=== PATIENT | female | born 1955 | race Caucasian/White ===

== ENCOUNTER → 2017-03-24 | Outpatient (CLI) | payer BC, OTHER ==
[~2017-03-24] MED LIST: ALL180 PO; ALLDSR/24; CALCTAB5 PO; CHOLTAB3 PO; LSX20 PO; tribenzor
--- NOTE | 2017-03-25 05:55 | PAP/PSG TECHNICIAN REPORT ---
[facility] Cartridge Maker Polysomnogram Report Study name: None Report date: 03/25/2017 Study date: 03/24/2017 Referring Physician: Name: ISABEL PAUL Interpreting Physician: Admin Date of : 1955 Cartridge Maker: Marisel Alexander, PSGT. Sex: Female Age: 61 StudyType: PSG Weight: 208 lbs Height: 61 years, Height 5' 6.5" Neck Circum:16 inches BMI: 33.07 Medications: Astovastatin 20 mg, Amlodipine 5 mg, Gabapentin 300 mg, Losartan 25 mg, Furosemide 20 mg, Aspirin 81 mg. Patient History 61 yr. old female in room 5, presents [facility] for split night sleep study. states that she snores and feels like she sleeps alot.Does not always feel refreshed when she wakes for the day.Ess= 8, Neck = 16 inches. Parameters Monitored NPSG: E1-M2, E2-M1, Fp1-M2, Fp2-M1, F3-M2, F4-M2, F4-M1, C3-M2, C4-M2, C4-M1, O1-M2, O2-M2, O2-M1, T3-M2, T4-M1, P3-M2, P4-M1, CHIN1, CHIN2, HR, EKG, Legs, PFLOW, SNOR, FLOW, CFLOW, Tidal Volume, THOR, ABDO, SpO2, PLTH, CPRESS, ETCO2 Wave, ETCO2, pH Sleep Architecture Sleep Stages Time at Lights Off 9:38:53 PM STAGES Time (min.) TST (%) Time at Lights On 5:28:53 AM Wake 82.0 -- Total Recording Time (TRT) 470.50 min. N1 8.5 2 Total Sleep Period (TSP) 404.5 min. N2 304.5 78 Total Sleep Time (TST) 388.0min. N3 13.5 3 Awake Time 82.0 min. REM 61.5 16 Wake after Sleep Onset 16.5 min. Sleep Efficiency (SE) 83 % Sleep Onset Latency (JOSH) 65.5 min. Number of Stage 1 Shifts None Awakenings 4 Stage Changes 27 Number of REM periods 4 REM 61.5 16 REM Latency 76.0 min. NREM 326.5 84 Body Position Analysis Supine Right Left Side Prone Vertical Total Sleep Time (min.) 331.4 32.5 90.0 122.50 0.0 0.2 Total Sleep Time (%) 68% 8% 23% 32 0% N/A% Total Sleep Time REM (min.) 38.5 8.0 15.0 None 0.0 0.0 Total Sleep Time NREM (min.) 227.0 24.5 75.0 None 0.0 0.0 Intermittent Wake (min.) 65.9 7.7 8.2 None 0.0 0.2 Total Sleep Period (%) 69% None None None None None Arousals Myoclonus (PLM) * Events Count Index Events Count Index Spontaneous 17 3 Events Awake (PLMW) 1 0.7 Respiratory 14 2.2 Events Asleep w/ Arousal (PLMA) 2 0.3 PLM 2 0 Events Asleep w/o Arousal (PLMS) 58 9.0 Snoring 19 3 Total Asleep 60 9.3 Total 52 8 Total 61 8 Respiratory Analysis * CA OA MA CH H RERA Total Count 0 12 2 0 108 0 122 Index 0.0 1.9 0.3 0 16.7 0 18.9 Mean Duration 0.0 32.3 34.9 0.00 27.3 0.0 27.9 Longest Duration 0.0 52.7 46.2 0.00 46.2 0.0 53.6 Respiratory Event Summary Total Supine ~Supine Right Left Prone REM NREM Apneas Count 14 14 0 0 0 N/A 0 14 Index 2.2 3 0 0.0 0.0 N/A 0 3 Hypopneas (4% Desat) Count 108 89 19 0 19 N/A 13 95 Index 16.7 20.1 9 0.0 12.7 N/A 12.7 17.5 Apneas & All Hypopneas Count 122 103 19 0 19 N/A 13 109 Index 18.9 23 9 0 13 N/A 12.7 20.0 Respiratory Events (Horseradish Grinder+All Hyp+RERA) Count 122 103 19 0 19 N/A 13 109 Index 18.9 23 9 0.0 12.7 N/A 12.7 20.0 Respiratory Related Arousal Count 14 103 0 0 0 N/A 0 14 Index 2.2 3 0 0 0 N/A 0 3 Snoring Analysis Supine Right Left Prone REM NREM Total Snore duration 51.1 min Snores count 1,453 61 506 N/A 258 1,762 2,020 Snore mean duration 1.5 Sec Snores index 328 113 337 N/A 251.7 323.8 312.4 TST with snoring (%) 13.2% SpO2 Analysis Total REM NREM Awake <50% 0.0 min. 0.0 min. 0.0 min. 0.0 min. 51 - 60% 0.0 min. 0.0 min. 0.0 min. 0.0 min. 61 - 70% 0.0 min. 0.0 min. 0.0 min. 0.0 min. 71 - 80% 0.2 min. 0.0 min. 0.2 min. 0.0 min. 81 - 90% 237.3 min. 14.9 min. 194.3 min. 28.1 min. 91 - 100% 230.8 min. 46.6 min. 130.7 min. 53.4 min. Average 90 91 90 91 Minimum SpO2 79 86 79 85 Desaturation Event Index 17.1 11.7 22.4 0.0 # Desat. Events below 89% 98 8 90 N/A Time(%) with Saturation below 89% 24.0 1.2 19.6 3.3 Time(min.) with Saturation below 89% 112.6 5.4 91.6 15.6 Heart Rate Analysis End Tidal CO2 Analysis Min (bpm) Max (bpm) Average (bpm) TSP (mins) % of TSP Awake 54 91 67 Above 55 mmHg 0.0 0.0 NREM 48 127 60 50-55 mmHg 0.0 0.0 REM 55 79 61 45-50 mmHg 15.3 3.9 Overall 48 127 60 40-45 mmHg 157.5 40.6 35-40 mmHg 108.5 28.0 30-35 mmHg 45.9 11.8 Average ETCO2 0.4 Supplemental O2 Values Minimum O2 level: None Value Start Time End Time Cartridge Maker Comments PSG Study MS. Paul slept in the right, left, supine positions. No cardiac arrhythmia or PLM's noted. No bruxism noted. Snoring was noted and scored as a 3 on a scale of 1 through 5. (0=no snoring, 5=snoring loud enough to be heard through a closed door or down the [address] way) Ms. Paul awoke to use the restroom zero times during the night. stated, I did not sleep as well as I do when I am in my own bed. The final report will be interpreted and signed by a sleep physician. The completed physician report will then be placed in the patient medical record. Therapy (cm H2O) 0 TIB (min.) 470.0 TST (min.) 388.0 Sleep Onset (min.) 65.5 REM Onset From Sleep (min.) 76.0 Sleep Efficiency % 83 Wakefulness (%) 17 Wakefulness (min.) 82.0 NREM 1 (%) 2 NREM 1 (min.) 8.5 NREM 2 (%) 78 NREM 2 (min.) 304.5 NREM 3 (%) 3 NREM 3 (min.) 13.5 REM (%) 16 REM (min.) 61.5 # Arousals 52 Arousal Index 8 # Snore 2,020 Snore Index 312.4 AHI 18.9 AHI Supine 23 AHI Non-Supine 9 NREM AHI 20.0 REM AHI 12.7 RDI 18.9 # Obstructive Apnea 12 # Central Apnea 0 # Mixed Apnea 2 # Hypopneas 108 RERAs 0 Total Respiratory Events 122 Time Below SpO2 89% (min.) 97.0 Mean NREM SpO2 (%) 90 Mean REM SpO2 (%) 91 Mean Sleep SpO2 (%) 90 Min NREM SpO2 (%) 79 Min REM SpO2 (%) 86 Position Supine (min.) 331.4 Position Non-supine (min.) 122.5 LM Index Sleep 9.3 LM Index NREM 9.2 LM Index REM 9.8 Mean Heart Rate (bpm) 60 Min Heart Rate (bpm) 48
== END | disposition home or self-care (01) ==
LOC: C.NEUR 21:00
PROVIDERS: ATTEND Family Medicine
DX: G47.10 Hypersomnia, unspecified (principal); R06.83 Snoring; E66.9 Obesity, unspecified; G47.33 Obstructive sleep apnea (adult) (pediatric)

== ENCOUNTER 2024-03-26 17:31 | Inpatient (IN) ==
--- OUTSIDE RECORDS SUMMARY | 2024-03-26 17:37 | External Medical Summary | Summary of Care ---
Author Name Unknown Organization [facility] Address [address] [address] Phone [phone] Care Team Providers Care Hris Developer Name Role Phone Chi Silvestre DO Primary Care Provider [phone] Reason for Visit * Reason Onset Date Comments Follow Up 03/02/202403/02 Encounter Details Date Type Department Care Team (Late st Contact Info) Description 03/02/2024 Telephone Family Practice [address] [facility] [address] [place] [id number] Chi Silvestre DO [address] [place] [address] Follow Up (03/02) Allergies Active Allergy Reactions Criticality Noted Date Comments Bacitracin 01/09/2020 Diphenhydramine Hcl Rash 12/02/2007 Neomycin-Bacitracin Zn-Polymyx 08/02 Other - Drugs Itching,Rash 01/30/2010 Dermabond Penicillins Edema Other 10/15/2006 Polymyxin B 01/09/2020 documented as of this encounter (statuses as of 03/02/2024) Medications Medication Sig Dispensed Refills Start Date End Date Status aspirin 81 MG chewable tabletIndications:Ch ronic sinusitis, unspecified location Take 1 Tablet by mouth in the morning. with food.. 100 Tab 5 06/20/2015 Active Cholecalciferol (VITAMIN D-3) 5000 units Tablet Take 1 Tablet by mouth in the morning. Active CPAP every night at bedtime. Active OneTouch Delica Lancets 33G Use to test sugars daily - E11.9 100 Each 3 10/14/2022 Active Fluticasone Propionate 50 MCG/ACT Nasal Suspension (Flonase)Indications :Seasonal allergic rhinitis due to pollen Administer 2 Sprays into each nostril in the morning. 48 g 3 06/10/2023 Active amLODIPine Besylate 2.5 MG Oral Tablet (Norvasc)Indications :HTN, goal below 140/90 TAKE 1 TABLET BY MOUTH IN THE MORNING. 100 Tablet 3 06/16/2023 06/15/2024 Active Albuterol Sulfate HFA 108 (90 Base) MCG/ACT Inhalation Aerosol SolutionIndications: Intermittent asthma with reliever use up to twice per week, uncomplicated INHALE TWO PUFFS BY MOUTH EVERY 4 HOURS NEEDED FOR WHEEZING 54 g 3 08/14/2023 Active metFORMIN HCl ER 500 MG Oral Tablet Extended Release 24 Hour (Glucophage XR) TAKE ONE TABLET BY MOUTH EVERY DAY 100 Tablet 3 09/09/2023 09/08/2024 Active OneTouch Verio In Vitro Strip (Glucose Blood) USE TO TEST SUGARS DAILY 100 Strip 3 10/24/2023 10/23/2024 Active OneTouch Delica Plus [id number] USE TO TEST SUGARS DAILY 100 Each 3 10/24/2023 10/23/2024 Active Atorvastatin Calcium 40 MG Oral Tablet (Lipitor)Indications :Dyslipidemia, goal LDL below 100 TAKE ONE TABLET BY MOUTH EVERY MORNING 100 Tablet 3 10/28/2023 10/27/2024 Active Furosemide 20 MG Oral Tablet (Lasix)Indications:V enous insufficiency TAKE ONE TABLET BY MOUTH EVERY DAY IN THE MORNING 100 Tablet 3 11/07/2023 11/06/2024 Active Losartan Potassium 100 MG Oral Tablet (Cozaar)Indications: HTN, goal below 140/90 Take 1 Tablet by mouth in the morning. 30 Tablet 5 11/24/2023 Active Montelukast Sodium 10 MG Oral Tablet (Singulair)Indicatio ns:Asthma in adult, mild intermittent, uncomplicated Take 1 Tablet by mouth at bedtime. 30 Tablet 2 12/15/2023 03/15/2024 Active documented as of this encounter (statuses as of 03/02/2024) Active Problems Problem Noted Date Diagnosed Date COLT (obstructive sleep apnea) 04/09/2022 Obesity, Class I, BMI 30.0-34.9 (see actual BMI) 04/09/2022 Pulmonary nodules 04/09/2022 Sensitivity to medication 12/26/2020 Osteoporosis 10/31/2019 Prediabetes 11/10/2017 Overview: Per Prediabetes protocol #1 Dyslipidemia, goal LDL below 100 12/24/2015 Vitamin D deficiency 07/08/2011 INTERMITTENT ASTHMA WITH RELIEVER USE UP TO TWIC E PER WEEK 03/21/2010 Overview: PER PROVIDER PROTOCOL. HTN, goal below 140/90 10/15/2007 documented as of this encounter (statuses as of 03/02/2024) Resolved Problems Problem Noted Date Diagnosed Date Resolved Date Sacroiliitis, not elsewhere classified 12/23/2018 10/09/2021 Overweight (BMI 25.0-29.9) 03/18/2012 0 04/09/2022 Migraine without aura 07/08/20112017 Asthma with severity to be determined 03/21/2010 08/10/2012 Overview: Per Asthma Taxonomy ICD-10 update of inactive term Family history of malignant neoplasm of ovary 03/28/20 08 06/10/2018 Family hx-breast malignancy 03/28/2008 06/10/2018 Asthma, allergic 10/13/2007 03/21/2010 ADVANCE DIRECTIVE INFORMATION 12/22/2006 06/04/2017 Overview: No, Advance Directive brochure offered , patient declined. MALIGN NEOPL BREAST NEC 10/15/200603/2017 documented as of this encounter (statuses as of 03/02/2024) Immunizations Name Administration Dates Next Due COVID-19 mRNA, LNP-s, No Pre serve, 2-Dose Series (Moderna) 11/18/2020,10/20/2020 COVID-19, MRNA-LNP, 23-24, P F, 30 MCG/0.3 mL, 12 YRS AND ABOVE, IM (PFIZER-Comirnat) 11/10/2023 COVID-19, mRNA, LNP-s, PF, B ooster, 100mcg/0.5mg (Moderna) 08/28/2021 Covid-19, Mrna, Lnp-s, Pf, B ivalent, 30 Mcg, IM, 12 yrs and above (Pfizer) 08/12/2022 Pneumococcal Conjugate Vacc, 13 Valent (Prevnar) 06/10/2018 Pneumococcal Polysaccharide PPV23 (Pneumovax) 10/09/2022,12/04/2016 RSV Vac., Bivalent, Perfusio n F, Pf,0.5 Ml (Abrysvo) 11/10/2023 Seasonal Influenza, PF, 6 M & above, IM , (FluLaval or Fluzone) 06/21/2020,06/23/2019,06/10/2018 Seasonal Influenza, Quadriva lent Hd (Fluzone Hd) 08/28/2023 Seasonal Influenza, Quadriva lent Hd, 65+ Yrs 08/01/2022,08/04/2021 Seasonal Influenza, Quadriva lent, No Preserve, IM 07/23/2016,07/20/2015 Seasonal Influenza, Split, I IV3, With Preserve, Inj 07/20/2017,08/28/2014,07/19/2012,07/08 TDAP (age 10 and older)(Boostrix) 02/29/2024,07/2014 TDAP, Age 7 and older, IM (Adacel) 07/08/2011 Zoster Vaccine Recombinant (Shingrix) 04/08/2022 ,10/09/2021 documented as of this encounter Social History Tobacco Use Types Packs/Day Years Used Date Smoking Tobacco: Never Passive Smoke Exposure: Never Smokeless Tobacco: Never Alcohol Use Standard Drinks/Week Comments Yes 0 (1 standard drink = 0.6 oz pur e alcohol) very rarely PHQ-2 Answer Date Recorded PHQ Adult Total Score 0 06/23/2023 Hunger Vital Sign Answer Date Recorded Within the past 12 months, y ou worried that your food would run out before you got the money to buy more. Never true 06/23/20 23 Within the past 12 months, t he food you bought just didn't last and you didn't have money to get more. Never true 06/23/2023 Sex and Gender Information Value Date Recorded Sex Assigned at Female 10/09/2021 10:59 AM EST Gender Identity Female 10/09/2021 10:59 AM EST Sexual Orientation Straight 10/09/2021 10 :59 AM EST Job Start Date Occupation Industry Not on file Not on file Not on file documented as of this encounter Miscellaneous Notes * Telephone Encounter - Liz Camargo RN - 03/02/2024 3:58 PM EDT Call to pt-states the cyst in her groin in getting smaller-is using the warm compresses and black salve-much smaller than it was-not as tender. States the tightness in her abdomen is getting better also. Told to continue to monitor and if any further problems to call and will schedule an appt-pt agreeable. * Telephone Encounter - Aida Kim OSA - 03/02/2024 3:20 PM EDT Pt returned call-nurse not available. * Telephone Encounter - Liz Camargo RN - 03/02/2024 1:57 PM EDT Follow up call-pt in for AWV 2 days ago. Had cyst in right groin. Was having tightness in abdomen. Was told to use warm compresses and see if improves. Call to pt-not available-left message to have her call back at [phone] documented in this encounter Plan of Treatment Upcoming Encounters Date Type Department Care Team (Late st Contact Info) Description 05/06/2024 10:40 AM EDT Office Visit Family Practice [address] [facility] [place] [address] [place] [phone] Chi Silvestre DO [address] [place] [address] 10/17/2024 1:00 PM EST Imaging Radiology, [facility] [address] [facility] [address] [place] [address] 01/19/2025 10:30 AM EDT Office Visit Rheumatology Kirt Faustin [address] [place] [address] Jewel Irizarry PA-C [facility] [place] [address] Scheduled Procedures Name Priority Associated Diagnoses Date/Ti me COLONOSCOPY FLEXIBLE PROXIMAL DIAGNOSTIC Recall History of colon polyps Health Maintenance Due Date Last Done Comments Cologuard 1998 Sigmoidoscopy 1998 Fecal Occult Blood Test 01/05/2009 01/06/2008 *NEPHROLOGY REFERRAL DUE TO RESISTANT HTN 01/07/2024 COVID-19 Vaccine ( season) 2024 11/10/2023, 08/12/2022, 08/28/2021, Additional history exists DXA Scan 10/06/2024 10/06/2022, 05/2023, 07/02/2020, Additional history exists GFR 01/04/2025 01/05/2024, 07/30, 08/14/2023, Additional history exists HbA1c 01/04/2025 01/05/2024, 09/2022, 04/08/2023, Additional history exists Mammogram 02/14/2025 02/15/2024, 01/26, 02/11/2023, Additional history exists Depression Screening 02/28/2025 02/29/2024 Albumin/Creatinine Ratio 10/09/2025 10/09/2022 Colonoscopy 08/29/2027 08/29/2022, 10/2021, 06/19/2017, Additional history exists Colorectal Cancer Screening 08/29/2027 Lipid Panel 04/08/2028 04/08/2023, 09/28, 10/09/2021, Additional history exists DTaP,Tdap,and Td Vaccines (4 - Td or Tdap) 02/28/2034 02/29/2024, 01/06/2014, 07/08/2011 Zoster Vaccines Completed 04/08/2022, 10/09/2021 RETIRED - COLONOSCOPY-EVERY 5 YRS AGES 18-100 Discontinued 08/29/2022, 08/29/2022, 06/19/2017, Additional history exists Pneumococcal Vaccine: 65+ Years Completed 10/09/2022, 06/10/2018, 12/04/2016 VITAMIN D LEVEL ONCE IN A LIFETIME-USE SMARTSET# [id number] Completed 10/09/2022, 12/03/2020, 09/11/2018, Additional history exists Influenza Vaccine (FLU shot) Completed 08/28/2023, 08/01/2022, 08/04/2021, Additional history exists GARDASIL-HPV IMMUNIZATION SERIES Aged Out No longer eligible based on patient's age to complete this topic Hepatitis B Aged Out No longer eligi ble based on patient's age to complete this topic MENINGOCOCCAL (MENACTRA/MENVEO) Aged Out No longer eligible based on patient's age to complete this topic documented as of this encounter Medical Devices Implanted Type Area Asset Accountant Device Identifier Shelf Expiration Date Model / Serial / Lot Implant On The Fly - [id number] Implanted:Qty: 1 on 10/13/2007 at [place] [facility] [place] N/A: Abdomen LIFE CELL DONN 05/13/2009 [id number] / / [id number] Description:Alloderm 16x20 . 79-2.03 Implant Breast Haven+ [id number] - [id number] Implanted:Qty: 1 on 07/13/2009 at [facility] [place] [facility] Right: Breast MENTOR DONN 10/29/2011 [id number] / [id number] / documented as of this encounter Advance Directives * Full Code (Latest Code Status on File) Date Activated Date Inactivated Comments 07/13/2009 3:24 PM 07/14/2009 4:16 PM This order reflects the patients wishes and were consensually agreed upon. * Full Code Date Activated Date Inactivated Comments 10/13/2007 7:50 PM 10/16/2007 3:07 PM Care Teams Hris Developer Relationship Specialty Start Date End Date Chi Silvestre DO [address] [facility] [place] [address] PCP - General Internal Medicine 10/09/21 documented as of this encounter
--- OUTSIDE RECORDS SUMMARY | 2024-03-26 17:37 | External Medical Summary | Summary of Care ---
Author Name Unknown Organization [facility] Address [address] [facility] [address] Phone [phone] Care Team Providers Care Head Of Global Strategic Partnerships Name Role Phone Chi Silvestre DO Primary Care Provider [phone] Reason for Visit * Reason Onset Date Comments Adult Annual Wellness Visit, Subsequent Visit Immunizations 02/29/2024 Adult Annual Wellness Visit, Subsequent Visit Encounter Details Date Type Department Care Team (Late st Contact Info) Description 02/29/2024 10:00 AM EDT Nurse Only Ancillary [address] [address] College, Nurse Annual Wellness Visit [address] [address] Adult Annual Wellness Visit, Subsequent Vi... Allergies Active Allergy Reactions Criticality Noted Date Comments Bacitracin 01/09/2020 Diphenhydramine Hcl Rash 12/02/2007 Neomycin-Bacitracin Zn-Polymyx 08/02 Other - Drugs Itching,Rash 01/30/2010 Dermabond Penicillins Edema Other 10/15/2006 Polymyxin B 01/09/2020 documented as of this encounter (statuses as of 02/29/2024) Medications Medication Sig Dispensed Refills Start Date [...] 3 10/24/2023 10/23/2024 Active OneTouch Delica Plus [id number] USE TO TEST SUGARS DAILY 100 Each [...] bedtime. 30 Tablet 2 12/15/2023 03/15/2024 Active Zdxmrpd-Hrklmf-Biozt Pertussis 5-2.5-18.5 LF-MCG/0.5 Suspension Prefilled Syringe (Boostrix)Indication s:Need for amxrvqludz-fjiecyo-o ertussis (Tdap) vaccine Inject 0.5 mL into a large muscle once for 1 dose. 0.5 mL 02/29/2024 03/01/2024 Active documented as of this encounter (statuses as of 02/29/2024) Active Problems Problem Noted Date Diagnosed Date [...] as of this encounter (statuses as of 02/29/2024) Resolved Problems Problem Noted Date Diagnosed Date [...] , patient declined. MALIGN NEOPL BREAST NEC 10/15/2006 09/0 03/2017 documented as of this encounter (statuses as of 02/29/2024) Immunizations Name Administration Dates Next Due COVID-19 mRNA, LNP-s, No Pre serve, 2-Dose Series (Moderna) 11/18/2020,10/20/2020 COVID-19, MRNA-LNP, 23-24, P F, 30 MCG/0.3 mL, 12 YRS AND ABOVE, IM (PFIZER-Comirnaty) 11/10/2023 COVID-19, mRNA, LNP-s, PF, B ooster, [...] on file documented as of this encounter Last Filed Vital Signs Vital Sign Reading Time Taken Comments Blood Pressure 132/82 02/29/2024 10:21 AM EDT Pulse 70 02/29/2024 10:21 AM EDT Temperature 36.8 C (98.3 F) 02/29/2024 10:21 AM E DT Respiratory Rate - - Oxygen Saturation 96% 02/29/2024 10:21 AM EDT Inhaled Oxygen Concentration - - Weight 90.5 kg (199 lb 8 oz) 02/29/2024 10:21 AM EDT Height 167.6 cm (5' 6") 02/29/2024 10:21 AM EDT Body Mass Index 32.2 02/29/2024 10:21 AM EDT documented in this encounter Patient Instructions * Patient Instructions* Liz Camrago RN - 02/29/2024 10:18 AM EDT ~~PATIENT INSTRUCTIONS FOR TDAP VACCINE~~ Possible side effects of TDAP vaccine, (tetanus shot), are usually mild and can include: 1. Soreness or redness at injection site 2. Low grade fever 3. Body aches You may use a fever / pain reducing medication as needed for these symptoms. LET YOUR DOCTOR KNOW IMMEDIATELY IF YOU HAVE DIFFICULTY BREATHING OR SWALLOWING, EXPERIENCE ITCHINGOF FEET OR HANDS, HAVE SWELLING OF EYES, FACE OR INSIDE OF NOSE. Hi Ms. Barajas, As your primary care physician, I know that regular visits with my patients who have several chronic conditions can go a long way in helping you stay healthy. Many times, the clinic team and I are in touch with you and/or other care team members between office visits to adjust medications, discuss any changes in your health, and review our care plan to make sure it is still meeting your needs. I am dedicated to helping you take a more active role in your overall care. It is important that there are resources available to you, so I created a personalized plan of care with a Health Calendar for you, which is included on the next page of this letter. Below is a list that summarizes your electronic health record: Health Maintenance Due: Health Maintenance Due Topic Date Due DTaP,Tdap,and Td Vaccines (3 - Td or Tdap) 01/07/2024 *NEPHROLOGY REFERRAL DUE TO RESISTANT HTN Never done Current Medication List: (as of Visit date not found (in office), Visit date not found (telemedicine) ) Current Outpatient Medications Medication Sig Dispense Refill aspirin 81 MG chewable tablet Take 1 Tablet by mouth in the morning. with food.. 100 Tab 5 Cholecalciferol (VITAMIN D-3) 5000 units Tablet Take 1 Tablet by mouth in the morning. CPAP every night at bedtime. Fluticasone Propionate 50 MCG/ACT Nasal Suspension (Flonase) Administer 2 Sprays into each nostril in the morning. 48 g 3 amLODIPine Besylate 2.5 MG Oral Tablet (Norvasc) TAKE 1 TABLET BY MOUTH IN THE MORNING. 100 Tablet 3 metFORMIN HCl ER 500 MG Oral Tablet Extended Release 24 Hour (Glucophage XR) TAKE ONE TABLET BYMOUTH EVERY DAY 100 Tablet 3 Atorvastatin Calcium 40 MG Oral Tablet (Lipitor) TAKE ONE TABLET BY MOUTH EVERY MORNING 100 Tablet 3 Furosemide 20 MG Oral Tablet (Lasix) TAKE ONE TABLET BY MOUTH EVERY DAY IN THE MORNING 100 Tablet 3 Losartan Potassium 100 MG Oral Tablet (Cozaar) Take 1 Tablet by mouth in the morning. 30 Tablet5 Montelukast Sodium 10 MG Oral Tablet (Singulair) Take 1 Tablet by mouth at bedtime. 30 Tablet 2 OneTouch Delica Lancets 33G Use to test sugars daily - E11.9 100 Each 3 Albuterol Sulfate HFA 108 (90 Base) MCG/ACT Inhalation Aerosol Solution INHALE TWO PUFFS BY MOUTH EVERY 4 HOURS NEEDED FOR WHEEZING 54 g 3 OneTouch Verio In Vitro Strip (Glucose Blood) USE TO TEST SUGARS DAILY 100 Strip 3 OneTouch Delica Plus [id number] USE TO TEST SUGARS DAILY 100 Each 3 No current facility-administered medications for this visit. Current List of Allergies: (as of Visit date not found (in office), Visit date not found (telemedicine) ) Review of patient's allergies indicates: Allergen Reactions Bacitracin Diphenhydramine Hcl Rash Neosporin [Neomycin-Bacitracin Zn-Polymyx] Other - Drugs Itching and Rash Dermabond Pcn [Penicillins] Edema Other Polymyxin B Most Recent Lab Results: Results for orders placed or performed in visit on 01/05/24 VITAMIN B12 Result Value Ref Range Vitamin B12 1,302 (H) 232 - 1,245 pg/mL COMPREHENSIVE METABOLIC PANEL Result Value Ref Range BUN 17 6 - 20 mg/dL Creatinine 0.7 0.5 - 1.0 mg/dL Estimated Glomerular Filtration Rate 87 >=60 mL/min Sodium 141 135 - 146 mmol/L Potassium 4.2 3.5 - 5.1 mmol/L Chloride 102 98 - 107 mmol/L CO2 25 22 - 32 mmol/L Anion Gap 14 7 - 15 mmol/L Glucose 104 70 - 120 mg/dL Albumin 5.0 3.8 - 5.0 g/dL AST 25 10 - 35 U/L Alkaline Phosphatase 122 35 - 130 U/L Bilirubin, Total 0.6 <=1.2 mg/dL Calcium 10.0 8.4 - 10.2 mg/dL Protein 7.3 6.0 - 8.3 g/dL ALT 24 10 - 35 U/L HEMOGLOBIN A1C Result Value Ref Range Hemoglobin A1C 6.0 (H) 4.0 - 5.6 % Estimated Average Glucose 126 (H) <126 mg/dL *Note: Due to a large number of results and/or encounters for the requested time period, some results have not been displayed. A complete set of results can be found in Results Review. Sincerely, Chi Silvestre, DO 02/29/2024 [employer] Calendar (as of Visit date not found (in office), Visit date not found (telemedicine) ) Care needs Care needs Last completed Due next Diphtheria, tetanus & pertussis vaccines (3 - Td or Tdap) 01/06/2014 01/07/2024 Discussion about referral to a hypertension specialist --- Never done COVID-19 Vaccine ( season) 2023 03/10/2024 Bone Density 10/06/2022 10/06/2024 A1C blood sugar test 01/05/2024 01/04/2025 Kidney Function Test 01/05/2024 01/04/2025 Mammogram 02/15/2024 02/14/2025 Urine albumin/creatinine test 10/09/2022 10/09/2025 Colorectal cancer screening (colonoscopy 10 years, sigmoidoscopy 5 years, Cologuard 3 years, stool sample 1 year) 08/29/2022 08/29/2027 Lipid (cholesterol) disorder screening 04/08/2023 04/08/2028 As you look over the recommended services, be sure to check with your insurance company to determine what's covered. [employer] is a great tool that helps you review your medical record online, including test results, doctor notes and your health summary. You can also schedule appointments with me and other members of your care team, request prescription refills and ask for advice related to your medical conditions at [email or web address]. documented in this encounter Progress Notes * Liz Camargo RN - 02/29/2024 10:18 AM EDT Immunization Administration Documentation Time Out Procedure Performed: Yes Patient Identified (Ask Name/Date of ): Yes Does the patient have a fever greater than 101 degrees today? No Patient allergic to latex? No VFC Stock: No Immunization(s) verified: Yes, Immunization Name: Tdap (Boostrix), VIS Sheet(s) given: Yes Verified Side and Site: Yes Verified Shot(s) with Parent(s)/Patient: Yes Tdap covered under Medicare Part D, prescription order pended for physician to sign. Liz Camargo RN AD8 Dementia Screening Interview Person answering questions: patient Remember, "Yes, a change" indicates that there has been a change in the last several years caused by cognitive (thinking and memory) problems 1. Problems with judgement (eg: problems making decisions, bad financial decisions, problems with thinking). No (0) 2. Less interest in hobbies/activities. No (0) 3. Repeats the same things over and over (questions, stories, or statements). No (0) 4. Trouble learning how to use a tool, appliance, or gadget (eg: VCR, computer, microwave, remote control). No (0) 5. Forgets correct month or year. No (0) 6. Trouble handling complicated financial affairs (eg: balancing checkbook, income taxes, paying bills). No (0) 7. Trouble remembering appointments. No (0) 8. Daily problems with thinking and/or memory. No (0) TOTAL AD8: 0 - AD8 Dementia Screening Score The final score is a sum of the number items marked "Yes, A Change". 0 - 1: Normal cognition; 2 or greater: Cognitive impairments is likely to be present - further testing required Adult Annual Wellness Visit: Adam Barajas is a 68 year old female who presents for an Adult Annual Wellness Visit. Depression Screening: Did the patient complete the screening questionnaire for Depression? Yes Is the patient's total score for Depression 15 or greater? No, no further intervention needed, unless requested by patient. Did the patient answer positively to the suicide question? No, no further intervention needed, unless requested by patient. In general, compared to other people your age, what would you say that your health is? Very Good Ht Readings from Last 1 Encounters: 02/29/24 1.676 m (5' 6") Wt Readings from Last 1 Encounters: 02/29/24 90.5 kg (199 lb 8 oz) Body Mass Index: BMI Greater than 30 Body mass index is 32.2 kg/m. BP Readings from Last 1 Encounters: 02/29/24 132/82 Medical/Surgical/Family History Reviewed: Yes Past Medical History: Diagnosis Date Asthma Breast cancer (HCC) 2005 RT BREAST CA DM2 (diabetes mellitus, type 2) ([facility]) Encounter for breast reconstruction following mastectomy 2009 at [facility] - Dr Moreno Hypertensive heart disease Lung nodule Malignant neoplasm of female breast (HCC) 06/2006 right Breast Malignant neoplasm of other specified sites of female breast 10/15/2006 Overweight (BMI 25.0-29.9) 03/18/2012 Pulsatile tinnitus 04/23/2001 Dr. Teague Sensorineural hearing loss, bilateral 04/23/2001 Dr. Teague Sleep apnea, obstructive Undiagnosed cardiac murmurs Past Surgical History: Procedure Laterality Date ACELL DERM REPL,TRUNK/ARM/LEG,EA ADD 100 CM 10/13/2007 DERMAL REPLACEMENT ACELLULAR TRUNK ARMS LEGS ADDITIONAL 100SQ CM performed by DARCIE SINGH [place] [facility] ACELLULAR DERM REPL,TRUNK/ARM/LEG,100 SQ CM 10/13/2007 DERMAL REPLACEMENT ACELLULAR TRUNK ARMS LEGS 100SQ CM performed by DARCIE SINGH [place] [facility] [place] BREAST RECONSTRUCTION W/TRAM 10/13/2007 BREAST RECONSTRUCTION WITH TRAM FLAP performed by DARCIE SINGH at [place] [facility] COLONOSCOPY, DIAGNOSTIC (RECTUM) 04/16/2007 repeat in 10 years COLONOSCOPY, DIAGNOSTIC (RECTUM) 06/19/2017 adenomatous polyp, diverticulosis, repeat 5 yrs/COLONOSCOPY FLEXIBLE PROXIMAL DIAGNOSTIC performed by Jesse Reid MD at [facility] COLONOSCOPY, DIAGNOSTIC (RECTUM) 08/29/2022 diverticulosis sigmoid colon/recall 5 years/COLONOSCOPY FLEXIBLE PROXIMAL DIAGNOSTIC performed by Jesse Reid MD at [facility] DELAYED BREAST PROSTHESIS 07/13/2009 DELAYED INSERTION BREAST PROSTHESIS performed by DARCIE SINGH at [place] [facility] [place] EGD, FLEXIBLE, DIAGNOSTIC 04/16/2007 normal ENDOMETRIAL THERMAL ABLATE 2006 HYSTEROSCOPY,DIAGNOSTIC LIGATE/CUT OVIDUCT(S) 1975 MASTECTOMY,RADICAL Right 09/16/2006 MISCELLANEOUS ORDER ([facility] ONLY) 2008 Sinus polypectomy and uvula was tacked up for snoring. Dr. Sahu REDUCTION OF BREAST 01/09/2010 REDUCTION MAMMOPLASTY performed by DARCIE SINGH at [place] [facility] [place] REMOVE EXCESSIVE SKIN, OTHER AREA 10/18/2008 EXCISION EXCESSIVE SKIN AND SUBCUTANEOUS TISSUE OTHER performed by DARCIE SINGH at [place] [facility] REVISION OF BREAST RECONSTRUCTION 10/18/2008 REVISION OF BREAST RECONSTRUCTION performed by DARCIE SINGH at [place] [facility] REVISION OF BREAST RECONSTRUCTION 07/13/2009 REVISION OF BREAST RECONSTRUCTION performed by DARCIE SINGH [place] [facility] [place] RPR COMPX WND TRUNK 2.6-7.5CM 10/18/2008 REPAIR COMPLEX TRUNK 2.6 TO 7.5CM performed by DARCIE SINGH at [place] [facility] RPR,COMPLEX,TRUNK,EACH 5CM 10/18/2008 REPAIR COMPLEX TRUNK 5CM OR LESS performed by DARCIE SINGH at [place] [facility] SACROILIAC JOINT INJECT W/GUIDANCE 01/06/2019 INJECTION SACROILIAC JOINT performed by Acosta Glaser DO at OR [facility] SACROILIAC JOINT INJECT W/GUIDANCE 11/05/2020 INJECTION SACROILIAC JOINT performed by Acosta Glaser DO at OR [facility] SACROILIAC JOINT INJECT W/GUIDANCE 02/04/2021 INJECTION SACROILIAC JOINT performed by Acosta Glaser DO at OR [facility] SUCTION REMOVE FAT TISSUE, TRUNK 10/18/2008 SUCTION ASSISTED LIPECTOMY TRUNK performed by DARCIE SINGH at [place] [facility] SUCTION REMOVE FAT TISSUE, TRUNK 07/13/2009 SUCTION ASSISTED LIPECTOMY TRUNK performed by DARCIE SINGH at [place] [facility] TISSUE TRANSFER, LARGE/COMPLICATED 10/18/2008 ADJACENT TISSUE TRANSFER 30 PLUS SQ CM UNUSUAL performed by DARCIE SINGH at [place] [facility] [place] Family History Problem Relation Name Age of Onset Ovarian cancer Mother 43 at 43 Diabetes Mother Hypertension Mother Heart Disorder Father age 69 Diabetes Father Hypertension Father Leukemia Father Diabetes Sister Heart failure Sister Hypertension Sister Diabetes Sister Hyperlipidemia Sister Arthritis Daughter Diabetes Brother Lung cancer Brother Diabetes Brother Seizures Brother Hyperlipidemia Brother Diabetes Brother Hypertension Brother Diabetes Brother Other (thoracic aortic aneursym) Son Cancer Nephew 36 Has patient ever had cancer? History of cancer, type: breast cance and location: right breast Social History Tobacco Use Smoking status: Never Passive exposure: Never Smokeless tobacco: Never Substance Use Topics Alcohol use: Yes Comment: very rarely Vaping/E-Cigarette Use Vaping/E-Cigarette Use Never User Vaping/E-Cigarette Substances Nicotine No Other No Flavoring No THC No Cannabidiol (CBD) No Vaping/E-Cigarette Devices Disposable No Pre-filled or Refillable Cartridge No Refillable Tank No Pre-filled Pod No Tobacco/Alcohol screening completed today? Yes Hospital Care: Admissions (within the last year): Not Applicable ER within 30 days: No Does the patient have an Advance Directives/Living Will? No. Does the patient want information? No.Patient declined information-pt in process of doing at home Last Physical Exam: Last physical exam: 01/05/2024 Does patient see primary provider regularly? Yes Does patient see other providers? Yes, Specialist Patient Care Team updated? Yes Review of patient's allergies indicates: Allergen Reactions Bacitracin Diphenhydramine Hcl Rash Neosporin [Neomycin-Bacitracin Zn-Polymyx] Other - Drugs Itching and Rash Dermabond Pcn [Penicillins] Edema Other Polymyxin B Immunization History Administered Date(s) Administered COVID-19 mRNA, LNP-s, No Preserve, 2-Dose Series (Moderna) 10/20/2020, 11/18/2020 COVID-19, MRNA-LNP, 23-24, PF, 30 MCG/0.3 mL, 12 YRS AND ABOVE, IM ([facility]ZER- [facility]) 11/10/2023 COVID-19, mRNA, LNP-s, PF, Booster, 100mcg/0.5mg (Moderna) 08/28/2021 Covid-19, Mrna, Lnp-s, Pf, Bivalent, 30 Mcg, IM, 12 yrs and above (Pfizer) 08/12/2022 Pneumococcal Conjugate Vacc, 13 Valent (Prevnar) 06/10/2018 Pneumococcal Polysaccharide PPV23 (Pneumovax) 12/04/2016, 10/09/2022 RSV Vac., Bivalent, Perfusion F, Pf,0.5 Ml (Abrysvo) 11/10/2023 Seasonal Influenza, PF, 6 M & above, IM , (FluLaval or Fluzone) 06/10/2018, 06/23/2019, 06/21/2020 Seasonal Influenza, Quadrivalent Hd (Fluzone Hd) 08/28/2023 Seasonal Influenza, Quadrivalent Hd, 65+ Yrs 08/04/2021, 08/01/2022 Seasonal Influenza, Quadrivalent, No Preserve, IM 07/20/2015, 07/23/2016 Seasonal Influenza, Split, IIV3, With Preserve, Inj 07/08/2011, 07/19/2012, 08/28/2014, 07/20/2017 TDAP (age 10 and older)(Boostrix) 01/06/2014, 02/29/2024 TDAP, Age 7 and older, IM (Adacel) 07/08/2011 Zoster Vaccine Recombinant (Shingrix) 10/09/2021, 04/08/2022 Current Outpatient Medications Medication Sig Dispense Refill aspirin 81 MG chewable tablet Take 1 Tablet by mouth in the morning. with food.. 100 Tab 5 Cholecalciferol (VITAMIN D-3) 5000 units Tablet Take 1 Tablet by mouth in the morning. CPAP every night at bedtime. Fluticasone Propionate 50 MCG/ACT Nasal Suspension (Flonase) Administer 2 Sprays into each nostril in the morning. 48 g 3 amLODIPine Besylate 2.5 MG Oral Tablet (Norvasc) TAKE 1 TABLET BY MOUTH IN THE MORNING. 100 Tablet 3 metFORMIN HCl ER 500 MG Oral Tablet Extended Release 24 Hour (Glucophage XR) TAKE ONE TABLET BY MOUTH EVERY DAY 100 Tablet 3 Atorvastatin Calcium 40 MG Oral Tablet (Lipitor) TAKE ONE TABLET BY MOUTH EVERY MORNING 100 Tablet 3 Furosemide 20 MG Oral Tablet (Lasix) TAKE ONE TABLET BY MOUTH EVERY DAY IN THE MORNING 100 Tablet 3 Losartan Potassium 100 MG Oral Tablet (Cozaar) Take 1 Tablet by mouth in the morning. 30 Tablet 5 Montelukast Sodium 10 MG Oral Tablet (Singulair) Take 1 Tablet by mouth at bedtime. 30 Tablet 2 Hnxhbjv-Tuwmbt-Xwnlf Pertussis 5-2.5-18.5 LF-MCG/0.5 Suspension Prefilled Syringe (Boostrix) Inject0.5 mL into a large muscle once for 1 dose. 0.5 mL 0 OneTouch Delica Lancets 33G Use to test sugars daily - E11.9 100 Each 3 Albuterol Sulfate HFA 108 (90 Base) MCG/ACT Inhalation Aerosol Solution INHALE TWO PUFFS BY MOUTH EVERY 4 HOURS NEEDED FOR WHEEZING 54 g 3 LoopPayTouch Verio In Vitro Strip (Glucose Blood) USE TO TEST SUGARS DAILY 100 Strip 3 OneTouch Delica Plus Yfqdxf26G USE TO TEST SUGARS DAILY 100 Each 3 No current facility-administered medications for this visit. Patient Active Problem List Diagnosis HTN, goal below 140/90 Vitamin D deficiency INTERMITTENT ASTHMA WITH RELIEVER USE UP TO TWICE PER WEEK Dyslipidemia, goal LDL below 100 Prediabetes Osteoporosis Sensitivity to medication COLT (obstructive sleep apnea) Obesity, Class I, BMI 30.0-34.9 (see actual BMI) Pulmonary nodules Medication Compliance: Patient is able to obtain all of her medications? Yes Patient takes medications as prescribed? Yes Patient manages own medications: Yes Patient uses a pill box? Yes, refill(s) completed by self Dental Exam: Yes: Every 6 Months Eye Screening: Yes: Every year Are you having trouble with hearing? Yes Do you use an assistive device to help your hearing? Yes Exercise Screening: daily exercise-walks twice a day Nutrition Assessment: Eats a balanced diet and Eats three meals a day Pain Screening: Are you having any pain? No Sleep Screening Tool 'STOP': Do you snore? No Do you feel fatigued during the day? No Do you wake up feeling like you haven't slept? No Have you been told you stop breathing at night? Yes Do you gasp for air or choke while sleeping? No Have you been told you have Sleep Apnea? Yes Do you have high blood pressure or are on medication(s) to control high blood pressure? Yes SCORE: If you check YES to two or more questions, make a referral for Obstructive Sleep Apnea Pt diagnosed with sleep apnea and uses c-pap nightly-follows with sleep medicine Patient and Caregiver Support System: Patient lives with a spouse Means of Transportation: Drives. Not a concern. Patient lives in [place] Resources: Not Applicable Functional Status and ADL Skills: Has patient ever had an amputation? No Functional Assessment: 100- Normal, no complaints, no evidence of disease Ambulation: Patient ambulates without assistive device. Independent Dressing: Gets clothes and dresses without any assistance: Independent Able to move freely in chair or bed including turning over: Independent Repositioning (bed or chair): Not applicable Transfers: Independent Toileting: Goes to bathroom, uses toilet, arranges clothes and returns without any assistance: Independent Toileting: continent of bladder and continent of bowel Feeding: Self Bathing: Self; walk in shower,seat in shower, textured floor in shower, steps out onto a mat/rug Requires none assistance with ADLs. Instrumental ADL's: Shopping: Independent Housekeeping: Independent Handling Finances: Independent DME Vendor Name: [employer] for cpap supplies Fall Risk Assessment: Can the patient demonstrate that she can stand from a sitting position? Yes Has the patient had a fall within the last 6 months? No Does the patient have a problem with her gait or balance? No Does the patient take 4 or more prescription medicines? Yes Does the patient use sedatives or narcotics? No Fall Risk Factors Present: Uses more than 4 medications Older than age 70 Jgu-Xi-aga-Go Test: Time began at 10:00. Patient stood from sitting position and walked approximately 10 feet, returnedand sat down. Total time for atv-ib-uco-go test was 8.58 seconds. Skp-Mb-vfn-Go Test completed? Yes Gender Specific Preventative Plan: Health Maintenance Topic Date Due *NEPHROLOGY REFERRAL DUE TO RESISTANT HTN Never done COVID-19 Vaccine ( season) 2024 DXA Scan 10/06/2024 HbA1c 01/04/2025 GFR 01/04/2025 Mammogram 02/14/2025 Depression Screening 02/28/2025 Albumin/Creatinine Ratio 10/09/2025 Colorectal Cancer Screening 08/29/2027 Lipid Panel 04/08/2028 DTaP,Tdap,and Td Vaccines (4 - Td or Tdap) 02/28/2034 VITAMIN D LEVEL ONCE IN A LIFETIME-USE SMARTSET# [id number] Completed Influenza Vaccine (FLU shot) Completed Zoster Vaccines Completed Pneumococcal Vaccine: 65+ Years Completed Hepatitis B Aged Out MENINGOCOCCAL (MENACTRA/MENVEO) Aged Out GARDASIL-HPV IMMUNIZATION SERIES Aged Out RETIRED - COLONOSCOPY-EVERY 5 YRS AGES 18-100 Discontinued Follow Up/ Referrals/Handouts: No further action needed Routine general medical examination at a health care facility (Primary) Need for buhczqvmjc-bigftlf-kezpetcvh (Tdap) vaccine - TDAP (AGE 10 AND OLDER)(BOOSTRIX) - Ieriugu-Tenzgc-Hkrjc Pertussis 5-2.5-18.5 LF-MCG/0.5 Suspension Prefilled Syringe (Boostrix); Inject 0.5 mL into a large muscle once for 1 dose. Given today Pt has lump in her right groin-looks like a sebaceous cyst. No redness swelling noted around lump. Has been using black salve and seems to be helping. States feels like her abd is tight/swollen. No swelling noted abdomen soft to palpation. No swelling in feet. Denies SOB/chest discomfort. Had Dr Steiner take a look and she felt the same-told to use warm compresses. To monitor and call back if not improving or symptoms are worsening. Pt agreeable. Discussed doing a living will (pt has the paperwork)-to bring in a copy once completed to have scanned into her chart. Follow Up: Return in 1 year (on 02/28/2025) for 12 month Subsequent Adult Wellness Visit. | For: 12 month Subsequent Adult Wellness Visit | Check-out note: 12 month Subsequent Adult Wellness Visit Would patient like to schedule next AWV visit? Liz Camargo RN documented in this encounter Miscellaneous Notes * Pt Handout (on AVS) - Liz Camargo RN - 02/29/2024 10:38 AM EDT Images from the original note were not included. [id number] Preventing Falls: Making Changes in Your Living Space Is your living space filled with hazards that could cause you to fall? Changes can make you safer. They could even save your life. Take a careful look around your home. Change what you can on your own. Hire someone or ask friends or family to help with harder tasks. Be sure to add a nonslip mat to the inside of your shower or bathtub. Always keep a nightlight on. Keep a clear path from your bed to the bathroom. Move items from higher shelves to lower ones. Remove hazards Remove things that can trip you, like throw rugs, boxes, piles of paper, or cords. Nail down rugs or carpeting if you don't want to remove them. Use slip- resistant backing. Don't store items on stairs. Keep walkways clear. Clean up spills right away. Replace glass tables with wooden ones. They're safer if you fall. Add safety devices Add handrails to both sides of stairs. Buy a raised toilet seat. Add grab bars near the toilet and in the shower. Get grabbers to help you reach things and avoid climbing. Improve lighting Add nightlights to halls, bedrooms, and bathrooms. Put light switches at the top and bottom of stairs. Be sure each room and flight of stairs has proper lighting. Use shades or curtains to cut glare from windows. Put flashlights in each room. Replace burned-out bulbs. Get glowing light switches for room entrances. Take other precautions Use nonskid floor wax. Buy a nonslip mat and a liquid soap dispenser for the shower. Put most-used items within easy reach. Add bright paint or tape on the top front edge of steps. Save big jobs, such as moving furniture or other heavy objects, for family or friends. Get professional help installing grab bars. They can be unsafe if not installed the right way. Fix riskier rooms first Don't tackle everything at once. Focus on one room at a time. The bathroom is a common spot for falls, so you may want to start there. Or start with a room you spend lots of time in, such as your bedroom. Make only a few changes at once. This will give you time to adjust to them. Outside safety You might arrange for these changes yourself, or you might need to talk to your green building architect orhomeowners' association about them. Have loose boards on porches or damaged stairs repaired. Have rough edges, holes, or large cracks in sidewalks or driveways repaired. Remove hazards that could trip you, such as hoses or sunil. Use high-wattage light bulbs (100 gallo or greater) near outside doors and stairs. Add handrails to outside stairs. Have them extend beyond the bottom step. Get help in winter weather with ice or snow removal. Last Reviewed Date: 08/28/202219996261-7753 [employer]. All rights reserved. This information is not intended as a substitute for professional medical care. Always follow your healthcare professional's instructions. * Pt Handout (on AVS) - Liz Camargo RN - 02/29/2024 10:38 AM EDT 418112of Fall Prevention Falls often take place due to slipping, tripping, or losing your balance. Millions of people fall every year and injure themselves. Among older adults in the [place] falls are the most common cause of traumatic brain injuries. Every 20 minutes, an older adult dies from a fall. Here are ways to reduceyour risk of falling again: Think about your fall. Was there anything that caused your fall that can be fixed, removed, or replaced? Make your home safe by keeping walkways clear of objects you may trip over, such as electrical cords. Use nonslip pads under rugs. Don't use area rugs or small throw rugs. Use nonslip mats in bathtubs and showers. Hang grab rails by the toilet and inside and outside the shower. Install handrails and lights on staircases. The handrails should be on both sides of the stairs. Use night lights. Don't walk in poorly lit areas. Don't stand on chairs or wobbly ladders. Use care when reaching overhead or looking up. This position can cause a loss of balance. Be sure your shoes fit well, are in good condition, and have nonslip bottoms. Wear shoes both inside and outside of your home. Don't go barefoot or wear slippers. Be cautious when going up and down stairs, curbs, and when walking on uneven sidewalks. If your balance is poor, consider using a cane or walker. Talk with your healthcare provider about having a balance assessment. If your fall was related to alcohol use, stop or limit alcohol intake. Ask your provider for help if you think you may overuse alcohol and can't stop. If your fall was related to use of sleeping medicines, talk with your provider about this. You may need to reduce your dosage at bedtime if you wake up during the night to go to the bathroom. To reduce the need for nighttime bathroom trips: o Don't drink fluids for several hours before going to bed o Empty your bladder before going to bed o Men can keep a urinal at the bedside Stay as active as you can. Balance, flexibility, strength, and endurance all come from exercise.They all play a role in preventing falls. Ask your provider which types of activity are right for you. Try to do some type of exercise every day. Get your eyes checked once a year or more often if your vision changes If you have pets, know where they are before you stand up or walk so you don't trip over them. Go over all your medicines with a pharmacist or other provider. This is to see if any of them could make you more likely to fall. Have this type of medicine review at least once every year. If your provider advises a new medicine, ask if the side effects will affect your balance. Don't move quickly from one position to another. For instance, don't stand up fast from sitting.This can cause dizziness and may lead to a fall. Sit down when putting on pants, socks, and shoes. This will make you less likely to lose your balance and fall. Always let your provider know if you have fallen since your last visit. Contact your provider right away if you're having balance problems or falling more often. Last Reviewed Date: 09/28/202119993053-3489 [employer]. All rights reserved. This information is not intended as a substitute for professional medical care. Always follow your healthcare professional's instructions. documented in this encounter Plan of Treatment Upcoming Encounters Date Type Department Care Team (Late st Contact Info) Description 05/06/2024 10:40 AM EDT Office Visit Family Practice [address], [place] [address] [place] [address] Chi Silvestre, [address] [place] [address] 10/17/2024 1:00 PM EST Imaging Radiology, [address] [address] [place] [address] 01/19/2025 10:30 AM EDT Office Visit Rheumatology [id number] [place] [address] Jewel Irizarry PA-C [facility] [address] [employer] [place] [address] Scheduled Procedures Name Priority Associated Diagnoses Date/Ti [...] D LEVEL ONCE IN A LIFETIME-USE SMARTSET# 97134 Completed 10/09/2022, 12/03/2020, 09/11/2018, Additional history exists [...] this encounter Medical Devices Implanted Type Area Sap Bpc Architect Device Identifier Shelf Expiration Date Model / Serial / Lot Implant On The Fly - [id number] Implanted:Qty: 1 on 10[place]13[place] [facility] [place] Abdomen LIFE CELL DONN 05/13/2009 [id number] / / [id number] Description:Alloderm 16x20 . 79-2.03 Implant Breast Haven+ [id number] - [id number] Implanted:Qty: 1 on 07/13/2009 [place] [facility] [place] Right: Breast MENTOR DONN 10/29/2011 [id number] / [id number] / documented as of this encounter Visit Diagnoses Diagnosis Routine general medical examination at a health care facility- Primary Need for wnploaswjh-ikwrrii-bmxxmhoiq (Tdap) vaccine Need for prophylactic vaccination with combined ypftqckpfa-ycmkkgn-fgqyafazb (DTP) vaccine documented in this encounter Advance Directives * Full Code (Latest Code Status on File) Date Activated Date Inactivated Comments 07/13/2009 3:24 PM 07/14/2009 4:16 PM This order reflects the patients wishes and were consensually agreed upon. * Full Code Date Activated Date Inactivated Comments 10/13/2007 7:50 PM 10/16/2007 3:07 PM Care Teams Head Of Global Strategic Partnerships Relationship Specialty Start Date End Date Chi Silvestre DO [address] [place] [address] PCP - General Internal Medicine 10/09/21 documented as of this encounter
--- OUTSIDE RECORDS SUMMARY | 2024-03-26 17:37 | External Medical Summary | Summary of Care ---
Author Name Unknown Organization [facility] Address [address] [facility] [place] [address] Phone [phone] Care Team Providers Care Emulsification Operator Name Role Phone Chi Silvestre DO Primary Care Provider [phone] Reason for Visit * Reason Comments Medication Refill Encounter Details Date Type Department Care Team (Late st Contact Info) Description 03/22/2024 Refill Pulmonary Medicine, [facility] [address] [facility] [place] [address] John Padilla MD [address] [facility] [place] [address] Asthma in adult, mild intermittent, uncomplicated Allergies Active Allergy Reactions Criticality Noted Date Comments Bacitracin 01/09/2020 Diphenhydramine Hcl Rash 12/02/2007 Neomycin-Bacitracin Zn-Polymyx 08/02 Other - Drugs Itching,Rash 01/30/2010 Dermabond Penicillins Edema Other 10/15/2006 Polymyxin B 01/09/2020 documented as of this encounter (statuses as of 03/22/2024) Medications Medication Sig Dispensed Refills Start Date End Date Status aspirin 81 MG chewable tabletIndications:C hronic sinusitis, unspecified location Take 1 Tablet by mouth in the morning. with food.. 100 Tab 5 06/20/2015 Active Cholecalciferol (VITAMIN D-3) 5000 units Tablet Take 1 Tablet by mouth in the morning. Active CPAP every night at bedtime. Active OneTouch Delica Lancets 33G Use to test sugars daily - E11.9 100 Each 3 10/14/2022 Active Fluticasone Propionate 50 MCG/ACT Nasal Suspension (Flonase)Indication s:Seasonal allergic rhinitis due to pollen Administer 2 Sprays into each nostril in the morning. 48 g 3 06/10/2023 Active amLODIPine Besylate 2.5 MG Oral Tablet (Norvasc)Indication s:HTN, goal below 140/90 TAKE 1 TABLET BY MOUTH IN THE MORNING. 100 Tablet 3 06/16/2023 4 Active Albuterol Sulfate HFA 108 (90 Base) MCG/ACT Inhalation Aerosol SolutionIndications :Intermittent asthma with reliever use up to twice per week, uncomplicated INHALE TWO PUFFS BY MOUTH EVERY 4 HOURS NEEDED FOR WHEEZING 54 g 3 08/14/2023 Active metFORMIN HCl ER 500 MG Oral Tablet Extended Release 24 Hour (Glucophage XR) TAKE ONE TABLET BY MOUTH EVERY DAY 100 Tablet 3 09/09/2023 4 Active OneTouch Verio In Vitro Strip (Glucose Blood) USE TO TEST SUGARS DAILY 100 Strip 3 10/24/2023 5 Active OneTouch Delica Plus Qnmurt22O USE TO TEST SUGARS DAILY 100 Each 3 10/24/2023 5 Active Atorvastatin Calcium 40 MG Oral Tablet (Lipitor)Indication s:Dyslipidemia, goal LDL below 100 TAKE ONE TABLET BY MOUTH EVERY MORNING 100 Tablet 3 10/28/2023 5 Active Furosemide 20 MG Oral Tablet (Lasix)Indications: Venous insufficiency TAKE ONE TABLET BY MOUTH EVERY DAY IN THE MORNING 100 Tablet 3 11/07/2023 5 Active Losartan Potassium 100 MG Oral Tablet (Cozaar)Indications :HTN, goal below 140/90 Take 1 Tablet by mouth in the morning. 30 Tablet 5 11/24/2023 Active Montelukast Sodium 10 MG Oral Tablet (Singulair)Indicati ons:Asthma in adult, mild intermittent, uncomplicated Take 1 Tablet by mouth at bedtime. 30 Tablet 2 03/22/2024 4 Active Montelukast Sodium 10 MG Oral Tablet (Singulair)Indicati ons:Asthma in adult, mild intermittent, uncomplicated Take 1 Tablet by mouth at bedtime. 30 Tablet 2 12/15/2023 4 Discontinue d(Refill) documented as of this encounter (statuses as of 03/22/2024) Active Problems Problem Noted Date Diagnosed Date [...] as of this encounter (statuses as of 03/22/2024) Resolved Problems Problem Noted Date Diagnosed Date [...] as of this encounter (statuses as of 03/22/2024) Immunizations Name Administration Dates Next Due COVID-19 [...] the money to buy more. Never true 09/26/20 23 Within the past 12 months, t [...] encounter Miscellaneous Notes * Telephone Encounter - John Padilla MD - 03/22/2024 5:01 PM EDT Signed Prescriptions: Disp Refills Montelukast Sodium 10 MG Oral Tablet (Sing*30 Tab*2 Sig: Take 1 Tablet by mouth at bedtime. Authorizing Provider: OJHN PADILLA * Telephone Encounter - Tammy Veloz LPN - 03/22/2024 10:19 AM EDTPending Prescriptions: Disp Refills Montelukast Sodium 10 MG Oral Tablet (Sing*30 Tab*2 Sig: Take 1 Tablet by mouth at bedtime. documented in this encounter Plan of Treatment Upcoming Encounters Date Type Department Care Team (Late st Contact Info) Description 05/06/2024 10:40 AM EDT Office Visit Family Practice [address], [place] [address] [place] [address] Chi Silvestre, [address] [facility] [place] [address] 10/17/2024 1:00 PM EST Imaging Radiology, [address] [place] [address] 01/19/2025 10:30 AM EDT Office Visit Rheumatology [address] [place] [address] Jewel Irizarry PA-C [address] [place] [address] [place] [address] Scheduled Procedures Name Priority Associated Diagnoses Date/Ti me COLONOSCOPY FLEXIBLE PROXIMAL DIAGNOSTIC Recall History of colon polyps Health Maintenance Due Date Last Done Comments Cologuard 1998 Sigmoidoscopy 1998 Fecal Occult Blood Test 01/05/2009 01/06/2008 COVID-19 Vaccine ( season) 2024 11/10/2023, 08/12/2022, [...] D LEVEL ONCE IN A LIFETIME-USE SMARTSET# 43058 Completed 10/09/2022, 12/03/2020, 09/11/2018, Additional history exists [...] this encounter Medical Devices Implanted Type Area Heavy Duty Custodian Device Identifier Shelf Expiration Date Model / Serial / Lot Implant On The Fly - [id number] [place] [facility] [place] Abdomen LIFE CELL DONN 05/13/2009 [id number] / / [id number] Description:Alloderm 16x20 . 79-2.03 Implant Breast Haven+ [id number] - [id number] Implanted:Qty: 1 on 07/13/2009 [place] [facility] [place]: Breast MENTOR DONN 10/29/2011 [id number] / [id number] / documented as of this encounter Visit Diagnoses Diagnosis Asthma in adult, mild intermittent, uncomplicated documented in this encounter Advance Directives * Full Code (Latest Code Status on File) Date Activated Date Inactivated Comments 07/13/2009 3:24 PM 07/14/2009 4:16 PM This order reflects the patients wishes and were consensually agreed upon. * Full Code Date Activated Date Inactivated Comments 10/13/2007 7:50 PM 10/16/2007 3:07 PM Care Teams Emulsification Operator Relationship Specialty Start Date End Date Chi Silvestre DO PCP - General Internal Medicine 10/09/21 documented as of this encounter
--- OUTSIDE RECORDS SUMMARY | 2024-03-26 17:38 | External Medical Summary ---
Author Name Unknown Address Unknown Organization K01:[facility] [place] [address] [facility] [address] Laboratory Report Ordering Provider Test Date Status ALVARADO DOBSON 01/05/2024 10:19:09 Final Observation Date Value Abnormality Reference (Units ) Status HbA1C 01/05/2024 10:19:09 6.0 Above high normal 4. 0-5.6 (%) Final The use of HbA1c to monitor glycemic status is based on normal hemoglobin and HbA composition. This test should not be used in patients with abnormal hemoglobin that affects the half life of the red blood cell or the in vivo glycation rates. Glucose, estimated average 01/05/2024 10:19:09 126 Above high normal <126 (mg/dL) Kirby hammond Performing Location [facility] [place] [address] [facility] [address]
--- OUTSIDE RECORDS SUMMARY | 2024-03-26 17:38 | External Medical Summary | Summary of Care ---
Author Name Unknown Organization [facility] Address [address] [facility] [address] Phone [phone] Care Team Providers Care Civil Engineering Specialist Name Role Phone Chi Silvestre DO Primary Care Provider [phone] Reason for Visit * Reason Comments Medical Nutrition Therapy Encounter Details Date Type Department Care Team (Latest Contact Info) Description 12/09/2023 1:30 PM EDT Nutrition Services Nutrition Services [address] [address] Mariana Sutherland, EDWIN [address] [place] [address] Prediabetes*; Dyslipidemia, goal LDL below 100; HTN, goal below 140/90 Allergies Active Allergy Reactions Criticality Noted Date Comments Bacitracin 01/09/2020 Diphenhydramine Hcl Rash 12/02/2007 Neomycin-Bacitracin Zn-Polymyx 08/02 Other - Drugs Itching,Rash 01/30/2010 Dermabond Penicillins Edema Other 10/15/2006 Polymyxin B 01/09/2020 documented as of this encounter (statuses as of 12/09/2023) Medications Medication Sig Dispensed Refills Start Date End Date Status aspirin 81 MG chewable tabletIndications:Ch ronic sinusitis, unspecified location Take 1 Tablet by mouth in the morning. with food.. 100 Tab 5 06/20/2015 Active Cholecalciferol (VITAMIN D-3) 5000 units Tablet Take 1 Tablet by mouth in the morning. 0 Active CPAP every night at bedtime. 0 Active OneTouch Delica Lancets 33G Use to [...] DAY 100 Tablet 3 09/09/2023 09/08/2024 Active Montelukast Sodium 10 MG Oral Tablet (Singulair)Indicatio ns:Asthma in adult, mild intermittent, uncomplicated Take 1 Tablet by mouth at bedtime. 90 Tablet 0 09/24/2023 12/24/2023 Active OneTouch Verio In Vitro Strip (Glucose Blood) USE TO TEST SUGARS DAILY 100 Strip 3 10/24/2023 10/23/2024 Active OneTouch Delica Plus [id number] USE TO TEST SUGARS DAILY 100 Each [...] the morning. 30 Tablet 5 11/24/2023 Active documented as of this encounter (statuses as of 12/09/2023) Active Problems Problem Noted Date Diagnosed Date [...] as of this encounter (statuses as of 12/09/2023) Resolved Problems Problem Noted Date Diagnosed Date [...] , patient declined. MALIGN NEOPL BREAST NEC 10/15/20060 03/2017 documented as of this encounter (statuses as of 12/09/2023) Immunizations Name Administration Dates Next Due COVID-19 mRNA, LNP-s, No Pre serve, 2-Dose Series (Moderna) 11/18/2020,10/20/2020 COVID-19, MRNA-LNP, 23-24, P F, 30 MCG/0.3 mL, 12 YRS AND ABOVE, [facility] 11/10/2023 COVID-19, mRNA, LNP-s, PF, B ooster, [...] Inj 07/20/2017,08/28/2014,07/19/2012,07/08 TDAP (age 10 and older)(Boostrix) 01/06/2014 TDAP (age 11 and older)(Adacel) 07/08/2011 Zoster Vaccine Recombinant (Shingrix) 04/08/2022 ,10/09/2021 [...] Sign Reading Time Taken Comments Blood Pressure - - Pulse - - Temperature - - Respiratory Rate - - Oxygen Saturation - - Inhaled Oxygen Concentration - - Weight 93 kg (205 lb) 12/09/2023 1:32 PM EDT Height - - Body Mass Index 32.84 11/10/2023 1:28 PM EST documented in this encounter Patient Instructions * Patient Instructions* Mariana Sutherland RDN - 12/09/2023 1:55 PM EDT Current Goals: Discussed the following goals with patient who agrees to the following: Choose to add a lean protein to lunch and breakfast documented in this encounter Progress Notes * Mariana Sutherland RDN - 12/09/2023 1:29 PM EDT NUTRITION FOLLOW-UP NOTE - [address] [place] [address] Name: Adam Barajas Location: NUTRITION SERVICES [address] [place] [address] Date: 12/09/2023 Time: 1:30 PM Patient location: [address] [place] [address]. Patient was seen [id number] in the clinic. Patient was verified with two unique identifiers. Reason for Nutrition Follow-up: Dyslipidemia, Overweight/Obesity, Prediabetes NUTRITION ASSESSMENT: Client History Patient reports to no longer eating after 7PM. Patient states spouse does the cooking. Patient states she would like to get her weight below 200 lbs--as this would help to maintain her motivation/continue to support her weight loss. Patient has made good progress towards the following goals: Choose to follow the plate method for meals Support System: Spouse Barriers to Learning: None Special Education Needs: None Food/Nutrition-Related History Describes typical diet history/24 hr recall Breakfast: oatmeal 3 slices of banana, 1/4 cup whole milk and 1/4 cup of blueberries (warm smoothie); coffee Snacks: none Lunch: salad (tomatoes, lettuce, shredded cheese with Ranch dressing); water Snacks: once in a while popcorn (about 2 cups of Skinny Pop) Dinner: goulash (smaller serving)---macaroni, hamburg, spaghetti sauce; water Snacks: celery stick +/- peanut butter Drinks: water, coffee, diet Pepsi (recently cut back) Restaurant meals: twice a week (pizza) Diet Recall/Food Logs Indicate: AREAS FOR IMPROVEMENT: Inadequate protein intake Imbalanced meals POSITIVE: Portion control Food and Nutrient Intake and other pertinent information: N/a Physical Activity: walking in the warmer weather; has increased steps/day as per [employer] Medications Changes/Updates: Current Outpatient Medications Medication Sig Dispense Refill aspirin 81 MG chewable tablet Take 1 Tablet by mouth in the morning. with food.. 100 Tab 5 Cholecalciferol (VITAMIN D-3) 5000 units Tablet Take 1 Tablet by mouth in the morning. CPAP every night at bedtime. OneTouch Delica Lancets 33G Use to test sugars daily - E11.9 100 Each 3 Fluticasone Propionate 50 MCG/ACT Nasal Suspension (Flonase) Administer 2 Sprays into each nostril in the morning. 48 g 3 amLODIPine Besylate 2.5 MG Oral Tablet (Norvasc) TAKE 1 TABLET BY MOUTH IN THE MORNING. 100 Tablet 3 Albuterol Sulfate HFA 108 (90 Base) MCG/ACT Inhalation Aerosol Solution INHALE TWO PUFFS BY MOUTH EVERY 4 HOURS NEEDED FOR WHEEZING 54 g 3 metFORMIN HCl ER 500 MG Oral Tablet Extended Release 24 Hour (Glucophage XR) TAKE ONE TABLET BY MOUTH EVERY DAY 100 Tablet 3 Montelukast Sodium 10 MG Oral Tablet (Singulair) Take 1 Tablet by mouth at bedtime. 90 Tablet 0 OneTouch Verio In Vitro Strip (Glucose Blood) USE TO TEST SUGARS DAILY 100 Strip 3 OneTouch Delica Plus [id number] USE TO TEST SUGARS DAILY 100 Each 3 Atorvastatin Calcium 40 MG Oral Tablet (Lipitor) TAKE ONE TABLET BY MOUTH EVERY MORNING 100 Tablet 3 Furosemide 20 MG Oral Tablet (Lasix) TAKE ONE TABLET BY MOUTH EVERY DAY IN THE MORNING 100 Tablet 3 Losartan Potassium 100 MG Oral Tablet (Cozaar) Take 1 Tablet by mouth in the morning. 30 Tablet 5 No current facility-administered medications for this visit. Nutrition-Focused Physical Findings Overall appearance: overweight/obese Digestive system: No issues, Appetite: fair to good (unchanged) Nerves and cognition: Awake, alert and Oriented Anthropometric Measurements Current Weight: Wt Readings from Last 1 Encounters: 12/09/23 93 kg (205 lb) Wt Readings from Last 4 Encounters: 12/09/23 93 kg (205 lb) 11/10/23 94.7 kg (208 lb 11.2 oz) 10/27/23 93.9 kg (207 lb) 08/28/23 92.7 kg (204 lb 4.8 oz) Weight Change: decreased by 3 pounds in the past month BMI Readings from Last 1 Encounters: 12/09/23 32.84 kg/m Biochemical Data, Medical Tests, and Procedures No current pertinent labs since last visit. Hemoglobin AIC Results: Lab Results Component Value Date/Time HEMOGLOBIN A1C - [facility] 6.4 (H) 08/28/2023 08:30 AM HEMOGLOBIN A1C - [facility] 6.0 (H) 04/08/2023 09:04 AM HEMOGLOBIN A1C - [facility] 6.5 (H) 10/09/2022 09:49 AM HEMOGLOBIN A1C - [facility] 6.1 (H) 10/08/2019 09:18 AM HEMOGLOBIN A1C - [facility] 6.0 (H) 12/31/2018 11:08 AM HEMOGLOBIN A1C - [facility] 5.7 12/05/2017 08:27 AM Previous Nutrition Diagnosis: Food and nutrition-related knowledge deficit related to Poor meal distribution, Inconsistent carbohydrate intake, Inadequate fiber intake, Inadequate fruit and vegetable intake, Significant sodium intake as evidenced by Reported diet and/or activity recall CURRENT NUTRITION DIAGNOSIS Food and nutrition-related knowledge deficit related to Inadequate protein intake and imbalanced meals as evidenced by Reported diet and/or activity recall NUTRITION INTERVENTION: NUTRITION EDUCATION Comprehensive nutrition education NUTRITION COUNSELING Strategies Motivational Interviewing Nutrition Prescription: Diet: 2000 mg Sodium Consistent Carbohydrate Heart Healthy Low Fat/Low Cholesterol Daily Calorie Needs: 1300 Kcals Daily Protein Needs: 57-76 Grams protein Current Goals: Discussed the following goals with patient who agrees to the following: Choose to add a lean protein to lunch and breakfast Dietitian Action: Reviewed importance of having a lean protein at meals. Offered praise for diet and lifestyle changes. Reviewed importance of label reading for sodium content of foods Recommendations to Ordering Provider: Continue current plan of nutrition care. NUTRITION MONITORING AND EVALUATION: The following will be monitored and evaluated at the next visit: Monitor weight. Monitor labs. Monitor goals and progress. Plan: Patient scheduled to return in about 1 month; dietitian phone # given for future reference. 30 minutes Medical Nutrition Therapy Time In: 1330 (12/09/23 1457) Time Out: 1356 (12/09/23 1457) 15 min (8-22 min) 30 min (23-37 min) 45 min (38-52 min) 60 min (53-67 min) 75 min (68-82 min) 90 min (83-97 min) 105 min (98-113 min) Mariana Sutherland RDN 12/09/2023 1:30 PM NUTRITION SERVICES [address] [place] [address] documented in this encounter Plan of Treatment Upcoming Encounters Date Type Department Care Team (Late st Contact Info) Description 01/05/2024 9:20 AM EDT Office Visit Family Practice [address] [place] [address], [place] [address] Chi Silvestre, 293 [place] [address] 01/13/2024 8:30 AM EDT Nutrition Services Nutrition Services [address] [place] [address] Mariana Sutherland RDN 106 [facility] [place] [address] 02/29/2024 10:00 AM EDT Nurse Only Ancillary [address] [place] [address] [place], Nurse Annual Wellness Visit [address] [facility], [place] [address] Scheduled Procedures Name Priority Associated Diagnoses Date/Ti me COLONOSCOPY FLEXIBLE PROXIMAL DIAGNOSTIC Recall History of colon polyps Health Maintenance Due Date Last Done Comments DTaP,Tdap,and Td Vaccines (3 - Td or Tdap) 01/07/2024 01/06/2014, 07/08/2011 Mammogram 02/12/2024 02/11/2023, 01/26, 02/03/2023, Additional history exists GFR 08/24/2024 08/24/2023, 07/29, 07/01/2023, Additional history exists Depression Screening 08/26/2024 08/26/2023 HbA1c 08/28/2024 08/28/2023, 03/28, 10/09/2022, Additional history exists DXA Scan 10/06/2024 10/06/2022, 05/2023, 07/02/2020, Additional history exists Albumin/Creatinine Ratio 10/09/2025 10/09/2022 COLONOSCOPY-EVERY 5 YRS AGES 18-100 08/29/2027 08/29/2022, 08/29/2022, 06/19/2017, Additional history exists Lipid Panel 04/08/2028 04/08/2023, 09/28, 10/09/2021, Additional history exists Zoster Vaccines Completed 04/08/2022, 10/09/2021 Pneumococcal Vaccine: 65+ Years Completed 10/09/2022, 06/10/2018, 12/04/2016 VITAMIN D LEVEL ONCE IN A LIFETIME-USE SMARTSET# [id number] Completed 10/09/2022, 12/03/2020, 09/11/2018, Additional history exists Influenza Vaccine (FLU shot) Completed 09/2022, 08/01/2022, 08/04/2021, Additional history exists COVID-19 Vaccine Completed 11/10/2023, , 08/28/2021, Additional history exists GARDASIL-HPV IMMUNIZATION SERIES Aged Out No longer eligible based on patient's age to complete this topic Hepatitis B Aged Out No longer eligi ble based on patient's age to complete this topic MENINGOCOCCAL (MENACTRA/MENVEO) Aged Out No longer eligible based on patient's age to complete this topic documented as of this encounter Medical Devices Implanted Type Area Internal Audit Consultant Device Identifier Shelf Expiration Date Model / Serial / Lot Implant On The Fly - [id number] Implanted:Qty: 1 on 10/13/2007 at OR [facility] N/A: Abdomen LIFE CELL DONN 05/13/2009 [id number] / / [id number] Description:Alloderm 16x20 . 79-2.03 Implant Breast Haven+ [id number] - [id number] Implanted:Qty: 1 on 07/13/2009 at OR [facility] Right: Breast MENTOR DONN 10/29/2011 [id number] / [id number] / documented as of this encounter Visit Diagnoses Diagnosis Prediabetes- Primary Other abnormal glucose Dyslipidemia, goal LDL below 100 Other and unspecified hyperlipidemia HTN, goal below 140/90 Unspecified essential hypertension documented in this encounter Advance Directives Latest Code Status on File Code Status Date Activated Date Inactivated Comments Full Code 07/13/2009 3:24 PM 07/14/2009 4:16 PM Thi s order reflects the patients wishes and were consensually agreed upon. Code Status History Code Status Date Activated Date Inactivated Comments Full Code 10/13/2007 7:50 PM 10/16/2007 3:07 PM Care Teams Civil Engineering Specialist Relationship Specialty Start Date End Date Chi Silvestre DO [address] [facility] [place] [address] PCP - General Internal Medicine 10/09/21 documented as of this encounter
--- OUTSIDE RECORDS SUMMARY | 2024-03-26 17:38 | External Medical Summary | Summary of Care ---
Author Name Unknown Organization [facility] Address [address] [facility] [place] [address] Phone [phone] Care Team Providers Care Orthotic/Prosthetic Practitioner Name Role Phone Chi Silvestre DO Primary Care Provider [phone] Reason for Visit * Reason Comments Rheum Follow Up Follow up - [facility] * Evaluate & Treat - Unlimited Visits (Within 10 days (routine)) - Authorized Specialty Diagnoses / Procedures Referred By Contac t Referred To Contact Rheumatology Diagnoses Age-related osteoporosis without current pathological fracture Chi Silvestre DO [address] [place] [address] Referral ID Status Reason Start Date Expiration Date Visits Requested Visits Authorized [id number] Authorized Specialty Services Required 01/05/[phone] Encounter Details Date Type Department Care Team (Late st Contact Info) Description 01/11/2024 2:30 PM EDT Office Visit Rheumatology [place] [id number] [place] [address] Jewel Irizarry PA-C [address] [place] [address] Age-related osteoporosis without current pathological fracture* Allergies Active Allergy Reactions Criticality Noted Date Comments Bacitracin 01/09/2020 Diphenhydramine Hcl Rash 12/02/2007 Neomycin-Bacitracin Zn-Polymyx 08/02 Other - Drugs Itching,Rash 01/30/2010 Dermabond Penicillins Edema Other 10/15/2006 Polymyxin B 01/09/2020 documented as of this encounter (statuses as of 01/11/2024) Medications Medication Sig Dispensed Refills Start Date [...] 3 10/24/2023 10/23/2024 Active OneTouch Delica Plus [id number] USE TO TEST SUGARS DAILY 100 Each [...] as of this encounter (statuses as of 01/11/2024) Active Problems Problem Noted Date Diagnosed Date [...] as of this encounter (statuses as of 01/11/2024) Resolved Problems Problem Noted Date Diagnosed Date [...] , patient declined. MALIGN NEOPL BREAST NEC 10/15/2006/0 03/2017 documented as of this encounter (statuses as of 01/11/2024) Immunizations Name Administration Dates Next Due COVID-19 [...] Passive Smoke Exposure: Never Smokeless Tobacco: Never Tobacco Cessation:Counseling Given: Not Answered Alcohol Use Standard Drinks/Week Comments Yes 0 [...] Pressure - - Pulse - - Temperature 36.7 C (98 F) 01/11/2024 2:35 PM EDT Respiratory Rate - - Oxygen Saturation - - Inhaled Oxygen Concentration - - Weight 92.5 kg (204 lb) 01/11/2024 2:35 PM EDT Height - - Body Mass Index 32.68 01/05/2024 9:31 AM EDT documented in this encounter Nursing Notes * Adelita Levine LPN - 01/11/2024 2:34 PM EDT Chief Complaint Patient presents with Rheum Follow Up Follow up - [facility] documented in this encounter Plan of Treatment Upcoming Encounters Date Type Department Care Team (Late st Contact Info) Description 01/13/2024 8:30 AM EDT Nutrition Services Nutrition Services 65 [facility] 293 [place] [address] Mariana Sutherland RDN 106 [facility] [place] [address] 02/15/2024 2:45 PM EDT Imaging Radiology [address], [place] 132 [facility] [place] [address] 02/29/2024 10:00 AM EDT Nurse Only Ancillary [address] [place], [place] [address] College, Nurse Annual Wellness Visit [address], [place] [address] 05/06/2024 10:40 AM EDT Office Visit Family Practice 65 [facility] 293 [facility], [place] [address] Chi Silvestre, 293 [facility], [place] [address] 10/17/2024 1:00 PM EST Imaging Radiology, [place] [address] [employer] [place] [address] 01/19/2025 10:30 AM EDT Office Visit Rheumatology [place] [address] [employer] [place] [address] Jewel Irizarry PA-C [address] [place] [address] Scheduled Orders Name Type Priority Associated Diagnoses Orde r Schedule DEXA SCAN/BONE MINERAL AXIAL Medical Imaging Routine Age-related osteoporosis without current pathological fracture Expected: 10/07/2024 (Approximate), Expires: 02/09/2025 Scheduled Procedures Name Priority Associated Diagnoses Date/Ti me COLONOSCOPY FLEXIBLE PROXIMAL DIAGNOSTIC Recall History of colon polyps Health Maintenance Due Date Last Done Comments *NEPHROLOGY REFERRAL DUE TO RESISTANT HTN 01/07/2024 DTaP,Tdap,and Td Vaccines (3 - Td or Tdap) 01/07/2024 01/06/2014, 07/08/2011 Mammogram 02/12/2024 02/11/2023, 01/26, 02/03/2023, Additional history exists Depression Screening 08/26/2024 08/26/2023 DXA Scan 10/06/2024 10/06/2022, 05/2023, 07/02/2020, Additional history exists GFR 01/04/2025 01/05/2024, 07/30, 08/14/2023, Additional history exists HbA1c 01/04/2025 01/05/2024, 1209/2022, 04/08/2023, Additional history exists Albumin/Creatinine Ratio 10/09/2025 10/09/2022 COLONOSCOPY-EVERY 5 YRS AGES 18-100 08/29/2027 08/29/2022, 08/29/2022, 06/19/2017, Additional history exists Lipid Panel 04/08/2028 04/08/2023, 09/28, 10/09/2021, Additional history exists Zoster Vaccines Completed 04/08/2022, 10/09/2021 Pneumococcal Vaccine: 65+ Years Completed 10/09/2022, 06/10/2018, 12/04/2016 VITAMIN D LEVEL ONCE IN A LIFETIME-USE SMARTSET# [id number] Completed 10/09/2022, 12/03/2020, 09/11/2018, Additional history exists [...] this encounter Medical Devices Implanted Type Area Furnace Worker Device Identifier Shelf Expiration Date Model / Serial / Lot Implant On The Fly - [id number] Implanted:Qty: 1 on 10/13/2007 at OR [facility] [facility] N/A: Abdomen LIFE CELL DONN 05/13/2009 [id number] / / [id number] Description:Alloderm 16x20 . 79-2.03 Implant Breast Haven+ [id number] - [id number] Implanted:Qty: 1 on 07/13/2009 at OR [facility] Right: Breast MENTOR DONN 10/29/2011 [id number] / [id number] / documented as of this encounter Visit Diagnoses Diagnosis Age-related osteoporosis without current pathological fracture- Primary Senile osteoporosis documented in this encounter Advance Directives Latest Code Status on File Code Status Date Activated Date Inactivated Comments Full Code 07/13/2009 3:24 PM 07/14/2009 4:16 PM Thi s order reflects the patients wishes and were consensually agreed upon. Code Status History Code Status Date Activated Date Inactivated Comments Full Code 10/13/2007 7:50 PM 10/16/2007 3:07 PM Care Teams Orthotic/Prosthetic Practitioner Relationship Specialty Start Date End Date Chi Silvestre DO [address] [place] [address] PCP - General Internal Medicine 10/09/21 documented as of this encounter
--- OUTSIDE RECORDS SUMMARY | 2024-03-26 17:38 | External Medical Summary | Summary of Care ---
Author Name Unknown Organization [facility] Address [address] [facility] [address] Phone [phone] Care Team Providers Care Psychological Anthropologist Name Role Phone Chi Silvestre DO Primary Care Provider [phone] Reason for Visit * Reason Comments Medical Nutrition Therapy Encounter Details Date Type Department Care Team (Latest Contact Info) Description 12/09/2023 1:30 PM EDT Nutrition Services Nutrition Services [address] [address] Mariana Sutherland, EDWIN [address] [place] [address] Prediabetes*; Dyslipidemia, goal LDL below 100; [...] 3 10/24/2023 10/23/2024 Active OneTouch Delica Plus [id number] USE TO TEST SUGARS DAILY 100 Each [...] MCG/0.3 mL, 12 YRS AND ABOVE, [facility] 11/10/2023 COVID-19, mRNA, LNP-s, PF, B ooster, [...] 1:29 PM EDT NUTRITION FOLLOW-UP NOTE - [address] [place] [address] Name: Adam Barajas Location: NUTRITION SERVICES [address] [place] [address] Date: 12/09/2023 Time: 1:30 PM Patient location: [address] [place] [address]. Patient was seen [id number] in the clinic. Patient was verified with [...] warmer weather; has increased steps/day as per [employer] Medications Changes/Updates: Current Outpatient Medications Medication Sig [...] DAILY 100 Strip 3 OneTouch Delica Plus Tkfoaq00M USE TO TEST SUGARS DAILY 100 Each [...] Sutherland RDN 12/09/2023 1:30 PM NUTRITION SERVICES [address] [place] [address] documented in this encounter Plan of Treatment Upcoming Encounters Date Type Department Care Team (Late st Contact Info) Description 01/05/2024 9:20 AM EDT Office Visit Family Practice [address] [place] [address], [place] [address] Chi Silvestre, 293 [facility] [place] [address] 01/13/2024 8:30 AM EDT Nutrition Services Nutrition Services [address] [place] [address] Mariana Sutherland RDN 106 [facility] [place] [address] 02/29/2024 10:00 AM EDT Nurse Only Ancillary [address] [place] [address] [place], Nurse Annual Wellness Visit [address] 293 [facility], [place] [address] Scheduled Procedures Name Priority Associated Diagnoses Date/Ti [...] D LEVEL ONCE IN A LIFETIME-USE SMARTSET# [id number] Completed 10/09/2022, 12/03/2020, 09/11/2018, Additional history exists [...] this encounter Medical Devices Implanted Type Area Blast Furnace Auxiliaries Supervisor Device Identifier Shelf Expiration Date Model / Serial / Lot Implant On The Fly - [id number] Implanted:Qty: 1 on 10/13/2007 at OR [facility] N/A: Abdomen LIFE CELL DONN 05/13/2009 [id number] / / [id number] Description:Alloderm 16x20 . 79-2.03 Implant Breast Haven+ [id number] - [id number] Implanted:Qty: 1 on 07/13/2009 at OR [facility] Right: Breast MENTOR DONN 10/29/2011 [id number] / [id number] / documented as of this encounter [...] 7:50 PM 10/16/2007 3:07 PM Care Teams Psychological Anthropologist Relationship Specialty Start Date End Date Chi Silvestre DO 293 [facility] [address] PCP - General Internal Medicine 10/09/21 documented as of this encounter
--- OUTSIDE RECORDS SUMMARY | 2024-03-26 17:38 | External Medical Summary | Summary of Care ---
Author Name Unknown Organization [facility] Address [address] [facility] [address] Phone [phone] Care Team Providers Care Foreign Student Adviser Name Role Phone Chi Silvestre DO Primary Care Provider [phone] Reason for Visit * Reason Onset Date Comments Nutritional Services Documentation 02/16/2024 Encounter Details Date Type Department Care Team (Late st Contact Info) Description 02/16/2024 9:30 AM EDT Scheduled Telephone Nutrition Services 65 [facility], [place] 293 [place] [address] Mariana Sutherland RDN [address] [place], [place] [id number] Arrived Allergies Active Allergy Reactions Criticality Noted Date Comments Bacitracin 01/09/2020 Diphenhydramine Hcl Rash 12/02/2007 Neomycin-Bacitracin Zn-Polymyx 08/02 Other - Drugs Itching,Rash 01/30/2010 Dermabond Penicillins Edema Other 10/15/2006 Polymyxin B 01/09/2020 documented as of this encounter (statuses as of 02/16/2024) Medications Medication Sig Dispensed Refills Start Date [...] 3 10/24/2023 10/23/2024 Active OneTouch Delica Plus [id number] USE TO TEST SUGARS DAILY 100 Each [...] as of this encounter (statuses as of 02/16/2024) Active Problems Problem Noted Date Diagnosed Date [...] as of this encounter (statuses as of 02/16/2024) Resolved Problems Problem Noted Date Diagnosed Date [...] as of this encounter (statuses as of 02/16/2024) Immunizations Name Administration Dates Next Due COVID-19 [...] encounter Miscellaneous Notes * Telephone Encounter - Mariana Sutherland RDN - 02/16/2024 10:18 AM EDT [address] [place] [address] Dietitian Phone Outreach Called to inquire about cancelled education appointment today and to answer any urgent questions orconcerns. Result of call: Patient did not answer--left a message requesting a call to the [address] [place] [address] Dietitian at [phone] if there are specific questions and to reschedule a follow up nutrition appointment. Electronically signed by: Mariana Sutherland RDN, NUTRITION SERVICES [address] [place] [address] documented in this encounter Plan of Treatment Upcoming Encounters Date Type Department Care Team (Late st Contact Info) Description 02/29/2024 10:00 AM EDT Nurse Only Ancillary [address] [place] [address] [place] [address] College, Nurse Annual Wellness Visit [address] [place] [address] [place] [address] 05/06/2024 10:40 AM EDT Office Visit Family Practice [address] [place] [address] [place] [address] Chi Silvestre, [address] [place] [address] 10/17/2024 1:00 PM EST Imaging Radiology, [place] [address] [address] [place] [address] 01/19/2025 10:30 AM EDT Office Visit Rheumatology [place] [id number] [address] [place] [address] Jewel Irizarry [facility] [place] [address] Scheduled Procedures Name Priority Associated Diagnoses Date/Ti me COLONOSCOPY FLEXIBLE PROXIMAL DIAGNOSTIC Recall History of colon polyps Health Maintenance Due Date Last Done Comments Cologuard 1998 Sigmoidoscopy 1998 Fecal Occult Blood Test 01/05/2009 01/06/2008 *NEPHROLOGY REFERRAL DUE TO RESISTANT HTN 01/07/2024 DTaP,Tdap,and Td Vaccines (3 - Td or Tdap) 01/07/2024 01/06/2014, 07/08/2011 COVID-19 Vaccine (2022- season) 2024 11/10/2023, 08/12/2022, 08/28/2021, Additional history exists Depression Screening 08/26/2024 08/26/2023 DXA Scan 10/06/2024 10/06/2022, 05/2023, 07/02/2020, Additional history exists GFR 01/04/2025 01/05/2024, 07/30, 08/14/2023, Additional history exists HbA1c 01/04/2025 01/05/2024, 09/2022, 04/08/2023, Additional history exists Mammogram 02/14/2025 02/15/2024, 01/26, 02/11/2023, Additional history exists Albumin/Creatinine Ratio 10/09/2025 10/09/2022 Colonoscopy 08/29/2027 08/29/2022, 10/2021, 06/19/2017, Additional history exists Colorectal Cancer Screening 08/29/2027 Lipid Panel 04/08/2028 04/08/2023, 09/28, 10/09/2021, Additional history exists Zoster Vaccines Completed 04/08/2022, 10/09/2021 RETIRED - COLONOSCOPY-EVERY 5 YRS AGES 18-100 Discontinued 08/29/2022, 08/29/2022, 06/19/2017, Additional history exists Pneumococcal Vaccine: 65+ Years Completed 10/09/2022, 06/10/2018, 12/04/2016 VITAMIN D LEVEL ONCE IN A LIFETIME-USE SMARTSET# [id number] Completed 10/09/2022, 12/03/2020, 09/11/2018, Additional history exists [...] this encounter Medical Devices Implanted Type Area Expanded Function Dental Assistant Device Identifier Shelf Expiration Date Model / Serial / Lot Implant On The Fly - [id number] Implanted:Qty: 1 on 10/13/2007 [place] [facility] [place]A: Abdomen LIFE CELL DONN 05/13/2009 [id number] / / [id number] Description:Alloderm 16x20 . 79-2.03 Implant Breast Haven+ [id number] - [id number] Implanted:Qty: 1 on 07/13/2009 at [place] [facility] [place] Right: Breast MENTOR DONN 10/29/2011 [id number] / [id number] / documented as of this encounter Advance Directives * Full Code (Latest Code Status on File) Date Activated Date Inactivated Comments 07/13/2009 3:24 PM 07/14/2009 4:16 PM This order reflects the patients wishes and were consensually agreed upon. * Full Code Date Activated Date Inactivated Comments 10/13/2007 7:50 PM 10/16/2007 3:07 PM Care Teams Foreign Student Adviser Relationship Specialty Start Date End Date Chi Silvestre DO [address] [place] [address] PCP - General Internal Medicine 10/09/21 documented as of this encounter
--- OUTSIDE RECORDS SUMMARY | 2024-03-26 17:38 | External Medical Summary | Summary of Care ---
Author Name Unknown Organization [facility] Address [address] [facility] [address] Phone [phone] Care Team Providers Care Marketing Effectiveness Manager Name Role Phone Chi Silvestre DO Primary Care Provider Reason for Referral * Evaluate & Treat - Unlimited Visits (Within 10 days (routine)) - Authorized Specialty Diagnoses / Procedures Referred By Adair olvera Referred To Contact Rheumatology Diagnoses Age-related osteoporosis without current pathological fracture Chi Silvestre DO [address] [place] [address] Referral ID Status Reason Start Date Expiration Date Visits Requested Visits Authorized [id number] Authorized Specialty Services Required 01/05/[phone] Question Answer Referral Priority Within 10 days (routine) Where should this appointment be scheduled? [facility] Reason for referral: Osteoporosis Reason for Visit * Reason Comments Follow Up Encounter Details Date Type Department Care Team (Late st Contact Info) Description 01/05/2024 9:20 AM EDT Office Visit Family Practice 65 [facility] [place] [address] [place] [address] Chi Silvestre DO [address] [place] [address] Prediabetes*; HTN, goal below 140/90; Age-related osteoporosis without current pathological fracture; Dyslipidemia, goal LDL below 100; Intermittent asthma with reliever use up to twice per week without complication; COLT (obstructive sleep apnea); Vitamin D deficiency; Encounter for screening mammogram for breast cancer; Encounter for long-term (current) use of medications Allergies Active Allergy Reactions Criticality Noted Date Comments Bacitracin 01/09/2020 Diphenhydramine Hcl Rash 12/02/2007 Neomycin-Bacitracin Zn-Polymyx 08/02 Other - Drugs Itching,Rash 01/30/2010 Dermabond Penicillins Edema Other 10/15/2006 Polymyxin B 01/09/2020 documented as of this encounter (statuses as of 01/05/2024) Medications Medication Sig Dispensed Refills Start Date [...] 3 10/24/2023 10/23/2024 Active OneTouch Delica Plus [id number] USE TO TEST SUGARS DAILY 100 Each [...] as of this encounter (statuses as of 01/05/2024) Active Problems Problem Noted Date Diagnosed Date [...] as of this encounter (statuses as of 01/05/2024) Resolved Problems Problem Noted Date Diagnosed Date [...] as of this encounter (statuses as of 01/05/2024) Immunizations Name Administration Dates Next Due COVID-19 [...] Never Smokeless Tobacco: Never Tobacco Cessation:Counseling Given: Yes Alcohol Use Standard Drinks/Week Comments Yes 0 [...] Sign Reading Time Taken Comments Blood Pressure 146/90 01/05/2024 10:06 AM EDT Pulse 66 01/05/2024 9:31 AM EDT Temperature 36.6 C (97.8 F) 01/05/2024 9:31 AM ED T Respiratory Rate 12 01/05/2024 9:31 AM EDT Oxygen Saturation 96% 01/05/2024 9:31 AM EDT Inhaled Oxygen Concentration - - Weight 92.2 kg (203 lb 3.2 oz) 01/05/2024 9:31 A M EDT Height 168.3 cm (5' 6.25") 01/05/2024 9:31 AM ED T Body Mass Index 32.55 01/05/2024 9:31 AM EDT documented in this encounter Progress Notes * Chi Silvestre DO - 01/05/2024 10:18 AM EDT SUBJECTIVE: Adam Barajas is a 68 year old female. Chief Complaint Patient presents with Follow Up HPI: Patient is a 68 year old female with a history of HTN, Hyperlipidemia, Osteoporosis, Asthma, Prediabetes, and left Breast Cancer that is seen for follow up. No chest pain or shortness of breath are present. Weight is stable and appetite is good. Patient Active Problem List Diagnosis Code HTN, goal below 140/90 I10 Vitamin D deficiency E55.9 INTERMITTENT ASTHMA WITH RELIEVER USE UP TO TWICE PER WEEK J45.20 Dyslipidemia, goal LDL below 100 E78.5 Prediabetes R73.03 Osteoporosis M81.0 Sensitivity to medication T78.40XA COLT (obstructive sleep apnea) G47.33 Obesity, Class I, BMI 30.0-34.9 (see actual BMI) E66.9 Pulmonary nodules R91.8 Current Outpatient Medications Medication Sig Dispense Refill [...] sugars daily - E11.9 100 Each 3 OneTouch Verio In Vitro Strip (Glucose Blood) USE TO TEST SUGARS DAILY 100 Strip 3 OneTouch Delica Plus [id number] USE TO TEST SUGARS DAILY 100 Each 3 No current facility-administered medications for this visit. The patient's medication list was reviewed and updated as needed. Past Medical History: Diagnosis Date Asthma Breast cancer (HCC) 2005 RT BREAST CA DM2 (diabetes mellitus, type 2) (HCC) Encounter for breast reconstruction following mastectomy 2009 at [facility] - Dr Moreno Hypertensive heart [...] CM performed [place] DARCIE SINGH [place] [facility] ACELLULAR DERM REPL,TRUNK/ARM/LEG,100 SQ CM 10/13/2007 DERMAL REPLACEMENT ACELLULAR TRUNK ARMS LEGS 100SQ CM performed by DARCIE SINGH at [facility] BREAST RECONSTRUCTION W/TRAM 10/13/2007 BREAST RECONSTRUCTION WITH TRAM FLAP performed by DARCIE SINGH [place] [facility] COLONOSCOPY, DIAGNOSTIC (RECTUM) 04/16/2007 repeat in 10 years COLONOSCOPY, DIAGNOSTIC (RECTUM) 06/19/2017 adenomatous polyp, diverticulosis, repeat 5 yrs/COLONOSCOPY FLEXIBLE PROXIMAL DIAGNOSTIC performed by Jesse Reid MD at ENDOSCOPY [facility] COLONOSCOPY, DIAGNOSTIC (RECTUM) 08/29/2022 diverticulosis sigmoid colon/recall 5 years/COLONOSCOPY FLEXIBLE PROXIMAL DIAGNOSTIC performed by Jesse Reid MD at ENDOSCOPY [facility] DELAYED BREAST PROSTHESIS 07/13/2009 DELAYED INSERTION BREAST PROSTHESIS performed by DARCIE SINGH at [facility] EGD, FLEXIBLE, DIAGNOSTIC 04/16/2007 normal ENDOMETRIAL THERMAL ABLATE 2007 HYSTEROSCOPY,DIAGNOSTIC LIGATE/CUT OVIDUCT(S) 1975 MASTECTOMY,RADICAL Right 09/16/2006 MISCELLANEOUS ORDER ([facility] ONLY) 2008 Sinus polypectomy and uvula was tacked up for snoring. Dr. Sahu REDUCTION OF BREAST 01/09/2010 REDUCTION MAMMOPLASTY performed [place] DARCIE SINGH [place] [facility] REMOVE EXCESSIVE SKIN, OTHER AREA 10/18/2008 EXCISION EXCESSIVE SKIN AND SUBCUTANEOUS TISSUE OTHER performed by DARCIE SINGH [place] [facility] REVISION OF BREAST RECONSTRUCTION 10/18/2008 REVISION OF BREAST RECONSTRUCTION performed by DARCIE SINGH at [facility] REVISION OF BREAST RECONSTRUCTION 07/13/2009 REVISION OF BREAST RECONSTRUCTION performed by DARCIE SINGH [place] [facility] RPR COMPX WND TRUNK 2.6-7.5CM 10/18/2008 REPAIR COMPLEX TRUNK 2.6 TO 7.5CM performed by DARCIE SINGH [place] [facility] RPR,COMPLEX,TRUNK,EACH 5CM 10/18/2008 REPAIR COMPLEX TRUNK 5CM OR LESS performed by DARCIE SINGH at [place] [facility] SACROILIAC JOINT INJECT W/GUIDANCE 01/06/2019 INJECTION SACROILIAC JOINT performed by Acosta Glaser, DO at OR [facility] SACROILIAC JOINT INJECT W/GUIDANCE 11/05/2020 INJECTION SACROILIAC JOINT performed by Acosta Glaser, DO at OR [facility] SACROILIAC JOINT INJECT W/GUIDANCE 02/04/2021 INJECTION SACROILIAC JOINT performed by Acosta Glaser, DO at OR [facility] SUCTION REMOVE FAT TISSUE, TRUNK 10/18/2008 SUCTION ASSISTED LIPECTOMY TRUNK performed by DARCIE SINGH [place] [facility] SUCTION REMOVE FAT TISSUE, TRUNK 07/13/2009 SUCTION ASSISTED LIPECTOMY TRUNK performed by DARCIE SINGH at [place] [facility] TISSUE TRANSFER, LARGE/COMPLICATED 10/18/2008 ADJACENT TISSUE TRANSFER 30 PLUS SQ CM UNUSUAL performed by DARCIE SINGH at [facility] Review of patient's allergies indicates: Allergen Reactions Bacitracin Diphenhydramine Hcl Rash Neosporin [Neomycin-Bacitracin Zn-Polymyx] Other - Drugs Itching and Rash Dermabond Pcn [Penicillins] Edema Other Polymyxin B Review of Systems Constitutional: Negative for appetite change, fatigue and unexpected weight change. Respiratory: Negative for cough, shortness of breath and wheezing. Cardiovascular: Negative for chest pain, palpitations and leg swelling. Gastrointestinal: Negative for abdominal pain, blood in stool, constipation, diarrhea, nausea and vomiting. Genitourinary: Negative for dysuria and hematuria. Musculoskeletal: Negative for back pain and gait problem. Neurological: Negative for dizziness, syncope and headaches. Psychiatric/Behavioral: Negative for confusion, decreased concentration and sleep disturbance. OBJECTIVE: BP 146/90 | Pulse 66 | Temp 36.6 C (97.8 F) (Tympanic) | Resp 12 | Ht 1.683 m (5' 6.25") | Wt 92.2 kg (203 lb 3.2 oz) | SpO2 96% | BMI 32.55 kg/m | BSA 2.08 m Physical Exam Vitals and nursing note reviewed. Constitutional: General: She is not in acute distress. Appearance: Normal appearance. She is not toxic-appearing. HENT: Head: Normocephalic and atraumatic. Cardiovascular: Rate and Rhythm: Normal rate and regular rhythm. Heart sounds: Normal heart sounds. No murmur heard. No gallop. Pulmonary: Effort: Pulmonary effort is normal. Breath sounds: Normal breath sounds. No wheezing, rhonchi or rales. Abdominal: General: Bowel sounds are normal. There is no distension. Palpations: Abdomen is soft. Tenderness: There is no abdominal tenderness. Musculoskeletal: Right lower leg: No edema. Left lower leg: No edema. Neurological: Mental Status: She is alert and oriented to person, place, and time. Mental status is at baseline. Motor: No weakness. Gait: Gait normal. Psychiatric: Mood and Affect: Mood normal. Behavior: Behavior normal. Thought Content: Thought content normal. PLAN AND ASSESSMENT: Prediabetes (Primary) - HEMOGLOBIN A1C; Future; Expected date: 01/05/2024 Continue Metformin ER HTN, goal below 140/90 - COMPREHENSIVE METABOLIC PANEL; Future; Expected date: 01/05/2024 Continue Losartan, and Amlodipine Age-related osteoporosis without current pathological fracture - RHEUMATOLOGY REFERRAL OP Patient currently on Reclast drug Holiday Dyslipidemia, goal LDL below 100 Continue Atorvastatin Intermittent asthma with reliever use up to twice per week without complication Continue Montelukast and Albuterol COLT (obstructive sleep apnea) Continue CPAP Vitamin D deficiency Continue Vitamin D Encounter for screening mammogram for breast cancer - MAMMOGRAM SCREENING ANIA LEFT; Future; Expected date: 02/04/2024 Follow Up: Return in about 4 months (around 05/06/2024), or if symptoms worsen or fail to improve. Chi Silvestre DO 10:18 AM 01/05/2024 documented in this encounter Nursing Notes * Liz Ott LPN - 01/05/2024 9:31 AM EDT Patient presents for follow up, voices no complaints. documented in this encounter Plan of Treatment Upcoming Encounters Date Type Department Care Team (Late st Contact Info) Description 01/11/2024 2:30 PM EDT Office Visit Rheumatology [facility] [address] [facility] [place] [address] Jewel Irizarry PA-C [address] [facility] [place], [place] [address] 01/13/2024 8:30 AM EDT Nutrition Services Nutrition Services 65 [facility] [address] [place] [address] Mariana Sutherland RDN [address] [facility] [address] 02/15/2024 2:45 PM EDT Imaging Radiology [address] [facility] [place] [address] 02/29/2024 10:00 AM EDT Nurse Only Ancillary 65 [facility] [address] [place] [address] College, Nurse Annual Wellness Visit [address] [address] 05/06/2024 10:40 AM EDT Office Visit Family Practice 65 [facility] [address] [place] [address] Chi Silvestre, DO [address] [place] [address] Pending Results Name Type Priority Associated Diagnoses Date /Time COMPREHENSIVE METABOLIC PANEL Lab Routine HTN, goal below 140/90 01/05/2024 10:19 AM EDT HEMOGLOBIN A1C Lab Routine Prediabetes 01/05/2024 10:19 AM EDT VITAMIN B12 Lab Routine Encounter for long-term (current) use of medications 01/05/2024 10:19 AM EDT Scheduled Orders Name Type Priority Associated Diagnoses Orde r Schedule COMPREHENSIVE METABOLIC PANEL Lab Routine HTN, goal below 140/90 Expected: 01/05/2024 (Approximate), Expires: 01/04/2025 HEMOGLOBIN A1C Lab Routine Prediabetes Expected: 01/05/2024 (Approximate), Expires: 01/04/2025 MAMMOGRAM SCREENING ANIA LEFT Medical Imaging Routine Encounter for screening mammogram for breast cancer Expected: 02/04/2024, Expires: 02/03/2025 Scheduled Procedures Name Priority Associated Diagnoses Date/Ti me COLONOSCOPY FLEXIBLE PROXIMAL DIAGNOSTIC Recall History of colon polyps Scheduled Referrals Name Type Priority Associated Diagnoses Orde r Schedule RHEUMATOLOGY REFERRAL OP Referral Within 10 days (routine) Age-related osteoporosis without current pathological fracture Ordered: 01/05/2024 Health Maintenance Due Date Last Done Comments [...] D LEVEL ONCE IN A LIFETIME-USE SMARTSET# [id number] Completed 10/09/2022, 12/03/2020, 09/11/2018, Additional history exists [...] this encounter Medical Devices Implanted Type Area Candle Molder Device Identifier Shelf Expiration Date Model / Serial / Lot Implant On The Fly - [id number] Implanted:Qty: 1 on 10/13/[place] [facility]: Abdomen LIFE CELL DONN 05/13/2009 [id number] / / [id number] Description:Alloderm 16x20 . 79-2.03 Implant Breast Haven+ [id number] - [id number] Implanted:Qty: 1 on 07/13/2009 [place] [facility] Right: Breast MENTOR DONN 10/29/2011 [id number] / [id number] / documented as of this encounter Visit Diagnoses Diagnosis Prediabetes- Primary Other abnormal glucose HTN, goal below 140/90 Unspecified essential hypertension Age-related osteoporosis without current pathological fracture Senile osteoporosis Dyslipidemia, goal LDL below 100 Other and unspecified hyperlipidemia Intermittent asthma with reliever use up to twice per week without complication COLT (obstructive sleep apnea) Obstructive sleep apnea (adult) (pediatric) Vitamin D deficiency Unspecified vitamin D deficiency Encounter for screening mammogram for breast cancer Encounter for long-term (current) use of medications Encounter for long-term (current) use of other medications documented in this encounter Advance Directives Latest Code Status on File Code Status Date Activated Date Inactivated Comments Full Code 07/13/2009 3:24 PM 07/14/2009 4:16 PM Thi s order reflects the patients wishes and were consensually agreed upon. Code Status History Code Status Date Activated Date Inactivated Comments Full Code 10/13/2007 7:50 PM 10/16/2007 3:07 PM Care Teams Marketing Effectiveness Manager Relationship Specialty Start Date End Date Chi Silvestre DO 293 [facility] [place] [address] PCP - General Internal Medicine 10/09/21 documented as of this encounter
--- OUTSIDE RECORDS SUMMARY | 2024-03-26 17:38 | External Medical Summary ---
Author Name Unknown Address Unknown Organization K01:LABORATORY [facility] - [address] [facility] [place] [address] Laboratory Report Ordering Provider Test Date Status ALVARADO DOBSON 01/05/2024 10:19:09 Final Observation Date Value Abnormality Reference (Units ) Status BUN 01/05/2024 10:19: 17 6-20 (mg/dL) Final Creatinine 01/05/2024 10:19: 0.7 0.5-1.0 (mg/dL) Final Glomerular filtration rate/1.73 sq M.predicted [Volume Rate/Area] in Serum, Plasma or Blood by Creatinine-based formula (CKD-EPI) 01/05/2024 10:19:09 87 >=60 (mL/min) Final eGFR is calculated based on the CKD-EPI 2020 equation Sodium 01/05/2024 10:19:09 141 135-146 (m mol/L) Final Potassium 01/05/2024 10:19:09 4.2 3.5-5.1 (m mol/L) Final Cl 01/05/2024 10:19:09 102 98-107 (mm ol/L) Final CO2 01/05/2024 10:19:09 25 22-32 (mmo l/L) Final Anion gap 01/05/2024 10:19:09 14 7-15 (mmol /L) Final Glucose 01/05/2024 10:19:09 104 70-120 (mg /dL) Final Albumin 01/05/2024 10:19:09 5.0 3.8-5.0 (g /dL) Final AST (Aspartate aminotransferase) 01/05/2024 10:19:09 25 10-35 (U/L) Final Alk Phos 01/05/2024 10:19:09 122 35-130 (U/ L) Final Bilirubin, Total 01/05/2024 10:19:09 0.6 <=1 .2 (mg/dL) Final Calcium 01/05/2024 10:19: 10.0 8.4-10.2 ( mg/dL) Final Protein 01/05/2024 10:19: 7.3 6.0-8.3 (g /dL) Final ALT (Alanine aminotransferase) 01/05/2024 10:19: 24 10-35 (U/L) Final Performing Location LABORATORY [facility] - [facility] [address] [facility] [address]
--- OUTSIDE RECORDS SUMMARY | 2024-03-26 17:38 | External Medical Summary | Summary of Care ---
Author Name Unknown Organization [facility] Address [address] [facility] [place] [address] Phone [phone] Care Team Providers Care Operations Advisor Name Role Phone Chi Silvestre DO Primary Care Provider [phone] Reason for Visit * Reason Onset Date Comments Appointment 09/16/2023 Encounter Details Date Type Department Care Team (Late st Contact Info) Description 09/16/2023 Telephone Sleep Disorders Ctr [facility] [address] [place] [address] Kristel Garcia CRNP [address] [place] [address] Appointment Allergies Active Allergy Reactions Criticality Noted Date Comments Bacitracin 01/09/2020 Diphenhydramine Hcl Rash 12/02/2007 Neomycin-Bacitracin Zn-Polymyx 08/02 Other - Drugs Itching,Rash 01/30/2010 Dermabond Penicillins Edema Other 10/15/2006 Polymyxin B 01/09/2020 documented as of this encounter (statuses as of 12/16/2023) Medications Medication Sig Dispensed Refills Start Date End Date Status aspirin 81 MG chewable tabletIndications :Chronic sinusitis, unspecified location Take 1 Tablet by mouth in the morning. with food.. 100 Tab 5 5 Active Cholecalciferol (VITAMIN D-3) 5000 units Tablet Take 1 Tablet by mouth in the morning. 0 Active CPAP every night at bedtime. 0 Active OneTouch Delica Lancets 33G Use to test sugars daily - E11.9 100 Each 3 3 Active Fluticasone Propionate 50 MCG/ACT Nasal Suspension (Flonase)Indicati ons:Seasonal allergic rhinitis due to pollen Administer 2 Sprays into each nostril in the morning. 48 g 3 3 Active amLODIPine Besylate 2.5 MG Oral Tablet (Norvasc)Indicati ons:HTN, goal below 140/90 TAKE 1 TABLET BY MOUTH IN THE MORNING. 100 Tablet 3 3 06/15/20 24 Active Albuterol Sulfate HFA 108 (90 Base) MCG/ACT Inhalation Aerosol SolutionIndicatio ns:Intermittent asthma with reliever use up to twice per week, uncomplicated INHALE TWO PUFFS BY MOUTH EVERY 4 HOURS NEEDED FOR WHEEZING 54 g 3 3 Active metFORMIN HCl ER 500 MG Oral Tablet Extended Release 24 Hour (Glucophage XR) TAKE ONE TABLET BY MOUTH EVERY DAY 100 Tablet 3 3 09/08/20 24 Active Glucose Blood In Vitro Strip USE TO TEST SUGARS DAILY 100 Strip 3 3 10/24/19 24 Discontinued(Ref ill) OneTouch Delica Plus [id number] USE TO TEST SUGARS DAILY 100 Each 3 3 10/24/19 24 Discontinued(Ref ill) Atorvastatin Calcium 40 MG Oral Tablet (Lipitor)Indicati ons:Dyslipidemia, goal LDL below 100 TAKE ONE TABLET BY MOUTH EVERY MORNING 100 Tablet 3 3 10/24/19 24 Discontinued(Ref ill) Furosemide 20 MG Oral Tablet (Lasix)Indication s:Venous insufficiency TAKE ONE TABLET BY MOUTH EVERY DAY IN THE MORNING 100 Tablet 3 3 11/07/19 24 Discontinued(Ref ill) Ibuprofen 600 MG Oral Tablet (Motrin)Indicatio ns:Muscle spasm Take 1 Tablet by mouth in the morning and 1 Tablet at noon and 1 Tablet before bedtime. with food for pain. 30 Tablet 1 3 10/27/19 24 Discontinued(Pat ient preference/disco ntinuation) Losartan Potassium 100 MG Oral Tablet (Cozaar)Indicatio ns:HTN, goal below 140/90 Take 1 Tablet by mouth in the morning. 30 Tablet 5 3 11/23/19 24 Discontinued(Ref ill) Omeprazole 20 MG Oral Capsule Delayed Release (PriLOSEC)Indicat ions:RUQ abdominal pain Take 1 Capsule by mouth in the morning. 1 hour before the first meal of the day. 30 Capsule 5 3 10/27/19 24 Discontinued documented as of this encounter (statuses as of 12/16/2023) Active Problems Problem Noted Date Diagnosed Date [...] as of this encounter (statuses as of 12/16/2023) Resolved Problems Problem Noted Date Diagnosed Date [...] as of this encounter (statuses as of 12/16/2023) Immunizations Name Administration Dates Next Due COVID-19 mRNA, LNP-s, No Pre serve, 2-Dose Series (Moderna) 11/18/2020,10/20/2020 COVID-19, mRNA, LNP-s, PF, B ooster, 100mcg/0.5mg (Moderna) 08/28/2021 Covid-19, Mrna, Lnp-s, Pf, B ivalent, 30 Mcg, IM, 12 yrs and above (Pfizer) 08/12/2022 Pneumococcal Conjugate Vacc, 13 Valent (Prevnar) 06/10/2018 Pneumococcal Polysaccharide PPV23 (Pneumovax) 10/09/2022,12/04/2016 Seasonal Influenza, PF, 6 M & above, [...] encounter Miscellaneous Notes * Telephone Encounter - Anny Cm OSA - 09/16/2023 11:50 AM EST Received a message from Charlotte from [employer]. They need updated prescription and office notes signed by Kristel. On the prescription it must say that [employer] as the DME. Can be fax to [phone] documented in this encounter Plan of Treatment Upcoming Encounters Date Type Department Care Team (Late st Contact Info) Description 01/05/2024 9:20 AM EDT Office Visit Family Practice [address] [phone] Chi Silvestre DO [address] [place] [address] 01/13/2024 8:30 AM EDT Nutrition Services Nutrition Services [address] [address] Mariana Sutherland RDN [address] [place] [address] 02/29/2024 10:00 AM EDT Nurse Only Ancillary [address] [address] College, Nurse Annual Wellness Visit [address] [address] Scheduled Procedures Name Priority Associated Diagnoses Date/Ti [...] D LEVEL ONCE IN A LIFETIME-USE SMARTSET# 67536 Completed 10/09/2022, 12/03/2020, 09/11/2018, Additional history exists [...] this encounter Medical Devices Implanted Type Area Heel Lining Paster Device Identifier Shelf Expiration Date Model / Serial / Lot Implant On The Fly - [id number] Implanted:Qty: 1 on 10/13/2007 at OR [facility] N/A: Abdomen [employer] DONN 05/13/2009 [id number] / / [id number] Description:Alloderm 16x20 . 79-2.03 Implant Breast Haven+ [id number] - [id number] Implanted:Qty: 1 on 07/13/2009 at OR [facility] Right: Breast MENT[employer] DONN 10/29/2011 [id number] / [id number] / documented as of this encounter Visit Diagnoses Diagnosis COLT (obstructive sleep apnea)- Primary Obstructive sleep apnea (adult) (pediatric) HTN, goal below 140/90 Unspecified essential hypertension [...] 7:50 PM 10/16/2007 3:07 PM Care Teams Operations Advisor Relationship Specialty Start Date End Date Chi Silvestre DO [address] [place] [address] PCP - General Internal Medicine 10/09/21 documented as of this encounter
--- OUTSIDE RECORDS SUMMARY | 2024-03-26 17:38 | External Medical Summary | Summary of Care ---
Author Name Unknown Organization [facility] Address [address] [facility] [place] [address] Phone [phone] Care Team Providers Care Network Desktop Support Specialist Name Role Phone Chi Silvestre DO Primary Care Provider [phone] Reason for Visit * Reason Comments Rheum Follow Up Follow up - [facility] * Evaluate & Treat - Unlimited Visits (Within 10 days (routine)) - Authorized Specialty Diagnoses / Procedures Referred By Contac t Referred To Contact Rheumatology Diagnoses Age-related osteoporosis without current pathological fracture Chi Silvestre DO [address] [place] [address] Referral ID Status Reason Start Date Expiration Date Visits Requested Visits Authorized [id number] Authorized Specialty Services Required 01/05/[phone] Encounter Details Date Type Department Care Team (Late st Contact Info) Description 01/11/2024 2:30 PM EDT Office Visit Rheumatology [place] [id number] [email or web address] [address] Jewel Irizarry PA-C [email or web address] [place] [address] Age-related osteoporosis without current pathological fracture* Allergies [...] 3 10/24/2023 10/23/2024 Active OneTouch Delica Plus [id number] USE TO TEST SUGARS DAILY 100 Each [...] documented in this encounter Progress Notes * Jewel Irizarry PA-C - 01/11/2024 2:35 PM EDT /[facility] ([facility]): follow up Supervised by: Dr. Oscar Avalos Previous Visit Plan from 11/06/2021 reviewed. Reason for visit: Patient seen today for further follow-up/evaluation of osteoporosis. Bone Health Summary: No fracture hx. Had IV reclast x4. Last infusion 11/2021 No other treatment. Risks: Falls since last [facility] visit: no Personal History of Fx since last [facility] Visit: no Prevention: Exercise : 3 or more times weekly: Yes. Walks routinely. Nutrition: eats calcium rich foods, Yes Gait: unsteady with walking, No, use of cane/walker, No, Calcium and Vitamin D supplements in adequate doses: Yes Current Smoker: No Chronic Glucocorticoid use: No Rheumatoid Arthritis: No Alcohol 3 or more per day: Yes ROS: All other review of systems reviewed and negative other than mentioned in HPI. Medications: Current Outpatient Medications Medication Sig Dispense Refill [...] BY MOUTH EVERY DAY 100 Tablet 3 OneTouch Verio In Vitro Strip (Glucose Blood) USE TO TEST SUGARS DAILY 100 Strip 3 OneTouch Delica Plus [id number] USE TO TEST SUGARS DAILY 100 Each [...] by mouth at bedtime. 30 Tablet 2 No current facility-administered medications for this visit. Social History: Social History Tobacco Use Smoking status: Never Passive exposure: Never Smokeless tobacco: Never Vaping Use Vaping Use: Never used Substance Use Topics Alcohol use: Yes Comment: very rarely Drug use: No PHYSICAL EXAM: General appearance: NAD Eyes: Normal Heme/Lymph: goiter: No Musculoskeletal: Kyphosis No Heart: normal Lungs: normal Diagnostic Testing: Results of labs and DXA were reviewed and discussed with the patient. Labs: Satisfactory: 25-OH Vitamin D calcium creatinine DXA - Vertebral Fracture Assessment: Date: 10/06/2022 DXA Result: Lumbar spine: 0.751 gms/cm2 T-score: -2.7 Left femoral neck: 0.705 gms/cm2 T-score: -1.3 Assessment: 68 year old female with osteoporosis who has no signs or symptoms.. She needs assessment for ongoing treatment and has stable bone mineral density on recent DXA. Plan: The following items are ordered or are in progress: 1. Education: Osteoporosis education was provided by the [facility] team (topics included disease process, DXA, calcium/vitamin D, osteoporosis medications - including administration instructions and risks/benefits, weight bearing exercise, fall prevention/safety). . 2. Prevention: . Eye Examination recommended annually, as good vision may help to prevent falls . Exercise recommended: standing, walking, light lifting . Fall Prevention/Safety Education recommended and discussed . Continue calcium rich foods (goal of 3 servings daily) 3. Osteoporosis Medications : Continue Drug Holiday 4. Bone Density Testing: due 2 year(s) from previous. 09/2024. Will follow up after Dexa complete to decide on further therapy. 5. Laboratory: None needed 6. Followup: As noted above Jewel Irizarry PA-C [facility] Team The patient was discussed with me. I agree with the findings and plan as documented by Jewel CALLEJAS in this note. Oscar Avalos MD Rheumatology Department documented in this encounter Nursing Notes * Adelita Levine LPN - 01/11/2024 2:34 PM EDT Chief Complaint Patient presents with Rheum Follow Up Follow up - [facility] documented in this encounter Plan of Treatment Upcoming Encounters Date Type Department Care Team (Late st Contact Info) Description 01/13/2024 8:30 AM EDT Nutrition Services Nutrition Services 65 [facility] [address] [place] [address] Mariana Sutherland RDN [address] [place] [address] [place] [address] 02/15/2024 2:45 PM EDT Imaging Radiology [facility] [facility] [address] [facility] [place] [address] 02/29/2024 10:00 AM EDT Nurse Only Ancillary 65 [facility] [address] [place] [address] College, Nurse Annual Wellness Visit [address] [address] 05/06/2024 10:40 AM EDT Office Visit Family Practice 65 [facility] [address] [place] [address] Chi Silvestre, DO [address] [facility], [place] [address] 10/17/2024 1:00 PM EST Imaging Radiology, [place] [address] [address] [place] [address] 01/19/2025 10:30 AM EDT Office Visit Rheumatology [place] [address] [place] [address] [facility] [email or web address] [place] [address] Scheduled Orders Name Type Priority Associated Diagnoses [...] D LEVEL ONCE IN A LIFETIME-USE SMARTSET# [id number] Completed 10/09/2022, 12/03/2020, 09/11/2018, Additional history exists [...] this encounter Medical Devices Implanted Type Area Ethylbenzene Cracking Supervisor Device Identifier Shelf Expiration Date Model / Serial / Lot Implant On The Fly - [id number] Implanted:Qty: 1 on 10/13/2007 at OR [facility] [place] N/A: Abdomen [employer] DONN 05/13/2009 [id number] / / [id number] Description:Alloderm 16x20 . 79-2.03 Implant Breast Haven+ [id number] - [id number] Implanted:Qty: 1 on 07/13/2009 at OR [facility] [place] Right: Breast [employer] DONN 10/29/2011 [id number] / [id number] / documented as of this encounter Visit Diagnoses Diagnosis Age-related osteoporosis without current pathological fracture- Primary Senile osteoporosis documented in this encounter Advance Directives Latest Code Status on File Code Status Date Activated Date Inactivated Comments Full Code 07/13/2009 3:24 PM 07/14/2009 4:16 PM Th is order reflects the patients wishes and were consensually agreed upon. Code Status History Code Status Date Activated Date Inactivated Comments Full Code 10/13/2007 7:50 PM 10/16/2007 3:07 PM Care Teams Network Desktop Support Specialist Relationship Specialty Start Date End Date Chi Silvestre DO [address] [place] [address] PCP - General Internal Medicine 10/09/21 documented as of this encounter
--- OUTSIDE RECORDS SUMMARY | 2024-03-26 17:38 | External Medical Summary | Summary of Care ---
Author Name Unknown Organization [facility] Address [address] [facility] [address] Phone [phone] Care Team Providers Care Configuration Technician Name Role Phone Chi Silvestre DO Primary Care Provider [phone] Reason for Visit * Reason Comments Acute Encounter Details Date Type Department Care Team (Latest Contact Info) Description 02/12/2024 10:20 AM EDT Office Visit Family Practice [address] [place] [address] [address] [place] [address] Chi Silvestre DO [address] [place] [address] Subconjunctival bleed, left*; HTN, goal below 140/90; Dyslipidemia, goal LDL below 100; Prediabetes; Age-related osteoporosis without current pathological fracture; Intermittent asthma with reliever use up to twice per week without complication Allergies Active Allergy Reactions Criticality Noted Date Comments Bacitracin 01/09/2020 Diphenhydramine Hcl Rash 12/02/2007 Neomycin-Bacitracin Zn-Polymyx 08/02 Other - Drugs Itching,Rash 01/30/2010 Dermabond Penicillins Edema Other 10/15/2006 Polymyxin B 01/09/2020 documented as of this encounter (statuses as of 02/12/2024) Medications Medication Sig Dispensed Refills Start Date [...] 3 10/24/2023 10/23/2024 Active OneTouch Delica Plus [id number] USE TO TEST SUGARS DAILY 100 Each [...] as of this encounter (statuses as of 02/12/2024) Active Problems Problem Noted Date Diagnosed Date [...] as of this encounter (statuses as of 02/12/2024) Resolved Problems Problem Noted Date Diagnosed Date [...] as of this encounter (statuses as of 02/12/2024) Immunizations Name Administration Dates Next Due COVID-19 [...] Sign Reading Time Taken Comments Blood Pressure 144/90 02/12/2024 10:33 AM EDT Pulse 71 02/12/2024 10:33 AM EDT Temperature 36.4 C (97.5 F) 02/12/2024 1 0:33 AM EDT Respiratory Rate 12 02/12/2024 10:3 3 AM EDT Oxygen Saturation 95% 02/12/2024 10: 33 AM EDT Inhaled Oxygen Concentration - - Weight 91.5 kg (201 lb 12.8 oz) 024 10:33 AM EDT Height 168.3 cm (5' 6.25") 02/12/2024 1 0:33 AM EDT Body Mass Index 32.33 02/12/2024 10:33 AM EDT documented in this encounter Progress Notes * Chi Silvestre, - 02/12/2024 11:02 AM EDT SUBJECTIVE: Adam Barajas is a 68 year old female. Chief Complaint Patient presents with Acute HPI: Patient is a 68 year old female with a history of HTN, Hyperlipidemia, Osteoporosis, Asthma, prediabetes, and left Breast Cancer that is seen for left eye redness that has been present for 3 days. Noeve drainage or vision loss. No chest pain or shortness of breath are present. Patient Active Problem List Diagnosis Code HTN, [...] DAILY 100 Strip 3 OneTouch Delica Plus [id number] USE TO TEST SUGARS DAILY 100 Each 3 No current facility-administered medications for this visit. The patient's medication list was reviewed and updated as needed. Past Medical History: Diagnosis Date Asthma Breast cancer (HCC) 2005 RT BREAST CA DM2 (diabetes mellitus, type 2) ([facility]) Encounter for breast reconstruction following mastectomy 2009 at [facility] - Dr Moreno Hypertensive heart disease [...] CM performed by DARCIE SINGH at OR [facility] ACELLULAR DERM REPL,TRUNK/ARM/LEG,100 SQ CM 10/13/2007 DERMAL REPLACEMENT ACELLULAR TRUNK ARMS LEGS 100SQ CM performed by DARCIE SINGH at OR [facility] BREAST RECONSTRUCTION W/TRAM 10/13/2007 BREAST RECONSTRUCTION WITH TRAM FLAP performed by DARCIE SINGH at OR [facility] COLONOSCOPY, DIAGNOSTIC (RECTUM) 04/16/2007 repeat in 10 years COLONOSCOPY, DIAGNOSTIC (RECTUM) 06/19/2017 adenomatous polyp, diverticulosis, repeat 5 yrs/COLONOSCOPY FLEXIBLE PROXIMAL DIAGNOSTIC performed by Jesse Reid MD at ENDOSCOPY [facility] COLONOSCOPY, DIAGNOSTIC (RECTUM) 08/29/2022 diverticulosis sigmoid colon/recall 5 years/COLONOSCOPY FLEXIBLE PROXIMAL DIAGNOSTIC performed by Jesse Reid MD at ENDOSCOPY [facility] DELAYED BREAST PROSTHESIS 07/13/2009 DELAYED INSERTION BREAST PROSTHESIS performed by DARCIE SINGH at OR [facility] EGD, FLEXIBLE, DIAGNOSTIC 04/16/2007 normal ENDOMETRIAL THERMAL ABLATE 2006 HYSTEROSCOPY,DIAGNOSTIC LIGATE/CUT OVIDUCT(S) 1975 MASTECTOMY,RADICAL Right 09/16/2006 MISCELLANEOUS ORDER ([facility] ONLY) 2008 Sinus polypectomy and uvula was tacked up for snoring. Dr. Sahu REDUCTION OF BREAST 01/09/2010 REDUCTION MAMMOPLASTY performed by DARCIE SINGH at OR [facility] REMOVE EXCESSIVE SKIN, OTHER AREA 10/18/2008 EXCISION EXCESSIVE SKIN AND SUBCUTANEOUS TISSUE OTHER performed by DARCIE SINGH at OR [facility] REVISION OF BREAST RECONSTRUCTION 10/18/2008 REVISION OF BREAST RECONSTRUCTION performed by DARCIE SINGH at OR [facility] REVISION OF BREAST RECONSTRUCTION 07/13/2009 REVISION OF BREAST RECONSTRUCTION performed by DARCIE SINGH at OR [facility] RPR COMPX WND TRUNK 2.6-7.5CM 10/18/2008 REPAIR COMPLEX TRUNK 2.6 TO 7.5CM performed by DARCIE SINGH at OR [facility] RPR,COMPLEX,TRUNK,EACH 5CM 10/18/2008 REPAIR COMPLEX TRUNK 5CM OR LESS performed by DARCIE SINGH at OR [facility] SACROILIAC JOINT INJECT W/GUIDANCE 01/06/2019 INJECTION SACROILIAC JOINT performed by Acosta Glaser DO at OR [facility] SACROILIAC JOINT INJECT W/GUIDANCE 11/05/2020 INJECTION SACROILIAC JOINT performed by Acosta Glaser DO at OR [facility] SACROILIAC JOINT INJECT W/GUIDANCE 02/04/2021 INJECTION SACROILIAC JOINT performed by Acosta Glaser DO at OR [facility] SUCTION REMOVE FAT TISSUE, TRUNK 10/18/2008 SUCTION ASSISTED LIPECTOMY TRUNK performed by DARCIE SINGH at OR [facility] SUCTION REMOVE FAT TISSUE, TRUNK 07/13/2009 SUCTION ASSISTED LIPECTOMY TRUNK performed by DARCIE SINGH at OR [facility] TISSUE TRANSFER, LARGE/COMPLICATED 10/18/2008 ADJACENT TISSUE TRANSFER 30 PLUS SQ CM UNUSUAL performed by DARCIE SINGH at OR [facility] Review of patient's allergies indicates: Allergen Reactions Bacitracin Diphenhydramine Hcl Rash Neosporin [Neomycin-Bacitracin Zn-Polymyx] Other - Drugs Itching and Rash Dermabond Pcn [Penicillins] Edema Other Polymyxin B Review of Systems Constitutional: Negative for chills and fever. Eyes: Positive for redness. Negative for discharge, itching and visual disturbance. Respiratory: Negative for cough, shortness of breath and wheezing. Cardiovascular: Negative for chest pain, palpitations and leg swelling. OBJECTIVE: BP 144/90 (BP Site: Left Arm, BP Position: Sitting, BP Cuff Size: Regular) | Pulse 71 | Temp 36.4 C (97.5 F) (Tympanic) | Resp 12 | Ht 1.683 m (5' 6.25") | Wt 91.5 kg (201 lb 12.8 oz) | SpO2 95% | BMI 32.33 kg/m | BSA 2.07 m Physical Exam Vitals and nursing note reviewed. Constitutional: General: She is not in acute distress. Appearance: Normal appearance. She is not toxic-appearing. HENT: Head: Normocephalic and atraumatic. Eyes: Extraocular Movements: Extraocular movements intact. Conjunctiva/sclera: Right eye: No exudate or hemorrhage. Left eye: Hemorrhage present. No exudate. Pupils: Pupils are equal, round, and reactive to light. Neurological: Mental Status: She is alert. Results for orders placed or performed in [...] results can be found in Results Review. PLAN AND ASSESSMENT: Subconjunctival bleed, left (Primary) No intervention necessary. Patient reassured HTN, goal below 140/90 Continue Losartan, Amlodipine, and Furosemide Dyslipidemia, goal LDL below 100 Continue Atorvastatin Prediabetes Continue Metformin Age-related osteoporosis without current pathological fracture Continue to follow with Rheumatology [facility] currently Intermittent asthma with reliever use up to twice per week without complication Continue Montelukast and Albuterol Follow Up: Return in about 12 weeks (around 05/06/2024). Chi Silvestre DO 11:02 AM 02/12/2024 documented in this encounter Nursing Notes * Cassandra Cooper LPN - 02/12/2024 10:32 AM EDT Patient here for acute visit. Left eye red/bloodshot. No known injury. States she has had headachesfor the last couple of days - no headache today. Pt would prefer to defer Tdap until she is feelingbetter. documented in this encounter Plan of Treatment Upcoming Encounters Date Type Department Care Team (Late st Contact Info) Description 02/15/2024 2:45 PM EDT Imaging Radiology [facility]st [facility] [address] [facility] [place] [address] 02/16/2024 9:30 AM EDT Nutrition Services Nutrition Services [address] [facility] [address] [place] [address] Mariana Sutherland RDN [address] [facility] [place] [address] 02/29/2024 10:00 AM EDT Nurse Only Ancillary [address] [facility] [address] [place] [address] College, Nurse Annual Wellness Visit [address] [address] 05/06/2024 10:40 AM EDT Office Visit Family Practice [address] [facility] [address] [place] [address] Chi Silvestre, DO 293 [facility] [place] [address] 10/17/2024 1:00 PM EST [address]iology, [address] [address] 01/19/2025 10:30 AM EDT Office Visit Rheumatology [address] [place], [place] [address] Jewel Irizarry PA-C [address] [place] [address] [place] [address] Scheduled Procedures Name Priority Associated Diagnoses Date/Ti [...] 01/04/2025 01/05/2024, 09/2022, 04/08/2023, Additional history exists Albumin/Creatinine Ratio 10/09/2025 [...] D LEVEL ONCE IN A LIFETIME-USE SMARTSET# [id number] Completed 10/09/2022, 12/03/2020, 09/11/2018, Additional history exists Influenza Vaccine (FLU shot) Completed 08/28/2023, 08/01/2022, 08/04/2021, Additional history exists COVID-19 Vaccine [...] this encounter Medical Devices Implanted Type Area Regional Engagement Consultant Device Identifier Shelf Expiration Date Model / Serial / Lot Implant On The Fly - [id number] Implanted:Qty: 1 on 10/13/2007 at OR [facility] N/A: Abdomen LIFE CELL DONN 05/13/2009 [id number] / / [id number] Description:Alloderm 16x20 . 79-2.03 Implant Breast Haven+ [id number] - [id number] Implanted:Qty: 1 on 07/13/2009 at OR [facility] Right: Breast MENTOR DONN 10/29/2011 [id number] / [id number] / documented as of this encounter Visit Diagnoses Diagnosis Subconjunctival bleed, left- Primary HTN, goal below 140/90 Unspecified essential hypertension Dyslipidemia, goal LDL below 100 Other and unspecified hyperlipidemia Prediabetes Other abnormal glucose Age-related osteoporosis without current pathological fracture Senile osteoporosis Intermittent asthma with reliever use up to twice per week without complication documented in this encounter Advance Directives Latest Code Status on File Code Status Date Activated Date Inactivated Comments Full Code 07/13/2009 3:24 PM 07/14/2009 4:16 PM Thi s order reflects the patients wishes and were consensually agreed upon. Code Status History Code Status Date Activated Date Inactivated Comments Full Code 10/13/2007 7:50 PM 10/16/2007 3:07 PM Care Teams Configuration Technician Relationship Specialty Start Date End Date Chi Silvestre DO [address] [facility] [place] [address] PCP - General Internal Medicine 10/09/21 documented as of this encounter
--- OUTSIDE RECORDS SUMMARY | 2024-03-26 17:38 | External Medical Summary ---
Author Name Unknown Address Unknown Organization K01:[facility] [place] [address] [place] [address] Laboratory Report Ordering Provider Test Date Status GURPREET DUNAWAY 01/05/2024 10:19:09 Final Observation Date Value Abnormality Reference (Units ) Status Vitamin B12 01/05/2024 10:19:09 1302 Above high normal 232-1245 (pg/mL) Final Performing Location LAB[facility] - [address] [place] [address]
--- OUTSIDE RECORDS SUMMARY | 2024-03-26 17:38 | External Medical Summary | Summary of Care ---
Author Name Unknown Organization [facility] Address [address] [facility] [place] [address] Phone [phone] Care Team Providers Care Missile Mechanic Name Role Phone Chi Silvestre DO Primary Care Provider [phone] Reason for Visit * Reason Comments Medication Refill Encounter Details Date Type Department Care Team (Late st Contact Info) Description 12/14/2023 Refill Pulmonary Medicine, [facility] [address] [facility] [place] [id number] John Padilla MD [address] [facility] [place] [address] Asthma in adult, mild intermittent, uncomplicated Allergies Active Allergy Reactions Criticality Noted Date Comments Bacitracin 01/09/2020 Diphenhydramine Hcl Rash 12/02/2007 Neomycin-Bacitracin Zn-Polymyx 08/02 Other - Drugs Itching,Rash 01/30/2010 Dermabond Penicillins Edema Other 10/15/2006 Polymyxin B 01/09/2020 documented as of this encounter (statuses as of 12/15/2023) Medications Medication Sig Dispensed Refills Start Date [...] 3 10/24/2023 5 Active OneTouch Delica Plus [id number] USE TO TEST SUGARS DAILY 100 Each [...] at bedtime. 30 Tablet 2 12/15/2023 4 Active Montelukast Sodium 10 MG Oral Tablet (Singulair)Indicati ons:Asthma in adult, mild intermittent, uncomplicated Take 1 Tablet by mouth at bedtime. 90 Tablet 0 09/24/2023 4 Discontinue d(Refill) documented as of this encounter (statuses as of 12/15/2023) Active Problems Problem Noted Date Diagnosed Date [...] as of this encounter (statuses as of 12/15/2023) Resolved Problems Problem Noted Date Diagnosed Date [...] as of this encounter (statuses as of 12/15/2023) Immunizations Name Administration Dates Next Due COVID-19 [...] Telephone Encounter - John Padilla MD - 12/15/2023 5:42 PM EDT Signed Prescriptions: Disp Refills Montelukast Sodium 10 MG Oral Tablet (Sing*30 Tab*2 Sig: Take 1 Tablet by mouth at bedtime. Authorizing Provider: JOHN PADILLA * Telephone Encounter - Darcie Mata LPN - 12/15/2023 9:37 AM EDTPending Prescriptions: Disp Refills Montelukast Sodium 10 MG Oral Tablet (Sing*90 Tab*3 Sig: Take 1 Tablet by mouth at bedtime. * Telephone Encounter - Darcie Mata LPN - 12/15/2023 9:36 AM EDT Did you pend patient's preferred pharmacy and medication before forwarding?yes Pharmacy: [facility] Pending Prescriptions: Disp Refills Montelukast Sodium 10 MG Oral Tablet (Sin*90 Tab*3 Sig: Take 1 Tablet by mouth at bedtime. Last Visit: 04/16/2023 (in office), Visit date not found (telemedicine) Next Visit: Visit date not found If no future appointments scheduled, and last appointment is greater than a year ago, please schedule patient for a follow-up appointment Last date the medication was ordered: 09/24/23 Is this request for a controlled substance?No Urine Drug Screen:No results found. However, due to the size of the patient record, not all encounters were searched. Please check Results Review for a complete set of results. Patient Phone Numbers Labs: Lab Results Component Value Date/Time CREAT 0.8 08/24/2023 09:15 AM CREAT 0.93 12/06/2020 12:00 AM CREAT 0.9 10/08/2019 09:18 AM POTASSIUM 4.3 08/24/2023 09:15 AM POTASSIUM 3.7 12/06/2020 12:00 AM POTASSIUM 4.6 10/08/2019 09:18 AM TSH 3.08 10/09/2021 11:31 AM TSH 3.00 07/15/2013 08:35 AM LDLCALC 69 04/08/2023 09:04 AM LDLCALC 91 10/08/2019 09:18 AM LDLDIRECT NOT APPLICABLE 07/15/2013 08:35 AM ALT 32 08/14/2023 03:18 PM ALT 17 10/08/2019 09:18 AM HGBA1C 6.4 (H) 08/28/2023 08:30 AM HGBA1C 6.1 (H) 10/08/2019 09:18 AM documented in this encounter Plan of Treatment Upcoming Encounters Date Type Department Care Team (Late st Contact Info) Description 01/05/2024 9:20 AM EDT Office Visit Family Practice [address] [place] [address] [place] [id number] Chi Silvestre, 293 [place] [address] 01/13/2024 8:30 AM EDT Nutrition Services Nutrition Services 65 [facility] 293 [place] [address] Mariana Sutherland RDN 106 [facility] [place] [address] 02/29/2024 10:00 AM EDT Nurse Only Ancillary 65 [facility] 293 [place] [address] College, Nurse Annual Wellness Visit [address] [place] [address] Scheduled Procedures Name Priority Associated Diagnoses Date/Ti [...] D LEVEL ONCE IN A LIFETIME-USE SMARTSET# [id number] Completed 10/09/2022, 12/03/2020, 09/11/2018, Additional history exists [...] this encounter Medical Devices Implanted Type Area Car Painter Device Identifier Shelf Expiration Date Model / Serial / Lot Implant On The Fly - [id number] Implanted:Qty: 1 on 10/13/2007 at OR [facility] N/A: Abdomen LIFE CELL DONN 05/13/2009 [id number] / / [id number] Description:Alloderm 16x20 . 79-2.03 Implant Breast Haven+ [id number] - [id number] Implanted:Qty: 1 on 07/13/2009 at OR [facility] Right: Breast MENTOR DONN 10/29/2011 [id number] / [id number] / documented as of this encounter Visit Diagnoses Diagnosis Asthma in adult, mild intermittent, uncomplicated documented in this encounter Advance Directives Latest Code Status on File Code Status Date Activated Date Inactivated Comments Full Code 07/13/2009 3:24 PM 07/14/2009 4:16 PM Thi s order reflects the patients wishes and were consensually agreed upon. Code Status History Code Status Date Activated Date Inactivated Comments Full Code 10/13/2007 7:50 PM 10/16/2007 3:07 PM Care Teams Missile Mechanic Relationship Specialty Start Date End Date Chi Silvestre DO [address] [place] [address] PCP - General Internal Medicine 10/09/21 documented as of this encounter
--- OUTSIDE RECORDS SUMMARY | 2024-03-26 17:38 | External Medical Summary | Summary of Care ---
Author Name Unknown Organization [facility] Address [address] [facility] [address] Phone [phone] Care Team Providers Care Surgical Attendant Name Role Phone Chi Silvestre DO Primary Care Provider [phone] Reason for Visit * Reason Onset Date Comments Adult Annual Wellness Visit, Subsequent Visit Immunizations 02/29/2024 Adult Annual Wellness Visit, Subsequent Visit Encounter Details Date Type Department Care Team (Late st Contact Info) Description 02/29/2024 10:00 AM EDT Nurse Only Ancillary [address] [address] College, Nurse Annual Wellness Visit [address] [address] Adult Annual Wellness Visit, Subsequent Vi... Allergies [...] 3 10/24/2023 10/23/2024 Active OneTouch Delica Plus Hvlode15C USE TO TEST SUGARS DAILY 100 Each [...] bedtime. 30 Tablet 2 12/15/2023 03/15/2024 Active Qxywlpw-Bbozpr-Bmelp Pertussis 5-2.5-18.5 LF-MCG/0.5 Suspension Prefilled Syringe (Boostrix)Indication s:Need for lbibgbrdqt-rocjxit-v ertussis (Tdap) vaccine Inject 0.5 mL into [...] encounter Patient Instructions * Patient Instructions* Liz Camargo RN - 02/29/2024 10:18 AM EDT ~~PATIENT [...] DAILY 100 Strip 3 OneTouch Delica Plus Jzqwoz00X USE TO TEST SUGARS DAILY 100 Each [...] Results Review. Sincerely, Chi Silvestre, DO 02/29/2024 [employer] Calendar (as of Visit date not found [...] your insurance company to determine what's covered. [employer] is a great tool that helps you review your medical record online, including test results, doctor notes and your health summary. You can also schedule appointments with me and other members of your care team, request prescription refills and ask for advice related to your medical conditions at [email or web address]. documented in this encounter Progress Notes * [...] BREAST CA DM2 (diabetes mellitus, type 2) ([facility]) Encounter for breast reconstruction following mastectomy 2009 at [facility] - Dr Moreno Hypertensive heart disease Lung [...] CM performed by DARCIE SINGH at OR [facility] ACELLULAR DERM REPL,TRUNK/ARM/LEG,100 SQ CM 10/13/2007 DERMAL REPLACEMENT ACELLULAR TRUNK ARMS LEGS 100SQ CM performed by DARCIE SINGH at OR [facility] BREAST RECONSTRUCTION W/TRAM 10/13/2007 BREAST RECONSTRUCTION WITH TRAM FLAP performed by DARCIE SINGH at OR [facility] COLONOSCOPY, DIAGNOSTIC (RECTUM) 04/16/2007 repeat in 10 years COLONOSCOPY, DIAGNOSTIC (RECTUM) 06/19/2017 adenomatous polyp, diverticulosis, repeat 5 yrs/COLONOSCOPY FLEXIBLE PROXIMAL DIAGNOSTIC performed by Jesse Reid MD at ENDOSCOPY [facility] COLONOSCOPY, DIAGNOSTIC (RECTUM) 08/29/2022 diverticulosis sigmoid colon/recall 5 years/COLONOSCOPY FLEXIBLE PROXIMAL DIAGNOSTIC performed by Jesse Reid MD at ENDOSCOPY [facility] DELAYED BREAST PROSTHESIS 07/13/2009 DELAYED INSERTION BREAST PROSTHESIS performed by DARCIE SINGH at OR [facility] EGD, FLEXIBLE, DIAGNOSTIC 04/16/2007 normal ENDOMETRIAL THERMAL ABLATE 2006 HYSTEROSCOPY,DIAGNOSTIC LIGATE/CUT OVIDUCT(S) 1975 MASTECTOMY,RADICAL Right 09/16/2006 MISCELLANEOUS ORDER ([facility] ONLY) 2008 Sinus polypectomy and uvula was tacked up for snoring. Dr. Sahu REDUCTION OF BREAST 01/09/2010 REDUCTION MAMMOPLASTY performed by DARCIE SINGH at OR [facility] REMOVE EXCESSIVE SKIN, OTHER AREA 10/18/2008 EXCISION EXCESSIVE SKIN AND SUBCUTANEOUS TISSUE OTHER performed by DARCIE SINGH at OR [facility] REVISION OF BREAST RECONSTRUCTION 10/18/2008 REVISION OF BREAST RECONSTRUCTION performed by DARCIE SINGH at OR [facility] REVISION OF BREAST RECONSTRUCTION 07/13/2009 REVISION OF BREAST RECONSTRUCTION performed by DARCIE SINGH OR [facility] RPR COMPX WND TRUNK 2.6-7.5CM 10/18/2008 REPAIR COMPLEX TRUNK 2.6 TO 7.5CM performed by DARCIE SINGH at OR [facility] RPR,COMPLEX,TRUNK,EACH 5CM 10/18/2008 REPAIR COMPLEX TRUNK 5CM OR LESS performed by DARCIE SINGH at OR [facility] SACROILIAC JOINT INJECT W/GUIDANCE 01/06/2019 INJECTION SACROILIAC JOINT performed by Acosta Glaser DO at OR [facility] SACROILIAC JOINT INJECT W/GUIDANCE 11/05/2020 INJECTION SACROILIAC JOINT performed by Acosta Glaser DO at OR [facility] SACROILIAC JOINT INJECT W/GUIDANCE 02/04/2021 INJECTION SACROILIAC JOINT performed by Acosta Glaser DO at OR [facility] SUCTION REMOVE FAT TISSUE, TRUNK 10/18/2008 SUCTION ASSISTED LIPECTOMY TRUNK performed by DARCIE SINGH at OR [facility] SUCTION REMOVE FAT TISSUE, TRUNK 07/13/2009 SUCTION ASSISTED LIPECTOMY TRUNK performed by DARCIE SINGH at OR [facility] TISSUE TRANSFER, LARGE/COMPLICATED 10/18/2008 ADJACENT TISSUE TRANSFER 30 PLUS SQ CM UNUSUAL performed by DARCIE SINGH at OR [facility] Family History Problem Relation Name Age of [...] mL, 12 YRS AND ABOVE, IM ([facility]) 11/10/2023 COVID-19, mRNA, LNP-s, PF, Booster, [...] by mouth at bedtime. 30 Tablet 2 Gicmqxj-Jxbluq-Jzvhr Pertussis 5-2.5-18.5 LF-MCG/0.5 Suspension Prefilled Syringe (Boostrix) Inject0.5 mL into a large muscle once for 1 dose. 0.5 mL 0 OneTouch Delica Lancets 33G Use to test sugars daily - E11.9 100 Each 3 Albuterol Sulfate HFA 108 (90 Base) MCG/ACT Inhalation Aerosol Solution INHALE TWO PUFFS BY MOUTH EVERY 4 HOURS NEEDED FOR WHEEZING 54 g 3 NonobaTouch Verio In Vitro Strip (Glucose Blood) USE TO TEST SUGARS DAILY 100 Strip 3 OneTouch Delica Plus Gjalhc19W USE TO TEST SUGARS DAILY 100 Each [...] than 4 medications Older than age 70 Mnb-Ds-rhq-Go Test: Time began at 10:00. Patient stood from sitting position and walked approximately 10 feet, returnedand sat down. Total time for igy-ts-ffd-go test was 8.58 seconds. Bjv-Yd-ewf-Go Test completed? Yes Gender Specific Preventative Plan: [...] D LEVEL ONCE IN A LIFETIME-USE SMARTSET# 50947 Completed Influenza Vaccine (FLU shot) Completed Zoster Vaccines Completed Pneumococcal Vaccine: 65+ Years Completed Hepatitis B Aged Out MENINGOCOCCAL (MENACTRA/MENVEO) Aged Out GARDASIL-HPV IMMUNIZATION SERIES Aged Out RETIRED - COLONOSCOPY-EVERY 5 YRS AGES 18-100 Discontinued Follow Up/ Referrals/Handouts: No further action needed Routine general medical examination at a health care facility (Primary) Need for oecyvyatjh-xmstyrl-zioceopuq (Tdap) vaccine - TDAP (AGE 10 AND OLDER)(BOOSTRIX) - Dreaclg-Qmxzny-Evgvv Pertussis 5-2.5-18.5 LF-MCG/0.5 Suspension Prefilled Syringe (Boostrix); [...] from the original note were not included. [address]120 Preventing Falls: Making Changes in Your Living [...] you might need to talk to your building estimator orhomeowners' association about them. Have loose boards [...] ice or snow removal. Last Reviewed Date: 08/28/202219994579-5315 [employer]. All rights reserved. This information is not intended as a substitute for professional medical care. Always follow your healthcare professional's instructions. * Pt Handout (on AVS) - Liz Camargo RN - 02/29/2024 10:38 AM EDT [id number] Fall Prevention Falls often take place due [...] or falling more often. Last Reviewed Date: 09/28/202119991728-2542 [employer]. All rights reserved. This information is not intended as a substitute for professional medical care. Always follow your healthcare professional's instructions. documented in this encounter Plan of Treatment Upcoming Encounters Date Type Department Care Team (Late st Contact Info) Description 05/06/2024 10:40 AM EDT Office Visit Family Practice [address] [place] [address] [place] [address] Chi Silvestre, [address] [facility] [place] [address] 10/17/2024 1:00 PM EST Imaging Radiology, [place] [address] [place] [address] 01/19/2025 10:30 AM EDT Office Visit Rheumatology [place] [address] [place] [address] Jewel Irizarry PA-C [facility] [employer] [place] [address] Scheduled Procedures Name Priority Associated Diagnoses Date/Ti [...] D LEVEL ONCE IN A LIFETIME-USE SMARTSET# 12188 Completed 10/09/2022, 12/03/2020, 09/11/2018, Additional history exists [...] this encounter Medical Devices Implanted Type Area Railroad Brake Operator Device Identifier Shelf Expiration Date Model / Serial / Lot Implant On The Fly - [id number] Implanted:Qty: 1 on 10/13/2007 at OR [facility] N/A: Abdomen LIFE CELL DONN 05/13/2009 [id number] / / [id number] Description:Alloderm 16x20 . 79-2.03 Implant Breast Haven+ [id number] - [id number] Implanted:Qty: 1 on 07/13/2009 at OR [facility] Right: Breast MENTOR DONN 10/29/2011 [id number] / [id number] / documented as of this encounter Visit Diagnoses Diagnosis Routine general medical examination at a health care facility- Primary Need for gekttkqnpc-iklxyva-gncwfruti (Tdap) vaccine Need for prophylactic vaccination with combined hacawceany-vmozuoh-flnsyqzok (DTP) vaccine documented in this encounter Advance Directives * Full Code (Latest Code Status on File) Date Activated Date Inactivated Comments 07/13/2009 3:24 PM 07/14/2009 4:16 PM This order reflects the patients wishes and were consensually agreed upon. * Full Code Date Activated Date Inactivated Comments 10/13/2007 7:50 PM 10/16/2007 3:07 PM Care Teams Surgical Attendant Relationship Specialty Start Date End Date Chi Silvestre DO [address] [facility] [place] [address] PCP - General Internal Medicine 10/09/21 documented as of this encounter
--- OUTSIDE RECORDS SUMMARY | 2024-03-26 17:38 | External Medical Summary | Summary of Care ---
Author Name Unknown Organization [facility] Address [address] [facility] [address] Phone [phone] Care Team Providers Care Medical Education Specialist Name Role Phone Chi Silvestre DO Primary Care Provider [phone] Reason for Visit * Reason Comments Medical Nutrition Therapy Encounter Details Date Type Department Care Team (Latest Contact Info) Description 01/13/2024 8:30 AM EDT Nutrition Services Nutrition Services [address] [address] Mariana Sutherland RDN [address] [place] [address] Prediabetes*; Dyslipidemia, goal LDL below 100; HTN, goal below 140/90 Allergies Active Allergy Reactions Criticality Noted Date Comments Bacitracin 01/09/2020 Diphenhydramine Hcl Rash 12/02/2007 Neomycin-Bacitracin Zn-Polymyx 08/02 Other - Drugs Itching,Rash 01/30/2010 Dermabond Penicillins Edema Other 10/15/2006 Polymyxin B 01/09/2020 documented as of this encounter (statuses as of 01/13/2024) Medications Medication Sig Dispensed Refills Start Date [...] 3 10/24/2023 10/23/2024 Active OneTouch Delica Plus Igogxb47P USE TO TEST SUGARS DAILY 100 Each [...] as of this encounter (statuses as of 01/13/2024) Active Problems Problem Noted Date Diagnosed Date [...] as of this encounter (statuses as of 01/13/2024) Resolved Problems Problem Noted Date Diagnosed Date [...] as of this encounter (statuses as of 01/13/2024) Immunizations Name Administration Dates Next Due COVID-19 mRNA, LNP-s, No Pre serve, 2-Dose Series (Moderna) 11/18/2020,10/20/2020 COVID-19, MRNA-LNP, 23-24, P F, 30 MCG/0.3 mL, 12 YRS AND ABOVE, IM ([facility]) 11/10/2023 COVID-19, mRNA, LNP-s, PF, B [...] - Inhaled Oxygen Concentration - - Weight 92 kg (202 lb 14.4 oz) 01/13/2024 8:29 AM EDT Height - - Body Mass Index 32.5 01/05/2024 9:31 AM EDT documented in this encounter Patient Instructions * Patient Instructions* Mariana Sutherland RDN - 01/13/2024 8:51 AM EDT Current Goals: Discussed the following goals with patient who agrees to the following: Choose to walk twice daily at least 4 days/week (weather permitting) Choose to read food labels for sodium content (entrees <20% sodium and snacks/side <5% sodium) documented in this encounter Progress Notes * Mariana Sutherland RDN - 01/13/2024 8:25 AM EDT NUTRITION FOLLOW-UP NOTE - [address] [place] [address] Brianna Name: Adam Barajas Location: NUTRITION SERVICES [address] [place] [address] Date: 01/13/2024 Time: 8:25 AM Patient location: [address] [place] [address] Clinic. Patient was seen [id number] in the clinic. Patient was verified with two unique identifiers. Reason for Nutrition Follow-up: Dyslipidemia, Hypertension, Overweight/Obesity, Prediabetes NUTRITION ASSESSMENT: Client History Patient reports she has been walking more because of the nicer weather. Patient shared she has beendrinking less diet soda. Patient has made good progress towards the following goals: Choose to add a lean protein to lunch and breakfast Support System: Spouse Barriers to Learning: None Special Education Needs: None Food/Nutrition-Related History Describes typical diet history/24 hr recall Breakfast: oatmeal 3 slices of banana, 1/4 cup whole milk and 1/4 cup of blueberries (warm smoothie); coffee Snacks: none Lunch: salad (deli sliced turkey, tomatoes, lettuce, shredded cheese, +/- eggs with Ranch dressing); water Snacks: once in a while popcorn (about 2 cups of Skinny Pop) Dinner: boneless chicken breast, sweet potato, broccoli; water Snacks: none last night Drinks: water, coffee, diet Pepsi---about 2 times/week Restaurant meals: twice a week (pizza or subs)---not every week Diet Recall/Food Logs Indicate: AREAS FOR IMPROVEMENT: Intermittently significant sodium intake POSITIVE: Adequate calorie intake Food and Nutrient Intake and other pertinent information: N/a Physical Activity: Light---walking 3-4 days/week (depends upon weather) at least 6000 steps/day Medications Changes/Updates: Current Outpatient Medications Medication Sig [...] DAILY 100 Strip 3 OneTouch Delica Plus Rizdoj85J USE TO TEST SUGARS DAILY 100 Each [...] visit. Nutrition-Focused Physical Findings Overall appearance: overweight/obese Fluid accumulation: Fluid Assessment: Normal Fluid Location: N/A Fluid Description: N/A Digestive system: No issues, Appetite: fair to good Nerves and cognition: Awake, alert and Oriented Anthropometric Measurements Current Weight: Wt Readings from Last 1 Encounters: 01/13/24 92 kg (202 lb 14.4 oz) Wt Readings from Last 4 Encounters: 01/13/24 92 kg (202 lb 14.4 oz) 01/11/24 92.5 kg (204 lb) 01/05/24 92.2 kg (203 lb 3.2 oz) 12/09/23 93 kg (205 lb) Weight Change: stable, decreased by 3 pounds in the past 1 month BMI Readings from Last 1 Encounters: 01/13/24 32.50 kg/m Biochemical Data, Medical Tests, and Procedures As below Self-Monitoring Blood Glucose Source of Information: Participant verbally reviewed from memory Frequency of tests: daily Summary: 129, 112, 117 Hypoglycemia?: No Hemoglobin AIC Results: Lab Results Component Value Date/Time HEMOGLOBIN A1C - [facility] 6.0 (H) 01/05/2024 10:19 AM HEMOGLOBIN A1C - [facility] 6.4 (H) 08/28/2023 08:30 AM HEMOGLOBIN A1C - [facility] 6.0 (H) 04/08/2023 09:04 AM HEMOGLOBIN A1C - [facility] 6.1 (H) 10/08/2019 09:18 AM HEMOGLOBIN A1C - [facility] 6.0 (H) 12/31/2018 11:08 AM HEMOGLOBIN A1C - [facility] 5.7 12/05/2017 08:27 AM Reviewed improved A1C with patient Previous Nutrition Diagnosis: Food and nutrition-related knowledge deficit related to Inadequate protein intake and imbalanced meals as evidenced by Reported diet and/or activity recall CURRENT NUTRITION DIAGNOSIS Food and nutrition-related knowledge deficit related to Significant sodium intake as evidenced by Reported diet and/or activity recall NUTRITION INTERVENTION: NUTRITION EDUCATION Comprehensive nutrition education NUTRITION COUNSELING Strategies Motivational Interviewing Diabetes Standards of Care: Care Gaps have been addressed with other members of [address] [place] [address] Care Team Nutrition Prescription: Diet: 2000 mg Sodium Consistent Carbohydrate Heart Healthy Low Fat/Low Cholesterol Daily Calorie Needs: 1300 Kcals Daily Protein Needs: 57-76 Grams protein Current Goals: Discussed the following goals with patient who agrees to the following: Choose to walk twice daily at least 4 days/week (weather permitting) Choose to read food labels for sodium content (entrees <20% sodium and snacks/side <5% sodium) Dietitian Action: Reviewed label reading for sodium content of foods Discussed lower sodium options when ordering takeout meals Offered praise of decreased in A1C Recommendations to Ordering Provider: Continue current plan of nutrition care. NUTRITION MONITORING AND EVALUATION: The following will be monitored and evaluated at the next visit: Monitor weight. Monitor labs. Monitor goals and progress. Plan: Patient scheduled to return in 1 month; dietitian phone # given for future reference. 30 minutes Medical Nutrition Therapy Time In: 826 (01/13/24922) Time Out: 08 (01/13/24922) 15 min (8-22 min) 30 min (23-37 min) 45 min (38-52 min) 60 min (53-67 min) 75 min (68-82 min) 90 min (83-97 min) 105 min (98-113 min) Mariana Sutherland RDN 01/13/2024 8:25 AM NUTRITION SERVICES [address] [place] [address] documented in this encounter Plan of Treatment Upcoming Encounters Date Type Department Care Team (Late st Contact Info) Description 02/15/2024 2:45 PM EDT Imaging Radiology [facility] [place] [address] [facility] [place] [address] 02/16/2024 9:30 AM EDT Nutrition Services Nutrition Services [address] [place] [address] [address] [facility] [address] Mariana Sutherland RDN [address] [facility] [place] [address] 02/29/2024 10:00 AM EDT Nurse Only Ancillary 65 [facility] 293 [facility], [place] [address] College, Nurse Annual Wellness Visit [address], [place] [address] 05/06/2024 10:40 AM EDT Office Visit Family Practice 65 [facility] 293 [facility], [place] [address] Chi Silvestre, DO [address] [facility], [place] [address] 10/17/2024 1:00 PM EST Imaging Radiology, [address] [place] [address] 01/19/2025 10:30 AM EDT Office Visit Rheumatology [place] [address] [employer] [place] [address] Jewel Irizarry PA-C [facility] [employer] [place] [address] Scheduled Procedures Name Priority Associated Diagnoses Date/Ti [...] D LEVEL ONCE IN A LIFETIME-USE SMARTSET# 93306 Completed 10/09/2022, 12/03/2020, 09/11/2018, Additional history exists [...] this encounter Medical Devices Implanted Type Area Chess Instructor Device Identifier Shelf Expiration Date Model / Serial / Lot Implant On The Fly - [id number] Implanted:Qty: 1 on 10/13/2007 at OR [facility] N/A: Abdomen LIFE CELL DONN 05/13/2009 [id number] / / [id number] Description:Alloderm 16x20 . 79-2.03 Implant Breast Haven+ [id number] - [id number] Implanted:Qty: 1 on 07/13/2009 at OR [facility] Right: Breast MENTOR DONN 10/29/2011 [id number] / [id number] / documented as of this encounter [...] 7:50 PM 10/16/2007 3:07 PM Care Teams Medical Education Specialist Relationship Specialty Start Date End Date Chi Silvestre DO [address] [facility] [place] [address] PCP - General Internal Medicine 10/09/21 documented as of this encounter
--- OUTSIDE RECORDS SUMMARY | 2024-03-26 17:38 | External Medical Summary | Summary of Care ---
Author Name Unknown Organization [facility] Address [address] [facility] [address] Phone [phone] Care Team Providers Care It Security Consulting Director Name Role Phone Chi Silvestre DO Primary Care Provider [phone] Reason for Visit * Reason Comments Medication Management Encounter Details Date Type Department Care Team (Late st Contact Info) Description 02/12/2024 9:40 AM EDT Telemedicine Family Practice [address] [address] College, Pharmacist [address] [address] Medication management* Allergies Active Allergy Reactions Criticality Noted Date [...] 3 10/24/2023 10/23/2024 Active OneTouch Delica Plus [id number] USE TO TEST SUGARS DAILY 100 Each [...] MCG/0.3 mL, 12 YRS AND ABOVE, IM [facility] 11/10/2023 COVID-19, mRNA, LNP-s, PF, B ooster, [...] on file documented as of this encounter Progress Notes * Kay Sherly, [facility] - 02/12/2024 9:43 AM EDT Medication Therapy [facility] - Medication Reconciliation Adam Barajas is an 68 year old being seen for medication reconciliation. Prescription insurance information: [employer] Laws Do you have any other prescription coverage: No Preferred pharmacy: [facility] ([facility]) [x] Problem list reviewed [x] Allergies reviewed and updated if needed [x] Drug interaction check completed [x] HEDIS list addressed Immunizations: eligible for Tdap booster Labs/Vitals/Risk Scores: The 10-year ASCVD risk score (Rosaline HAYES, et al., 2019) is: 25.9% Values used to calculate the score: Age: 68 years Sex: Female Is Non- : No Diabetic: Yes Tobacco smoker: No Systolic Blood Pressure: 146 mmHg Is BP treated: Yes HDL Cholesterol: 62 mg/dL Total Cholesterol: 144 mg/dL BP Readings from Last 3 Encounters: 01/05/24 146/90 10/27/23 126/90 08/28/23 138/84 Recent Labs Units 01/05/24 1019 08/28/23 0830 04/08/23 0904 HEMOGLOBIN A1C - JANETTE % 6.0* 6.4* 6.0* Recent Labs Units 01/05/24 1019 08/24/23 0915 08/14/23 1518 ESTIMATED GLOMERULAR FILTRATION RATE - JANETTE mL/min 87 78 57* Serum creatinine: 0.7 mg/dL 01/05/24 1019 Estimated creatinine clearance: 75.1 mL/min Assessment & Plan: Medication discrepancies identified: none Dose/frequency of medications appropriate for current renal function? yes Other medication problems identified: none Patient education provided: none Referral pended for follow up management of: N/A DLD: controlled on high intensity statin HTN: was elevated last office visit on 01/04 but prior to that controlled; taking max losartan, lasix40 mg daily, and low dose amlodipine Osteoporosis: last evaluated by Rheum on 01/10; repeat DEXA already ordered by Rhuem; on drug holiday; Vit D WNL Asthma: Albuterol PRN and montelukast daily T2DM: controlled on metformin Summary- Changes & Recommendations: Medication reconciliation completed. No concerns identified. Consider Tdap booster and screening for PACE at future PCP visit. Repeat med rec visit scheduled in 1 year Sherly Villanueva RPh Clinical Pharmacist - Cushion Installer Medication Therapy Management [facility] 02/12/2024, 9:43 AM documented in this encounter Plan of Treatment Upcoming Encounters Date Type Department Care Team (Late st Contact Info) Description 02/15/2024 2:45 PM EDT Imaging Radiology [facility] [address] [facility] [place] [address] 02/16/2024 9:30 AM EDT Nutrition Services Nutrition Services [address] [place] [address] Mariana Sutherland RDN [address] [facility] [place] [address] 02/29/2024 10:00 AM EDT Nurse Only Ancillary 65 [facility] [address] [facility] [address] College, Nurse Annual Wellness Visit [address] [address] 05/06/2024 10:40 AM EDT Office Visit Family Practice 65 [facility] [address] [facility] [address] Chi Silvestre, DO [address] [place] [address] 10/17/2024 1:00 PM EST Imaging Radiology, [address] [place] [address] 01/19/2025 10:30 AM EDT Office Visit Rheumatology [address] [place] [address] Jewel Irizarry PA-C [address] [place] [address] [place] [address] Scheduled Procedures Name Priority Associated Diagnoses Date/Ti [...] D LEVEL ONCE IN A LIFETIME-USE SMARTSET# 51889 Completed 10/09/2022, 12/03/2020, 09/11/2018, Additional history exists [...] this encounter Medical Devices Implanted Type Area Director Of Coding Device Identifier Shelf Expiration Date Model / Serial / Lot Implant On The Fly - [id number] Implanted:Qty: 1 on 10/13/2007 [place] [facility] [place]/A: Abdomen LIFE CELL DONN 05/13/2009 [id number] / / [id number] Description:Alloderm 16x20 . 79-2.03 Implant Breast Haven+ [id number] - [id number] Implanted:Qty: 1 on 07/13/2009 at [place] [facility] [place] Right: Breast MENTOR DONN 10/29/2011 [id number] / [id number] / documented as of this encounter Visit Diagnoses Diagnosis Medication management- Primary Encounter for long-term (current) use of other [...] 7:50 PM 10/16/2007 3:07 PM Care Teams It Security Consulting Director Relationship Specialty Start Date End Date Chi Silvestre DO [address] [facility] [place] [address] PCP - General Internal Medicine 10/09/21 documented as of this encounter
--- NOTE | 2024-03-26 17:39 | Emergency Department Note ---
Impression & Plan Fever, Acute UTI, Elevated procalcitonin ED Provider Note CHIEF COMPLAINT: Fever, body aches, chills HISTORY OF PRESENTING ILLNESS: This 68-year-old female patient presents to the emergency department with her sister for evaluation of fever, chills, body aches, and shortness of breath. Symptoms started yesterday morning abruptly. She is not coughing. Denies chest pain. Denies headache. She denies abdominal pain, nausea, or vomiting. Denies urinary symptoms or problems with her BMs. Denies URI symptoms. Denies any other symptoms. Fevers are up to 102 F max and does improve with Tylenol, but then returns. Last dose of Tylenol was at 1430. She took a home COVID test that was negative. No known ill contacts. She has a blister to the back of the left heel from her shoes, but does not look infected. She also had what looked like a bug bite to the right groin, but this appears to have resolved. No known tick bites. She has a history of asthma and she is a diabetic. REVIEW OF SYSTEMS: See HPI for pertinent positives and pertinent negatives. ALLERGIES: PCN, Benadryl, bacitracin, neomycin, polymyxin B MEDICATIONS: See below PAST MEDICAL HISTORY: See below PHYSICAL EXAM: Vital Signs: Vitals are noted on the nurse's note and reviewed by myself. GENERAL: Non toxic in appearance and in no acute distress. SKIN: The patient has a scab to the posterior aspect of the left heel, but no obvious evidence for cellulitis or abscess. The patient has an area of discolored skin to the right groin about the size of a pea that appears to be secondary to an almost fully resolved possible bug bite lesion. No other concerning rashes or skin lesions on exam. Capillary reflex less than 2 seconds. HEAD: Normocephalic, atraumatic. EARS: Bilateral external auditory canals clear without tragus tenderness. Bilateral tympanic membranes pearly chacon without erythema or effusion. No mastoid tenderness bilaterally. EYES: Pupils equal round and reactive to light and accommodation. Conjunctivae without injection, sclerae without icterus. Extraocular movements intact. NOSE: Patent, turbinates inflamed with no discharge. No sinus tenderness. MOUTH: Mucous membranes moist. Airway patent, uvula midline. Pharynx is not erythematous and not edematous without exudate. Pharynx without postnasal drip. No evidence for peritonsillar abscess. NECK: Supple without nuchal rigidity. No lymphadenopathy. Negative Kernig and Brudzinski. HEART: Regular rate and rhythm without murmurs gallops or rubs. LUNGS: Clear to auscultation bilaterally without wheezes, rales or rhonchi. No accessory muscle use or retractions. ABDOMEN: Positive bowel sounds x 4. Normal tympanic percussion. Soft, nontender, without masses or organomegaly. No guarding, rigidity, or rebound tenderness. NEURO: Patient was alert and oriented. Normal sensation to light and sharp touch of all extremities. No focal neurological deficits. DIFFERENTIAL DIAGNOSIS: Differential diagnosis includes Influenza, RSV, COVID, viral syndrome, otitis media, otitis externa, pharyngitis, strep throat, pneumonia, meningitis, urinary tract infection, cellulitis, abscess, sepsis, bacteremia, as well as other pathologies. ED COURSE AND MEDICAL DECISION MAKING: HISTORY FROM INDEPENDENT HISTORIAN: Additional history was obtained from the patient's sister. MONITOR: Continuous cardiac cath technologist: Order was placed for continuous cardiac cath technologist. Patient was placed on the cardiac cath technologist and continuous pulse ox. Patient was noted to be in normal sinus tachycardia at an initial rate of 110 bpm per my interpretation. MEDICATIONS GIVEN: 2 L of normal saline solution bolus. Tylenol 1000 mg IV. Rocephin 2 g IV. Doxycycline 100 mg IV. INTERPRETATION OF LABS: I interpreted the labs with full lab results as below in the lab section of this note. Chest x-ray negative for pneumonia or other acute cardiopulmonary etiology. INTERPRETATION OF IMAGING: Imaging studies were interpreted by myself and read by radiology as per the imaging section of this note. White blood cell count normal 8.29. Hemoglobin normal at 12.5. Platelet count normal at 149. Glucose 122, but CMP otherwise normal. Lactate is normal at 0.8, but procalcitonin is elevated at 3.64. Lyme disease screen was negative. Anaplasma and Babesia smears were negative with DNA PCR still pending. Respiratory bio fire negative. Urinalysis with 1+ protein, 2+ ketones, positive nitrites, 1+ leukocyte Estrace, 6-10 white blood cells, and 4+ bacteria. Urine culture is pending. Blood cultures pending. CONSULTATIONS: On-call hospitalist MDM SUMMARY: I examined the patient. The patient presented to the ER for fever and bodyaches. She denies any other significant symptoms. An IV lock was placed and labs were drawn. The patient was given 1 L normal saline solution bolus and Tylenol 1000 mg IV. The patient's tachycardia and fever improved after this treatment. The patient's white blood cell count was normal and her lactate was normal, but her procalcitonin was elevated at 3.64. Tickborne testing negative so far, but Anaplasma and Babesia DNA PCR still pending. Respiratory bio fire negative. Blood cultures are pending. Remainder of the labs without significant abnormality. The patient was given Rocephin 2 g IV as well as doxycycline 100 mg IV to cover for possible tickborne etiology. The patient was having difficulty producing a urine sample, but once she was able to give a urine sample it was consistent with a UTI. She still had 2+ ketones even after the 1 L of normal saline solution bolus. Therefore, she was given a second liter of normal saline solution bolus. I had a meaningful discussion about this patient with Dr. Fritz who agrees with my assessment and the treatment plan. The patient is febrile up to 39 C in the ER with an elevated procalcitonin and urinalysis consistent with UTI. We feel the patient requires admission for further management. I spoke with the on-call hospitalist who agreed to admit the patient for further evaluation and treatment. Please refer to their dictation for further details. The patient's care was transferred in stable condition. DIAGNOSIS: Fever UTI Elevated procalcitonin Attending Attestation: Joan MCLEAN have reviewed the advanced practitioner's documentation and agree with the plan of care. I accept the responsibility for the associated risk of managing the patient. We discussed occasion patient currently covered with ceftriaxone as well as doxycycline. Possible tickborne but urinalysis does return and likely this is source of her infection as an acute UTI. Patient is admitted for further care given the elevated procalcitonin and her significant symptoms. Hospitalist was contacted. Past Med/Surg History Problem List (Updated 03/26/24 @ 23:33 by Rhona Cyr PA-C) Elevated procalcitonin (Acute) Fever (Acute) Acute UTI (Acute) Social History Smoking Status: Never smoker Preferred Language: Estonian Feels Safe at Home: Yes Allergies Allergies Allergy/AdvReac Type Severity Reaction Status Date / Time Penicillins Allergy Unknown NANI FERRARI Verified 03/26/24 18:45 diphenhydramine AdvReac Intermediate BENADRYL Verified 03/26/24 18:45 CREAM bacitracin AdvReac Unknown ? Verified 03/26/24 18:45 neomycin AdvReac Unknown ? Verified 03/26/24 18:45 polymyxin B AdvReac Unknown ? Verified 03/26/24 18:45 Home Meds Home Medications Medication Instructions Recorded Confirmed aspirin 81 mg tablet,delayed 81 mg PO HS 01/09/20 03/26/24 release cholecalciferol (vitamin D3) 125 125 mcg PO Q OTHER DAY 01/09/20 03/26/24 mcg (5,000 unit) tablet (Vitamin D3) furosemide 20 mg tablet 20 mg PO DAILY 01/09/20 03/26/24 amlodipine 2.5 mg tablet 2.5 mg PO QA 03/26/24 03/26/24 atorvastatin 40 mg tablet 40 mg PO QA 03/26/24 03/26/24 fluticasone propionate 50 1 spray intranasal DAILY 03/26/24 03/26/24 mcg/actuation nasal spray,suspension losartan 100 mg tablet 100 mg PO QA 03/26/24 03/26/24 metformin 500 mg tablet,extended 500 mg PO HS 03/26/24 03/26/24 release 24 hr montelukast 10 mg tablet 10 mg PO HS 03/26/24 03/26/24 Results & Data (ED) Vital Signs Vital Signs - 24 hr 03/26/24 17:34 03/26/24 18:12 03/26/24 18:19 Temperature 39 C H Temperature Source Temporal Artery Scan Pulse Rate 110 H 94 H 95 H Pulse Rate from SpO2 Sensor 94 H Respiratory Rate 20 22 Respiratory Effort / Characteristics Non-Labored Respiratory Depth Normal Blood Pressure 159/93 H Blood Pressure Mean 115 Pulse Oximetry 93 92 Oxygen Delivery Method Room Air Sepsis Recent Fever Within 48 Hours Yes Sepsis New/Unexplained Change in Mental Status No Sepsis Action Taken by Nursing No Action Required 03/26/24 18:36 03/26/24 18:42 03/26/24 18:51 Temperature Temperature Source Pulse Rate 91 H 89 91 H Pulse Rate from SpO2 Sensor 90 88 91 H Respiratory Rate 21 21 25 H Respiratory Effort / Characteristics Respiratory Depth Blood Pressure Blood Pressure Mean Pulse Oximetry 92 93 93 Oxygen Delivery Method Sepsis Recent Fever Within 48 Hours Sepsis New/Unexplained Change in Mental Status Sepsis Action Taken by Nursing 03/26/24 19:06 03/26/24 19:30 03/26/24 19:42 Temperature 37.6 C H Temperature Source Oral Pulse Rate 84 83 Pulse Rate from SpO2 Sensor 85 82 Respiratory Rate 26 H 19 Respiratory Effort / Characteristics Respiratory Depth Blood Pressure 133/86 Blood Pressure Mean 101 Pulse Oximetry 93 93 Oxygen Delivery Method Room Air Sepsis Recent Fever Within 48 Hours Sepsis New/Unexplained Change in Mental Status Sepsis Action Taken by Nursing 03/26/24 21:39 Temperature Temperature Source Pulse Rate 74 Pulse Rate from SpO2 Sensor 74 Respiratory Rate 18 Respiratory Effort / Characteristics Respiratory Depth Blood Pressure Blood Pressure Mean Pulse Oximetry 94 Oxygen Delivery Method Room Air Sepsis Recent Fever Within 48 Hours Sepsis New/Unexplained Change in Mental Status Sepsis Action Taken by Nursing Laboratory Data 03/26/24 18:14 03/26/24 18:05 Lab Results 03/26/24 03/26/24 03/26/24 Range/Units 17:51 18:02 18:05 WBC (4.8-10.8) K/ul RBC (4.20-5.40) M/uL Hgb (12.0-16.0) g/dl Hct (37.0-47.0) % MCV (80.0-100.0) fL MCH (25.0-34.0) pg MCHC (32.0-36.0) g/dL RDW Std Deviation (36.4-46.3) fL RDW Coeff of Jose Luis (11.5-14.5) % Plt Count (130-400) K/uL MPV (9.4-12.4) fL Immature Gran % (Auto) % Neut % (Auto) % Lymph % (Auto) % [place] % (Auto) % Eos % (Auto) % Baso % (Auto) % Neut # (Auto) (1.40-6.50) K/uL Lymph # (Auto) (1.20-3.40) K/uL [place] # (Auto) (0.11-0.59) K/uL Eos # (Auto) (0.00-0.50) K/uL Baso # (Auto) (0.00-0.20) K/uL Immature Gran # (Auto) (0.01-0.20) K/uL Sodium 140 (136-145) mmol/L Potassium 4.0 (3.5-5.1) mmol/L Chloride 107 (98-107) mmol/L Carbon Dioxide 23 (21-32) mmol/L Anion Gap 10 (3-11) BUN 21 (6-23) mg/dl Creatinine 0.83 (0.6-1.2) mg/dl Est Cr Clr Drug Dosing 71.9 ml/min Est GFR ( Amer) 82.8 ml/min Est GFR (Non-Af Amer) 71.4 ml/min BUN/Creatinine Ratio 25.3 H (10-20) Glucose 122 H (70-99(Fasting)) mg/dl Lactate 0.8 (0.4-2.0) mmol/L Calcium 9.2 (8.6-10.3) mg/dl Total Bilirubin 0.5 (0.2-1.0) mg/dl AST 26 (13-39) U/L ALT 24 (7-52) U/L Alkaline Phosphatase 98 (34-104) U/L Total Protein 6.7 (6.0-8.3) gm/dl Albumin 4.1 (3.4-5.0) gm/dl Globulin 2.6 (2.5-4.0) gm/dl Albumin/Globulin Ratio 1.6 (0.9-2) Procalcitonin 3.64 H (0-0.5) ng/ml Urine Color Urine Appearance (Clear) Urine pH (4.5-7.5) Ur Specific [place] (1.000-1.030) Urine Protein (Negative) Urine Glucose (UA) (Negative) Urine Ketones (Negative) Urine Blood (Negative) Urine Nitrite (Negative) Urine Bilirubin (Negative) Urine Urobilinogen (Negative) Ur Leukocyte Esterase (Negative) Urine WBC (Auto) (0-5) /hpf Urine RBC (Auto) (0-2) /hpf U Hyaline Cast (Auto) (0-2) /lpf U Epithel Cells (Auto) (0-2) /hpf Urine Bacteria (Auto) (None Seen) Adenovirus (PCR) Not Detected (NotDetected) Anaplasma Smear Babesia Smear B. pertussis DNA (PCR) Not Detected (NotDetected) B.parapertussis DNA PCR Not Detected (NotDetected) Lyme Disease Screen Negative (Negative) C. pneumoniae DNA (PCR) Not Detected (NotDetected) Coronavirus OC43 (PCR) Not Detected (NotDetected) Coronavirus HKU1 (PCR) Not Detected (NotDetected) Coronavirus 229E (PCR) Not Detected (NotDetected) SARS-CoV-2 (PCR) Not Detected (NotDetected) Coronavirus NL63 (PCR) Not Detected (NotDetected) Human Metapneumovir PCR Not Detected (NotDetected) Influenza Type A (PCR) Not Detected (NotDetected) Influenza Type B (PCR) Not Detected (NotDetected) M. pneumoniae (PCR) Not Detected (NotDetected) Parainfluenza 1 (PCR) Not Detected (NotDetected) Parainfluenza 2 (PCR) Not Detected (NotDetected) Parainfluenza 3 (PCR) Not Detected (NotDetected) Parainfluenza 4 (PCR) Not Detected (NotDetected) RSV (PCR) Not Detected (NotDetected) Entero/Rhino (PCR) Not Detected (NotDetected) 03/26/24 03/26/24 Range/Units 18:14 20:10 WBC 8.29 (4.8-10.8) K/ul RBC 4.14 L (4.20-5.40) M/uL Hgb 12.5 (12.0-16.0) g/dl Hct 37.9 (37.0-47.0) % MCV 91.5 (80.0-100.0) fL MCH 30.2 (25.0-34.0) pg MCHC 33.0 (32.0-36.0) g/dL RDW Std Deviation 44.0 (36.4-46.3) fL RDW Coeff of Jose Luis 13.2 (11.5-14.5) % Plt Count 149 (130-400) K/uL MPV 12.3 (9.4-12.4) fL Immature Gran % (Auto) 0.5 % Neut % (Auto) 81.5 % Lymph % (Auto) 8.8 % [place] % (Auto) 7.5 % Eos % (Auto) 1.1 % Baso % (Auto) 0.6 % Neut # (Auto) 6.76 H (1.40-6.50) K/uL Lymph # (Auto) 0.73 L (1.20-3.40) K/uL [place] # (Auto) 0.62 H (0.11-0.59) K/uL Eos # (Auto) 0.09 (0.00-0.50) K/uL Baso # (Auto) 0.05 (0.00-0.20) K/uL Immature Gran # (Auto) 0.04 (0.01-0.20) K/uL Sodium (136-145) mmol/L Potassium (3.5-5.1) mmol/L Chloride (98-107) mmol/L Carbon Dioxide (21-32) mmol/L Anion Gap (3-11) BUN (6-23) mg/dl Creatinine (0.6-1.2) mg/dl Est Cr Clr Drug Dosing ml/min Est GFR ( Amer) ml/min Est GFR (Non-Af Amer) ml/min BUN/Creatinine Ratio (10-20) Glucose (70-99(Fasting)) mg/dl Lactate (0.4-2.0) mmol/L Calcium (8.6-10.3) mg/dl Total Bilirubin (0.2-1.0) mg/dl AST (13-39) U/L ALT (7-52) U/L Alkaline Phosphatase (34-104) U/L Total Protein (6.0-8.3) gm/dl Albumin (3.4-5.0) gm/dl Globulin (2.5-4.0) gm/dl Albumin/Globulin Ratio (0.9-2) Procalcitonin (0-0.5) ng/ml Urine Color Yellow Urine Appearance Cloudy A (Clear) Urine pH 5.5 (4.5-7.5) Ur Specific [place] 1.018 (1.000-1.030) Urine Protein 1+ H (Negative) Urine Glucose (UA) Negative (Negative) Urine Ketones 2+ H (Negative) Urine Blood Negative (Negative) Urine Nitrite Positive A (Negative) Urine Bilirubin Negative (Negative) Urine Urobilinogen Negative (Negative) Ur Leukocyte Esterase 1+ H (Negative) Urine WBC (Auto) 6-10 H (0-5) /hpf Urine RBC (Auto) 0-2 (0-2) /hpf U Hyaline Cast (Auto) 0-2 (0-2) /lpf U Epithel Cells (Auto) 0-2 (0-2) /hpf Urine Bacteria (Auto) 4+ H (None Seen) Adenovirus (PCR) (NotDetected) Anaplasma Smear See Comment Babesia Smear See Comment B. pertussis DNA (PCR) (NotDetected) B.parapertussis DNA PCR (NotDetected) Lyme Disease Screen (Negative) C. pneumoniae DNA (PCR) (NotDetected) Coronavirus OC43 (PCR) (NotDetected) Coronavirus HKU1 (PCR) (NotDetected) Coronavirus 229E (PCR) (NotDetected) SARS-CoV-2 (PCR) (NotDetected) Coronavirus NL63 (PCR) (NotDetected) Human Metapneumovir PCR (NotDetected) Influenza Type A (PCR) (NotDetected) Influenza Type B (PCR) (NotDetected) M. pneumoniae (PCR) (NotDetected) Parainfluenza 1 (PCR) (NotDetected) Parainfluenza 2 (PCR) (NotDetected) Parainfluenza 3 (PCR) (NotDetected) Parainfluenza 4 (PCR) (NotDetected) RSV (PCR) (NotDetected) Entero/Rhino (PCR) (NotDetected) Administered Medications Discontinued Medications Sodium Chloride (Nss) 1,000 mls @ 999 mls/hr IV .Q1H1M ONE Stop: 03/26/24 18:50 Last Infusion: 03/26/24 19:43 Dose: Infused Documented By: Admin: 03/26/24 18:16 Dose: 999 mls/hr Documented By: CAROLYN Acetaminophen (Ofirmev) 1,000 mg in 100 mls @ 400 mls/hr IV NOW STA Stop: 03/26/24 18:04 Last Infusion: 03/26/24 19:04 Dose: Infused Documented By: Admin: 03/26/24 18:15 Dose: 400 mls/hr Documented By: CAROLYN Ceftriaxone Sodium (Rocephin) 2,000 mg in 50 mls @ 100 mls/hr IV NOW STA Stop: 03/26/24 20:42 Last Infusion: 03/26/24 22:18 Dose: Infused Documented By: Admin: 03/26/24 20:38 Dose: 100 mls/hr Documented By: Doxycycline Hyclate 100 mg/ (Dextrose) 100 mls @ 50 mls/hr IV NOW STA Stop: 03/26/24 22:12 Last Infusion: 03/26/24 23:30 Dose: Infused Documented By: Admin: 03/26/24 21:00 Dose: 50 mls/hr Documented By: Sodium Chloride (Nss) 1,000 mls @ 999 mls/hr IV .Q1H1M ONE Stop: 03/26/24 21:42 Last Infusion: 03/26/24 23:30 Dose: Infused Documented By: Admin: 03/26/24 21:00 Dose: 999 mls/hr Documented By: Imaging Data Radiologist's Impression: Chest X-Ray 03/26/24 17:50 XR chest 1V portable CLINICAL HISTORY: fever, SOB COMPARISON STUDY: Chest radiograph December 06, 2020. Chest CT June 21, 2023. FINDINGS: Lung volumes are normal. Lungs are clear. There is no pneumothorax or pleural effusion. Cardiac size is normal. Mediastinal contours are normal. There is no evidence for pulmonary edema. IMPRESSION: No acute cardiopulmonary findings. No change in appearance of the chest. ACT 112: Negative or not required by law. Electronically signed by: Amandeep Dawn M.D. 03/26/2024 6:42 PM Discharge Plan Visit Data Chief Complaint: Flu Like Symptoms Stated Complaint: FEVER, BODY ACHES, CHILLS ED Provider: Alex Fritz ED Midlevel Provider: Rhona Cyr Discharge Problem: Fever, Acute UTI, Elevated procalcitonin Patient Disposition: Admitted As Inpatient Condition: Good Discharge Instructions Interventions: ED Discharge Assessment Last Done: 03/26/24 22:57 Discharge Problem: Fever Qualifiers: Encounter type: initial encounter
--- OUTSIDE RECORDS SUMMARY | 2024-03-26 17:39 | External Medical Summary | Summary of Care ---
Author Name Unknown Organization [facility] Address [address] [facility] [place] [address] Phone [phone] Care Team Providers Care Caramel Cutter Hand Name Role Phone Chi Silvestre DO Primary Care Provider [phone] Reason for Visit * Reason Onset Date Comments Immunization RSV Vaccine 11/10/2023 Encounter Details Date Type Department Care Team (Latest Contact Info) Description 11/10/2023 2:30 PM EST Immunization/I njection Family Practice 65 [facility] 293 [place] [phone] College, Nurse [facility] Prac [address] [address] Need for RSV vaccination*; Need for RSV immunization Allergies Active Allergy Reactions Criticality Noted Date Comments Bacitracin 01/09/2020 Diphenhydramine Hcl Rash 12/02/2007 Neomycin-Bacitracin Zn-Polymyx 08/02 Other - Drugs Itching,Rash 01/30/2010 Dermabond Penicillins Edema Other 10/15/2006 Polymyxin B 01/09/2020 documented as of this encounter (statuses as of 11/10/2023) Medications Medication Sig Dispensed Refills Start Date [...] MORNING. 100 Tablet 3 06/16/2023 4 Active Losartan Potassium 100 MG Oral Tablet (Cozaar)Indications :HTN, goal below 140/90 Take 1 Tablet by mouth in the morning. 30 Tablet 5 06/23/2023 Active Albuterol Sulfate HFA 108 (90 Base) [...] DAY 100 Tablet 3 09/09/2023 4 Active Montelukast Sodium 10 MG Oral Tablet (Singulair)Indicati ons:Asthma in adult, mild intermittent, uncomplicated Take 1 Tablet by mouth at bedtime. 90 Tablet 0 09/24/2023 4 Active OneTouch Verio In Vitro Strip (Glucose Blood) USE TO TEST SUGARS DAILY 100 Strip 3 10/24/2023 5 Active OneTouch Delica Plus [id number] USE TO TEST SUGARS DAILY 100 Each 3 10/24/2023 5 Active Atorvastatin Calcium 40 MG Oral Tablet (Lipitor)Indication s:Dyslipidemia, goal LDL below 100 TAKE ONE TABLET BY MOUTH EVERY MORNING 100 Tablet 3 10/28/2023 5 Active Furosemide 20 MG Oral Tablet (Lasix)Indications: Venous insufficiency TAKE ONE TABLET BY MOUTH EVERY DAY IN THE MORNING 100 Tablet 3 11/07/2023 5 Active Abrysvo 120 MCG/0.5ML Intramuscular Solution Reconstituted (RSV Pre-Fusion F A&B Vac Rcmb)Indications:Ne ed for RSV immunization Inject 0.5 mL into a large muscle once for 1 dose. For pharmacy stock replenishment [facility] [employer] 1 Each 0 11/10/2023 4 Active documented as of this encounter (statuses as of 11/10/2023) Active Problems Problem Noted Date Diagnosed Date [...] as of this encounter (statuses as of 11/10/2023) Resolved Problems Problem Noted Date Diagnosed Date [...] as of this encounter (statuses as of 11/10/2023) Immunizations Name Administration Dates Next Due COVID-19 [...] on file documented as of this encounter Patient Instructions * Patient Instructions* Liz Ott LPN - 11/10/2023 1:27 PM EST Possible side effects of RSV vaccine, (Respiratory Syncytial Virus), are usually mild and can include: Soreness, swelling or redness at injection site Low grade fever Body aches or joint pain Headache Nausea or diarrhea You may use a fever/pain reducing medication for these symptoms. LET YOUR DOCTOR KNOW IMMEDIATELY IF YOU HAVE DIFFICULTY BREATHING OR SWALLOWING, EXPERIENCE ITCHINGOF FEET OR HANDS, HAVE SWELLING OF EYES, FACE OR INSIDE OF NOSE. Possible side effects of RSV vaccine, (Respiratory Syncytial Virus), are usually mild and can include: Soreness, swelling or redness at injection site Low grade fever Body aches or joint pain Headache Nausea or diarrhea You may use a fever/pain reducing medication for these symptoms. LET YOUR DOCTOR KNOW IMMEDIATELY IF YOU HAVE DIFFICULTY BREATHING OR SWALLOWING, EXPERIENCE ITCHINGOF FEET OR HANDS, HAVE SWELLING OF EYES, FACE OR INSIDE OF NOSE. documented in this encounter Progress Notes * Liz Ott LPN - 11/10/2023 2:13 PM EST Pre-Administration Time Out Procedure Performed: Yes Patient Identified (Ask Name/Date of ): Yes Does the patient have a fever greater than 101 degrees today? No Patient allergic to latex? No Has the patient ever fainted after receiving an injection? No VFC Stock: No Immunization(s) verified: Yes, Immunization Name: RSV, VIS Sheet(s) given: Yes Verified Side and Site: Yes Verified Shot(s) with Parent(s)/Patient: Yes documented in this encounter Plan of Treatment Upcoming Encounters Date Type Department Care Team (Late st Contact Info) Description 11/10/2023 2:15 PM EST Immunization Ancillary [address] [place] [address] College, Covid19 Vaccine [address] [address] Arrived 12/09/2023 1:30 PM EDT Nutrition Services Nutrition Services [address] [address] Mariana Sutherland RDN [address] [place] [address] 01/05/2024 9:20 AM EDT Office Visit Family Practice [address] [phone] Chi Silvestre, DO 293 [place] [address] 02/29/2024 10:00 AM EDT Nurse Only Ancillary [address] [address] College, Nurse Annual Wellness Visit [address] [address] Scheduled Procedures Name Priority Associated Diagnoses Date/Ti me COLONOSCOPY FLEXIBLE PROXIMAL DIAGNOSTIC Recall History of colon polyps Health Maintenance Due Date Last Done Comments Hepatitis B (1 of 3 - Risk 3-dose series) 2013 DTaP,Tdap,and Td Vaccines (3 - Td or [...] D LEVEL ONCE IN A LIFETIME-USE SMARTSET# 45057 Completed 10/09/2022, 12/03/2020, 09/11/2018, Additional history exists [...] this encounter Medical Devices Implanted Type Area Heating Repair Technician Device Identifier Shelf Expiration Date Model / Serial / Lot Implant On The Fly - [id number] Implanted:Qty: 1 on 10/13/2007 at [place] [facility] [place] N/A: Abdomen LIFE CELL DONN 05/13/2009 [id number] / / [id number] Description:Alloderm 16x20 . 79-2.03 Implant Breast Haven+ [id number] - [id number] Implanted:Qty: 1 on 07/13/2009 at OR [facility] [place] Right: Breast MENTOR DONN 10/29/2011 [id number] / [id number] / documented as of this encounter Visit Diagnoses Diagnosis Need for RSV vaccination- Primary Need for prophylactic vaccination and inoculation against respiratory syncytial virus Need for RSV immunization Need for prophylactic vaccination and inoculation against respiratory syncytial virus documented in this encounter Advance Directives Latest Code Status on File Code Status Date Activated Date Inactivated Comments Full Code 07/13/2009 3:24 PM 07/14/2009 4:16 PM Thi s order reflects the patients wishes and were consensually agreed upon. Code Status History Code Status Date Activated Date Inactivated Comments Full Code 10/13/2007 7:50 PM 10/16/2007 3:07 PM Care Teams Caramel Cutter Hand Relationship Specialty Start Date End Date Chi Silvestre DO [address] [place] [address] PCP - General Internal Medicine 10/09/21 documented as of this encounter
--- OUTSIDE RECORDS SUMMARY | 2024-03-26 17:39 | External Medical Summary | Summary of Care ---
Author Name Unknown Organization [facility] Address [address] [facility] [place] [address] Phone [phone] Care Team Providers Care Supervisor Cell Efficiency Name Role Phone Olya Silvestre DO Primary Care Provider [phone] Reason for Visit * Reason Comments Medication Refill Encounter Details Date Type Department Care Team (Late st Contact Info) Description 11/07/2023 Refill Family Practice 65 [facility], [place] 293 [place] [address] Olya Silvestre DO 293 [place] [address] Venous insufficiency Allergies Active Allergy Reactions Criticality Noted Date Comments Bacitracin 01/09/2020 Diphenhydramine Hcl Rash 12/02/2007 Neomycin-Bacitracin Zn-Polymyx 08/02 Other - Drugs Itching,Rash 01/30/2010 Dermabond Penicillins Edema Other 10/15/2006 Polymyxin B 01/09/2020 documented as of this encounter (statuses as of 11/07/2023) Medications Medication Sig Dispensed Refills Start Date [...] 3 10/24/2023 5 Active OneTouch Delica Plus [id number] USE TO TEST SUGARS DAILY 100 Each 3 10/24/2023 5 Active Atorvastatin Calcium 40 MG Oral Tablet (Lipitor)Indication s:Dyslipidemia, goal LDL below 100 TAKE ONE TABLET BY MOUTH EVERY MORNING 100 Tablet 3 10/28/2023 5 Active Furosemide 20 MG Oral Tablet (Lasix)Indications: Venous insufficiency TAKE ONE TABLET BY MOUTH EVERY DAY IN THE MORNING 100 Tablet 3 11/07/2023 5 Active Furosemide 20 MG Oral Tablet (Lasix)Indications: Venous insufficiency TAKE ONE TABLET BY MOUTH EVERY DAY IN THE MORNING 100 Tablet 3 09/28/2022 4 Discontinue d(Refill) documented as of this encounter (statuses as of 11/07/2023) Active Problems Problem Noted Date Diagnosed Date [...] as of this encounter (statuses as of 11/07/2023) Resolved Problems Problem Noted Date Diagnosed Date [...] as of this encounter (statuses as of 11/07/2023) Immunizations Name Administration Dates Next Due COVID-19 [...] encounter Miscellaneous Notes * Telephone Encounter - Alyx Donohue [facility] - 11/07/2023 4:01 PM ESTSigned Prescriptions: Disp Refills Furosemide 20 MG Oral Tablet (Lasix) 100 Ta*3 Sig: TAKE ONE TABLET BY MOUTH EVERY DAY IN THE MORNINGAuthorizing Provider: OLYA SILVESTRE User: ALYX DONOHUE documented in this encounter Plan of Treatment Upcoming Encounters Date Type Department Care Team (Late st Contact Info) Description 11/10/2023 1:30 PM EST Nutrition Services Nutrition Services [address] [address] Mariana Sutherland RDN [address] [place] [address] 11/10/2023 2:15 PM EST Immunization Ancillary [address] [address] [place], Covid19 Vaccine [address] [address] 11/10/2023 2:30 PM EST Immunization/Injection Family Practice [address] [phone] [place], Nurse Fam Prac [address] [address] 01/05/2024 9:20 AM EDT Office Visit Family Practice [address] [phone] Olya Silvestre, DO [address] [place] [address] 02/29/2024 10:00 AM EDT Nurse Only Ancillary [address] [facility] [place] [address] [facility] [address] [facility], Nurse Annual Wellness Visit 65 [facility] [address] [facility] [address] Scheduled Procedures Name Priority Associated Diagnoses Date/Ti me COLONOSCOPY FLEXIBLE PROXIMAL DIAGNOSTIC Recall History of colon polyps Health Maintenance Due Date Last Done Comments Hepatitis B (1 of 3 - Risk 3-dose series) 2013 COVID-19 Vaccine ( season) 2023 08/12/2022, 08/28/2021, 11/18/2020, Additional history exists DTaP,Tdap,and Td Vaccines (3 - Td or [...] D LEVEL ONCE IN A LIFETIME-USE SMARTSET# 56876 Completed 10/09/2022, 12/03/2020, 09/11/2018, Additional history exists Influenza Vaccine (FLU shot) Completed 09/2022, 08/01/2022, 08/04/2021, Additional history exists GARDASIL-HPV IMMUNIZATION SERIES Aged Out No longer eligible based on patient's age to complete this topic MENINGOCOCCAL (MENACTRA/MENVEO) Aged Out No longer eligible based on patient's age to complete this topic documented as of this encounter Medical Devices Implanted Type Area Cytogenetics Laboratory Manager Device Identifier Shelf Expiration Date Model / Serial / Lot Implant On The Fly - [id number] Implanted:Qty: 1 on 10/13/2007 at OR [facility] [place] N/A: Abdomen LIFE CELL DONN 05/13/2009 [id number] / / [id number] Description:Alloderm 16x20 . 79-2.03 Implant Breast Haven+ [id number] - [id number] Implanted:Qty: 1 on 07/13/2009 at OR [facility] Right: Breast MENTOR DONN 10/29/2011 [id number] / [id number] / documented as of this encounter Visit Diagnoses Diagnosis Venous insufficiency Unspecified venous (peripheral) insufficiency documented in this encounter Advance Directives Latest Code Status on File Code Status Date Activated Date Inactivated Comments Full Code 07/13/2009 3:24 PM 07/14/2009 4:16 PM Thi s order reflects the patients wishes and were consensually agreed upon. Code Status History Code Status Date Activated Date Inactivated Comments Full Code 10/13/2007 7:50 PM 10/16/2007 3:07 PM Care Teams Supervisor Cell Efficiency Relationship Specialty Start Date End Date Olya Silvestre DO [address] [place] [address] PCP - General Internal Medicine 10/09/21 documented as of this encounter
--- OUTSIDE RECORDS SUMMARY | 2024-03-26 17:39 | External Medical Summary | Summary of Care ---
Author Name Unknown Organization [facility] Address [address] [facility] [place] [address] Phone [phone] Care Team Providers Care Post Acute Care Nurse Practitioner Name Role Phone Chi Silvestre DO Primary Care Provider [phone] Reason for Visit * Reason Onset Date Comments Immunization RSV Vaccine 11/10/2023 Encounter Details Date Type Department Care Team (Latest Contact Info) Description 11/10/2023 2:30 PM EST Immunization/I njection Family Practice 65 [facility] 293 [place] [phone] College, Nurse [facility] Prac [address] [address] Need for RSV vaccination*; Need for RSV [...] 3 10/24/2023 5 Active OneTouch Delica Plus [id number] USE TO TEST SUGARS DAILY 100 Each [...] Care Team (Late st Contact Info) Description 12/09/2023 1:30 PM EDT Nutrition Services Nutrition Services [address] [address] Mariana Sutherland RDN [address] [place] [address] 01/05/2024 9:20 AM EDT Office Visit Family Practice [address] [phone] Chi Silvestre, 293 [place] [address] 02/29/2024 10:00 AM EDT Nurse Only Ancillary [address] [address] College, Nurse Annual Wellness Visit [address] [address] Scheduled Procedures Name Priority Associated Diagnoses Date/Ti [...] D LEVEL ONCE IN A LIFETIME-USE SMARTSET# 02921 Completed 10/09/2022, 12/03/2020, 09/11/2018, Additional history exists [...] this encounter Medical Devices Implanted Type Area Teletype Installer Device Identifier Shelf Expiration Date Model / Serial / Lot Implant On The Fly - [id number] Implanted:Qty: 1 on 10/13/2007 at OR [facility] [place] [place] N/A: Abdomen LIFE CELL DONN 05/13/2009 [id number] / / [id number] Description:Alloderm 16x20 . 79-2.03 Implant Breast Haven+ [id number] - [id number] Implanted:Qty: 1 on 07/13/2009 at [place] [facility] [place] [place] Right: Breast MENTOR DONN 10/29/2011 [id number] / [id number] / documented as of this encounter [...] 7:50 PM 10/16/2007 3:07 PM Care Teams Post Acute Care Nurse Practitioner Relationship Specialty Start Date End Date Chi Silvestre DO [address] [place] [address] PCP - General Internal Medicine 10/09/21 documented as of this encounter
--- OUTSIDE RECORDS SUMMARY | 2024-03-26 17:39 | External Medical Summary | Summary of Care ---
Author Name Unknown Organization [facility] Address [address] [facility] [place] [address] Phone [phone] Care Team Providers Care Coat Presser Name Role Phone Chi Silvestre DO Primary Care Provider Reason for Visit * Reason Comments Dosage Adjustment In Person (Anticoag Cl inic) Medication Management Encounter Details Date Type Department Care Team (Late st Contact Info) Description 11/10/2023 2:15 PM EST Immunization Ancillary [address] [facility] 293 [place] [address] [place], Covid19 Vaccine [address] [address] Allergies Active Allergy Reactions Criticality Noted Date Comments Bacitracin 01/09/2020 Diphenhydramine Hcl Rash 12/02/2007 Neomycin-Bacitracin Zn-Polymyx 08/02 Other - Drugs Itching,Rash 01/30/2010 Dermabond Penicillins Edema Other 10/15/2006 Polymyxin B 01/09/2020 documented as of this encounter (statuses as of 11/26/2023) Medications Medication Sig Dispensed Refills Start Date [...] 3 10/24/2023 10/23/2024 Active OneTouch Delica Plus [id number] USE TO TEST SUGARS DAILY 100 Each 3 10/24/2023 10/23/2024 Active Atorvastatin Calcium 40 MG Oral Tablet (Lipitor)Indications :Dyslipidemia, goal LDL below 100 TAKE ONE TABLET BY MOUTH EVERY MORNING 100 Tablet 3 10/28/2023 10/27/2024 Active Furosemide 20 MG Oral Tablet (Lasix)Indications:V enous insufficiency TAKE ONE TABLET BY MOUTH EVERY DAY IN THE MORNING 100 Tablet 3 11/07/2023 11/06/2024 Active documented as of this encounter (statuses as of 11/26/2023) Active Problems Problem Noted Date Diagnosed Date [...] as of this encounter (statuses as of 11/26/2023) Resolved Problems Problem Noted Date Diagnosed Date [...] as of this encounter (statuses as of 11/26/2023) Immunizations Name Administration Dates Next Due COVID-19 [...] on file documented as of this encounter Plan of Treatment Upcoming Encounters Date Type Department Care Team (Late st Contact Info) Description 12/09/2023 1:30 PM EDT Nutrition Services Nutrition Services [address] [facility] [address] [place] [address] Mariana Sutherland RDN 106 [facility] [place] [address] 01/05/2024 9:20 AM EDT Office Visit Family Practice [address] [facility] [address] [place] [phone] Chi Silvestre, 293 [place] [address] 02/29/2024 10:00 AM EDT Nurse Only Ancillary [address] [address] College, Nurse Annual Wellness Visit [address] [address] Scheduled Procedures Name Priority Associated Diagnoses Date/Ti [...] D LEVEL ONCE IN A LIFETIME-USE SMARTSET# 95874 Completed 10/09/2022, 12/03/2020, 09/11/2018, Additional history exists [...] this encounter Medical Devices Implanted Type Area Software Programmer Device Identifier Shelf Expiration Date Model / Serial / Lot Implant On The Fly - [id number] Implanted:Qty: 1 on 10/13/2007 at OR [facility] N/A: Abdomen LIFE CELL DONN 05/13/2009 [id number] / / [id number] Description:Alloderm 16x20 . 79-2.03 Implant Breast Haven+ [id number] - [id number] Implanted:Qty: 1 on 07/13/2009 at OR [facility] Right: Breast MENTOR DONN 10/29/2011 [id number] / [id number] / documented as of this encounter Advance Directives Latest Code Status on File Code Status Date Activated Date Inactivated Comments Full Code 07/13/2009 3:24 PM 07/14/2009 4:16 PM Thi s order reflects the patients wishes and were consensually agreed upon. Code Status History Code Status Date Activated Date Inactivated Comments Full Code 10/13/2007 7:50 PM 10/16/2007 3:07 PM Care Teams Coat Presser Relationship Specialty Start Date End Date Chi Silvestre DO [address] [place] [address] PCP - General Internal Medicine 10/09/21 documented as of this encounter
--- OUTSIDE RECORDS SUMMARY | 2024-03-26 17:39 | External Medical Summary | Summary of Care ---
Author Name Unknown Organization [facility] Address [address] [facility] [address] Phone [phone] Care Team Providers Care Cognos Administrator Name Role Phone Chi Silvestre DO Primary Care Provider [phone] Reason for Visit * Reason Comments Medical Nutrition Therapy Encounter Details Date Type Department Care Team (Latest Contact Info) Description 11/10/2023 1:30 PM [facility] Nutrition Services Nutrition Services [address] [address] Mariana Sutherland RDN [address] [place] [id number] Dyslipidemia, goal LDL below 100*; Prediabetes; HTN, goal below 140/90 Allergies Active Allergy [...] MORNING. 100 Tablet 3 06/16/2023 06/15/2024 Active Losartan Potassium 100 MG Oral Tablet [...] 3 10/24/2023 10/23/2024 Active OneTouch Delica Plus [id number] USE TO TEST SUGARS DAILY 100 Each [...] MCG/0.3 mL, 12 YRS AND ABOVE, [facility] 11/10/2023 COVID-19, mRNA, LNP-s, PF, [...] - Inhaled Oxygen Concentration - - Weight 94.7 kg (208 lb 11.2 oz) 11/10/2023 1:28 PM EST Height 168.3 cm (5' 6.25") 11/10/2023 1:28 PM ES T Body Mass Index 33.43 11/10/2023 1:28 PM EST documented in this encounter Patient Instructions * Patient Instructions* Mariana Sutherland RDN - 11/10/2023 2:01 PM EST Goals: Discussed the following goals with patient who agrees to the following: Choose to follow the plate method for meals documented in this encounter Progress Notes * Mariana Sutherland RDN - 11/10/2023 1:26 PM EST NUTRITION CONSULT - [address] [place] [address] Name: Adam Barajas Location: NUTRITION SERVICES [address] [place] [address] Date: 11/10/2023 Time: 1:27 PM .Patient location: [address] [place] [address]. Patient was seen [id number] in the clinic. Patient was verified with two unique identifiers. Reason for Referral: Dyslipidemia, Prediabetes, overweight/obesity NUTRITION ASSESSMENT: Client History 68 year old female who presents to [address] [place] [address] for initial nutrition visit. Past medical history includes, but is not limited to, HTN, prediabetes, dyslipidemia and obesity. Patient wants to lose weight, but is struggling to lose the weight. Patient had does not want weight medications/surgery. Patient had blood pressure medications increased over the past year. Prior Nutrition Counseling: [place] Dietitian Support System: Spouse Barriers To Learning: None Special Education Needs: None Food/Nutrition-Related History Describes typical diet history/24 hr recall Breakfast: usually a slice or piece of cheese ow lunch meat rolled up; yogurt or cottage cheese with apple butter; coffee Snacks: none Lunch: turkey with nigerien cheese rolled up; BBQ chips; water Snacks: popcorn Dinner: 2 eggs, fried potatoes and sausage links and 2 slices of toast with butter; last evening chicken, rice, peas, carrots, cream of chicken soup, cheddar cheese soup and broth; water Snacks: cereal (shredded wheat biscuit with whole milk) or chocolate once in a while donuts Drinks: water, coffee, diet Pepsi (recently cut back) Restaurant meals: twice a week---usually [email or web address] or [employer] Alcohol: None Diet Recall/Food Logs Indicate: AREAS FOR IMPROVEMENT: Poor meal distribution Inadequate fiber intake Inadequate fruit and vegetable intake Significant sodium intake POSITIVE: Adequate calorie intake Food and Nutrient Intake and other pertinent information: N/a Food allergies and/or food intolerances: none Physical Activity: Limited due to colder weather; likes to walk in the warmer weather Pertinent Medications (Current): Current Outpatient Medications Medication Sig Dispense Refill aspirin 81 MG chewable tablet Take 1 Tablet by mouth in the morning. with food.. 100 Tab 5 Cholecalciferol (VITAMIN D-3) 5000 units Tablet Take 1 Tablet by mouth in the morning. CPAP every night at bedtime. OneTouch Virtway Lancets 33G Use to test sugars daily - E11.9 100 Each 3 Fluticasone Propionate 50 MCG/ACT Nasal Suspension (Flonase) Administer 2 Sprays into each nostril in the morning. 48 g 3 amLODIPine Besylate 2.5 MG Oral Tablet (Norvasc) TAKE 1 TABLET BY MOUTH IN THE MORNING. 100 Tablet 3 Losartan Potassium 100 MG Oral Tablet (Cozaar) Take 1 Tablet by mouth in the morning. 30 Tablet 5 Albuterol Sulfate HFA 108 (90 Base) MCG/ACT [...] DAILY 100 Strip 3 OneTouch Delica Plus [id number] USE TO TEST SUGARS DAILY 100 Each 3 Atorvastatin Calcium 40 MG Oral Tablet (Lipitor) TAKE ONE TABLET BY MOUTH EVERY MORNING 100 Tablet 3 Furosemide 20 MG Oral Tablet (Lasix) TAKE ONE TABLET BY MOUTH EVERY DAY IN THE MORNING 100 Tablet 3 Abrysvo 120 MCG/0.5ML Intramuscular Solution Reconstituted (RSV Pre-Fusion F A&B Vac Rcmb) Inject 0.5 mL into a large muscle once for 1 dose. For pharmacy stock replenishment [facility] 1 Each 0 No current facility-administered medications for this visit. Supplements: as above Anthropometric Measurements Ht 1.683 m (5' 6.25") | Wt 94.7 kg (208 lb 11.2 oz) | BMI 33.43 kg/m | BSA 2.1 m Wt Readings from Last 5 Encounters: 11/10/23 94.7 kg (208 lb 11.2 oz) 10/27/23 93.9 kg (207 lb) 08/28/23 92.7 kg (204 lb 4.8 oz) 08/14/23 91.5 kg (201 lb 11.2 oz) 06/23/23 92.8 kg (204 lb 8 oz) Weight Change: increased by 4 pounds in the past 5 months Interpretation of weight change: no significant loss Weight Goal: 175 BMI: BMI Readings from Last 1 Encounters: 11/10/23 33.43 kg/m Nutrition-Focused Physical Findings Overall appearance: overweight Digestive system: No issues, Appetite: fair to good Nerves and cognition: Awake, alert and Oriented Biochemical Data, Medical Tests, and Procedures As below, reviewed with patient Hemoglobin AIC Results: Lab Results Component Value Date/Time HEMOGLOBIN A1C - [facility] 6.4 (H) 08/28/2023 08:30 AM HEMOGLOBIN A1C - [facility] 6.0 (H) 04/08/2023 09:04 AM HEMOGLOBIN A1C - [facility] 6.5 (H) 10/09/2022 09:49 AM HEMOGLOBIN A1C - [facility] 6.1 (H) 10/08/2019 09:18 AM HEMOGLOBIN A1C - [facility] 6.0 (H) 12/31/2018 11:08 AM HEMOGLOBIN A1C - [facility] 5.7 12/05/2017 08:27 AM Lipid Panel Results: Results for orders placed or performed in visit on 10/08/19 LIPID PANEL Result Value Ref Range HOURS FASTING NOT FASTING hours Triglycerides 80 0 - 174 mg/dL Cholesterol 182 <200 mg/dL HDL Cholesterol 75 >49 mg/dL NON-HDL CHOLESTEROL 107 0 - 159 mg/dL LDL Cholesterol 91 0 - 129 mg/dL Results for orders placed or performed in visit on 04/08/23 LIPID PANEL WITH DIRECT LDL IF TG IS HIGH Result Value Ref Range Triglycerides 63 <=174 mg/dL Cholesterol 144 <200 mg/dL HDL Cholesterol 62 >49 mg/dL Non-HDL Cholesterol 82 <=159 mg/dL LDL Cholesterol 69 <=129 mg/dL NUTRITION DIAGNOSIS Food and nutrition-related knowledge deficit related to Poor meal distribution, Inconsistent carbohydrate intake, Inadequate fiber intake, Inadequate fruit and vegetable intake, Significant sodium intake as evidenced by Reported diet and/or activity recall NUTRITION INTERVENTION: Meals Snacks Initial/brief nutrition education Theoretical basis/approach Provided ADA MyPlate placemat and NCM Choose Your Foods List Team Nutrition Prescription: Diet: 2000 mg Sodium Consistent Carbohydrate Heart Healthy Low Fat/Low Cholesterol Gaby Walton: Gaby Hernandez (Female): 1784.84 (11/10/23 1328) Daily Calorie Needs: 1300 Kcals Daily Protein Needs: 57-76 Grams protein Goals: Discussed the following goals with patient who agrees to the following: Choose to follow the plate method for meals Dietitian Action: Taught Plate method for meal planning - make 1/2 plate non-starchy vegetables, 1/4 plate carbohydrate containing foods, 1/4 plate protein foods Educated on foods high in sodium to avoid Discussed foods high in sodium from diet recall Discussed benefit of fiber in diet Encouraged lean, low sodium protein sources at meals and snacks Recommendations to Ordering Provider: Continue current plan of nutrition care. NUTRITION MONITORING AND EVALUATION: The following will be monitored and evaluated at the next visit: Monitor weight. Monitor labs. Monitor goals and progress. Plan: Patient scheduled to return in 2 months; dietitian phone # given for future reference. 30 minutes Medical Nutrition Therapy Time In: 1327 (11/10/23 1808) Time Out: 1403 (11/10/23 1808) 15 min (8-22 min) 30 min (23-37 min) 45 min (38-52 min) 60 min (53-67 min) 75 min (68-82 min) 90 min (83-97 min) 105 min (98-113 min) Mariana Sutherland RDN 11/10/2023 1:27 PM NUTRITION SERVICES 65 [facility] documented in this encounter Plan of Treatment Upcoming Encounters Date Type Department Care Team (Late st Contact Info) Description 12/09/2023 1:30 PM EDT Nutrition Services Nutrition Services [address] [address] Mariana Sutherland RDN [address] [place] [address] 01/05/2024 9:20 AM EDT Office Visit Family Practice [address] [phone] Chi Silvestre, [address] [place] [address], [place] [address] 02/29/2024 10:00 AM EDT Nurse Only Ancillary [address] [address] [place], Nurse Annual Wellness Visit [address] [place] [address] Scheduled Procedures Name Priority Associated Diagnoses Date/Ti [...] D LEVEL ONCE IN A LIFETIME-USE SMARTSET# 77945 Completed 10/09/2022, 12/03/2020, 09/11/2018, Additional history exists [...] this encounter Medical Devices Implanted Type Area Youtuber Device Identifier Shelf Expiration Date Model / Serial / Lot Implant On The Fly - [id number] Implanted:Q[place]: 1 on 10/13/2007 [place] [facility] [place]: Abdomen LIFE Zaldiva 05/13/2009 [id number] / / [id number] Description:Alloderm 16x20 . 79-2.03 Implant Breast Haven+ [id number] - [id number] Implanted:Qty: 1 on 07/13/2009 at [facility] Right: Breast MENTOR DONN 10/29/2011 [id number] / [id number] / documented as of this encounter Visit Diagnoses Diagnosis Dyslipidemia, goal LDL below 100- Primary Other and unspecified hyperlipidemia Prediabetes Other abnormal glucose HTN, goal below 140/90 [...] 7:50 PM 10/16/2007 3:07 PM Care Teams Cognos Administrator Relationship Specialty Start Date End Date Chi Silvestre DO [address] [place] [address] PCP - General Internal Medicine 10/09/21 documented as of this encounter
--- OUTSIDE RECORDS SUMMARY | 2024-03-26 17:39 | External Medical Summary | Summary of Care ---
Author Name Unknown Organization [facility] Address [address] [place] [address] Phone [phone] Care Team Providers Care Lipcoat Sprayer Name Role Phone Olya Silvestre DO Primary Care Provider [phone] Reason for Visit * Reason Comments Medication Refill Encounter Details Date Type Department Care Team (Late st Contact Info) Description 11/23/2023 Refill Family Practice 65 [facility] [place] [address] [place] [address] Olya Silvestre DO [address] [place] [address] HTN, goal below 140/90 Allergies Active Allergy Reactions Criticality Noted Date Comments Bacitracin 01/09/2020 Diphenhydramine Hcl Rash 12/02/2007 Neomycin-Bacitracin Zn-Polymyx 08/02 Other - Drugs Itching,Rash 01/30/2010 Dermabond Penicillins Edema Other 10/15/2006 Polymyxin B 01/09/2020 documented as of this encounter (statuses as of 11/24/2023) Medications Medication Sig Dispensed Refills Start Date [...] 3 10/24/2023 5 Active OneTouch Delica Plus [id number] USE TO TEST SUGARS DAILY 100 Each [...] the morning. 30 Tablet 5 11/24/2023 Active Losartan Potassium 100 MG Oral Tablet (Cozaar)Indications :HTN, goal below 140/90 Take 1 Tablet by mouth in the morning. 30 Tablet 5 06/23/2023 4 Discontinue d(Refill) documented as of this encounter (statuses as of 11/24/2023) Active Problems Problem Noted Date Diagnosed Date [...] as of this encounter (statuses as of 11/24/2023) Resolved Problems Problem Noted Date Diagnosed Date [...] as of this encounter (statuses as of 11/24/2023) Immunizations Name Administration Dates Next Due COVID-19 [...] encounter Miscellaneous Notes * Telephone Encounter - Lorna Levine RPh - 11/24/2023 7:53 AM ESTSigned Prescriptions: Disp Refills Losartan Potassium 100 MG Oral Tablet (Coz*30 Tab*5 Sig: Take 1 Tablet by mouth in the morning.Authorizing Provider: OLYA SILVESTRE AOrjenna User: LORNA LEVINE-- documented in this encounter Plan of Treatment Upcoming Encounters Date Type Department Care Team (Late st Contact Info) Description 12/09/2023 1:30 PM EDT Nutrition Services Nutrition Services [address] [address] Mariana Sutherland RDN [address] [place] [phone] 01/05/2024 9:20 AM EDT Office Visit Family Practice [address] [phone] Olya Silvestre, [address] [place] [address] 02/29/2024 10:00 AM EDT Nurse Only Ancillary [address] [address] College, Nurse Annual Wellness Visit [address] [address] Scheduled Procedures Name Priority Associated Diagnoses Date/Ti [...] D LEVEL ONCE IN A LIFETIME-USE SMARTSET# [id number] Completed 10/09/2022, 12/03/2020, 09/11/2018, Additional history exists [...] this encounter Medical Devices Implanted Type Area Magneto Specialist Device Identifier Shelf Expiration Date Model / Serial / Lot Implant On The Fly - [id number] Implanted:Qty: 1 on 10/13/2007 [place] [facility] [place]A: Abdomen LIFE CELL DONN 05/13/2009 [id number] / / [id number] Description:Alloderm 16x20 . 79-2.03 Implant Breast Haven+ [id number] - [id number] Implanted:Qty: 1 on 07/13/2009 at [place] [facility] [place] Right: Breast MENTOR DONN 10/29/2011 [id number] / [id number] / documented as of this encounter Visit Diagnoses Diagnosis HTN, goal below 140/90 Unspecified essential hypertension [...] 7:50 PM 10/16/2007 3:07 PM Care Teams Lipcoat Sprayer Relationship Specialty Start Date End Date Olya Silvestre DO [address] [place] [address] PCP - General Internal Medicine 10/09/21 documented as of this encounter
--- OUTSIDE RECORDS SUMMARY | 2024-03-26 17:40 | External Medical Summary | Summary of Care ---
Author Name Unknown Organization [facility] Address [address] [address] Phone [phone] Care Team Providers Care Air Pollution Inspector Name Role Phone Chi Silvestre DO Primary Care Provider [phone] Reason for Visit * Reason Comments Follow Up Here 1 year return. COLT. CPAP. Noct. Hypoxemia. Encounter Details Date Type Department Care Team (Late st Contact Info) Description 10/27/2023 9:30 AM EST Office Visit Sleep Disorders Ctr [facility] [address] [facility] [place] [phone] Kristel Garcia CRNP [address] [facility] [place] [address] Obstructive sleep apnea*; Nocturnal hypoxemia Allergies Active Allergy Reactions Criticality Noted Date Comments Bacitracin 01/09/2020 Diphenhydramine Hcl Rash 12/02/2007 Neomycin-Bacitracin Zn-Polymyx 08/02 Other - Drugs Itching,Rash 01/30/2010 Dermabond Penicillins Edema Other 10/15/2006 Polymyxin B 01/09/2020 documented as of this encounter (statuses as of 10/27/2023) Medications Medication Sig Dispensed Refills Start Date [...] - E11.9 100 Each 3 3 Active Atorvastatin Calcium 40 MG Oral Tablet (Lipitor)Indicati ons:Dyslipidemia, goal LDL below 100 TAKE ONE TABLET BY MOUTH EVERY MORNING 100 Tablet 3 3 11/01/19 24 Active Furosemide 20 MG Oral Tablet (Lasix)Indication s:Venous insufficiency TAKE ONE TABLET BY MOUTH EVERY DAY IN THE MORNING 100 Tablet 3 3 11/15/19 24 Active Fluticasone Propionate 50 MCG/ACT Nasal Suspension (Flonase)Indicati ons:Seasonal allergic rhinitis due to pollen Administer 2 Sprays into each nostril in the morning. 48 g 3 3 Active amLODIPine Besylate 2.5 MG Oral Tablet (Norvasc)Indicati ons:HTN, goal below 140/90 TAKE 1 TABLET BY MOUTH IN THE MORNING. 100 Tablet 3 3 06/15/20 24 Active Losartan Potassium 100 MG Oral Tablet (Cozaar)Indicatio ns:HTN, goal below 140/90 Take 1 Tablet by mouth in the morning. 30 Tablet 5 3 Active Albuterol Sulfate HFA 108 (90 Base) [...] 100 Tablet 3 3 09/08/20 24 Active Montelukast Sodium 10 MG Oral Tablet (Singulair)Indica tions:Asthma in adult, mild intermittent, uncomplicated Take 1 Tablet by mouth at bedtime. 90 Tablet 0 3 12/24/19 24 Active OneTouch Verio In Vitro Strip (Glucose Blood) USE TO TEST SUGARS DAILY 100 Strip 3 4 10/23/19 25 Active OneTouch Delica Plus [id number] USE TO TEST SUGARS DAILY 100 Each 3 4 10/23/19 25 Active Ibuprofen 600 MG Oral Tablet (Motrin)Indicatio ns:Muscle spasm Take 1 Tablet by mouth in the morning and 1 Tablet at noon and 1 Tablet before bedtime. with food for pain. 30 Tablet 1 3 10/27/19 24 Discontinued(Pat ient preference/disco ntinuation) Omeprazole 20 MG Oral Capsule Delayed Release (PriLOSEC)Indicat ions:RUQ abdominal pain Take 1 Capsule by mouth in the morning. 1 hour before the first meal of the day. 30 Capsule 5 3 10/27/19 24 Discontinued documented as of this encounter (statuses as of 10/27/2023) Active Problems Problem Noted Date Diagnosed Date [...] as of this encounter (statuses as of 10/27/2023) Resolved Problems Problem Noted Date Diagnosed Date [...] as of this encounter (statuses as of 10/27/2023) Immunizations Name Administration Dates Next Due COVID-19 [...] Sign Reading Time Taken Comments Blood Pressure 126/90 10/27/2023 9:28 AM EST Pulse 77 10/27/2023 9:28 AM EST Temperature 37.1 C (98.7 F) 10/27/2023 9:28 AM ES T Respiratory Rate 16 10/27/2023 9:28 AM EST Oxygen Saturation 97% 10/27/2023 9:28 AM EST Inhaled Oxygen Concentration - - Weight 93.9 kg (207 lb) 10/27/2023 9:28 AM EST Height 168.3 cm (5' 6.25") 10/27/2023 9:28 AM ES T Body Mass Index 33.16 10/27/2023 9:28 AM EST documented in this encounter Patient Instructions * Patient Instructions* Kristel Garcia CRNP - 10/27/2023 9:52 AM EST Continue use of CPAP to include all periods of sleep. Recommended total sleep time for adults is 7-9 hours. Reminder to clean CPAP supplies weekly and change supplies as needed. Work at making lifestyle changes to loss weight, as weight loss often results in improvement of sleep disordered breathing. Daily exercise has been shown to improve sleep quality. Avoid driving or engaging in any activity that requires full alertness if feeling sleepy, drowsy orotherwise impaired. documented in this encounter Progress Notes * Kristel Garcia CRNP - 10/27/2023 9:38 AM EST [facility] Adam Barajas is a 68 year old female seen today for yearly follow-up of moderate COLT treated on CPAP. Sleep Testing/History: - PSG 02/2017: AHI 18, REM AHI 12, SpO2 best 79% with 113 mins <89% - Noct ox APAP 10-15/RA 06/30/2017: <89% 8 mins, test time 4 hr 17 mins - Noct ox 07/26/18 CPAP 14/RA: <89% 8.5 mins, low 82%, 29 mins excessive leak (not correspondingwith desats) - Noct ox CPAP 15-20 11/25/22 (wt 217): SpO2 best 93%, test time 6 hrs 19 mins Interim History: CPAP used nightly, noting ongoing benefit with use. She denies intolerance issues related to treatment. Total sleep time is 8 hours. Generally waking rested but notes that the overcast days do resortin lower energy. Denies drowsy driving. No am headaches. Denies symptoms suggestive of RLS. Compliance Data: Report date: last 30 days ending 10/21/2023 % total days used: 100 % days used > 4 hours: 100 Average hours per day used: 8 hours 22 mins Large leak: 0 L/min rAHI: 5.3 (BRIDGETTE 0.4) Pressures: 15.9, p90% 18.1 Equipment: DME Provider: Snip[employer] Device: [employer] Settings: 15-20 cmH20 Interface Type: FFM Humidifier: yes Cleaning: By hand routinely Nogal Sleepiness Scale Question 10/26/2023 9:18 AM EST - Filed by Patient What is the chance you will doze off in the following situation? Sitting and reading No chance of dozing Watching TV No chance of dozing Sitting inactive in a public place, such as a theater or meeting No chance of dozing As a passenger in a car for an hour without a break No chance of dozing Lying down to rest in the afternoon when circumstances permit High chance of dozing When sitting and talking to someone No chance of dozing When sitting quietly after lunch without alcohol No chance of dozing In a car, while stopped for a few minutes in traffic No chance of dozing Score (range: 0 - 24) 3 Problem List: Patient Active Problem List Diagnosis Code HTN, goal below 140/90 I10 Vitamin D deficiency E55.9 INTERMITTENT ASTHMA WITH RELIEVER USE UP TO TWICE PER WEEK J45.20 Dyslipidemia, goal LDL below 100 E78.5 Prediabetes R73.03 Osteoporosis M81.0 Sensitivity to medication T78.40XA COLT (obstructive sleep apnea) G47.33 Obesity, Class I, BMI 30.0-34.9 (see actual BMI) E66.9 Pulmonary nodules R91.8 Current Medications: Outpatient Medications Marked as Taking for the 10/27/23 encounter (Office Visit) with Kristel Garcia CRNP Medication Sig OneTouch Delica Plus [id number] USE TO TEST SUGARS DAILY OneTouch Verio In Vitro Strip (Glucose Blood) USE TO TEST SUGARS DAILY Montelukast Sodium 10 MG Oral Tablet (Singulair) Take 1 Tablet by mouth at bedtime. metFORMIN HCl ER 500 MG Oral Tablet Extended Release 24 Hour (Glucophage XR) TAKE ONE TABLET BY MOUTH EVERY DAY Albuterol Sulfate HFA 108 (90 Base) MCG/ACT Inhalation Aerosol Solution INHALE TWO PUFFS BY MOUTH EVERY 4 HOURS NEEDED FOR WHEEZING Losartan Potassium 100 MG Oral Tablet (Cozaar) Take 1 Tablet by mouth in the morning. amLODIPine Besylate 2.5 MG Oral Tablet (Norvasc) TAKE 1 TABLET BY MOUTH IN THE MORNING. Fluticasone Propionate 50 MCG/ACT Nasal Suspension (Flonase) Administer 2 Sprays into each nostril in the morning. OneTouch Delica Lancets 33G Use to test sugars daily - E11.9 Atorvastatin Calcium 40 MG Oral Tablet (Lipitor) TAKE ONE TABLET BY MOUTH EVERY MORNING Furosemide 20 MG Oral Tablet (Lasix) TAKE ONE TABLET BY MOUTH EVERY DAY IN THE MORNING CPAP every night at bedtime. Cholecalciferol (VITAMIN D-3) 5000 units Tablet Take 1 Tablet by mouth in the morning. aspirin 81 MG chewable tablet Take 1 Tablet by mouth in the morning. with food.. Physical Exam: BP 126/90 | Pulse 77 | Temp 37.1 C (98.7 F) (Tympanic) | Resp 16 | Ht 1.683 m (5' 6.25") | Wt 93.9 kg (207 lb) | SpO2 97% | BMI 33.16 kg/m | BSA 2.1 m Constitutional: Alert, oriented and in no acute distress Skin: No abnormal mask markings on face Cardio: Regular rate and rhythm, no murmur Chest: Normal respiratory effort at rest Neuro: Fluent speech Psych: Appropriate mood and affect. Assessment & Plan: Encounter Diagnoses Name Primary? Obstructive sleep apnea Yes Nocturnal hypoxemia Moderately severe obstructive sleep apnea based on AHI criteria associated with hypoxemia that resolved on auto CPAP. She is compliant, therapeutic and benefiting with PAP treatment. Patient Instructions Continue use of CPAP to include all periods of sleep. Recommended total sleep time for adults is 7-9 hours. Reminder to clean CPAP supplies weekly and change supplies as needed. Work at making lifestyle changes to loss weight, as weight loss often results in improvement of sleep disordered breathing. Daily exercise has been shown to improve sleep quality. Avoid driving or engaging in any activity that requires full alertness if feeling sleepy, drowsy orotherwise impaired. LUPILLO [facility] I spent a total of 10-19 minutes (exact time 18 mins) on the date of service in preparation, delivery, and documentation of the care provided to Adam Barajas excluding any time spent in the performance of separately billed services. documented in this encounter Nursing Notes * Iris Adame LPN - 10/27/2023 9:30 AM EST Chief Complaint Patient presents with Follow Up Here 1 year return. COLT. CPAP. Noct. Hypoxemia. DME: [facility] O[facility]. Nogal Sleepiness Scale Question 10/26/2023 9:18 AM EST - Filed by Patient What is the chance you will doze off in the following situation? Sitting and reading No chance of dozing Watching TV No chance of dozing Sitting inactive in a public place, such as a theater or meeting No chance of dozing As a passenger in a car for an hour without a break No chance of dozing Lying down to rest in the afternoon when circumstances permit High chance of dozing When sitting and talking to someone No chance of dozing When sitting quietly after lunch without alcohol No chance of dozing In a car, while stopped for a few minutes in traffic No chance of dozing Score (range: 0 - 24) 3 Travel Screening Question 10/27/2023 9:20 AM EST - Filed by Patient Do you have any of the following new or worsening symptoms? None of these Have you recently been in contact with someone who was sick? No / Unsure documented in this encounter Plan of Treatment Upcoming Encounters Date Type Department Care Team (Late st Contact Info) Description 01/05/2024 9:20 AM EDT Office Visit Family Practice [address] [facility] [address] [place] [phone] Chi Silvestre, [address] [place] [address] 02/29/2024 10:00 AM EDT Nurse Only Ancillary 65 [facility] [address] [place] [address] College, Nurse Annual Wellness Visit [address] [address] Scheduled Procedures Name Priority Associated Diagnoses Date/Ti me COLONOSCOPY FLEXIBLE PROXIMAL DIAGNOSTIC Recall History of colon polyps Health Maintenance Due Date Last Done Comments Hepatitis B (1 of 3 - Risk 3-dose series) 2013 COVID-19 Vaccine ( - 2022- season) 2023 08/12/2022, 08/28/2021, 11/18/2020, Additional history [...] D LEVEL ONCE IN A LIFETIME-USE SMARTSET# [id number] Completed 10/09/2022, 12/03/2020, 09/11/2018, Additional history exists Influenza Vaccine (FLU shot) Completed 09/2022, 08/01/2022, 08/04/2021, Additional history exists GARDASIL-HPV IMMUNIZATION SERIES Aged Out No longer eligible based on patient's age to complete this topic MENINGOCOCCAL (MENACTRA/MENVEO) Aged Out No longer eligible based on patient's age to complete this topic documented as of this encounter Medical Devices Implanted Type Area Customer Relations Assistant Device Identifier Shelf Expiration Date Model / Serial / Lot Implant On The Fly - [id number] Implanted:Qty: 1 on 10/13/2007 at OR [facility] N/A: Abdomen LIFE CELL DONN 05/13/2009 [id number] / / [id number] Description:Alloderm 16x20 . 79-2.03 Implant Breast Haven+ [id number] - [id number] Implanted:Qty: 1 on 07/13/2009 at [facility] Right: Breast MENTOR DONN 10/29/2011 [id number] / [id number] / documented as of this encounter Visit Diagnoses Diagnosis Obstructive sleep apnea- Primary Obstructive sleep apnea (adult) (pediatric) Nocturnal hypoxemia Hypoxemia documented in this encounter Advance Directives Latest Code Status on File Code Status Date Activated Date Inactivated Comments Full Code 07/13/2009 3:24 PM 07/14/2009 4:16 PM Thi s order reflects the patients wishes and were consensually agreed upon. Code Status History Code Status Date Activated Date Inactivated Comments Full Code 10/13/2007 7:50 PM 10/16/2007 3:07 PM Care Teams Air Pollution Inspector Relationship Specialty Start Date End Date Chi Silvestre DO [address] [place] [address] PCP - General Internal Medicine 10/09/21 documented as of this encounter
--- OUTSIDE RECORDS SUMMARY | 2024-03-26 17:40 | External Medical Summary | Summary of Care ---
Author Name Unknown Organization [facility] Address [address] [facility] [place] [address] Phone [phone] Care Team Providers Care Flame Annealing Machine Setter Name Role Phone Chi Silvestre DO Primary Care Provider [phone] Encounter Details Date Type Department Care Team (Late st Contact Info) Description 09/29/2023 Telephone [facility] [address] [place] [address] rKistel Garcia CRNP [address] [place] [address] Allergies Active Allergy Reactions Criticality Noted Date Comments Bacitracin 01/09/2020 Diphenhydramine Hcl Rash 12/02/2007 Neomycin-Bacitracin Zn-Polymyx 08/02 Other - Drugs Itching,Rash 01/30/2010 Dermabond Penicillins Edema Other 10/15/2006 Polymyxin B 01/09/2020 documented as of this encounter (statuses as of 09/29/2023) Medications Medication Sig Dispensed Refills Start Date [...] - E11.9 100 Each 3 10/14/2022 Active Glucose Blood In Vitro Strip USE TO TEST SUGARS DAILY 100 Strip 3 10/14/2022 11/01/2023 Active OneTouch Delica Plus [id number] USE TO TEST SUGARS DAILY 100 Each 3 10/14/2022 11/01/2023 Active Atorvastatin Calcium 40 MG Oral Tablet (Lipitor)Indications :Dyslipidemia, goal LDL below 100 TAKE ONE TABLET BY MOUTH EVERY MORNING 100 Tablet 3 10/10/2022 11/01/2023 Active Furosemide 20 MG Oral Tablet (Lasix)Indications:V enous insufficiency TAKE ONE TABLET BY MOUTH EVERY DAY IN THE MORNING 100 Tablet 3 09/28/2022 11/15/2023 Active Fluticasone Propionate 50 MCG/ACT Nasal Suspension (Flonase)Indications :Seasonal allergic rhinitis due to pollen Administer 2 Sprays into each nostril in the morning. 48 g 3 06/10/2023 Active amLODIPine Besylate 2.5 MG Oral Tablet (Norvasc)Indications :HTN, goal below 140/90 TAKE 1 TABLET BY MOUTH IN THE MORNING. 100 Tablet 3 06/16/2023 06/15/2024 Active Ibuprofen 600 MG Oral Tablet (Motrin)Indications: Muscle spasm Take 1 Tablet by mouth in the morning and 1 Tablet at noon and 1 Tablet before bedtime. with food for pain. 30 Tablet 1 06/20/2023 Active Losartan Potassium 100 MG Oral Tablet (Cozaar)Indications: HTN, goal below 140/90 Take 1 Tablet by mouth in the morning. 30 Tablet 5 06/23/2023 Active Albuterol Sulfate HFA 108 (90 Base) MCG/ACT Inhalation Aerosol SolutionIndications: Intermittent asthma with reliever use up to twice per week, uncomplicated INHALE TWO PUFFS BY MOUTH EVERY 4 HOURS NEEDED FOR WHEEZING 54 g 3 08/14/2023 Active Omeprazole 20 MG Oral Capsule Delayed Release (PriLOSEC)Indication s:RUQ abdominal pain Take 1 Capsule by mouth in the morning. 1 hour before the first meal of the day. 30 Capsule 5 08/14/2023 Active metFORMIN HCl ER 500 MG Oral Tablet Extended Release 24 Hour (Glucophage XR) TAKE ONE TABLET BY MOUTH EVERY DAY 100 Tablet 3 09/09/2023 09/08/2024 Active Montelukast Sodium 10 MG Oral Tablet (Singulair)Indicatio ns:Asthma in adult, mild intermittent, uncomplicated Take 1 Tablet by mouth at bedtime. 90 Tablet 0 09/24/2023 12/24/2023 Active documented as of this encounter (statuses as of 09/29/2023) Active Problems Problem Noted Date Diagnosed Date [...] as of this encounter (statuses as of 09/29/2023) Resolved Problems Problem Noted Date Diagnosed Date [...] as of this encounter (statuses as of 09/29/2023) Immunizations Name Administration Dates Next Due COVID-19 [...] encounter Miscellaneous Notes * Telephone Encounter - Dinesh Manning OSA - 09/29/2023 10:36 AM EST Orders in 09/29 supplies adapt documented in this encounter Plan of Treatment Upcoming Encounters Date Type Department Care Team (Late st Contact Info) Description 10/27/2023 9:30 AM EST Office Visit Sleep Disorders Ctr [facility] [address] [place] [phone] Kristel Garcia CRNP [address] [facility] [place] [address] 01/05/2024 9:20 AM EDT Office Visit Family Practice 65 [facility] [address] [place] [address] Chi Silvestre, [address] [place] [address] 02/29/2024 10:00 AM EDT Nurse Only Ancillary 65 [facility] [address] [place] [address] College, Nurse Annual Wellness Visit [address] [place] [address] Scheduled Procedures Name Priority Associated Diagnoses Date/Ti me COLONOSCOPY FLEXIBLE PROXIMAL DIAGNOSTIC Recall History of colon polyps Health Maintenance Due Date Last Done Comments Hepatitis B (1 of 3 - Risk 3-dose series) 2013 COVID-19 Vaccine ( season) 2023 08/12/2022, 08/28/2021, 11/18/2020, Additional history exists DTaP,Tdap,and Td Vaccines (3 - Td or Tdap) 01/07/2024 01/06/2014, 07/08/2011 Mammogram 02/12/2024 02/11/2023, 05/2023, 10/17/2021, Additional history exists GFR 08/24/2024 08/24/2023, 07/29, 07/01/2023, Additional history exists Depression Screening 08/26/2024 08/26/2023 HbA1c 08/28/2024 08/28/2023, 03/28, 10/09/2022, Additional history exists DXA Scan 10/06/2024 10/06/2022, 01/2020, 06/29/2018 Albumin/Creatinine Ratio 10/09/2025 10/09/2022 COLONOSCOPY-EVERY 5 YRS AGES 18-100 08/29/2027 08/29/2022, 08/29/2022, 06/19/2017, Additional history exists Lipid Panel 04/08/2028 04/08/2023, 09/28, 10/09/2021, Additional history exists Zoster Vaccines Completed 04/08/2022, 10/09/2021 Pneumococcal Vaccine: 65+ Years Completed 10/09/2022, 06/10/2018, 12/04/2016 VITAMIN D LEVEL ONCE IN A LIFETIME-USE SMARTSET# [id number] Completed 10/09/2022, 12/03/2020, 09/11/2018, Additional history exists Influenza Vaccine (FLU shot) Completed 09/2022, 08/01/2022, 08/04/2021, Additional history exists GARDASIL-HPV IMMUNIZATION SERIES Aged Out No longer eligible based on patient's age to complete this topic MENINGOCOCCAL (MENACTRA/MENVEO) Aged Out No longer eligible based on patient's age to complete this topic documented as of this encounter Medical Devices Implanted Type Area Continuity Tester Device Identifier Shelf Expiration Date Model / Serial / Lot Implant On The Fly - [id number] Implanted:Qty: 1 on 10/13/2007 at OR [facility] N/A: Abdomen LIFE CELL DONN 05/13/2009 [id number] / / [id number] Description:Alloderm 16x20 . 79-2.03 Implant Breast Haven+ [id number] - [id number] Implanted:Qty: 1 on 07/13/2009 at OR [facility] Right: Breast MENTOR DONN 10/29/2011 [id number] / [id number] / documented as of this encounter Advance Directives Latest Code Status on File Code Status Date Activated Date Inactivated Comments Full Code 07/13/2009 3:24 PM 07/14/2009 4:16 PM Thi s order reflects the patients wishes and were consensually agreed upon. Code Status History Code Status Date Activated Date Inactivated Comments Full Code 10/13/2007 7:50 PM 10/16/2007 3:07 PM Care Teams Flame Annealing Machine Setter Relationship Specialty Start Date End Date Chi Silvestre DO [address] [place] [address] PCP - General Internal Medicine 10/09/21 documented as of this encounter
--- OUTSIDE RECORDS SUMMARY | 2024-03-26 17:40 | External Medical Summary | Summary of Care ---
Author Name Unknown Organization [facility] Address [address] [place] [address] Phone [phone] Care Team Providers Care Applications Chemist Name Role Phone Olya Silvestre DO Primary Care Provider [phone] Reason for Visit * Reason Comments Medication Refill Encounter Details Date Type Department Care Team (Late st Contact Info) Description 10/24/2023 Refill Pulmonary Medicine, [facility] [address] [place], [place] [id number] Olya Silvestre DO [address] [place], [place] [id number] Dyslipidemia, goal LDL below 100 Allergies Active Allergy Reactions Criticality Noted Date Comments Bacitracin 01/09/2020 Diphenhydramine Hcl Rash 12/02/2007 Neomycin-Bacitracin Zn-Polymyx 08/02 Other - Drugs Itching,Rash 01/30/2010 Dermabond Penicillins Edema Other 10/15/2006 Polymyxin B 01/09/2020 documented as of this encounter (statuses as of 10/28/2023) Medications Medication Sig Dispensed Refills Start Date [...] - E11.9 100 Each 3 10/14/2022 Active Furosemide 20 MG Oral Tablet (Lasix)Indications: Venous insufficiency TAKE ONE TABLET BY MOUTH EVERY DAY IN THE MORNING 100 Tablet 3 09/28/2022 4 Active Fluticasone Propionate 50 MCG/ACT Nasal Suspension [...] 3 10/24/2023 5 Active OneTouch Delica Plus [id number] USE TO TEST SUGARS DAILY 100 Each 3 10/24/2023 5 Active Atorvastatin Calcium 40 MG Oral Tablet (Lipitor)Indication s:Dyslipidemia, goal LDL below 100 TAKE ONE TABLET BY MOUTH EVERY MORNING 100 Tablet 3 10/28/2023 5 Active Atorvastatin Calcium 40 MG Oral Tablet (Lipitor)Indication s:Dyslipidemia, goal LDL below 100 TAKE ONE TABLET BY MOUTH EVERY MORNING 100 Tablet 3 10/10/2022 4 Discontinue d(Refill) documented as of this encounter (statuses as of 10/28/2023) Active Problems Problem Noted Date Diagnosed Date [...] as of this encounter (statuses as of 10/28/2023) Resolved Problems Problem Noted Date Diagnosed Date [...] as of this encounter (statuses as of 10/28/2023) Immunizations Name Administration Dates Next Due COVID-19 [...] encounter Miscellaneous Notes * Telephone Encounter - Olya Silvestre DO - 10/28/2023 8:44 AM ESTSigned Prescriptions: Disp Refills Atorvastatin Calcium 40 MG Oral Tablet (Li*100 Ta*3 Sig: TAKE ONE TABLET BY MOUTH EVERY MORNING Authorizing Provider: OLYA SILVESTRE * Telephone Encounter - Symone Jones LPN - 10/28/2023 8:26 AM ESTPending Prescriptions: Disp Refills Atorvastatin Calcium 40 MG Oral Tablet (Li*100 Ta*3 Sig: TAKE ONE TABLET BY MOUTH EVERY MORNING documented in this encounter Plan of Treatment Upcoming Encounters Date Type Department Care Team (Late st Contact Info) Description 01/05/2024 9:20 AM EDT Office Visit Family Practice [address] [phone] Olya Silvestre DO [address] [place] [address] 02/29/2024 10:00 AM EDT Nurse Only Ancillary [address] [address] College, Nurse Annual Wellness Visit [address] [address] Scheduled Procedures Name Priority Associated Diagnoses Date/Ti me COLONOSCOPY FLEXIBLE PROXIMAL DIAGNOSTIC Recall History of colon polyps Health Maintenance Due Date Last Done Comments Hepatitis B (1 of 3 - Risk 3-dose series) 2013 COVID-19 Vaccine (5 - 2022-24 season) 2023 08/12/2022, 08/28/2021, 11/18/2020, Additional history [...] D LEVEL ONCE IN A LIFETIME-USE SMARTSET# [id number] Completed 10/09/2022, 12/03/2020, 09/11/2018, Additional history exists Influenza Vaccine (FLU shot) Completed 09/2022, 08/01/2022, 08/04/2021, Additional history exists GARDASIL-HPV IMMUNIZATION SERIES Aged Out No longer eligible based on patient's age to complete this topic MENINGOCOCCAL (MENACTRA/MENVEO) Aged Out No longer eligible based on patient's age to complete this topic documented as of this encounter Medical Devices Implanted Type Area Corporate Quality Engineer Device Identifier Shelf Expiration Date Model / Serial / Lot Implant On The Fly - [id number] Implanted:Qty: 1 on 10/13/2007 at OR [facility] [place], [place] N/A: Abdomen LIFE CELL DONN 05/13/2009 [id number] / / [id number] Description:Alloderm 16x20 . 79-2.03 Implant Breast Haven+ [id number] - [id number] Implanted:Qty: 1 on 07/13/2009 at OR [facility] [place] [place] Right: Breast MENTOR DONN 10/29/2011 [id number] / [id number] / documented as of this encounter Visit Diagnoses Diagnosis Dyslipidemia, goal LDL below 100 Other and unspecified hyperlipidemia documented in this encounter Advance Directives Latest Code Status on File Code Status Date Activated Date Inactivated Comments Full Code 07/13/2009 3:24 PM 07/14/2009 4:16 PM Thi s order reflects the patients wishes and were consensually agreed upon. Code Status History Code Status Date Activated Date Inactivated Comments Full Code 10/13/2007 7:50 PM 10/16/2007 3:07 PM Care Teams Applications Chemist Relationship Specialty Start Date End Date Olya Silvestre DO [address] [place] [address] PCP - General Internal Medicine 10/09/21 documented as of this encounter
--- OUTSIDE RECORDS SUMMARY | 2024-03-26 17:40 | External Medical Summary | Summary of Care ---
Author Name Unknown Organization [facility] Address [address] [facility] [place] [address] Phone [phone] Care Team Providers Care Environmental Protection Inspector Name Role Phone Olya Silvestre DO Primary Care Provider [phone] Reason for Visit * Reason Comments Medication Refill Encounter Details Date Type Department Care Team (Late st Contact Info) Description 10/24/2023 Refill Family Practice 65 [facility] [place] [address] [place] [address] Olya Silvestre DO [address] [place] [address] Allergies Active Allergy Reactions Criticality Noted Date Comments Bacitracin 01/09/2020 Diphenhydramine Hcl Rash 12/02/2007 Neomycin-Bacitracin Zn-Polymyx 08/02 Other - Drugs Itching,Rash 01/30/2010 Dermabond Penicillins Edema Other 10/15/2006 Polymyxin B 01/09/2020 documented as of this encounter (statuses as of 10/24/2023) Medications Medication Sig Dispensed Refills Start Date [...] - E11.9 100 Each 3 10/14/2022 Active Atorvastatin Calcium 40 MG Oral Tablet (Lipitor)Indication s:Dyslipidemia, goal LDL below 100 TAKE ONE TABLET BY MOUTH EVERY MORNING 100 Tablet 3 10/10/2022 4 Active Furosemide 20 MG Oral Tablet (Lasix)Indications: [...] MORNING. 100 Tablet 3 06/16/2023 4 Active Ibuprofen 600 MG Oral Tablet (Motrin)Indications :Muscle spasm Take 1 Tablet by mouth in [...] Omeprazole 20 MG Oral Capsule Delayed Release (PriLOSEC)Indicatio ns:RUQ abdominal pain Take 1 Capsule by mouth [...] 3 10/24/2023 5 Active OneTouch Delica Plus [id number] USE TO TEST SUGARS DAILY 100 Each 3 10/24/2023 5 Active Glucose Blood In Vitro Strip USE TO TEST SUGARS DAILY 100 Strip 3 10/14/2022 4 Discontinue d(Refill) OneTouch Delica Plus [id number] USE TO TEST SUGARS DAILY 100 Each 3 10/14/2022 4 Discontinue d(Refill) documented as of this encounter (statuses as of 10/24/2023) Active Problems Problem Noted Date Diagnosed Date [...] as of this encounter (statuses as of 10/24/2023) Resolved Problems Problem Noted Date Diagnosed Date [...] as of this encounter (statuses as of 10/24/2023) Immunizations Name Administration Dates Next Due COVID-19 [...] Miscellaneous Notes * Telephone Encounter - Olya Heaton [facility] - 10/24/2023 9:00 AM ESTSigned Prescriptions: Disp Refills OneTouch Verio In Vitro Strip (Glucose Blo*100 St*3 Sig: USE TO TEST SUGARS DAILYAuthorizing Provider: OLYA SILVESTRE User: OLYA HEATON OneTouch Delica Plus [id number] 100 Ea*3 Sig: USE TO TEST SUGARS DAILYAuthorizing Provider: OLYA SILVESTRE User: OLYA HEATON * Telephone Encounter - 10/24/2023 12:12 AM ESTPending Prescriptions: Disp Refills OneTouch Verio In Vitro Strip (Glucose Blo*100 St*3 Sig: USE TOTEST SUGARS DAILY OneTouch Delica Plus [id number] 100 Ea*3 Sig: USE TO TEST SUGARS DAILY documented in this encounter Plan of Treatment Upcoming Encounters Date Type Department Care Team (Late st Contact Info) Description 10/27/2023 9:30 AM EST Office Visit [facility] [address] [facility] [place] [phone] Kristel Garcia CRNP [address] [facility] [place] [address] 01/05/2024 9:20 AM EDT Office Visit Family Practice 65 [facility] [address] [place] [phone] Olya Silvestre, [address] [place] [address] 02/29/2024 10:00 AM EDT Nurse Only Ancillary 65 [facility] [address] [place] [address] College, Nurse Annual Wellness Visit [address] [address] Scheduled Procedures Name Priority Associated Diagnoses Date/Ti me COLONOSCOPY FLEXIBLE PROXIMAL DIAGNOSTIC Recall History of colon polyps Health Maintenance Due Date Last Done Comments Hepatitis B (1 of 3 - Risk 3-dose series) 2013 COVID-19 Vaccine ( season) 2023 08/12/2022, 08/28/2021, 11/18/2020, Additional history exists DTaP,Tdap,and Td Vaccines (3 - Td or Tdap) 01/07/2024 01/06/2014, 07/08/2011 Mammogram 02/12/2024 02/11/2023, 0505/2023, 10/17/2021, Additional history exists GFR 08/24/2024 08/24/2023, 07/29, 07/01/2023, Additional history exists Depression Screening 08/26/2024 08/26/2023 HbA1c 08/28/2024 08/28/2023, 03/28, 10/09/2022, Additional history exists DXA Scan 10/06/2024 10/06/2022, 100 01/2020, 06/29/2018 Albumin/Creatinine Ratio 10/09/2025 10/09/2022 COLONOSCOPY-EVERY 5 YRS AGES 18-100 08/29/2027 08/29/2022, 08/29/2022, 06/19/2017, Additional history exists Lipid Panel 04/08/2028 04/08/2023, 09/28, 10/09/2021, Additional history exists Zoster Vaccines Completed 04/08/2022, 10/09/2021 Pneumococcal Vaccine: 65+ Years Completed 10/09/2022, 06/10/2018, 12/04/2016 VITAMIN D LEVEL ONCE IN A LIFETIME-USE SMARTSET# [id number] Completed 10/09/2022, 12/03/2020, 09/11/2018, Additional history exists Influenza Vaccine (FLU shot) Completed 09/2022, 08/01/2022, 08/04/2021, Additional history exists GARDASIL-HPV IMMUNIZATION SERIES Aged Out No longer eligible based on patient's age to complete this topic MENINGOCOCCAL (MENACTRA/MENVEO) Aged Out No longer eligible based on patient's age to complete this topic documented as of this encounter Medical Devices Implanted Type Area Family Readiness Support Assistant Device Identifier Shelf Expiration Date Model / Serial / Lot Implant On The Fly - [id number] Implanted:Qty: 1 on 10/13/2007 at [place] [facility] [place]A: Abdomen LIFE CELL DONN 05/13/2009 [id number] / / [id number] Description:Alloderm 16x20 . 79-2.03 Implant Breast Haven+ [id number] - [id number] Implanted:Qty: 1 on 07/13/2009 at [place] [facility] [place] Right: Breast MENTOR DONN 10/29/2011 [id number] / [id number] / documented as of this encounter Advance Directives Latest Code Status on File Code Status Date Activated Date Inactivated Comments Full Code 07/13/2009 3:24 PM 07/14/2009 4:16 PM Thi s order reflects the patients wishes and were consensually agreed upon. Code Status History Code Status Date Activated Date Inactivated Comments Full Code 10/13/2007 7:50 PM 10/16/2007 3:07 PM Care Teams Environmental Protection Inspector Relationship Specialty Start Date End Date Olya Silvestre DO [address] [place] [address] PCP - General Internal Medicine 10/09/21 documented as of this encounter
[2024-03-26] MEDS: ACETAMINOPHEN 1,000 MG/100 ML VIAL IV STA (18:15)
[2024-03-26] MEDS: SODIUM CHLORIDE 0.9% 1,000 ML IV ONE ×2 (18:16→21:00)
[2024-03-26 18:38] LABS: Basophils # (auto) 0.05 K/uL (0.00-0.20); Basophils % (auto) 0.6 %; Eosinophils # (auto) 0.09 K/uL (0.00-0.50); Eosinophils % (auto) 1.1 %; Hematocrit (blood only) 37.9 % (37.0-47.0); Hemoglobin 12.5 g/dl (12.0-16.0); Immature Granulocytes # (auto) 0.04 K/uL (0.01-0.20); Immature Granulocytes % (auto) 0.5 %; Lymphocytes # (auto) 0.73 K/uL (1.20-3.40); Lymphocytes % (auto) 8.8 %; Mean Corpuscular Hemoglobin 30.2 pg (25.0-34.0); Mean Corpuscular Volume 91.5 fL (80.0-100.0); Mean Platelet Volume 12.3 fL (9.4-12.4); Monocytes # (auto) 0.62 K/uL (0.11-0.59); Monocytes % (auto) 7.5 %; Neutrophils # (auto) 6.76 K/uL (1.40-6.50); Neutrophils % (auto) 81.5 %; Platelet Count 149 K/uL (130-400); RDW Coefficient of Variation 13.2 % (11.5-14.5); Red Blood Count 4.14 M/uL (4.20-5.40); White Blood Count 8.29 K/ul (4.8-10.8)
--- NOTE | 2024-03-26 18:43 | XRay Report ---
XR chest 1V portable CLINICAL HISTORY: fever, SOB COMPARISON STUDY: Chest radiograph December 06, 2020. Chest CT June 21, 2023. FINDINGS: Lung volumes are normal. Lungs are clear. There is no pneumothorax or pleural effusion. Car diac size is normal. Mediastinal contours are normal. There is no evidence for pulmonary edema. IMPRESSION: No acute cardiopulmonary findings. No change in appearance of the chest. ACT 112: Negative or not required by law. Electronically signed by: Amandeep Dawn M.D. 03/26/2024 6:42 PM
[2024-03-26 18:52] LABS: Albumin Globulin Ratio 1.6 (0.9-2); Albumin Level 4.1 gm/dl (3.4-5.0); BUN Creatinine Ratio 25.3 (10-20); Bilirubin,Total 0.5 mg/dl (0.2-1.0); Calcium 9.2 mg/dl (8.6-10.3); Creatinine Clr Calc Pharmacy 71.9 ml/min; Est GFR (African American) 82.8 ml/min; Est GFR (Non-African American) 71.4 ml/min; Globulin 2.6 gm/dl (2.5-4.0); Total Protein 6.7 gm/dl (6.0-8.3)
[2024-03-26 19:17] LABS: Adenovirus PCR Not Detected (NotDetected); Bordetella parapertussis PCR Not Detected (NotDetected); Bordetella pertussis PCR Not Detected (NotDetected); Chlamydia pneumoniae PCR Not Detected (NotDetected); Coronavirus 229E PCR Not Detected (NotDetected); Coronavirus CoV-2 (COVID19)PCR Not Detected (NotDetected); Coronavirus HKU1 PCR Not Detected (NotDetected); Coronavirus NL63 PCR Not Detected (NotDetected); Coronavirus OC43PCR Not Detected (NotDetected); Human Metapneumovirus PCR Not Detected (NotDetected); Influenza A PCR Not Detected (NotDetected); Influenza B PCR Not Detected (NotDetected); Mycoplasma pneumoniae PCR Not Detected (NotDetected); Parainfluenza Virus 1 PCR Not Detected (NotDetected); Parainfluenza Virus 2 PCR Not Detected (NotDetected); Parainfluenza Virus 3 PCR Not Detected (NotDetected); Parainfluenza Virus 4 PCR Not Detected (NotDetected); Respiratory Syncytial VirusPCR Not Detected (NotDetected); Rhinovirus/Enterovirus PCR Not Detected (NotDetected)
[2024-03-26 20:20] LABS: Appearance Urine Cloudy (Clear); Bacteria Urine Automated 4+ (None Seen); Bilirubin Urine Negative (Negative); Blood Urine Negative (Negative); Cast Urine Automated 0-2 /lpf (0-2); Color Urine Yellow; Epithelial Cell Urine Auto 0-2 /hpf (0-2); Glucose Urine UA Negative (Negative); Ketones Urine 2+ (Negative); Leukocyte Esterase Urine 1+ (Negative); Nitrite Urine Positive (Negative); Protein Urine 1+ (Negative); RBC Urine Automated 0-2 /hpf (0-2); Specific Gravity Urine 1.018 (1.000-1.030); Urobilinogen Urine Negative (Negative); pH Urine 5.5 (4.5-7.5)
[2024-03-26] MEDS: cefTRIAXone SODIUM 2,000 MG/50 ML BAG IV STA (20:38)
[2024-03-26] MEDS: DOXYCYCLINE HYCLATE 100 MG in DEXTROSE 5% MINI-B 100 ML IV STA (21:00)
--- NOTE | 2024-03-26 21:45 | History & Physical Report ---
Date of Service March 26, 2024 Assessment & Plan (1) Acute UTI: Plan: 68-year-old female with past med history significant for dyslipidemia, prediabetes, intermittent asthma, sleep apnea, pulm nodules, hypertension, osteoporosis, obesity who lives with her and ambulates without support comes because of fevers and chills , back pain and short of breath when she was getting chills and in the ER found to have UTI. In ER she was spiking temperatures. Currently denies any headache. Vision is okay. Somewhat hard of hearing. Denies runny nose or sore throat or cough. No difficulty swallowing. Appetite is okay. Denies any chest pain. Denies nausea. No abdominal pain. No burning micturition. No hematuria. Normal bowel movements. Current hemodynamics are okay. acute UTI presented with fevers and chills and back pain Respiratory bio fire negative. Lyme screen negative. Anaplasma and Babesia smear negative. UA is positive. ER started on Rocephin which will be continued IV fluids will follow cultures monitor in the hospital diabetes/prediabetes on metformin which will be held sliding scale. Will follow blood sugars and HbA1c levels. dyslipidemia on statin hypertension on amlodipine and losartan and Lasix will monitor obstructive sleep apnea on CPAP nightly intermittent asthma Singulair will monitor DVT prophylaxis Lovenox disposition med/telemetry full code. History of Present Illness Chief Complaint: Fevers. Acute UTI Primary Care Provider: Chi Silvestre DO 68-year-old female with past med history significant for dyslipidemia, prediabetes, intermittent asthma, sleep apnea, pulm nodules, hypertension, osteoporosis, obesity who lives with her and ambulates without support comes because of fevers and chills , back pain and short of breath when she was getting chills and in the ER found to have UTI. In ER she was spiking temperatures. Currently denies any headache. Vision is okay. Somewhat hard of hearing. Denies runny nose or sore throat or cough. No difficulty swallowing. Appetite is okay. Denies any chest pain. Denies nausea. No abdominal pain. No burning micturition. No hematuria. Normal bowel movements. Current hemodynamics are okay. Past medical history. As mentioned above past surgical history. Breast reconstructions. Colonoscopy. EGD. Endometrial thermal ablation. Diagnostic hysteroscopy. Ligation of oviducts. right radical mastectomy. Sinus polypectomy and. Reduction of breast. Sacroiliac joint injection. Suction assisted lipectomy. Social history. . No smoking. Alcohol rarely. No drug use. Family history. Brother has diabetes. Sister has diabetes. Father has hypertension. Leukemia. Mother had hypertension. Ovarian cancer. Brother has seizures. Son has thoracic aortic aneurysm. Allergies Allergy/AdvReac Type Severity Reaction Status Date / Time Penicillins Allergy Unknown SWELL, RED Verified 03/26/24 18:45 diphenhydramine AdvReac Intermediate BENADRYL Verified 03/26/24 18:45 CREAM bacitracin AdvReac Unknown ? Verified 03/26/24 18:45 neomycin AdvReac Unknown ? Verified 03/26/24 18:45 polymyxin B AdvReac Unknown ? Verified 03/26/24 18:45 Home Medications Medication Instructions Recorded Confirmed Type aspirin 81 mg tablet,delayed 81 mg PO HS 01/09/20 03/26/24 History release cholecalciferol (vitamin D3) 125 125 mcg PO Q OTHER DAY 01/09/20 03/26/24 History mcg (5,000 unit) tablet (Vitamin D3) furosemide 20 mg tablet 20 mg PO DAILY 01/09/20 03/26/24 History amlodipine 2.5 mg tablet 2.5 mg PO QAM 03/26/24 03/26/24 History atorvastatin 40 mg tablet 40 mg PO QAM 03/26/24 03/26/24 History fluticasone propionate 50 1 spray intranasal DAILY 03/26/24 03/26/24 History mcg/actuation nasal spray,suspension losartan 100 mg tablet 100 mg PO QAM 03/26/24 03/26/24 History metformin 500 mg tablet,extended 500 mg PO HS 03/26/24 03/26/24 History release 24 hr montelukast 10 mg tablet 10 mg PO HS 03/26/24 03/26/24 History Past Med/Surg History Problem List (Updated 03/26/24 @ 23:33 by Rhona Cyr PA-C) Elevated procalcitonin (Acute) Fever (Acute) Acute UTI (Acute) Social History Smoking Status: Never smoker Hx Alcohol Use: No Hx Substance Use: No Preferred Language: Austrian Communication Ability: Effective Analytics Consultant Required: No Beliefs That Will Affect Care: None Current Living Situation: Spouse Other Information That Helps Us Care for You: No Feels Safe at Home: Yes Safety Concerns: Feels Safe At This Time Assistive Devices: CPAP, Glasses and Hearing Aid - Bilateral Review of Systems Review of Systems: All systems reviewed & are unremarkable except as noted in HPI & below Physical Exam Physical Exam: General- Not in distress Head- atraumatic Eyes- PERRL. ENT- oropharynx clear Neck- supple, no JVD. Lungs- clear to auscultation no wheezing or crackles. Heart- regular rate and rhythm; no murmur, no gallop. Abdomen- normal bowel sounds, soft, nontender, no distension.No CVA tenderness Extremities- no pretibial edema, no erythema seen. Neuro- alert, oriented ; PERRL, no facial palsy; no dysarthria; moves extremities. Results & Data Results & Data Vital Signs (Past 12 Hours) Vital Signs Temp Pulse Resp BP Pulse Ox O2 Del Method 03/26/24 19:42 83 19 133/86 93 Room Air 03/26/24 19:30 37.6 C H 03/26/24 19:06 84 26 H 93 03/26/24 18:51 91 H 25 H 93 03/26/24 18:42 89 21 93 03/26/24 18:36 91 H 21 92 03/26/24 18:19 95 H 03/26/24 18:12 94 H 22 92 03/26/24 17:34 39 C H 110 H 20 159/93 H 93 Room Air Diagnostic Findings Laboratory Results WBC 8.29 K/ul (4.8-10.8) 03/26/24 18:14 RBC 4.14 M/uL (4.20-5.40) L 03/26/24 18:14 Hgb 12.5 g/dl (12.0-16.0) 03/26/24 18:14 Hct 37.9 % (37.0-47.0) 03/26/24 18:14 MCV 91.5 fL (80.0-100.0) 03/26/24 18:14 MCH 30.2 pg (25.0-34.0) 03/26/24 18:14 MCHC 33.0 g/dL (32.0-36.0) 03/26/24 18:14 RDW Std Deviation 44.0 fL (36.4-46.3) 03/26/24 18:14 RDW Coeff of Jose Luis 13.2 % (11.5-14.5) 03/26/24 18:14 Plt Count 149 K/uL (130-400) 03/26/24 18:14 MPV 12.3 fL (9.4-12.4) 03/26/24 18:14 Immature Gran % (Auto) 0.5 % 03/26/24 18:14 Neut % (Auto) 81.5 % 03/26/24 18:14 Lymph % (Auto) 8.8 % 03/26/24 18:14 [place] % (Auto) 7.5 % 03/26/24 18:14 Eos % (Auto) 1.1 % 03/26/24 18:14 Baso % (Auto) 0.6 % 03/26/24 18:14 Neut # (Auto) 6.76 K/uL (1.40-6.50) H 03/26/24 18:14 Lymph # (Auto) 0.73 K/uL (1.20-3.40) L 03/26/24 18:14 [place] # (Auto) 0.62 K/uL (0.11-0.59) H 03/26/24 18:14 Eos # (Auto) 0.09 K/uL (0.00-0.50) 03/26/24 18:14 Baso # (Auto) 0.05 K/uL (0.00-0.20) 03/26/24 18:14 Immature Gran # (Auto) 0.04 K/uL (0.01-0.20) 03/26/24 18:14 Sodium 140 mmol/L (136-145) 03/26/24 18:05 Potassium 4.0 mmol/L (3.5-5.1) 03/26/24 18:05 Chloride 107 mmol/L (98-107) 03/26/24 18:05 Carbon Dioxide 23 mmol/L (21-32) 03/26/24 18:05 Anion Gap 10 (3-11) 03/26/24 18:05 BUN 21 mg/dl (6-23) 03/26/24 18:05 Creatinine 0.83 mg/dl (0.6-1.2) 03/26/24 18:05 Est Cr Clr Drug Dosing 71.9 ml/min 03/26/24 18:05 Est GFR ( Amer) 82.8 ml/min 03/26/24 18:05 Est GFR (Non-Af Amer) 71.4 ml/min 03/26/24 18:05 BUN/Creatinine Ratio 25.3 (10-20) H 03/26/24 18:05 Glucose 122 mg/dl (70-99(Fasting)) H 03/26/24 18:05 Lactate 0.8 mmol/L (0.4-2.0) 03/26/24 17:51 Calcium 9.2 mg/dl (8.6-10.3) 03/26/24 18:05 Total Bilirubin 0.5 mg/dl (0.2-1.0) 03/26/24 18:05 AST 26 U/L (13-39) 03/26/24 18:05 ALT 24 U/L (7-52) 03/26/24 18:05 Alkaline Phosphatase 98 U/L (34-104) 03/26/24 18:05 Total Protein 6.7 gm/dl (6.0-8.3) 03/26/24 18:05 Albumin 4.1 gm/dl (3.4-5.0) 03/26/24 18:05 Globulin 2.6 gm/dl (2.5-4.0) 03/26/24 18:05 Albumin/Globulin Ratio 1.6 (0.9-2) 03/26/24 18:05 Procalcitonin 3.64 ng/ml (0-0.5) H 03/26/24 18:05 Urine Color Yellow 03/26/24 20:10 Urine Appearance Cloudy (Clear) A 03/26/24 20:10 Urine pH 5.5 (4.5-7.5) 03/26/24 20:10 Ur Specific [place] 1.018 (1.000-1.030) 03/26/24 20:10 Urine Protein 1+ (Negative) H 03/26/24 20:10 Urine Glucose (UA) Negative (Negative) 03/26/24 20:10 Urine Ketones 2+ (Negative) H 03/26/24 20:10 Urine Blood Negative (Negative) 03/26/24 20:10 Urine Nitrite Positive (Negative) A 03/26/24 20:10 Urine Bilirubin Negative (Negative) 03/26/24 20:10 Urine Urobilinogen Negative (Negative) 03/26/24 20:10 Ur Leukocyte Esterase 1+ (Negative) H 03/26/24 20:10 Urine WBC (Auto) 6-10 /hpf (0-5) H 03/26/24 20:10 Urine RBC (Auto) 0-2 /hpf (0-2) 03/26/24 20:10 U Hyaline Cast (Auto) 0-2 /lpf (0-2) 03/26/24 20:10 U Epithel Cells (Auto) 0-2 /hpf (0-2) 03/26/24 20:10 Urine Bacteria (Auto) 4+ (None Seen) H 03/26/24 20:10 Adenovirus (PCR) Not Detected (NotDetected) 03/26/24 18:02 Anaplasma Smear See Comment 03/26/24 18:14 Babesia Smear See Comment 03/26/24 18:14 B. pertussis DNA (PCR) Not Detected (NotDetected) 03/26/24 18:02 B.parapertussis DNA PCR Not Detected (NotDetected) 03/26/24 18:02 Lyme Disease Screen Negative (Negative) 03/26/24 18:05 C. pneumoniae DNA (PCR) Not Detected (NotDetected) 03/26/24 18:02 Coronavirus OC43 (PCR) Not Detected (NotDetected) 03/26/24 18:02 Coronavirus HKU1 (PCR) Not Detected (NotDetected) 03/26/24 18:02 Coronavirus 229E (PCR) Not Detected (NotDetected) 03/26/24 18:02 SARS-CoV-2 (PCR) Not Detected (NotDetected) 03/26/24 18:02 Coronavirus NL63 (PCR) Not Detected (NotDetected) 03/26/24 18:02 Human Metapneumovir PCR Not Detected (NotDetected) 03/26/24 18:02 Influenza Type A (PCR) Not Detected (NotDetected) 03/26/24 18:02 Influenza Type B (PCR) Not Detected (NotDetected) 03/26/24 18:02 M. pneumoniae (PCR) Not Detected (NotDetected) 03/26/24 18:02 Parainfluenza 1 (PCR) Not Detected (NotDetected) 03/26/24 18:02 Parainfluenza 2 (PCR) Not Detected (NotDetected) 03/26/24 18:02 Parainfluenza 3 (PCR) Not Detected (NotDetected) 03/26/24 18:02 Parainfluenza 4 (PCR) Not Detected (NotDetected) 03/26/24 18:02 RSV (PCR) Not Detected (NotDetected) 03/26/24 18:02 Entero/Rhino (PCR) Not Detected (NotDetected) 03/26/24 18:02 Impressions Chest X-Ray 03/26/24 17:50 XR chest 1V portable CLINICAL HISTORY: fever, SOB COMPARISON STUDY: Chest radiograph December 06, 2020. Chest CT June 21, 2023. FINDINGS: Lung volumes are normal. Lungs are clear. There is no pneumothorax or pleural effusion. Cardiac size is normal. Mediastinal contours are normal. There is no evidence for pulmonary edema. IMPRESSION: No acute cardiopulmonary findings. No change in appearance of the chest. ACT 112: Negative or not required by law. Electronically signed by: Amandeep Dawn M.D. 03/26/2024 6:42 PM Code Status & VTE Plan VTE Prophylaxis Plan VTE Prophylaxis will be ordered: Yes
[2024-03-26] MEDS ORDERED: GLUCAGON FOR INJ 1 MG VIAL SQ PRN (23:24)
[2024-03-26] MEDS ORDERED: CARBOHYDRATES FOR HYPOGLYCEMIA PO PRN (23:24)
[2024-03-26] MEDS ORDERED: GLUCOSE 40% GEL 15 GM TUBE PO PRN (23:24)
[2024-03-26] MEDS ORDERED: GLUCOSE 10 TAB/TUBE PO PRN (23:24)
[2024-03-26] MEDS ORDERED: DEXTROSE 50% 50 ML SYRINGE IV PRN (23:24)
[2024-03-26] MEDS ORDERED: NITROGLYCERIN SL 0.4 MG/TAB TAB SL PRN (23:24)
[2024-03-26] MEDS: SODIUM CHLORIDE 0.9% 1,000 ML IV SCH (23:49)
[2024-03-26] MEDS: ACETAMINOPHEN 325 MG TAB PO PRN (23:49)
[2024-03-27 06:06] LABS: BUN Creatinine Ratio 21.5 (10-20); Calcium 8.4 mg/dl (8.6-10.3); Creatinine Clr Calc Pharmacy 92.2 ml/min; Est GFR (African American) 104.3 ml/min; Magnesium 1.9 mg/dl (1.7-2.4); Potassium 3.9 mmol/L (3.5-5.1)
[2024-03-27 06:07] LABS: Basophils # (auto) 0.06 K/uL (0.00-0.20); Basophils % (auto) 0.9 %; Eosinophils # (auto) 0.16 K/uL (0.00-0.50); Eosinophils % (auto) 2.5 %; Hemoglobin 10.8 g/dl (12.0-16.0); Immature Granulocytes # (auto) 0.02 K/uL (0.01-0.20); Immature Granulocytes % (auto) 0.3 %; Lymphocytes # (auto) 2.19 K/uL (1.20-3.40); Mean Corpuscular Hemoglobin 29.3 pg (25.0-34.0); Mean Corpuscular Hgb Conc 31.8 g/dL (32.0-36.0); Mean Corpuscular Volume 92.1 fL (80.0-100.0); Mean Platelet Volume 12.8 fL (9.4-12.4); Monocytes # (auto) 0.83 K/uL (0.11-0.59); Monocytes % (auto) 12.9 %; Neutrophils # (auto) 3.19 K/uL (1.40-6.50); Neutrophils % (auto) 49.4 %; Platelet Count 151 K/uL (130-400); RDW Coefficient of Variation 13.2 % (11.5-14.5); RDW Standard Deviation 44.5 fL (36.4-46.3); Red Blood Count 3.69 M/uL (4.20-5.40); White Blood Count 6.45 K/ul (4.8-10.8)
[2024-03-27 07:56] LABS: Estimated Average Glucose 137 mg/dl; Hemoglobin A1C 6.4 % (4.5-5.6)
[2024-03-27] MEDS: POLYETHYLENE (MIRALAX) 17 GM PACK PO PRN (07:58)
[2024-03-27] MEDS: FLUTICASONE PROPIONATE NA SPR 16 GM BTL SCH (07:58)
[2024-03-27] MEDS: ENOXAPARIN INJ 40 MG/0.4 ML SYR SQ SCH (07:59)
[2024-03-27] MEDS: LOSARTAN POTASSIUM 50 MG TAB PO SCH (08:00)
[2024-03-27] MEDS: amLODIPine BESYLATE 5 MG TAB PO SCH (08:00)
[2024-03-27] MEDS: FUROSEMIDE 20 MG TAB PO SCH (08:00)
[2024-03-27] MEDS: ATORVASTATIN 40 MG TAB PO SCH (08:00)
--- NOTE | 2024-03-27 08:27 | Hospitalist Progress Note ---
Date of Service March 27, 2024 Assessment & Plan (1) Acute UTI: Plan: Pt is a 68yoF with past med history significant for dyslipidemia, prediabetes, intermittent asthma, sleep apnea, pulm nodules, hypertension, osteoporosis, obesity presenting with fevers and chills, back pain in the setting of a UTI. Sepsis, POA Complicated UTI Tachycardic and febrile on admission, infectious source urinary Lactate normal, procal elevated at 3.64 Respiratory bio fire negative. Lyme screen negative. Anaplasma and Babesia smear negative, DNA pending UA suggestive of infection, urine Cx growing gram negative rods Blood Cx x 2 sets pending ER started on Rocephin, continue Follow cultures Continue to monitor Prediabetes Hgba1c of 6.4 On metformin which will be held Sliding scale insulin Dyslipidemia on statin, continue Hypertension on amlodipine and losartan and Lasix will monitor Obstructive sleep apnea on CPAP nightly Intermittent asthma Singulair will monitor Diet: DMII/HH DVT prophylaxis: Lovenox Dispo: PT/OT ordered for further recs Admission and Anticipated Discharge Date Admission Date: March 26, 2024 Subjective pt was seen while laying in bed. Stated that she felt better. Denied recent fevers. Denies dysuria or urinary frequency. Review of Systems Review of Systems: All systems reviewed & are unremarkable except as noted in Subjective Physical Exam Physical Exam: General: Alert, oriented. No acute distress Skin: No noted rashes or bruises Psych: Appropriate mood and affect Neuro: No gross deficits while laying in bed HEENT: NC/AT CV: RRR Resp: Breath sounds clear bilaterally, no increased effort of breathing. Abdomen: Soft, nontender, nondistended Extremities: No edema in lower extremities bilaterally. Results & Data Results & Data Vital Signs (Past 12 Hours) Vital Signs Temp Pulse Pulse Pulse Resp BP Pulse Ox 03/27/24 07:39 36.7 C 60 18 152/86 H 96 03/27/24 05:31 55 L 03/27/24 02:18 19 03/26/24 23:47 68 26 H 96 03/26/24 23:24 03/26/24 23:24 03/26/24 22:57 03/26/24 22:55 68 03/26/24 22:55 03/26/24 22:55 37.0 C 80 80 18 143/91 H 95 03/26/24 22:33 68 19 94 03/26/24 22:00 72 15 94 03/26/24 21:39 74 18 94 O2 Del Method O2 Del Method 03/27/24 07:39 Room Air 03/27/24 05:31 03/27/24 02:18 03/26/24 23:47 03/26/24 23:24 Room Air 03/26/24 23:24 Room Air 03/26/24 22:57 Room Air 03/26/24 22:55 03/26/24 22:55 Room Air 03/26/24 22:55 Room Air 03/26/24 22:33 Room Air 03/26/24 22:00 Room Air 03/26/24 21:39 Room Air Diagnostic Findings Chest X-Ray 03/26/24 17:50 XR chest 1V portable CLINICAL HISTORY: fever, SOB COMPARISON STUDY: Chest radiograph December 06, 2020. Chest CT June 21, 2023. FINDINGS: Lung volumes are normal. Lungs are clear. There is no pneumothorax or pleural effusion. Cardiac size is normal. Mediastinal contours are normal. There is no evidence for pulmonary edema. IMPRESSION: No acute cardiopulmonary findings. No change in appearance of the chest. ACT 112: Negative or not required by law. Electronically signed by: Amandeep Dawn M.D. 03/26/2024 6:42 PM
[2024-03-27] MEDS: INSULIN ASPART PER UNIT CHARGE SC SCH (08:36)
[2024-03-27] MEDS: cefTRIAXone SODIUM 2,000 MG/50 ML BAG IV SCH (19:21)
[2024-03-27] MEDS: ASPIRIN 81 MG ECTAB PO SCH (20:13)
[2024-03-27] MEDS: MONTELUKAST SODIUM 10 MG TABLET PO SCH (20:14)
[2024-03-28] MEDS: SODIUM CHLORIDE 0.65% NA SOLN 45 ML (OCEAN) PRN (01:41)
[2024-03-28 06:50] LABS: Basophils # (auto) 0.06 K/uL (0.00-0.20); Basophils % (auto) 0.9 %; Eosinophils # (auto) 0.19 K/uL (0.00-0.50); Eosinophils % (auto) 2.8 %; Hematocrit (blood only) 36.5 % (37.0-47.0); Hemoglobin 11.8 g/dl (12.0-16.0); Immature Granulocytes # (auto) 0.03 K/uL (0.01-0.20); Immature Granulocytes % (auto) 0.4 %; Lymphocytes # (auto) 2.15 K/uL (1.20-3.40); Lymphocytes % (auto) 31.2 %; Mean Corpuscular Hemoglobin 29.2 pg (25.0-34.0); Mean Corpuscular Hgb Conc 32.3 g/dL (32.0-36.0); Mean Corpuscular Volume 90.3 fL (80.0-100.0); Mean Platelet Volume 12.7 fL (9.4-12.4); Monocytes # (auto) 0.78 K/uL (0.11-0.59); Monocytes % (auto) 11.3 %; Neutrophils # (auto) 3.68 K/uL (1.40-6.50); Neutrophils % (auto) 53.4 %; Platelet Count 171 K/uL (130-400); RDW Standard Deviation 43.1 fL (36.4-46.3); Red Blood Count 4.04 M/uL (4.20-5.40); White Blood Count 6.89 K/ul (4.8-10.8)
[2024-03-28] MEDS: CHOLECALCIFEROL 125 MCG (5,000 UNITS) TAB PO SCH (08:14)
[2024-03-28 11:15] LABS: Calcium 9.1 mg/dl (8.6-10.3); Magnesium 1.9 mg/dl (1.7-2.4); Potassium 4.1 mmol/L (3.5-5.1)
[2024-03-28 11:21] LABS: BUN Creatinine Ratio 20.5 (10-20); Creatinine Clr Calc Pharmacy 76.9 ml/min; Est GFR (African American) 89.3 ml/min; Phosphorus 3.3 mg/dl (2.5-4.9)
--- NOTE | 2024-03-28 11:23 | Discharge Summary ---
Discharge Summary Date of Service March 28, 2024 Principal Dx & Hospital Course #1 = Principal Diagnosis (1) Acute UTI: Plan Pt is a 68yoF with past med history significant for dyslipidemia, prediabetes, intermittent asthma, sleep apnea, pulm nodules, hypertension, osteoporosis, obesity presenting with fevers and chills, back pain in the setting of a UTI. Sepsis, POA Complicated UTI Tachycardic and febrile on admission, infectious source urinary Lactate normal, procal elevated at 3.64 Respiratory bio fire negative. Lyme screen negative. Anaplasma and Babesia smear negative, reflex DNA pending UA suggestive of infection, urine Cx grew E coli sensitive to rocephin Blood Cx x 2 sets NGTD ER started on Rocephin, continued for 2 doses. Discharged with 8 more days of po cefdinir 300mg BID PCP followup after discharge Prediabetes Hgba1c of 6.4 On metformin which will be held Sliding scale insulin Resume home meds after discharge Dyslipidemia on statin, continue Hypertension on amlodipine and losartan and Lasix PCP followup Obstructive sleep apnea on CPAP nightly, continue Intermittent asthma Singulair, continue Notes For Next Care Provider Please ensure resolution of symptoms Medication Changes From Visit cefdinir 300mg BID x 8 more days Admission HPI Per Admitting Provider 68-year-old female with past med history significant for dyslipidemia, prediabetes, intermittent asthma, sleep apnea, pulm nodules, hypertension, osteoporosis, obesity who lives with her and ambulates without support comes because of fevers and chills , back pain and short of breath when she was getting chills and in the ER found to have UTI. In ER she was spiking temperatures. Currently denies any headache. Vision is okay. Somewhat hard of hearing. Denies runny nose or sore throat or cough. No difficulty swallowing. Appetite is okay. Denies any chest pain. Denies nausea. No abdominal pain. No burning micturition. No hematuria. Normal bowel movements. Current hemodynamics are okay. Past medical history. As mentioned above past surgical history. Breast reconstructions. Colonoscopy. EGD. Endometrial thermal ablation. Diagnostic hysteroscopy. Ligation of oviducts. right radical mastectomy. Sinus polypectomy and. Reduction of breast. Sacroiliac joint injection. Suction assisted lipectomy. Social history. . No smoking. Alcohol rarely. No drug use. Family history. Brother has diabetes. Sister has diabetes. Father has hy pertension. Leukemia. Mother had hypertension. Ovarian cancer. Brother has seizures. Son has thoracic aortic aneurysm. Admission Exam Per Admitting Provider General- Not in distress Head- atraumatic Eyes- PERRL. ENT- oropharynx clear Neck- supple, no JVD. Lungs- clear to auscultation no wheezing or crackles. Heart- regular rate and rhythm; no murmur, no gallop. Abdomen- normal bowel sounds, soft, nontender, no distension.No CVA tenderness Extremities- no pretibial edema, no erythema seen. Neuro- alert, oriented ; PERRL, no facial palsy; no dysarthria; moves extremities. Discharge Exam General: Alert, oriented. No acute distress Skin: No noted rashes or bruises Psych: Appropriate mood and affect Neuro: No gross deficits while laying in bed HEENT: NC/AT CV: RRR Resp: Breath sounds clear bilaterally, no increased effort of breathing. Abdomen: Soft, nontender, nondistended Extremities: No edema in lower extremities bilaterally. Updated Medication List Medication Instructions Recorded Confirmed Type aspirin 81 mg tablet,delayed 81 mg PO HS 01/09/20 03/26/24 History release cholecalciferol (vitamin D3) 125 125 mcg PO Q OTHER DAY 01/09/20 03/26/24 History mcg (5,000 unit) tablet (Vitamin D3) furosemide 20 mg tablet 20 mg PO DAILY 01/09/20 03/26/24 History amlodipine 2.5 mg tablet 2.5 mg PO QAM 03/26/24 03/26/24 History atorvastatin 40 mg tablet 40 mg PO QA 03/26/24 03/26/24 History fluticasone propionate 50 1 spray intranasal DAILY 03/26/24 03/26/24 History mcg/actuation nasal spray,suspension losartan 100 mg tablet 100 mg PO QAM 03/26/24 03/26/24 History metformin 500 mg tablet,extended 500 mg PO HS 03/26/24 03/26/24 History release 24 hr montelukast 10 mg tablet 10 mg PO HS 03/26/24 03/26/24 History cefdinir 300 mg capsule 300 mg PO BID #16 caps 03/28/24 Rx Hospital Stay Data Consultations 03/26/24 20:45 ED Decision to Admit Stat Diagnostic Imagining Performed Chest X-Ray 03/26/24 17:50 XR chest 1V portable CLINICAL HISTORY: fever, SOB COMPARISON STUDY: Chest radiograph December 06, 2020. Chest CT June 21, 2023. FINDINGS: Lung volumes are normal. Lungs are clear. There is no pneumothorax or pleural effusion. Cardiac size is normal. Mediastinal contours are normal. There is no evidence for pulmonary edema. IMPRESSION: No acute cardiopulmonary findings. No change in appearance of the chest. ACT 112: Negative or not required by law. Electronically signed by: Amandeep Dawn M.D. 03/26/2024 6:42 PM Pending Results Patient Have Any Pending Studies at Discharge: No Discharge Instructions Given to Patient (Per Discharging Provider) Ms. Barajas, We treated you for a UTI and we are discharging you home with antibiotics. Please take it as prescribed. Please keep close follow up with your primary care provider after discharge. Please do not hesitate to come back to the emergency room if your symptoms worsen or return. It was a pleasure taking care of you while you were here. Total Time Total Time Spent Total Time Spent (In Minutes): 65
== END 2024-03-28 16:53 | disposition home or self-care (01) | DRG 872 ==
LOC: ED 17:31 → 2N 21:41

== ENCOUNTER 2024-04-27 10:26 | Inpatient (IN) ==
--- NOTE | 2024-04-27 10:44 | Emergency Department Note ---
Impression & Plan Fall from standing, Open fracture of left elbow, Open comminuted fracture of proximal ulna, Swelling of face ED Provider Note HISTORY OF PRESENT ILLNESS: Patient is a 69-year-old female presenting with left elbow pain after a fall. Patient reports she was walking when she tripped over a curb and fell onto outstretched hands and onto her knees. Reports that her face did strike the ground. She did not lose consciousness. She is not on any anticoagulation. She states that she landed on her mainly her left hand and then fell onto her left elbow. Immediate pain to the left elbow. She is been unable to move her left elbow ever since. She denies any headache or changes in vision. Denies any numbness or tingling in her extremities. Denies any chest pain, shortness of breath or lightheadedness prior to the fall. Reports she just lost her footing. She received 100 mcg of IV fentanyl and route for pain control. Patient reports tetanus is up-to-date. Patient reports last p.o. intake was at 6 AM with a cup of coffee. ROS: as above PHYSICAL EXAM: Constitutional: Patient appears in no acute distress. HENT: Head: Normocephalic. Ecchymosis to the bridge of the nose. Scattered abrasions to the face. Eyes: EOMI, PERRL Mouth/Throat: Mucous membranes moist. Midface stable. No malocclusion. Neck: Trachea midline. Neck supple. No midline cervical spine tenderness to palpation. Cardiovascular: RRR, No murmurs, rubs or gallops. Intact distal pulses. Pulmonary/Chest: No respiratory distress. Breath sounds clear and equal bilaterally. No wheezes or rales. No chest wall tenderness to palpation. Abdominal: Abdomen soft, no tenderness, rebound or guarding. Musculoskeletal: EXTREMITY= LUE - Deformity: Deformity at elbow. - Skin / Wounds: Ecchymosis and swelling diffusely to the elbow. Noted to have a small, less than 1 cm laceration to the proximal ulna near the elbow. - Pain: Diffusely tender to palpation at the elbow. No pain with passive range of motion of the wrist. - Sensory: SILT throughout (U/M/R nerve distributions) - Motor: Intact (+AIN/PIN/U incl. ok sign, thumbs up, finger cross, finger spread) - Finger flexors/extensors: Intact FDP, FDS, extensors all digits - Vascular: Brisk cap refill, palpable pulses (2+ U/R) Skin: Warm and dry. No rash, erythema, pallor or cyanosis Psychiatric: Appropriate mood and affect for situation. Neurological: Alert and keenly responsive. CN II-XII grossly intact, moving all extremities equally and fully. MDM: - Vitals signs stable - History obtained via patient. History as above. - Chronic conditions affecting care: breast cancer - Differential diagnoses include, but are not limited to: elbow dislocation; olecranon fracture; ulna fracture; facial fracture - Order placed for continuous cardiac monitoring. At this time, monitor showed rate of 73 bpm with normal sinus rhythm, per my interpretation. - External medical records reviewed. Discharge summary dated 03/28/2024 was reviewed. Patient was admitted to the hospital for an acute UTI causing sepsis. - Patient given 0.5 mg IV dialudid for pain control on arrival. - Xray left elbow showed comminuted ulnar fracture, per my interpretation - Given patient's fracture and small laceration, will treat as open fracture. 3g IV ancef ordered. - Xray shoulder negative for acute fracture or dislocation, per my interpretation - On reassessment, patient's pain had initially improved but is returning. Given 0.5 mg IV dilaudid again. - CT face wo contrast negative for fracture - Discussed case with orthopedist on site wastewater systems technician, Dr. Jang at 11:24. He reviewed x-rays and agreed with treating patient's injury as an open fracture. Will plan to take to the OR shortly. - Preoperative chest x-ray and EKG were ordered. In addition, basic labs were ordered for preop preparation. - EKG interpreted by myself showed normal sinus rhythm. Rate 70 bpm. QT 446. No acute ischemic changes. - Laboratory workup interpreted by myself showed normal WBC; stable electrolytes - Patient taken to OR for orthopedic surgical repair of elbow. ASSESSMENT AND PLAN: Diagnosis: open left elbow fracture; open comminuted fracture of left ulna; fall from standing; swelling of face Plan: to OR Past Med/Surg History Problem List (Updated 04/27/24 @ 12:24 by Lorna Champagne MD) Swelling of face (Acute) Open comminuted fracture of proximal ulna (Acute) Open fracture of left elbow (Acute) Fall from standing (Acute) Elevated procalcitonin (Acute) Fever (Acute) Medical History (Updated 04/27/24 @ 12:24 by Lorna Champagne MD) Elevated cholesterol Hypertension Social History Smoking Status: Never smoker Hx Alcohol Use: No Hx Substance Use: No Preferred Language: Slovak Communication Ability: Effective Brain Wave Technician Required: No Beliefs That Will Affect Care: None Current Living Situation: Spouse Feels Safe at Home: Yes Assistive Devices: CPAP Allergies Allergies Allergy/AdvReac Type Severity Reaction Status Date / Time Penicillins Allergy Unknown SWELL, RED Verified 04/27/24 12:16 diphenhydramine AdvReac Intermediate BENADRYL Verified 04/27/24 12:16 CREAM bacitracin AdvReac Unknown ? Verified 04/27/24 12:16 neomycin AdvReac Unknown ? Verified 04/27/24 12:16 polymyxin B AdvReac Unknown ? Verified 04/27/24 12:16 surgical glue AdvReac Rash Uncoded 04/27/24 12:20 Home Meds Home Medications Medication Instructions Recorded Confirmed aspirin 81 mg tablet,delayed 81 mg PO HS 01/09/20 04/27/24 release cholecalciferol (vitamin D3) 125 125 mcg PO Q OTHER DAY 01/09/20 04/27/24 mcg (5,000 unit) tablet (Vitamin D3) furosemide 20 mg tablet 20 mg PO DAILY 01/09/20 04/27/24 amlodipine 2.5 mg tablet 2.5 mg PO QA 03/26/24 04/27/24 atorvastatin 40 mg tablet 40 mg PO [facility] 03/26/24 04/27/24 fluticasone propionate 50 1 spray intranasal DAILY 03/26/24 04/27/24 mcg/actuation nasal spray,suspension losartan 100 mg tablet 100 mg PO QAM 03/26/24 04/27/24 metformin 500 mg tablet,extended 500 mg PO HS 03/26/24 04/27/24 release 24 hr montelukast 10 mg tablet 10 mg PO HS 03/26/24 04/27/24 Results & Data (ED) Vital Signs Vital Signs - 24 hr 04/27/24 10:34 04/27/24 12:05 Temperature 37.1 C 36.7 C Temperature Source Oral Oral Pulse Rate 71 Pulse Rate [Right Finger] 73 Pulse Rhythm [Right Finger] Regular Pulse Strength [Right Finger] Normal Respiratory Rate 22 20 Respiratory Effort / Characteristics Non-Labored Spontaneous Non-Labored Spontaneous Respiratory Depth Normal Normal Respiratory Pattern Regular Blood Pressure 132/96 Blood Pressure [Right Arm] 162/95 H Blood Pressure Mean 108 Blood Pressure Mean [Right Arm] 117 Blood Pressure Position [Right Arm] Lying Pulse Oximetry 97 95 Oxygen Delivery Method Room Air Room Air Sepsis Recent Fever Within 48 Hours No Sepsis New/Unexplained Change in Mental Status No Sepsis Action Taken by Nursing No Action Required Laboratory Data 04/27/24 10:39 04/27/24 10:39 Lab Results 04/27/24 04/27/24 Range/Units 10:39 12:19 WBC 10.00 (4.8-10.8) K/ul RBC 4.35 (4.20-5.40) M/uL Hgb 13.1 (12.0-16.0) g/dl Hct 39.3 (37.0-47.0) % MCV 90.3 (80.0-100.0) fL MCH 30.1 (25.0-34.0) pg MCHC 33.3 (32.0-36.0) g/dL RDW Std Deviation 42.1 (36.4-46.3) fL RDW Coeff of Jose Luis 12.9 (11.5-14.5) % Plt Count 207 (130-400) K/uL MPV 13.0 H (9.4-12.4) fL Immature Gran % (Auto) 0.6 % Neut % (Auto) 55.6 % Lymph % (Auto) 33.5 % Taney % (Auto) 7.4 % Eos % (Auto) 2.0 % Baso % (Auto) 0.9 % Neut # (Auto) 5.56 (1.40-6.50) K/uL Lymph # (Auto) 3.35 (1.20-3.40) K/uL Taney # (Auto) 0.74 H (0.11-0.59) K/uL Eos # (Auto) 0.20 (0.00-0.50) K/uL Baso # (Auto) 0.09 (0.00-0.20) K/uL Immature Gran # (Auto) 0.06 (0.01-0.20) K/uL Sodium 140 (136-145) mmol/L Potassium 4.0 (3.5-5.1) mmol/L Chloride 104 (98-107) mmol/L Carbon Dioxide 26 (21-32) mmol/L Anion Gap 10 (3-11) BUN 16 (6-23) mg/dl Creatinine 0.73 (0.6-1.2) mg/dl Est Cr Clr Drug Dosing 79.9 ml/min Est GFR ( Amer) 96.0 ml/min Est GFR (Non-Af Amer) 82.9 ml/min BUN/Creatinine Ratio 21.9 H (10-20) Glucose 116 H (70-99(Fasting)) mg/dl POC Glucose 146 H (70-99) mg/dl Calcium 9.5 (8.6-10.3) mg/dl Total Bilirubin 0.6 (0.2-1.0) mg/dl AST 19 (13-39) U/L ALT 16 (7-52) U/L Alkaline Phosphatase 111 H (34-104) U/L Total Protein 7.3 (6.0-8.3) gm/dl Albumin 4.5 (3.4-5.0) gm/dl Globulin 2.8 (2.5-4.0) gm/dl Albumin/Globulin Ratio 1.6 (0.9-2) Administered Medications Discontinued Medications Hydromorphone HCl (Hydromorphone Inj 0.5 Mg/0.5 Ml Syr) 0.5 mg IV NOW STA Stop: 04/27/24 10:40 Last Admin: 04/27/24 10:47 Dose: 0.5 mg Documented By: JEAN-PIERRE Hydromorphone HCl (Hydromorphone Inj 0.5 Mg/0.5 Ml Syr) 0.5 mg IV NOW STA Stop: 04/27/24 11:31 Last Admin: 04/27/24 11:46 Dose: 0.5 mg Documented By: JEAN-PIERRE Imaging Data Radiologist's Impression: Elbow X-Ray 04/27/24 10:39 XR elbow LT 2V CLINICAL HISTORY: L elbow pain s/p FOOSH TECHNIQUE: 2 views of the left elbow were obtained. Comparison: None available at the time of this dictation. FINDINGS: Mildly comminuted fracture of the ulna is seen without evident involvement of the articular surface. It appears mildly comminuted and there is subcutaneous gas concerning for open fracture. A joint effusion is noted about the elbow. Soft tissue swelling and subcutaneous emphysema are seen. IMPRESSION: Mildly comminuted fracture of the proximal ulna, possibly an open fracture. ACT 112: Negative or not required by law. Electronically signed by: Domingo Medel M.D. 04/27/2024 11:[address] 04/27/24 10:39 CT facial bones wo con CLINICAL HISTORY: fall from standing TECHNIQUE: Multidetector row helical CT of the maxillofacial bones was performed without administration of intravenous contrast, and processed with bone and soft tissue algorithms. Coronal and sagittal reformations were obtained. Automated dose lowering techniques and/or adjustment according to patient size were utilized for this exam. Comparison: None available at the time of this dictation. FINDINGS: Nasal bones are normal. Soft tissue swelling is seen about the nose. The mandible is intact. The temporomandibular joints are anatomically aligned. Pterygoid plates are intact. Zygomatic arches are intact. The globes are normal and symmetric, without proptosis, obvious disruption or lens dislocation. There is no orbital radiopaque foreign body. The orbital chavez are intact. The retrobulbar fat is without evidence of disruption. Extraocular muscles are normal and symmetric. Optic nerve sheath complexes are normal in course and caliber. Imaged portions of the paranasal sinuses and mastoid air cells are clear. IMPRESSION: No acute facial fracture. Soft tissue swelling is seen about the nose. ACT 112: Negative or not required by law. Electronically signed by: Domingo Medel M.D. 04/27/2024 12:17 PM Shoulder X-Ray 04/27/24 10:39 XR shoulder LT min 2V routine HISTORY: 69 years-old Female L shoulder pain s/p FOOSH acute pain of the left shoulder status post fall COMPARISON: Chest radiograph of same day TECHNIQUE: 2 views of the left shoulder FINDINGS: [id number], with mild AC joint osteoarthritis. No acute fracture, dislocation or opaque foreign body. IMPRESSION: No acute fracture or dislocation identified. ACT 112: Negative or not required by law. The above report was generated using voice recognition software. It may contain grammatical, syntax or spelling errors. Electronically signed by: Mervin Gonzalez M.D. 04/27/2024 11:33 AM Chest X-Ray 04/27/24 11:27 XR chest 1V portable HISTORY: 69 years-old Female pre op preoperative exam COMPARISON: 03/26/2024 TECHNIQUE: AP view of the chest FINDINGS: Cardiac silhouette is mildly enlarged. There is no pneumothorax or pleural effusion. The lungs are clear. Bones appear grossly intact. IMPRESSION: No acute process ACT 112: Negative or not required by law. The above report was generated using voice recognition software. It may contain grammatical, syntax or spelling errors. Electronically signed by: Mervin Gonzalez M.D. 04/27/2024 12:05 PM Discharge Plan Visit Data Chief Complaint: Fall Stated Complaint: FALL, L ELBOW PAIN, CONTUSION TO FACE ED Provider: Lorna Champagne Discharge Problem: Fall from standing, Open fracture of left elbow, Open comminuted fracture of proximal ulna, Swelling of face Patient Disposition: Admitted As Inpatient Discharge Instructions Interventions: ED Discharge Assessment Last Done: 04/27/24 11:49 Forms Stand Alone Forms: My [facility] [place] [employer] Prescriptions Prescriptions: No Action aspirin 81 mg Tablet,Delayed Release (Dr/Ec) 81 mg PO HS furosemide 20 mg tablet 20 mg PO DAILY cholecalciferol (vitamin D3) [Vitamin D3] 125 mcg (5,000 unit) Tablet 125 mcg PO Q OTHER DAY atorvastatin 40 mg tablet 40 mg PO QAM amlodipine 2.5 mg tablet 2.5 mg PO QAM montelukast 10 mg tablet 10 mg PO HS losartan 100 mg tablet 100 mg PO QAM fluticasone propionate 50 mcg/actuation spray,suspension 1 spray INTRANASAL DAILY metformin 500 mg tablet extended release 24 hr 500 mg PO HS Referrals Referrals: Chi Silvestre DO [Primary Care Provider] -
[2024-04-27] MEDS: HYDROmorphone INJ 0.5 MG/0.5 ML SYR IV STA ×2 (10:47→11:46)
--- NOTE | 2024-04-27 11:33 | XRay Report ---
XR elbow LT 2V CLINICAL HISTORY: L elbow pain s/p FOOSH TECHNIQUE: 2 views of the left elbow were obtained. Comparison: None available at the time of this dictation. FINDINGS: Mildly comminuted fracture of the ulna is seen without evident involvement of the articular surface. It appears mildly comminuted and there is subcutaneous gas concerning for open fracture. A joint eff usion is noted about the elbow. Soft tissue swelling and subcutaneous emphysema are seen. IMPRESSION: Mildly comminuted fracture of the proximal ulna, possibly an open fracture. ACT 112: Negative or not required by law. Electronically signed by: Domingo Medel M.D. 04/27/2024 11:32 AM
--- NOTE | 2024-04-27 11:35 | XRay Report ---
XR shoulder LT min 2V routine HISTORY: 69 years-old Female L shoulder pain s/p FOOSH acute pain of the left shoulder status post f all COMPARISON: Chest radiograph of same day TECHNIQUE: 2 views of the left shoulder FINDINGS: [id number], with mild AC joint osteoarthritis. No acute fracture, dislocation or opaque foreign body. IMPRESSION: No acute fracture or dislocation identified. ACT 112: Negative or not required by law. The above report was generated using voice recognition software. It may contain grammatical, syntax o r spelling errors. Electronically signed by: Mervin Gonzalez M.D. 04/27/2024 11:33 AM
--- NOTE | 2024-04-27 11:41 | Anesthesiology Consultation ---
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 Verified 03/26/24 18:45 neomycin AdvReac Unknown ? Verified 03/26/24 18:45 polymyxin B AdvReac Unknown ? Verified 03/26/24 18:45 Medications Home Medications Medication Instructions Recorded Confirmed Last Taken aspirin 81 mg tablet,delayed 81 mg PO 01/09/20 03/26/24 03/25/24 release cholecalciferol (vitamin D3) 125 125 mcg PO Q OTHER DAY 01/09/20 03/26/24 03/26/24 mcg (5,000 unit) tablet (Vitamin D3) furosemide 20 mg tablet 20 mg PO DAILY 01/09/20 03/26/24 03/26/24 amlodipine 2.5 mg tablet 2.5 mg PO [facility] 03/26/24 03/26/24 03/26/24 atorvastatin 40 mg tablet 40 mg PO [facility] 03/26/24 03/26/24 03/26/24 fluticasone propionate 50 1 spray intranasal DAILY 03/26/24 03/26/24 03/25/24 mcg/actuation nasal spray,suspension losartan 100 mg tablet 100 mg PO [facility] 03/26/24 03/26/24 03/26/24 metformin 500 mg tablet,extended 500 mg PO 03/26/24 03/26/24 03/25/24 release 24 hr montelukast 10 mg tablet 10 mg PO 03/26/24 03/26/24 03/25/24 cefdinir 300 mg capsule 300 mg PO BID #16 caps 03/28/24 Unknown Social History Smoking Status: Never smoker Hx Alcohol Use: No Hx Substance Use: No Physical Exam Vital Signs Last Vital Signs Temp 98.8 F 04/27/24 10:34 Pulse 71 04/27/24 10:34 Resp 22 04/27/24 10:34 BP 132/96 04/27/24 10:34 Pulse Ox 97 04/27/24 10:34 O2 Del Method Room Air 04/27/24 10:34 Testing Electrocardiogram Date: 06/21/23 SR with PACs Mod voltage criteria PACs present
[2024-04-27 11:46] LABS: Basophils # (auto) 0.09 K/uL (0.00-0.20); Basophils % (auto) 0.9 %; Hematocrit (blood only) 39.3 % (37.0-47.0); Hemoglobin 13.1 g/dl (12.0-16.0); Immature Granulocytes # (auto) 0.06 K/uL (0.01-0.20); Immature Granulocytes % (auto) 0.6 %; Lymphocytes # (auto) 3.35 K/uL (1.20-3.40); Lymphocytes % (auto) 33.5 %; Mean Corpuscular Hemoglobin 30.1 pg (25.0-34.0); Mean Corpuscular Hgb Conc 33.3 g/dL (32.0-36.0); Mean Corpuscular Volume 90.3 fL (80.0-100.0); Monocytes # (auto) 0.74 K/uL (0.11-0.59); Monocytes % (auto) 7.4 %; Neutrophils # (auto) 5.56 K/uL (1.40-6.50); Neutrophils % (auto) 55.6 %; Platelet Count 207 K/uL (130-400); RDW Coefficient of Variation 12.9 % (11.5-14.5); RDW Standard Deviation 42.1 fL (36.4-46.3); Red Blood Count 4.35 M/uL (4.20-5.40)
[2024-04-27 12:02] LABS: Albumin Globulin Ratio 1.6 (0.9-2); Albumin Level 4.5 gm/dl (3.4-5.0); BUN Creatinine Ratio 21.9 (10-20); Bilirubin,Total 0.6 mg/dl (0.2-1.0); Calcium 9.5 mg/dl (8.6-10.3); Creatinine Clr Calc Pharmacy 79.9 ml/min; Est GFR (Non-African American) 82.9 ml/min; Globulin 2.8 gm/dl (2.5-4.0); Total Protein 7.3 gm/dl (6.0-8.3)
--- NOTE | 2024-04-27 12:06 | XRay Report ---
XR chest 1V portable HISTORY: 69 years-old Female pre op preoperative exam COMPARISON: 03/26/2024 TECHNIQUE: AP view of the chest FINDINGS: Cardiac silhouette is mildly enlarged. There is no pneumothorax or pleural effusion. The lungs are cl ear. Bones appear grossly intact. IMPRESSION: No acute process ACT 112: Negative or not required by law. The above report was generated using voice recognition software. It may contain grammatical, syntax o r spelling errors. Electronically signed by: Mervin Gonzalez M.D. 04/27/2024 12:05 PM
--- NOTE | 2024-04-27 12:18 | CT Scan Report ---
CT facial bones wo con CLINICAL HISTORY: fall from standing TECHNIQUE: Multidetector row helical CT of the maxillofacial bones was performed without administrati on of intravenous contrast, and processed with bone and soft tissue algorithms. Coronal and sagittal reformations were obtained. Automated dose lowering techniques and/or adjustment according to patient size were utilized for this exam. Comparison: None available at the time of this dictation. FINDINGS: Nasal bones are normal. Soft tissue swelling is seen about the nose. The mandible is intact. The temp oromandibular joints are anatomically aligned. Pterygoid plates are intact. Zygomatic arches are int act. The globes are normal and symmetric, without proptosis, obvious disruption or lens dislocation. Ther e is no orbital radiopaque foreign body. The orbital chavez are intact. The retrobulbar fat is without evidence of disruption. Extraocular muscles are normal and symmetric. Optic nerve sheath complexes are normal in course and caliber. Imaged portions of the paranasal sinuses and mastoid air cells are clear. IMPRESSION: No acute facial fracture. Soft tissue swelling is seen about the nose. ACT 112: Negative or not required by law. Electronically signed by: Domingo Medel M.D. 04/27/2024 12:17 PM
[2024-04-27] MEDS ORDERED: ePHEDrine sulfate 50 MG/ML AMP IV PRN (12:20)
[2024-04-27] MEDS ORDERED: ATROPINE SULFATE 0.1 MG/ML 10ML SYR IV PRN (12:20)
--- NOTE | 2024-04-27 13:22 | History & Physical Report ---
Date of Service April 27, 2024 Assessment & Plan (1) Open comminuted fracture of proximal ulna: (2) Posterior dislocation of left radial head: (3) Monteggia fracture of left ulna: Plan: I discussed the diagnosis and treatment options with the patient. This is a severe injury, with high risk of complication given the open nature of the fracture which places her at risk for infection, the comminuted nature of her injury, her poor bone quality due to her osteoporosis, and the patient's body habitus with a body mass index of 34. Surgical treatment is the recommended treatment of this injury. I reviewed the risks and benefits of surgery, alternatives to surgery, and expected outcomes. After reviewing all these she elected to proceed with surgery. All questions were answered. Informed consent was signed. Patient will go to the operating room on an urgent basis today. She will be admitted to the hospital after surgery for a minimum of 24 hours of IV antibiotics. She did receive IV Ancef in the emergency room. (4) Osteoporosis: (5) Obesity (BMI 30.0-34.9): History of Present Illness Primary Care Provider: Chi Silvestre DO Patient is a 69-year-old female presenting with left elbow pain after a fall. Patient reports she was walking when she tripped over a curb and fell onto outstretched hands and onto her knees. Reports that her face did strike the ground. She did not lose consciousness. She is not on any anticoagulation. She states that she landed on her mainly her left hand and then fell onto her left elbow. Immediate pain to the left elbow. She is been unable to move her left elbow ever since. She denies any headache or changes in vision. Denies any numbness or tingling in her extremities. Denies any chest pain, shortness of breath or lightheadedness prior to the fall. Reports she just lost her footing. She received 100 mcg of IV fentanyl and route for pain control. Patient reports tetanus is up-to-date. Patient reports last p.o. intake was at 6 AM with a cup of coffee. of the left elbowOrthopedics was consulted for evaluation and management patient was seen and examined in the preoperative holding area. She denies any previous left elbow problems. She is right-handed. She gets some pain shooting from her elbow into her forearm. Denies numbness or tingling in the fingers. She does have a medical history of osteoporosis. Does not receive any medical treatment for this. Allergies Allergy/AdvReac Type Severity Reaction Status Date / Time Penicillins Allergy Unknown NANI FERRARI Verified 04/27/24 12:16 diphenhydramine AdvReac Intermediate BENADRYL Verified 04/27/24 12:16 CREAM bacitracin AdvReac Unknown ? Verified 04/27/24 12:16 neomycin AdvReac Unknown ? Verified 04/27/24 12:16 polymyxin B AdvReac Unknown ? Verified 04/27/24 12:16 surgical glue AdvReac Rash Uncoded 04/27/24 12:20 Home Medications Medication Instructions Recorded Confirmed Type aspirin 81 mg tablet,delayed 81 mg PO HS 01/09/20 04/27/24 History release cholecalciferol (vitamin D3) 125 125 mcg PO Q OTHER DAY 01/09/20 04/27/24 History mcg (5,000 unit) tablet (Vitamin D3) furosemide 20 mg tablet 20 mg PO DAILY 01/09/20 04/27/24 History amlodipine 2.5 mg tablet 2.5 mg PO QAM 03/26/24 04/27/24 History atorvastatin 40 mg tablet 40 mg PO QAM 03/26/24 04/27/24 History fluticasone propionate 50 1 spray intranasal DAILY 03/26/24 04/27/24 History mcg/actuation nasal spray,suspension losartan 100 mg tablet 100 mg PO QAM 03/26/24 04/27/24 History metformin 500 mg tablet,extended 500 mg PO HS 03/26/24 04/27/24 History release 24 hr montelukast 10 mg tablet 10 mg PO HS 03/26/24 04/27/24 History Past Med/Surg History Problem List (Updated 04/27/24 @ 13:30 by Lc Jang MD) Obesity (BMI 30.0-34.9) Osteoporosis Monteggia fracture of left ulna Posterior dislocation of left radial head Swelling of face (Acute) Open comminuted fracture of proximal ulna (Acute) Open fracture of left elbow (Acute) Fall from standing (Acute) Elevated procalcitonin (Acute) Fever (Acute) Medical History (Updated 04/27/24 @ 13:30 by Lc Jang MD) Hx of diabetes mellitus Elevated cholesterol Hypertension Surgical History (Updated 04/27/24 @ 12:26 by Alicja Simmons RN) Hx of tubal ligation Hx of right mastectomy Social History Smoking Status: Never smoker Hx Alcohol Use: No Hx Substance Use: No Preferred Language: Uzbek Communication Ability: Effective Clinical Lab Specialist Required: No Beliefs That Will Affect Care: None Current Living Situation: Spouse Feels Safe at Home: Yes Assistive Devices: CPAP Physical Exam Physical Exam: Pleasant female, alert and oriented x 3, resting comfortably in bed in no acute distress. Left elbow exam reveals the patient have diffuse swelling about the left elbow. Bruising is noted over the olecranon. There is a small laceration approximately 8 mm in length, transverse, over the dorsal aspect of the olecranon consistent with an open fracture with blood emanating from the wound. Diffusely tender to palpation about the elbow. Distally she is able to fire [employer] and interossei. Sensory intact to light touch median, ulnar, radial, and axillary nerve distributions. Results & Data Results & Data Vital Signs (Past 12 Hours) Vital Signs Temp Pulse Pulse Resp BP BP Pulse Ox 04/27/24 12:27 36.7 C 73 20 162/95 H 95 04/27/24 12:05 36.7 C 73 20 162/95 H 95 04/27/24 10:34 37.1 C 71 22 132/96 97 O2 Del Method 04/27/24 12:27 Room Air 04/27/24 12:05 Room Air 04/27/24 10:34 Room Air Diagnostic Findings Left elbow x-rays, left shoulder x-rays were reviewed. Shoulder x-rays show no fracture. Left elbow x-rays show a comminuted proximal ulnar fracture with a posterior radial head dislocation consistent with a Monteggia fracture. Gas is seen in the soft tissue consistent with laceration and open fracture
[2024-04-27] MEDS ORDERED: MIDAZOLAM HCL 1 MG/ML 2ML VIAL ONE (13:29)
[2024-04-27] MEDS ORDERED: fentaNYL citrate PF 100 MCG/2 ML VIAL ONE ×2 (13:29→16:14)
[2024-04-27] MEDS ORDERED: LIDOCAINE 2% 2 ML VIAL/AMP(20MG/ML) INFIL ONE (13:30)
[2024-04-27] MEDS ORDERED: PROPOFOL IV EMULSION 10 MG/ML 20 ML VIAL IV ONE (13:30)
[2024-04-27] MEDS ORDERED: SUCCINYLCHOLINE CHLORIDE 20 MG/ML 10 ML VIAL IV ONE (13:30)
[2024-04-27] MEDS ORDERED: Nursing to Pharmacy Communication SCH (13:45)
[2024-04-27] MEDS: ceFAZolin 3,000 MG in DEXTROSE 5% 50 ML IV STA (14:00)
[2024-04-27] MEDS ORDERED: ROCURONIUM BROMIDE 10 MG/ML 5 ML VIAL IV ONE ×2 (14:19→14:57)
[2024-04-27] MEDS ORDERED: ONDANSETRON INJ 2 MG/ML 2 ML VIAL ONE (14:19)
[2024-04-27] MEDS ORDERED: DEXAMETHASONE SOD INJ 4 MG/ML VIAL ONE (14:19)
[2024-04-27] MEDS ORDERED: SUGAMMADEX SODIUM 200 MG/2 ML VIAL IV ONE ×2 (15:38→15:54)
[2024-04-27] MEDS: BUPIVACAINE/EPINEPHRINE 0.5% MPF 1:200,000 30 ML VIAL ONE (16:10)
--- NOTE | 2024-04-27 16:32 | Fluoroscopy Report ---
FL elbow LT 2V CLINICAL HISTORY: LEFT ELBOW FXacute left elbow pain COMPARISON STUDY: Radiographs same date and dynamic FLUOROSCOPY TIME: 31.0 seconds FLUOROSCOPY IMAGES: 2 EXPOSURE DOSE: 1.06 mGy FINDINGS: Status post plate and screw fusion of the olecranon/ulna with fixation of the fracture now demonstrating satisfactory alignment. Expected postoperative soft tissue swelling with deep tissue ai r. No unexpected opaque foreign bodies. IMPRESSION: Fluoroscopic assistance as above. ACT 112: Negative or not required by law. Electronically signed by: Mervin Gonzalez M.D. 04/27/2024 4:29 PM
--- OUTSIDE RECORDS SUMMARY | 2024-04-27 16:33 | External Medical Summary | Summary of Care ---
Author Name Unknown Organization [facility] Address [address] [facility] [place] [address] Phone [phone] Care Team Providers Care Supervisor Irrigation Name Role Phone Chi Silvestre DO Primary Care Provider [phone] Reason for Visit * Reason Comments Medication Refill Encounter Details Date Type Department Care Team (Late st Contact Info) Description 04/14/2024 Refill Pulmonary Medicine, [facility] [address] [facility] [place] [id number] John Obrien MD [address] [facility] [place] [address] Asthma in adult, mild intermittent, uncomplicated Allergies Active Allergy Reactions Criticality Noted Date Comments Bacitracin Rash 01/09/2020 Diphenhydramine Hcl Rash 12/02/2007 Neomycin-Bacitracin Zn-Polymyx Rash 08/02 Other - Drugs Itching,Rash 01/30/2010 Dermabond Penicillins Edema Other 10/15/2006 Polymyxin B Rash 01/09/2020 documented as of this encounter (statuses as of 04/15/2024) Medications Medication Sig Dispensed Refills Start Date End Date Status aspirin 81 MG chewable tabletIndications:Ch ronic sinusitis, unspecified location Take 1 Tablet by mouth every evening. with food. 100 Tab 5 06/20/2015 Active Cholecalciferol (VITAMIN D-3) 5000 units Tablet Take 1 Tablet by mouth every other day. In the evening Active CPAP every night at bedtime. Active [...] IN THE MORNING. 100 Tablet 3 06/16/2023 07/21/2024 Active Albuterol Sulfate HFA 108 (90 Base) [...] 3 10/24/2023 10/23/2024 Active OneTouch Delica Plus [id number] USE TO TEST SUGARS DAILY 100 Each [...] mouth at bedtime. 30 Tablet 2 03/22/2024 06/21/2024 Active documented as of this encounter (statuses as of 04/15/2024) Active Problems Problem Noted Date Diagnosed Date [...] as of this encounter (statuses as of 04/15/2024) Resolved Problems Problem Noted Date Diagnosed Date [...] as of this encounter (statuses as of 04/15/2024) Immunizations Name Administration Dates Next Due COVID-19 [...] the money to buy more. Never true 08/26/20 23 Within the past 12 months, t he food you bought just didn't last and you didn't have money to get more. Never true 08/26/2023 Childcare Answer Date Recorded Do you feel overwhelmed with taking care of a child, family member or friend? No 08/26/2023 Does your family need help f inding childcare? (Household - for ages 0-17 years) Not on file 08/26/2023 Clothing Answer Date Recorded Have you been unable to get clothing when it was really needed? No 08/26/2023 Is your family able to get c lothes or diapers when needed? (Household - for ages 0-17 years) Not on file 08/26/2023 Personal Safety Answer Date Recorded Do you feel unsafe or have concerns for your saf ety? No 08/26/2023 Do you have concerns for you r family's safety? (Household - for ages 0-17 years) Not on file 08/26/2023 Utilities Answer Date Recorded Do you have trouble paying y our heating, water, or electric bill? No 08/26/2023 Is your family able to pay t he heat, water, or electric bill? (Household - for ages 0-17 years) Not on file 08/26/2023 Does your family have access to good internet? (Household - for ages 0-17 years) Not on file 08/26/2023 Employment Status Answer Date Recorded Are you unemployed or without regular income? No 08/26/2023 Does the household have a re lar source of income? (Household - for ages 0-17 years) Not on file 08/26/2023 Social Connections Answer Date Recorded How often do you feel lonely or isolated from th ose around you? Never 08/26/2023 Financial Resource Strain Answer Date R ecorded Do you have any trouble payi ng for your medications, or do you think you might in the future? No 08/26/2023 Does your family have troubl e paying for medicine? (Household - for ages 0-17 years) Not on file 08/26/2023 Transportation Needs Answer Date Record ed READ ONLY Do you have troubl e getting a ride to medical visits or work? Never True 08/26/2023 Does your family have a hard time getting a ride to doctors visits? (Household - for ages 0-17 years) Not on file 08/26/2023 Has lack of transportation k ept you from medical appointments, meetings, work, or from getting things needed for daily living? Check all that apply. (Adult - for ages 18 years and over) Not on file 08/26/2023 Do you (or your family) have trouble finding or paying for a ride (transportation)? (Household - for ages 0-17 years) Not on file 08/26/2023 Housing Stability Answer Date Recorded Do you currently live in a s helter or have no steady place to sleep at night? No 08/26/2023 READ ONLY Do you think you a re at risk of becoming homeless? No 08/26/2023 Does your family worry about paying for your home or becoming homeless? (Household - for ages 0-17 years) Not on file 1 10/26/2022 Are you homeless or worried that you might be in the future? (Adult - for ages 18 years and over) Not on file Are you (or your family) orestes eless or worried that you might be in the future? (Household - for ages 0-17 years) Not on file Food Insecurity Answer Date Recorded Do you need food for this week? No 08/26/2023 Are you able to get enough f ood for your family? (Household - for ages 0-17 years) Not on file 08/26/2023 Does your family need food t his week? (Household - for ages 0-17 years) Not on file 08/26/2023 Do you always have enough fo od for your family? (Household - for ages 0-17 years) Not on file 08/26/2023 Sex and Gender Information Value Date Recorded Sex Assigned at Female 10/09/2021 10:59 AM EST Gender Identity Female 10/09/2021 10:59 AM EST Sexual Orientation Straight 10/09/2021 10 :59 AM EST Job Start Date Occupation Industry Not on file Not on file Not on file documented as of this encounter Miscellaneous Notes * Telephone Encounter - Missy Lentz CPhT - 04/15/2024 11:23 AM EDTNo prescriptions requested or ordered in this encounter * Telephone Encounter - Tammy Veloz LPN - 04/14/2024 3:19 PM EDTPending Prescriptions: Disp Refills Montelukast Sodium 10 MG Oral Tablet (Sing*30 Tab*2 Sig: Take 1Tablet by mouth at bedtime. documented in this encounter Plan of Treatment Upcoming Encounters Date Type Department Care Team (Late st Contact Info) Description 05/06/2024 10:40 AM EDT Office Visit Family Practice [address] [facility] [address] [place] [address] Chi Silvestre, DO [address] [place] [address] 10/17/2024 1:00 PM EST Imaging Radiology, [address] [address] 01/19/2025 10:30 AM EDT Office Visit Rheumatology [address] [place] [address] Jewel Irizarry PA-C [address] [place] [address] [place] [address] Scheduled Procedures Name Priority Associated Diagnoses Date/Ti me COLONOSCOPY FLEXIBLE PROXIMAL DIAGNOSTIC Recall History of colon polyps Health Maintenance Due Date Last Done Comments Cologuard 1998 Sigmoidoscopy 1998 Fecal Occult Blood Test 01/05/2009 01/06/2008 COVID-19 Vaccine ( season) 2024 11/10/2023, 08/12/2022, 08/28/2021, Additional history exists Influenza Vaccine (FLU shot) (#1) 2024 08/28/2023, 08/01/2022, 08/04/2021, Additional history exists DXA Scan 10/06/2024 10/06/2022, [...] Pneumococcal Vaccine: 65+ Years Completed 10/09/2022, 06/10/2018, 12/04/2016, Additional history exists VITAMIN D LEVEL ONCE IN A LIFETIME-USE SMARTSET# 42226 Completed 10/09/2022, 12/03/2020, 09/11/2018, Additional history exists *BASELINE EKG FOR HTN Completed 06/20/2023 , 10/09/2021, 04/17/2015, Additional history exists HPV (Gardasil) Vaccine Aged Out No lo nger eligible based on patient's age to complete this topic Hepatitis B Vaccine Aged Out No longe r eligible based on patient's age to complete this topic MENINGOCOCCAL (MENACTRA/MENVEO) Aged Out No longer eligible based on patient's age to complete this topic documented as of this encounter Medical Devices Implanted Type Area [employer] Sales Associate Device Identifier Shelf Expiration Date Model / Serial / Lot Implant On The Fly - [id number] Implanted:Qty: 1 on 10/13/2007 at [place] [facility] [place]/A: Abdomen LIFE CELL DONN 05/13/2009 [id number] / / [id number] Description:Alloderm 16x20 . 79-2.03 Implant Breast Haven+ [id number] - [id number] Implanted:Qty: 1 on 07/13/2009 at [place] [facility] [place] Right: Breast MENTOR DONN 10/29/2011 [id number] / [id number] / documented as of this encounter [...] PM 10/16/2007 3:07 PM Care Teams Supervisor Irrigation Relationship Specialty Start Date End Date Chi Silvestre DO [address] [place] [address] PCP - General Internal Medicine 03/28/24 documented as of this encounter
--- OUTSIDE RECORDS SUMMARY | 2024-04-27 16:34 | External Medical Summary | Summary of Care ---
Author Name Unknown Organization [facility] Address [address] [facility] [place] [address] Phone [phone] Care Team Providers Care Miniature Set Designer Name Role Phone Chi Silvestre DO Primary Care Provider [phone] Reason for Visit * Reason Comments Dosage Adjustment In Person (Anticoag Cl inic) Follow Up Encounter Details Date Type Department Care Team (Late st Contact Info) Description 04/01/2024 9:40 AM EDT Pharmacy Family Practice [address] [phone] College, Pharmacist [address] [address] Medication management* Allergies Active Allergy Reactions Criticality Noted Date Comments Bacitracin Rash 01/09/2020 Diphenhydramine Hcl Rash 12/02/2007 Neomycin-Bacitracin Zn-Polymyx Rash 08/02 Other - Drugs Itching,Rash 01/30/2010 Dermabond Penicillins Edema Other 10/15/2006 Polymyxin B Rash 01/09/2020 documented as of this encounter (statuses as of 04/01/2024) Medications Medication Sig Dispensed Refills Start Date [...] 3 10/24/2023 5 Active OneTouch Delica Plus [id number] USE TO TEST SUGARS DAILY 100 Each [...] bedtime. 30 Tablet 2 03/22/2024 4 Active Cefdinir 300 MG Oral Capsule (Omnicef) Take 1 Capsule by mouth in the morning and 1 Capsule before bedtime. 03/28/2024 4 Active Izwwcol-Lesjhn-Dqtd l Pertussis 5-2.5-18.5 LF-MCG/0.5 Suspension Prefilled Syringe (Boostrix)Indicatio ns:Need for diphtheria-tetanus- pertussis (Tdap) vaccine Inject 0.5 mL into a large muscle once for 1 dose. 0.5 mL 02/29/2024 Discontinue d(Medicatio n List Clean Up) documented as of this encounter (statuses as of 04/01/2024) Active Problems Problem Noted Date Diagnosed Date [...] as of this encounter (statuses as of 04/01/2024) Resolved Problems Problem Noted Date Diagnosed Date [...] as of this encounter (statuses as of 04/01/2024) Immunizations Name Administration Dates Next Due COVID-19 [...] 08/26/2023 Does the household have a re gular source of income? (Household - for ages [...] as of this encounter Progress Notes * Erica Tejada, [facility] - 04/01/2024 8:15 AM EDT Medication Therapy Disease Management [facility] - Medication Reconciliation Encounter Type: discussed with patient Med Rec Reason: DONA Prescription insurance information: [employer] Gold Do you have any other prescription coverage: No Preferred pharmacy: [email or web address] ([facility]) [x] Problem list reviewed [x] Allergies reviewed and updated if needed [x] Drug interaction check completed [x] HEDIS list addressed Immunizations: declined covid today Date of Hospital Admission/Primary Diagnosis: [facility] on 03/26/24 for UTI/sepsis Date of Discharge from Hospital: 03/27/24 Medication changes during admission/on discharge: Added: cefdinir 300mg BID for 8 days Modified: none Discontinued: none Does the patient currently have all of their medications in their home?: Yes Labs/Vitals/Risk Scores: The 10-year ASCVD risk score (Rosaline HAYES, et al., 2019) is: 21.7% Values used to calculate the score: Age: 68 years Sex: Female Is Non- : No Diabetic: Yes Tobacco smoker: No Systolic Blood Pressure: 132 mmHg Is BP treated: Yes HDL Cholesterol: 62 mg/dL Total Cholesterol: 144 mg/dL BP Readings from Last 3 Encounters: 02/29/24 132/82 02/12/24 144/90 01/05/24 146/90 Recent Labs Units 01/05/24 1019 08/28/23 0830 04/08/23 0904 HEMOGLOBIN A1C - ISINGER % 6.0* 6.4* 6.0* Recent Labs Units 01/05/24 1019 08/24/23 0915 08/14/23 1518 ESTIMATED GLOMERULAR FILTRATION RATE - ISINGER mL/min 87 78 57* Serum creatinine: 0.7 mg/dL 01/05/24 1019 Estimated creatinine clearance: 74.2 mL/min Assessment & Plan: Medication discrepancies identified: none Dose/frequency of medications appropriate for current renal function? yes Other medication problems identified: none Patient education provided: importance of finishing antibiotic Referral pended for follow up management of: N/A Summary- Changes & Recommendations: Med rec completed with patient. Erica Reyna [facility] Clinical Pharmacist - [place] Reporter Medication Therapy Management Clinic 04/01/2024, 8:16 AM documented in this encounter Plan of Treatment Upcoming Encounters Date Type Department Care Team (Late st Contact Info) Description 05/06/2024 10:40 AM EDT Office Visit Family Practice [address], [place] [address] [place] [address] Chi Silvestre, [address] [place] [address] 10/17/2024 1:00 PM EST Imaging Radiology, [place] [address] [place] [address] 01/19/2025 10:30 AM EDT Office Visit Rheumatology [place] [address] [place] [address] Jewel Irizarry PA-C [address] [place] [address] Scheduled Procedures Name Priority Associated Diagnoses Date/Ti me COLONOSCOPY FLEXIBLE PROXIMAL DIAGNOSTIC Recall History of colon polyps Health Maintenance Due Date Last Done Comments Cologuard 1998 Sigmoidoscopy 1998 Fecal Occult Blood Test 01/05/2009 01/06/2008 COVID-19 Vaccine ( season) 2024 11/10/2023, 08/12/2022, 08/28/2021, Additional history exists Postponed from 03/10/2024 (Patient Declined After Education) Influenza Vaccine (FLU shot) (#1) 2024 08/28/2023, [...] D LEVEL ONCE IN A LIFETIME-USE SMARTSET# [id number] Completed 10/09/2022, 12/03/2020, 09/11/2018, Additional history exists HPV (Gardasil) Vaccine Aged Out No lo nger eligible based on patient's age to complete this topic Hepatitis B Vaccine Aged Out No longe r eligible based on patient's age to complete this topic MENINGOCOCCAL (MENACTRA/MENVEO) Aged Out No longer eligible based on patient's age to complete this topic documented as of this encounter Medical Devices Implanted Type Area Electrocardiogram Technician Device Identifier Shelf Expiration Date Model / Serial / Lot Implant On The Fly - [id number] Implanted:Qty: 1 on 10/13/2007 at OR [facility] [place] N/A: Abdomen LIFE Moontoast DONN 05/13/2009 [id number] / / [id number] Description:Alloderm 16x20 . 79-2.03 Implant Breast Haven+ [id number] - [id number] Implanted:Qty: 1 on 07/13/2009 at OR [facility] Right: Breast MENTOR DONN 10/29/2011 [id number] / [id number] / documented as of this encounter Visit Diagnoses Diagnosis Medication management- Primary Encounter for long-term (current) use of other medications documented in this encounter Advance Directives * Full Code (Latest Code Status on File) Date Activated Date Inactivated Comments 07/13/2009 3:24 PM 07/14/2009 4:16 PM This order reflects the patients wishes and were consensually agreed upon. * Full Code Date Activated Date Inactivated Comments 10/13/2007 7:50 PM 10/16/2007 3:07 PM Care Teams Miniature Set Designer Relationship Specialty Start Date End Date Chi Silvestre DO [address] [place] [address] PCP - General Internal Medicine 03/28/24 documented as of this encounter
--- OUTSIDE RECORDS SUMMARY | 2024-04-27 16:34 | External Medical Summary | Summary of Care ---
Author Name Unknown Organization [facility] Address [address] [place] [address] Phone [phone] Care Team Providers Care Water Treatment Plant Mechanic Name Role Phone Chi Silvestre DO Primary Care Provider [phone] Reason for Visit * Reason Onset Date Comments Follow Up Hospital Follow-Up 04/01/2024 Encounter Details Date Type Department Care Team (Late st Contact Info) Description 04/01/2024 10:00 AM EDT Office Visit Family Practice 65 [facility] [address] [place] [phone] Chi Silvestre DO [address] [place] [address] E. coli UTI (urinary tract infection)*; HTN, goal below 140/90; Prediabetes; Dyslipidemia, goal LDL below 100; Age-related osteoporosis without current pathological fracture; COLT (obstructive sleep apnea); Hospital discharge follow-up Allergies Active Allergy Reactions Criticality Noted Date [...] 3 10/24/2023 10/23/2024 Active OneTouch Delica Plus [id number] USE TO TEST SUGARS DAILY 100 Each [...] bedtime. 30 Tablet 2 03/22/2024 06/21/2024 Active Cefdinir 300 MG Oral Capsule (Omnicef) Take 1 Capsule by mouth in the morning and 1 Capsule before bedtime. 03/28/2024 04/05/2024 Active documented as of this encounter (statuses [...] No 08/26/2023 Does the [facility] have a [facility] source [facility]? (Household - for ages [...] Sign Reading Time Taken Comments Blood Pressure 134/80 04/01/2024 9:38 AM EDT Pulse 81 04/01/2024 9:38 AM EDT Temperature 35.7 C (96.3 F) 04/01/2024 9:38 AM ED T Respiratory Rate 14 04/01/2024 9:38 AM EDT Oxygen Saturation 93% 04/01/2024 9:38 AM EDT Inhaled Oxygen Concentration - - Weight 91.6 kg (201 lb 14.4 oz) 04/01/2024 9:38 AM EDT Height 167.6 cm (5' 6") 04/01/2024 9:38 AM EDT Body Mass Index 32.59 04/01/2024 9:38 AM EDT documented in this encounter Progress Notes * Chi Silvestre, - 04/01/2024 9:50 AM EDT SUBJECTIVE: Adam Barajas is a 68 year old female. Chief Complaint Patient presents with Follow Up Hospital Follow-Up Recent Admission: Patient was recently admitted to [facility]. The date of discharge was 03/28/2024. Discharge report received and reviewed. HPI: Patient is a 68 year old female with a history of HTN, Hyperlipidemia, Osteoporosis, Asthma, Prediabetes, and left Breast Cancer that is seen for hospital follow up. Patient was admitted for complicated UTI. The patient had fever and shaking chills for two days. No Dysuria, Frequency, or Hematuria were present. No chest pain or shortness of breath. The patient was admitted for complicated UTI. Urine grew E. Coli. Blood cultures were negative. Respiratory pathogen panel was negative. Testing forLyme, Anaplasmosis, and Babesia were negative. All symptoms have resolved. Patient Active Problem List Diagnosis HTN, goal below 140/90 Vitamin D deficiency INTERMITTENT ASTHMA WITH RELIEVER USE UP TO TWICE PER WEEK Dyslipidemia, goal LDL below 100 Prediabetes Osteoporosis Sensitivity to medication COLT (obstructive sleep apnea) Obesity, Class I, BMI 30.0-34.9 (see actual BMI) Pulmonary nodules Current Outpatient Medications Medication Sig Dispense Refill aspirin 81 MG chewable tablet Take 1 Tablet by mouth every evening. with food. 100 Tab 5 Cholecalciferol (VITAMIN D-3) 5000 units Tablet Take 1 Tablet by mouth every other day. In the evening CPAP every night at bedtime. OneTouch Delica [...] DAILY 100 Strip 3 OneTouch Delica Plus [id number] USE TO TEST SUGARS DAILY 100 Each [...] by mouth at bedtime. 30 Tablet 2 Cefdinir 300 MG Oral Capsule (Omnicef) Take 1 Capsule by mouth in the morning and 1 Capsule before bedtime. No current facility-administered medications for this visit. Current and discharge medications have been reconciled. Review of patient's allergies indicates: Allergen Reactions Bacitracin Rash Diphenhydramine Hcl Rash Neosporin [Neomycin-Bacitracin Zn-Polymyx] Rash Other - Drugs Itching and Rash Dermabond Pcn [Penicillins] Edema Other Polymyxin B Rash OBJECTIVE: BP 134/80 | Pulse 81 | Temp 35.7 C (96.3 F) | Resp 14 | Ht 1.676 m (5' 6") | Wt 91.6 kg (201 lb14.4 oz) | SpO2 93% | BMI 32.59 kg/m | BSA 2.07 m REVIEW OF SYSTEMS: Review of Systems Constitutional: Negative for appetite change, chills, fatigue, fever and unexpected weight change. HENT: Negative for congestion, sore throat and trouble swallowing. Respiratory: Negative for cough, shortness of breath and wheezing. Cardiovascular: Negative for chest pain, palpitations and leg swelling. Gastrointestinal: Negative for abdominal pain, blood in stool, constipation, diarrhea, nausea and vomiting. Genitourinary: Negative for dysuria, frequency, hematuria and urgency. Musculoskeletal: Negative for back pain and gait problem. Neurological: Negative for dizziness, syncope and headaches. Psychiatric/Behavioral: Negative for confusion, decreased concentration and sleep disturbance. PHYSICAL EXAM: BP 134/80 | Pulse 81 | Temp 35.7 C (96.3 F) | Resp 14 | Ht 1.676 m (5' 6") | Wt 91.6 kg (201 lb14.4 oz) | SpO2 93% | BMI 32.59 kg/m | BSA 2.07 m Physical Exam [...] Behavior normal. Thought Content: Thought content normal. Judgment: Judgment normal. ASSESSMENT: E. coli UTI (urinary tract infection) (Primary) Finish Cefdinir HTN, goal below 140/90 Continue Losartan, and Amlodipine Prediabetes Continue Metformin Dyslipidemia, goal LDL below 100 Continue Atorvastatin Age-related osteoporosis without current pathological fracture COLT (obstructive sleep apnea) Continue CPAP Hospital discharge follow-up - DISCH MED RECON CUR MED LIS Follow Up: Return in about 5 weeks (around 05/06/2024), or if symptoms worsen or fail to improve. Chi Silvestre DO documented in this encounter Plan of Treatment Upcoming Encounters Date Type Department Care Team (Late Contact Info) Description 05/06/2024 10:40 AM EDT Office Visit Family Practice [address], [place] [address] [place] [phone] Chi Silvestre, [address] [place] [address] 10/17/2024 1:00 PM EST Imaging Radiology, [address] [place] [address] 01/19/2025 10:30 AM EDT Office Visit Rheumatology [address] [place] [address] Jewel Irizarry PA-C [facility] [address] [place] [address] Scheduled Procedures Name Priority Associated Diagnoses Date/Ti [...] D LEVEL ONCE IN A LIFETIME-USE SMARTSET# [id number] Completed 10/09/2022, 12/03/2020, 09/11/2018, Additional history exists [...] this encounter Medical Devices Implanted Type Area Electric Organ Assembler And Checker Device Identifier Shelf Expiration Date Model / Serial / Lot Implant On The Fly - [id number] Implanted:Qty: 1 on 10/13/2007 at OR [facility] [place] N/A: Abdomen LIFE CELL DONN 05/13/2009 [id number] / / [id number] Description:Alloderm 16x20 . 79-2.03 Implant Breast Haven+ [id number] - [id number] Implanted:Qty: 1 on 07/13/2009 at OR [facility] [place] Right: Breast MENTOR DONN 10/29/2011 [id number] / [id number] / documented as of this encounter Visit Diagnoses Diagnosis E. coli UTI (urinary tract infection)- Primary Urinary tract infection, site not specified HTN, goal below 140/90 Unspecified essential hypertension Prediabetes Other abnormal glucose Dyslipidemia, goal LDL below 100 Other and unspecified hyperlipidemia Age-related osteoporosis without current pathological fracture Senile osteoporosis COLT (obstructive sleep apnea) Obstructive sleep apnea (adult) (pediatric) Hospital discharge follow-up Other follow-up examination documented in this encounter Advance Directives * Full Code (Latest Code Status on File) Date Activated Date Inactivated Comments 07/13/2009 3:24 PM 07/14/2009 4:16 PM This order reflects the patients wishes and were consensually agreed upon. * Full Code Date Activated Date Inactivated Comments 10/13/2007 7:50 PM 10/16/2007 3:07 PM Care Teams Water Treatment Plant Mechanic Relationship Specialty Start Date End Date Chi Silvestre DO [address] [place] [address] PCP - General Internal Medicine 03/28/24 documented as of this encounter
--- OUTSIDE RECORDS SUMMARY | 2024-04-27 16:34 | External Medical Summary | Summary of Care ---
Author Name Unknown Organization [facility] Address [address] [place] [address] Phone [phone] Care Team Providers Care Business Account Leader Name Role Phone Chi Silvestre DO Primary Care Provider [phone] Encounter Details Date Type Department Care Team (Late st Contact Info) Description 04/07/2024 Orders Only Family Practice 65 [facility] [address] [place] [address] Chi Silvestre DO [address] [place], [place] [phone] Allergies Active Allergy Reactions Criticality Noted Date Comments Bacitracin Rash 01/09/2020 Diphenhydramine Hcl Rash 12/02/2007 Neomycin-Bacitracin Zn-Polymyx Rash 08/02 Other - Drugs Itching,Rash 01/30/2010 Dermabond Penicillins Edema Other 10/15/2006 Polymyxin B Rash 01/09/2020 documented as of this encounter (statuses as of 04/07/2024) Medications Medication Sig Dispensed Refills Start Date [...] DAY 100 Tablet 3 09/09/2023 09/08/2024 Active B-Side EntertainmentTouch Verio In Vitro Strip (Glucose Blood) USE TO TEST SUGARS DAILY 100 Strip 3 10/24/2023 10/23/2024 Active OneTouch Delica Plus [id number] USE TO TEST SUGARS DAILY 100 Each [...] as of this encounter (statuses as of 04/07/2024) Active Problems Problem Noted Date Diagnosed Date [...] as of this encounter (statuses as of 04/07/2024) Resolved Problems Problem Noted Date Diagnosed Date [...] as of this encounter (statuses as of 04/07/2024) Immunizations Name Administration Dates Next Due COVID-19 mRNA, LNP-s, No Pre serve, 2-Dose Series (Moderna) 11/18/2020,10/20/2020 COVID-19, MRNA-LNP, 23-24, P F, 30 MCG/0.3 mL, 12 YRS AND ABOVE, IM (Evolution Nutrition-Comirnat) 11/10/2023 COVID-19, mRNA, LNP-s, PF, B ooster, [...] No 08/26/2023 Does the household have a [facility] source of income? (Household - for ages [...] AM EDT Office Visit Family Practice 65 [facility] [place] [address] [place] [phone] Chi Silvestre, DO [address] [place] [address] 10/17/2024 1:00 PM EST Imaging Radiology, [facility] [address] [facility] [place] [address] 01/19/2025 10:30 AM EDT Office Visit Rheumatology [facility] [address] [place] [address] Jewel Irizarry PA-C [address] [place] [address] Scheduled Procedures Name Priority Associated Diagnoses Date/Ti [...] D LEVEL ONCE IN A LIFETIME-USE SMARTSET# [id number] Completed 10/09/2022, 12/03/2020, 09/11/2018, Additional history exists [...] this encounter Medical Devices Implanted Type Area Gas Welding Machine Operator Device Identifier Shelf Expiration Date Model / Serial / Lot Implant On The Fly - [id number] [place] [facility] [place]A: Abdomen LIFE CELL DONN 05/13/2009 [id number] / / [id number] Description:Alloderm 16x20 . 79-2.03 Implant Breast Haven+ [id number] - [id number] Implanted:Qty: 1 on 07/13/2009 [place] [facility] [place]: Breast MENTOR DONN 10/29/2011 [id number] / [id number] / documented as of this encounter Procedures Procedure Name Priority Date/Time Associated Diagnosis Comments DIABETIC EYE EXAM Routine 04/06/2024 documented in this encounter Results * DIABETIC EYE EXAM (04/06/2024) 04/06/2024 History Per Patient OTHER OUTSIDE LAB (SEE SCANNED REPORT) documented in this encounter Advance Directives * Full Code (Latest Code Status on File) Date Activated Date Inactivated Comments 07/13/2009 3:24 PM 07/14/2009 4:16 PM This order reflects the patients wishes and were consensually agreed upon. * Full Code Date Activated Date Inactivated Comments 10/13/2007 7:50 PM 10/16/2007 3:07 PM Care Teams Business Account Leader Relationship Specialty Start Date End Date Chi Silvestre DO [address] [place] [place] [address] PCP - General Internal Medicine 03/28/24 documented as of this encounter
--- NOTE | 2024-04-27 16:39 | Operative Report ---
Post Operative Report Pre & Post Diagnosis Operation Date: 04/27/24 09:00 Pre-Op Diagnosis: Open comminuted fracture of proximal ulna,Posterior dislocation of left radial head, Monteggia fracture of left ulna Post-Op Diagnosis: Open comminuted fracture of proximal ulna,Posterior dislocation of left radial head, Monteggia fracture of left ulna I identified the patient and participated in the time-out.: No Procedure Operation Date: 04/27/24 09:00 Actual Procedures p Open Reduction Internal Fixation Left Ulna Fracture and Closed Reduction Radial Head Dislocation, Irrigation and Debridement (Left) - Lc Jang MD Surgeon Blanca Jang MD Health Care Consultant Mir Ferguson PA-C Estimated Blood Loss 50 Findings Consistent with Post-Op Diagnosis see operative report Specimens none Drains none Complications none Disposition Accompanied Patient To Recovery: Yes Indications This 69 year old female presented through the ED for evaluation of her left elbow after falling. The patient sustained an open Monteggia fracture of her left elbow. She elected to proceed with surgical intervention after being educated about potential risks and outcomes. Preoperative imaging was obtained. Description of Procedure The patient was taken to the operating room where she was given general anesthesia. She was prepped and draped in the usual sterile fashion. Please see Dr. Jang's operative report for specifics of the procedure. I was present for the critical portions of the case from initial dissection through final wound closure. Assistance was provided in tissue retraction, hemostasis, hardware placement, fracture reduction, final wound closure, and postoperative splinting. The patient was taken to the recovery room in satisfactory condition. I attest to the content of the Intraoperative Record and any orders documented therein. Any exceptions are noted below.
--- NOTE | 2024-04-27 16:50 | Operative Report ---
Post Operative Report Pre & Post Diagnosis Operation Date: 04/27/24 09:00 Preoperative diagnosis: Grade 1 open proximal ulna fracture left elbow, posterior radial head dislocation left elbow. Postoperative diagnosis: Grade 1 open proximal ulna fracture left elbow, posterior radial head dislocation left elbow. I identified the patient and participated in the time-out.: Yes Procedure Operation Date: 04/27/24 09:00 1. Irrigation and debridement grade 1 open proximal elbow fracture 2. Open reduction internal fixation left proximal ulna fracture. 3. Closed reduction left elbow radial head dislocation Surgeon Lc Jang MD Drywall Worker Braxton Ferguson PA-C. No resident or fellow was available to assist. Estimated Blood Loss 50 Findings Consistent with Post-Op Diagnosis Specimens None Anesthesia Type General Complications none Disposition Disposition: Recovery Room Indications 69-year-old female, medical history significant for osteoporosis and obesity with body mass index of 34, fell while walking on the street today landing on her left elbow. Immediate onset of pain and bleeding from the left elbow. Presented to the emergency room where x-rays demonstrated a comminuted left proximal ulna fracture at the site of an approximately 8 mm long skin laceration consistent with an open fracture, and posterior radial head dislocation. This also known as a Monteggia fracture. I had a long discussion with the patient and her family about the diagnosis. Surgery was indicated to irrigate and debride the fracture site to decrease risk of infection, stabilize the proximal ulna fracture, and reduce the radial head to give her the best possible long-term function of her elbow. After reviewing all of her options, risks and benefits of surgery, alternatives to surgery, and expected outcomes she elected to proceed. All questions were answered. Informed consent was signed. Description of Procedure Patient was identified in the preoperative holding area where her surgical site was marked. She was brought back to the operating room where she was placed on the operating room table and general anesthesia was administered. All bony prominences were padded. Nonsterile tourniquet was placed in the upper arm. She was then prepped and draped in the usual sterile fashion. Prior to incision a multidisciplinary timeout was called. All in the room were in agreement. I began by exsanguinating the limb with an Esmarch bandage. Tourniquet was inflated to 250 mmHg. A 12 cm long incision was then made starting over the subcutaneous border of the ulna and moving proximally curving slightly medially to include the skin laceration, then curving back over the subcutaneous border of the olecranon. I dissected down through subcutaneous tissues to the level of the fascia. There is a moderate amount of hematoma in the subcutaneous tissues as expected. The fracture site was easily identified. There was 1 small speck of dirt noted at the bony spike from the proximal fragment. This was debrided and the instrument used to debride was passed off. There was no other gross contamination of the wound. I then irrigated out the wound with 1 L of sterile normal saline. I then exposed the ulnar fracture by using subperiosteal dissection along the medial and lateral borders of the ulna. The triceps insertion was left intact over the posterior aspect of the olecranon. There is a piece of comminuted bone that was located on the anterior aspect of the ulna distal to the coronoid. This was difficult to access through this posterior incision. further inspection of the wound showed that the ulna fracture communicated with the elbow and the radial head was visible in the elbow joint sitting posterior to the capitellum. I then irrigated out the joint with another 500 cc of normal saline. Next, I was able to reduce the main fracture fragments using manual manipulation and traction. The reduction was then held with 3 K wires crossing the fracture site outside of the area where we planned on placing the plate posteriorly. Fluoroscopy was brought in and we confirmed that we had a anatomic reduction of the main fracture fragments. The small piece of comminuted bone anteriorly was not anatomically reduced, however this was a nonarticular fragment. The radial head was now reduced having reduced the ulnar fracture. A Synthes 3.5 mm variable angle olecranon locking plate was then brought up onto the field. This was positioned on the bone and secured with K wires under fluoroscopic guidance. As stated above, I elected to leave the triceps insertion so the posterior aspect of the plate sat on the triceps as opposed to the bone. The compressed the plate on the bone I began by placing 2 compression screws in the most proximal screw holes. These were unicortical screws. Fluoroscopy was used to confirm the screw lengths and ensure that the screws were outside of the joint. This compressed the plate down nicely. next, I placed 2two 3.5 mm cortical screws in the distal aspect of the plate and compression fashion to compress the fracture. Once this was complete I then placed a compression screw in lag fashion through the plate towards the coronoid. The screw measured approximately 32 mm in length and had an excellent bite. I then filled 3 of the proximal locking screw holes with unicortical screws. A third bicortical 3.5 millimeter screw was placed distally. Finally, I placed another lag screw through the plate into the coronoid fragment. This gave me a total of 7 cortices of fixation proximal to the fracture and 6 cortices of fixation distal to the fracture which I was happy with. This point I inspected the comminuted piece of bone. I continued my subperiosteal dissection to better expose the piece without devascularizing it. I was able to pass 2-0 Vicryl sutures around the fragment and tied these down over the plate in order to provide some compression of the fracture fragment into the bed although it was not perfectly anatomically reduced. It did appear there was some further comminution of this fragment into 2 smaller pieces as opposed to 1 larger piece. At this point her final fluoroscopic images were obtained. I was very happy with the reduction of the fracture as well as the position of the hardware. I was brought through full range of motion and there was no crepitance. The wound was then irrigated out with the remaining normal saline for a total of 3 L of normal saline used throughout the case. Tourniquet was let down and meticulous hemostasis was ensured. An 0 Vicryl suture was used in running fashion to close the fascia over the distal aspect of the plate. Approximately the fascia been disrupted by the fracture and was not repairable so the plate was not covered by any periosteum or fascia proximally. Subcutaneous tissue was then closed using interrupted buried 3-0 Vicryl sutures. Neeraj were used for the skin. The patient was placed into a posterior plaster slab splint with the elbow held at 90 degrees. She was then woken from anesthesia, and transferred recovery room in stable condition. Postoperative course: Patient will be admitted to the hospital overnight for 24 hours of IV antibiotics given the open fracture. She can likely discharge home tomorrow afternoon assuming she has no medical complications from her surgery. Plan will be for her to return to clinic approximately 2 weeks from now for splint removal, staple removal, and transition to a hinged elbow brace. She will begin physical therapy at that time. Aspirin for DVT prophylaxis. I attest to the content of the Intraoperative Record and any orders documented therein. Any exceptions are noted below.
[2024-04-27] MEDS: fentaNYL citrate PF 100 MCG/2 ML VIAL IV PRN (16:55)
[2024-04-27] MEDS: ACETAMINOPHEN 1000 MG/100 ML IV IV ONE (17:07)
[2024-04-27] MEDS: ACETAMINOPHEN 1,000 MG/100 ML VIAL IV STA (17:07)
--- NOTE | 2024-04-27 17:37 | Anesthesiology Progress Note ---
Date of Service April 27, 2024 Anesthesia Post Procedure Vital Signs Vital Signs: Temp Pulse Pulse Pulse Resp BP BP 04/27/24 17:35 80 12 136/80 04/27/24 17:25 85 12 142/80 H 04/27/24 17:15 80 16 135/81 04/27/24 17:05 88 14 147/88 H 04/27/24 16:55 88 12 154/85 H 04/27/24 16:45 85 14 149/96 H 04/27/24 16:37 36.2 C L 83 12 137/80 04/27/24 12:27 36.7 C 73 20 162/95 H 04/27/24 12:05 36.7 C 73 20 162/95 H 04/27/24 10:34 37.1 C 71 22 132/96 Pulse Ox O2 Del Method O2 Flow Rate 04/27/24 17:35 96 Room Air 04/27/24 17:25 96 Room Air 04/27/24 17:15 95 Room Air 04/27/24 17:05 94 Room Air 04/27/24 16:55 97 Room Air 04/27/24 16:45 94 Room Air 04/27/24 16:37 94 Oxymask 8 04/27/24 12:27 95 Room Air 04/27/24 12:05 95 Room Air 04/27/24 10:34 97 Room Air Pain Intensity Elbow: Pain Intensity: 5 Transfer of Care Handoff Completed per policy Notes Mental Status: alert / awake / arousable and participated in evaluation Patient Amnestic to Procedure: Yes Nausea / Vomiting: adequately controlled Pain: adequately controlled Airway Patency, RR, SpO2: stable & adequate BP & HR: stable & adequate Hydration State: stable & adequate Anesthetic Complications: no major complications apparent and Pt Satisfied with anesthetic care
[2024-04-27] MEDS: ONDANSETRON INJ 2 MG/ML 2 ML VIAL IV PRN (17:45)
[2024-04-27] MEDS ORDERED: ALUMINUM/MAGNESIUM SUSP 30 ML UDC PO PRN (18:16)
[2024-04-27] MEDS ORDERED: NALOXONE HCL 0.4 MG/1 ML VIAL/CARP IV PRN (18:16)
[2024-04-27] MEDS ORDERED: MAGNESIUM HYDROXIDE SUSP 30 ML UDC PO PRN (18:16)
[2024-04-27] MEDS ORDERED: oxyCODONE HCL IR 5 MG TAB (IMMEDIATE RELEASE) PO PRN (18:16)
[2024-04-27] MEDS ORDERED: bisacodyL 10 MG SUPP PR PRN (18:16)
[2024-04-27] MEDS ORDERED: PHARMACY GLYCEMIC MGMT CONSULT PRN (18:16)
[2024-04-27] MEDS ORDERED: ONDANSETRON INJ 2 MG/ML 2 ML VIAL IV PRN (18:16)
[2024-04-27] MEDS ORDERED: diphenhydrAMINE 50 MG/ML VIAL IV PRN (18:16)
[2024-04-27] MEDS ORDERED: HYDROmorphone INJ 0.5 MG/0.5 ML SYR IV PRN (18:16)
[2024-04-27] MEDS: ceFAZolin 3000MG/72.5 ML BAG IV ONE (18:52)
[2024-04-27] MEDS: FERROUS GLUCONATE 324 MG TAB PO SCH (19:37)
[2024-04-27] MEDS: ASCORBIC ACID 500 MG TAB PO SCH (19:37)
[2024-04-27] MEDS: SODIUM CHLORIDE 0.9% 1,000 ML IV SCH (19:38)
[2024-04-27] MEDS: METOCLOPRAMIDE HCL INJ 5 MG/ML 2 ML VIAL IV PRN (20:09)
[2024-04-27] MEDS: SODIUM CHLORIDE 0.65% NA SOLN 45 ML (OCEAN) PRN (20:59)
[2024-04-27] MEDS: POLYETHYLENE (MIRALAX) 17 GM PACK PO PRN (20:59)
[2024-04-27] MEDS: metFORMIN HCL ER 500 MG TABCR PO SCH (21:00)
[2024-04-27] MEDS: DOCUSATE SODIUM 100 MG CAP PO SCH (21:00)
[2024-04-27] MEDS: SENNA 8.6 MG TAB PO SCH (21:00)
[2024-04-27] MEDS: ASPIRIN 81 MG ECTAB PO SCH (21:00)
[2024-04-27] MEDS: ceFAZolin 2000MG 2,000 MG/15 ML SYR IV SCH (21:01)
[2024-04-27] MEDS: MONTELUKAST SODIUM 10 MG TABLET PO SCH (21:01)
[2024-04-27] MEDS: INSULIN ASPART PER UNIT CHARGE SC SCH (21:26)
[2024-04-27] MEDS: ACETAMINOPHEN 500 MG TAB PO SCH (23:12)
[2024-04-28 07:07] LABS: Hematocrit (blood only) 34.6 % (37.0-47.0); Hemoglobin 11.2 g/dl (12.0-16.0); Mean Corpuscular Hemoglobin 29.6 pg (25.0-34.0); Mean Corpuscular Hgb Conc 32.4 g/dL (32.0-36.0); Mean Corpuscular Volume 91.5 fL (80.0-100.0); Mean Platelet Volume 12.5 fL (9.4-12.4); Platelet Count 190 K/uL (130-400); RDW Coefficient of Variation 13.4 % (11.5-14.5); Red Blood Count 3.78 M/uL (4.20-5.40); White Blood Count 15.12 K/ul (4.8-10.8)
[2024-04-28 07:32] LABS: BUN Creatinine Ratio 18.3 (10-20); Calcium 8.7 mg/dl (8.6-10.3); Creatinine Clr Calc Pharmacy 71.1 ml/min; Est GFR (African American) 83.4 ml/min; Potassium 4.2 mmol/L (3.5-5.1)
--- NOTE | 2024-04-28 08:22 | Pharmacy Report ---
Pharmacy Glycemic Short Note 2 - Date of Service April 28, 2024 - Glycemic Short BSG Results (Last 24 hours): 04/27/24 04/27/24 04/27/24 10:39 12:19 16:38 Glucose 116 H POC Glucose 146 H 170 H 04/27/24 04/28/24 04/28/24 20:40 06:39 07:38 Glucose 143 H POC Glucose 210 H 136 H OUTPATIENT ANTIDIABETIC REGIMEN: * Metformin 500 mg PO daily HbA1c: 6.4% (03/27/24) ASSESSMENT: * MELVI is a 69 year old female POD #1 s/p ORIF left ulna fracture * Received 4 mg IV dexamethasone in OR, no ongoing steroids * Well-controlled T2DM as an outpatient on metformin only * Metformin started on POD #0, will continue * As there are no ongoing steroids, will hold off on basal insulin at this time PLAN FOR INPATIENT GLYCEMIC CONTROL: * Metformin ER 500 mg PO daily w/ dinner * Basal insulin * hold * Bolus insulin * NovoLog per scale ACHS or Q6hrs while NPO * Goal Range: Low 110 mg/dL - High 140 mg/dL * Correction Factor: 20 mg/dL/unit * Nutritional / Prandial insulin per carb ratio of 1 unit per 7 grams CHO consumed
[2024-04-28] MEDS: LOSARTAN POTASSIUM 50 MG TAB PO SCH (08:49)
[2024-04-28] MEDS: ATORVASTATIN 40 MG TAB PO SCH (08:50)
[2024-04-28] MEDS: MULTIVITAMIN TAB PO SCH (08:50)
[2024-04-28] MEDS: amLODIPine BESYLATE 5 MG TAB PO SCH (08:50)
[2024-04-28] MEDS: FUROSEMIDE 20 MG TAB PO SCH (08:50)
[2024-04-28] MEDS: FLUTICASONE PROPIONATE NA SPR 16 GM BTL NAE SCH (08:50)
--- NOTE | 2024-04-28 09:12 | Orthopedic Progress Note ---
Date of Service April 28, 2024 Assessment & Plan (1) Monteggia fracture of left ulna: Plan: Postop day 1-status post ORIF of open left proximal ulna fracture and reduction of radial head. Continue regular diet. Aspirin 81 mg daily for DVT prophylaxis along with mobility. Encouraged ice and elevation of her left upper extremity for swelling. Sling on her left arm at all times. May loosen the neck strap as needed for comfort. May apply a washcloth around the strap as well. No use of left arm. PT and OT. May do range of motion of her fingers as tolerated and splint allows. Continue and finish her IV antibiotics as ordered. Recommended oxycodone as needed for pain. If she does not need to take that medication she does not have to but did recommend for the first few days to take it to stay ahead of her pain. She can alternate this with Tylenol. She does not want to be on this medication for very long. Follow-up in our office in approximately 14 days for reassessment. Discharge instructions were reviewed. Will plan for discharge home later today after the completion of her IV antibiotics. Case management for disposition needs. She understands and agrees with plan. (2) Posterior dislocation of left radial head: Admission and Anticipated Discharge Date Admission Date: April 27, 2024 Subjective Patient is sitting up in her bed. Doing well. States that she is much better than yesterday. No nausea or vomiting today. She did have this last evening. She just finished her breakfast and feels that she is going to be able to "keep it down". She has been out of bed ambulating. She states she gets a little soreness around her neck from the sling. No pain in her left upper extremity. Her middle 3 fingers are little tingly. Pain has been well-controlled. She is nervous about starting or taking oxycodone. She has heard "so many bad things about that medication". Physical Exam Musculoskeletal: Exam of her left upper extremity: Her splint and postoperative dressings are clean, dry and intact. She has mild edema of her left fingers. She is able to wiggle her fingers. Distal sensation is intact but she does have paresthesias in the tips of her index middle and ring finger. Capillary fill is brisk. Slin g intact and loosened around her neck. Dr. Jang present for today's visit. Results & Data Vital Signs (Past 12 Hours) Vital Signs Temp Pulse Resp BP Pulse Ox O2 Del Method 04/28/24 07:05 36.7 C 69 18 131/79 95 Room Air 04/28/24 04:14 73 16 118/80 97 Room Air 04/28/24 00:21 77 15 110/70 96 Room Air 04/27/24 21:15 36.8 C 87 16 130/81 94 Room Air Laboratory Results 04/28/24 04/28/24 04/27/24 Range/Units 07:38 06:39 20:40 WBC 15.12 H (4.8-10.8) K/ul RBC 3.78 L (4.20-5.40) M/uL Hgb 11.2 L (12.0-16.0) g/dl Hct 34.6 L (37.0-47.0) % MCV 91.5 (80.0-100.0) fL MCH 29.6 (25.0-34.0) pg MCHC 32.4 (32.0-36.0) g/dL RDW Std Deviation 45.0 (36.4-46.3) fL RDW Coeff of Jose Luis 13.4 (11.5-14.5) % Plt Count 190 (130-400) K/uL MPV 12.5 H (9.4-12.4) fL Immature Gran % (Auto) % Neut % (Auto) % Lymph % (Auto) % Coleman % (Auto) % Eos % (Auto) % Baso % (Auto) % Neut # (Auto) (1.40-6.50) K/uL Lymph # (Auto) (1.20-3.40) K/uL Coleman # (Auto) (0.11-0.59) K/uL Eos # (Auto) (0.00-0.50) K/uL Baso # (Auto) (0.00-0.20) K/uL Immature Gran # (Auto) (0.01-0.20) K/uL Sodium 139 (136-145) mmol/L Potassium 4.2 (3.5-5.1) mmol/L Chloride 105 (98-107) mmol/L Carbon Dioxide 25 (21-32) mmol/L Anion Gap 9 (3-11) BUN 15 (6-23) mg/dl Creatinine 0.82 (0.6-1.2) mg/dl Est Cr Clr Drug Dosing 71.1 ml/min Est GFR ( Amer) 83.4 ml/min Est GFR (Non-Af Amer) 72.0 ml/min BUN/Creatinine Ratio 18.3 (10-20) Glucose 143 H (70-99(Fasting)) mg/dl POC Glucose 136 H 210 H (70-99) mg/dl Calcium 8.7 (8.6-10.3) mg/dl Total Bilirubin (0.2-1.0) mg/dl AST (13-39) U/L ALT (7-52) U/L Alkaline Phosphatase (34-104) U/L Total Protein (6.0-8.3) gm/dl Albumin (3.4-5.0) gm/dl Globulin (2.5-4.0) gm/dl Albumin/Globulin Ratio (0.9-2) 04/27/24 04/27/24 04/27/24 Range/Units 16:38 12:19 10:39 WBC 10.00 (4.8-10.8) K/ul RBC 4.35 (4.20-5.40) M/uL Hgb 13.1 (12.0-16.0) g/dl Hct 39.3 (37.0-47.0) % MCV 90.3 (80.0-100.0) fL MCH 30.1 (25.0-34.0) pg MCHC 33.3 (32.0-36.0) g/dL RDW Std Deviation 42.1 (36.4-46.3) fL RDW Coeff of Jose Luis 12.9 (11.5-14.5) % Plt Count 207 (130-400) K/uL MPV 13.0 H (9.4-12.4) fL Immature Gran % (Auto) 0.6 % Neut % (Auto) 55.6 % Lymph % (Auto) 33.5 % Coleman % (Auto) 7.4 % Eos % (Auto) 2.0 % Baso % (Auto) 0.9 % Neut # (Auto) 5.56 (1.40-6.50) K/uL Lymph # (Auto) 3.35 (1.20-3.40) K/uL Coleman # (Auto) 0.74 H (0.11-0.59) K/uL Eos # (Auto) 0.20 (0.00-0.50) K/uL Baso # (Auto) 0.09 (0.00-0.20) K/uL Immature Gran # (Auto) 0.06 (0.01-0.20) K/uL Sodium 140 (136-145) mmol/L Potassium 4.0 (3.5-5.1) mmol/L Chloride 104 (98-107) mmol/L Carbon Dioxide 26 (21-32) mmol/L Anion Gap 10 (3-11) BUN 16 (6-23) mg/dl Creatinine 0.73 (0.6-1.2) mg/dl Est Cr Clr Drug Dosing 79.9 ml/min Est GFR ( Amer) 96.0 ml/min Est GFR (Non-Af Amer) 82.9 ml/min BUN/Creatinine Ratio 21.9 H (10-20) Glucose 116 H (70-99(Fasting)) mg/dl POC Glucose 170 H 146 H (70-99) mg/dl Calcium 9.5 (8.6-10.3) mg/dl Total Bilirubin 0.6 (0.2-1.0) mg/dl AST 19 (13-39) U/L ALT 16 (7-52) U/L Alkaline Phosphatase 111 H (34-104) U/L Total Protein 7.3 (6.0-8.3) gm/dl Albumin 4.5 (3.4-5.0) gm/dl Globulin 2.8 (2.5-4.0) gm/dl Albumin/Globulin Ratio 1.6 (0.9-2)
--- NOTE | 2024-04-28 09:21 | Discharge Summary ---
Date of Service April 28, 2024 Admission HPI Per Admitting Provider Patient is a 69-year-old female presenting with left elbow pain after a fall. Patient reports she was walking when she tripped over a curb and fell onto outstretched hands and onto her knees. Reports that her face did strike the ground. She did not lose consciousness. She is not on any anticoagulation. She states that she landed on her mainly her left hand and then fell onto her left elbow. Immediate pain to the left elbow. She is been unable to move her left elbow ever since. She denies any headache or changes in vision. Denies any numbness or tingling in her extremities. Denies any chest pain, shortness of breath or lightheadedness prior to the fall. Reports she just lost her footing. She received 100 mcg of IV fentanyl and route for pain control. Patient reports tetanus is up-to-date. Patient reports last p.o. intake was at 6 AM with a cup of coffee. of the left elbowOrthopedics was consulted for evaluation and management patient was seen and examined in the preoperative holding area. She denies any previous left elbow problems. She is right-handed. She gets some pain shooting from her elbow into her forearm. Denies numbness or tingling in the fingers. She does have a medical history of osteoporosis. Does not receive any medical treatment for this. Discharge Data Procedures Performed Operation Date: 04/27/24 09:00 Actual Procedures p Open Reduction Internal Fixation Left Ulna Fracture and Closed Reduction Radial Head Dislocation,(Left) - Lc Jang MD s Irrigation and Debridement (Left) - Lc Jang MD Hospital Course (1) Monteggia fracture of left ulna: Patient was kept in observation to [facility] after undergoing an urgent open reduction internal fixation left proximal ulna fracture and closed reduction of radial head for open fracture dislocation. Her surgery was performed with general anesthesia and a peripheral nerve block. She was given 2 g of IV Ancef for surgical prophylaxis and treatment of her open fracture. This was continued for 24 hours. Postoperatively she was allowed out of bed as tolerated. Postoperative splint and dressings were applied. She was instructed to keep these on at all times. Encouraged ice and elevation of her left upper extremity to relieve pain and swelling. Sling to her left upper extremity to support the splint. She was given a regular diet. Her home medications were continued. She was advised to take an aspirin 81 mg daily for DVT prophylaxis. She did have some postoperative nausea and vomiting which resolved by postoperative day 1. She developed some mild paresthesias in 3 of her middle fingers which were present during her inpatient stay. Will continue to monitor this as an outpatient. Her postoperative labs were within normal limits. Her vital signs remained stable. She was given IV Dilaudid, oxycodone and Tylenol for postoperative pain control. She was worried about taking the oxycodone as an outpatient but agreed to take on an as-needed basis. She was deemed safe out of bed without assistance. She was discharged to her home in stable condition on April 28, 2024. Postoperative instructions were discussed and reviewed. Follow-up appointment has been scheduled. (2) Posterior dislocation of left radial head:
[2024-04-28] MEDS ORDERED: metFORMIN HCL ER 500 MG TABCR PO SCH (17:00)
--- NOTE | 2024-04-29 18:23 | Electrocardiogram Report ---
Test Reason : Blood Pressure : / mmHG Vent. Rate : 070 BPM Atrial Rate : 070 BPM P-R Int : 148 ms QRS Dur : 096 ms QT Int : 446 ms P-R-T Axes : 050 -17 015 degrees QTc Int : 481 ms Normal sinus rhythm Moderate voltage criteria for LVH, may be normal variant ( R in aVL , [place] product ) Nonspecific T wave abnormality Prolonged QT When compared with ECG of 21-JUN-2023 11:28, Premature atrial complexes are no longer Present Confirmed by López Zhou ([id number]) on 04/29/2024 6:23:15 PM Referred By: RUBÉN GONZALEZ Confirmed By:López Zhou
== END 2024-04-28 11:22 | disposition home or self-care (01) | DRG 465 ==
LOC: ED 10:26 → 3N 12:29 → OR 12:29 → 3N 16:54

== ENCOUNTER 2025-04-25 14:58 | Inpatient (IN) ==
[2025-04-25 16:08] LABS: Hematocrit (blood only) 43.5 % (37.0-47.0); Hemoglobin 13.9 g/dl (12.0-16.0); Immature Granulocytes # (auto) 0.03 K/uL (0.01-0.20); Immature Granulocytes % (auto) 0.3 %; Mean Corpuscular Hemoglobin 29.4 pg (25.0-34.0); Mean Corpuscular Volume 92.2 fL (80.0-100.0); Platelet Count 204 K/uL (130-400); RDW Standard Deviation 45.2 fL (36.4-46.3); Red Blood Count 4.72 M/uL (4.20-5.40); White Blood Count 9.71 K/ul (4.8-10.8)
--- NOTE | 2025-04-25 16:08 | Emergency Department Note ---
Impression & Plan Chest pain, Elevated troponin I level ED Provider Note NAME: ISABEL PAUL AGE: 70 SEX: F : 1955 ARRIVES VIA: Ambulance INFORMANT: Patient, EMS ED PROVIDER(S): Pedro Chang DO CHIEF COMPLAINT: Chest pain HPI: The patient is a 70-year-old female who presented to the emergency department for an evaluation of chest pain. The patient described left-sided chest pain which began acutely prior to arrival. She states it was over the left side of her chest. It was nonradiating. She did feel short of breath at the time. The patient received aspirin and nitroglycerin prior to arrival. At this time she is pain-free. She denies having any lower extremity swelling or leg pain. She did not experience this recently. She has no recent stress test or catheterization. ROS: See above HPI for pertinent positives & negatives. A total of 10 systems reviewed and were otherwise negative. PAST MEDICAL HISTORY: See Below PAST SURGICAL HISTORY: See Below FAMILY HISTORY: See Below SOCIAL HISTORY: See Below HOME MEDICATIONS: See Below ALLERGIES: See Below VITALS: See Below PHYSICAL EXAMINATION: GENERAL: Patient is awake alert in no acute distress patient is resting comfortably and showing no signs of anxiety EYES: The conjunctivae are clear. The pupils are round and reactive. EARS, NOSE, MOUTH AND THROAT: The nose is without any evidence of any deformity. NECK: The neck is nontender and supple. RESPIRATORY: Normal respiratory effort is noted there is no evidence of wheezing rhonchi or rales CARDIOVASCULAR: Regular rate and rhythm noted there no murmurs rubs or gallops normal S1 normal S2. GASTROINTESTINAL: The abdomen is soft. Abdomen is nontender. MUSCULOSKELETAL/EXTREMITIES: There is no evidence of gross deformity full range of motion is noted in the hips and shoulders. SKIN: There is no obvious evidence of any rash. There are no petechiae, pallor or cyanosis noted. NEUROLOGIC: Patient is awake alert and oriented x3 MEDICAL DECISION MAKING: The patient is a 70-year-old female who presented to the emergency department for an evaluation of chest pain. The patient had an episode of chest pain which began prior to arrival. The patient did not have any acute ischemic changes on EKG compared to previous. Prehospital EKG looks similar. I discussed the patient's laboratory and radiographic studies with her. I discussed the limitations of the emergency department workup for chest pain with her. Ultimately the patient was found to have an elevation in her troponin on her second draw. The patient was treated with aspirin and nitroglycerin prior to arrival. She remained pain-free in the emergency department. [facility] Likely she will require further inpatient management and workup to evaluate the cause of this elevation in troponin. Triage Nursing notes reviewed. Prior medical records reviewed Vital Signs: reviewed and remarkable for elevated blood pressure. Differential diagnosis: Cardiac ischemia, aortic dissection, pulmonary embolism, pneumothorax, pneumonia, pericarditis, myocarditis, esophageal rupture, GERD, cholecystitis, pancreatitis, musculoskeletal, as well as other pathologies. ER treatment provided: See below Diagnostics interpreted by me: ECG: EKG was obtained in the emergency department. My interpretation is normal sinus rhythm at 94 bpm. There is no ectopy. There is no acute ST segment abnormalities noted. LVH was suggested by voltage criteria. This was compared to a tracing from April 27, 2024. No changes were noted. A prehospital EKG was reviewed. My interpretation is sinus rhythm at 99 bpm. There is no ectopy. There is no acute ST segment abnormalities noted. This compares similar to the tracing obtained in the emergency department. Cardiac Monitoring: An order was placed for continuous cardiac monitoring. The monitor shows a rate of 68 bpm with sinus rhythm. Laboratory studies: As stated above and show below. Imaging studies: See below. Radiographic imaging was reviewed by myself Consultation(s): I discussed this case with Dr. Carvalho who [facility]. Past Med/Surg History Problem List (Updated 04/25/25 @ 21:59 by Pedro Chang DO) Elevated troponin I level (Acute) Chest pain (Acute) Obesity (BMI 30.0-34.9) Osteoporosis Monteggia fracture of left ulna Posterior dislocation of left radial head Swelling of face (Acute) Open comminuted fracture of proximal ulna (Acute) Open fracture of left elbow (Acute) Fall from standing (Acute) Elevated procalcitonin (Acute) Fever (Acute) Medical History Hx of diabetes mellitus Elevated cholesterol Hypertension Surgical History Hx of tubal ligation Hx of right mastectomy Social History Smoking Status: Never smoker Hx Alcohol Use: No Hx Substance Use: No Preferred Language: Micronesian Communication Ability: Effective Business 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 Verified 04/25/25 17:20 neomycin AdvReac Unknown ? Verified 04/25/25 17:20 polymyxin B AdvReac Unknown ? Verified 04/25/25 17:20 surgical glue AdvReac Rash Uncoded 04/25/25 17:20 Home Meds Home Medications Medication Instructions Recorded Confirmed aspirin 81 mg tablet,delayed 81 mg PO HS 01/09/20 04/25/25 release amlodipine 2.5 mg tablet 2.5 mg PO QAM 03/26/24 04/25/25 atorvastatin 40 mg tablet 40 mg PO QAM 03/26/24 04/25/25 fluticasone propionate 50 1 spray intranasal DAILY 03/26/24 04/25/25 mcg/actuation nasal spray,suspension losartan 100 mg tablet 100 mg PO QAM 03/26/24 04/25/25 metformin 500 mg tablet,extended 500 mg PO HS 03/26/24 04/25/25 release 24 hr montelukast 10 mg tablet 10 mg PO HS 03/26/24 04/25/25 dapagliflozin propanediol 10 mg 10 mg PO QAM 04/25/25 04/25/25 tablet (Farxiga) polyethylene glycol 3350 17 gram 17 g PO 2XWK 04/25/25 04/25/25 oral powder packet (Miralax) Previous Rx's Medication Instructions Recorded acetaminophen 500 mg tablet 1,000 mg (2 x 500 mg) PO Q8H #30 04/28/24 (Tylenol Extra Strength) tabs Results & Data (ED) Vital Signs Vital Signs - 24 hr 04/25/25 15:18 04/25/25 15:30 04/25/25 16:04 Pulse Rate 96 H 81 Pulse Rate [Apical] Respiratory Rate 20 Blood Pressure 142/91 H Blood Pressure [Left Arm] Blood Pressure Mean 108 Blood Pressure Mean [Left Arm] Blood Pressure Position [Left Arm] Pulse Oximetry 94 94 Oxygen Delivery Method Room Air Room Air Sepsis Recent Fever Within 48 Hours No Sepsis New/Unexplained Change in Mental Status No Sepsis Action Taken by Nursing No Action Required 04/25/25 18:38 04/25/25 21:18 Pulse Rate Pulse Rate [Apical] 62 68 Respiratory Rate 20 20 Blood Pressure Blood Pressure [Left Arm] 124/83 178/98 H Blood Pressure Mean Blood Pressure Mean [Left Arm] 96 124 Blood Pressure Position [Left Arm] Sitting Pulse Oximetry 94 96 Oxygen Delivery Method Room Air Nasal Cannula Sepsis Recent Fever Within 48 Hours Sepsis New/Unexplained Change in Mental Status Sepsis Action Taken by [facility] Medications Current Medication List: was personally reviewed by me Laboratory Data Attestation: I reviewed the patient's lab results. 04/25/25 15:25 04/25/25 15:25 Lab Results 04/25/25 04/25/25 04/25/25 Range/Units 15:25 17:41 20:24 WBC 9.71 (4.8-10.8) K/ul RBC 4.72 (4.20-5.40) M/uL Hgb 13.9 (12.0-16.0) g/dl Hct 43.5 (37.0-47.0) % MCV 92.2 (80.0-100.0) fL MCH 29.4 (25.0-34.0) pg MCHC 32.0 (32.0-36.0) g/dL RDW Std Deviation 45.2 (36.4-46.3) fL RDW Coeff of Jose Luis 13.3 (11.5-14.5) % Plt Count 204 (130-400) K/uL MPV 13.0 H (9.4-12.4) fL Immature Gran % (Auto) 0.3 % Neut % (Auto) 54.8 % Lymph % (Auto) 33.3 % [place] % (Auto) 8.8 % Eos % (Auto) 2.2 % Baso % (Auto) 0.6 % Neut # (Auto) 5.33 (1.40-6.50) K/uL Lymph # (Auto) 3.23 (1.20-3.40) K/uL [place] # (Auto) 0.85 H (0.11-0.59) K/uL Eos # (Auto) 0.21 (0.00-0.50) K/uL Baso # (Auto) 0.06 (0.00-0.20) K/uL Immature Gran # (Auto) 0.03 (0.01-0.20) K/uL PT 9.8 (9.0-12.0) Seconds INR 0.9 (0.9-1.1) APTT 27 (21-31) Seconds PTT Ratio 1.0 D-Dimer 530 H* (0-500) ug/L FEU Sodium 139 (136-145) mmol/L Potassium 4.2 (3.5-5.1) mmol/L Chloride 106 (98-107) mmol/L Carbon Dioxide 24 (21-32) mmol/L Anion Gap 9 (3-11) BUN 15 (6-23) mg/dl Creatinine 0.78 (0.6-1.2) mg/dl Est Cr Clr Drug Dosing 75.4 ml/min eGFR 80.65 BUN/Creatinine Ratio 19.2 (10-20) Glucose 132 H (70-99(Fasting)) mg/dl Calcium 9.3 (8.6-10.3) mg/dl Total Bilirubin 0.4 (0.2-1.0) mg/dl AST 24 (13-39) U/L ALT 21 (7-52) U/L Alkaline Phosphatase 116 H (34-104) U/L Troponin I High Sens 6.0 38.5 H D (0-14) pg/ml Total Protein 7.4 (6.0-8.3) gm/dl Albumin 4.3 (3.4-5.0) gm/dl Globulin 3.1 (2.5-4.0) gm/dl Albumin/Globulin Ratio 1.4 (0.9-2) Lipase 24 (11-82) U/L Administered Medications Heparin Sodium/Dextrose (Heparin 90221 Unit/500 Ml D5w) 25,000 units in 500 mls @ 26 mls/hr IV .[id number] [facility]; Protocol Stop: 05/25/25 20:14 Last Admin: 04/25/25 21:11 Dose: 1,300 units/hr, 26 mls/hr Documented By: ALEXI Co-signed By: CTK Discontinued Medications Heparin Sodium/Dextrose (Heparin Iv Adult Wt-Based Standard *No* Initial Bolus Protocol) 1 each IV ONE STA; Protocol Stop: 04/25/25 19:53 Last Admin: 04/25/25 21:12 Dose: 1 each Documented By: QGV Imaging Data Attestation: I personally reviewed and interpreted this imaging study as follows: My Impression: 1 view chest x-ray was obtained in the emergency department. My interpretation is no free air or definite infiltrate, final report below. Radiologist's Impression: Chest X-Ray 04/25/25 15:30 Clinical History: Chest pain Technique: A frontal view of the chest was obtained Comparison is made to the prior examination dated 04/27/2024 Findings: There are no confluent pulmonary infiltrates. The heart size is within normal limits. No pleural effusion or pneumothorax is seen. There is no definite pulmonary nodule. No fracture is noted. No foreign body is seen Impression: No active disease Electronically signed by Jose Pickens 04-25-2025 4:55 PM Discharge Plan Visit Data Chief Complaint: Chest Pain ED Provider: Pedro Chang Discharge Problem: Chest pain, Elevated troponin I level Patient Disposition: Being Evaluated by Hospitalist Condition: Fair Forms Stand Alone Forms: My [facility] Prescriptions Prescriptions: No Action aspirin 81 mg Tablet,Delayed Release (Dr/Ec) 81 mg PO HS atorvastatin 40 mg tablet 40 mg PO QAM amlodipine 2.5 mg tablet 2.5 mg PO QAM montelukast 10 mg tablet 10 mg PO HS losartan 100 mg tablet 100 mg PO QAM fluticasone propionate 50 mcg/actuation spray,suspension 1 spray INTRANASAL DAILY metformin 500 mg tablet extended release 24 hr 500 mg PO HS acetaminophen [Tylenol Extra Strength] 500 mg Tablet 1,000 mg PO Q8H Qty: 30 0RF polyethylene glycol 3350 [Miralax] 17 gram Powder In Packet 17 g PO 2XWK dapagliflozin propanediol [Farxiga] 10 mg Tablet 10 mg PO QAM Referrals Referrals: Chi Silvestre DO [Primary Care Provider] -
[2025-04-25 16:29] LABS: Alanine Aminotransferase 21.0 U/L (7-52); Albumin Globulin Ratio 1.4 (0.9-2); Alkaline Phosphatase 116.0 U/L (34-104); Anion Gap 9.0 (3-11); Bilirubin,Total 0.4 mg/dl (0.2-1.0); Blood Urea Nitrogen 15.0 mg/dl (6-23); Calcium 9.3 mg/dl (8.6-10.3); Carbon Dioxide 24.0 mmol/L (21-32); Chloride 106.0 mmol/L (98-107); Creatinine Clr Calc Pharmacy 75.4 ml/min; Globulin 3.1 gm/dl (2.5-4.0); Glucose 132.0 mg/dl (70-99(Fasting)); Lipase 24.0 U/L (11-82); Potassium 4.2 mmol/L (3.5-5.1); Sodium 139.0 mmol/L (136-145); Total Protein 7.4 gm/dl (6.0-8.3)
--- NOTE | 2025-04-25 16:56 | XRay Report ---
Clinical History: Chest pain Technique: A frontal view of the chest was obtained Comparison is made to the prior examination dated 04/27/2024 Findings: There are no confluent pulmonary infiltrates. The heart size is within normal limits. No pleural effusion or pneumothorax is seen. There is no definite pulmonary nodule. No fracture is noted. No foreign body is seen Impression: No active disease Electronically signed by Jose Pickens 04-25-2025 4:55 PM
--- NOTE | 2025-04-25 19:31 | History & Physical Report ---
Date of Service April 25, 2025 Assessment & Plan (1) Chest pain: Plan Patient is a 70-year-old female with past medical history significant for type II DM, HLD, COLT on CPAP at bedtime, intermittent asthma, pulmonary nodules, HTN, vitamin D deficiency, osteoporosis, obesity and other problems listed below who presented to the ED via EMS with complaints of chest pain. Sudden onset of sharp chest pain originating under the L breast and radiating into the midsternal region this afternoon. Chest pain relieved en route to ED s/p 324mg ASA load and SL nitroglycerin x 4. Remains chest pain-free at the time of our evaluation. Father of massive MO at age 69. Brother had MO, unknown age. #Chest pain Relieved s/p ASA load, SL nitroglycerin as per above Initial troponin negligible --> repeat troponin 38.5 w/ T wave inversions in lead III on repeat EKG IV heparin drip started given T wave inversions, repeat troponin elevation Will keep NPO for now (can have sips/chips); appreciate cardiology consult -Consider urgent cardiac catheterization if chest pain returns and/or troponin trend starkly uprising Continue ASA 81mg daily tomorrow AM Check AM lipid panel Check TTE; EKG w/ CP PRN Prior stress TTE, 03/2015: LVEF = 60-64%, normal LV wall motion, mild AVR, normal diastolic fx #DM II Hold home regimen (metformin, Farxiga) SSI protocol while inpt Monitor BSG checks ACHS Check Hgb A1c in AM #HTN BP on softer side Hold amlodipine, losartan --> resume as able, routine BP monitoring #HLD Continue statin Check lipid panel in AM as per above #Intermittent asthma No s/sx of acute exacerbation CXR unremarkable; continue Singulair DVT Prophylaxis: IV Heparin Disposition: Admit to PCU Patient seen in collaboration with Dr. Carvalho. Please see addendum. I spent a total of 62 minutes coordinating, documenting, and providing care for this patient excluding time spent in the performance of separately billed services or time spent by another provider/QHP. This included personally reviewing all current laboratories and imaging studies, medical reconciliation, outpatient chart review and discussion with specialists. This chart was completed in part utilizing Speech Voice Recognition Software. Grammatical errors, random word insertions, pronoun errors, and incomplete sentences are an occasional consequence of this system due to software limitations, ambient noise, and hardware issues. Any formal questions or concerns about the content, text, or information contained within the body of this dictation should be directly addressed to the provider for clarification. History of Present Illness Chief Complaint: Chest pain Primary Care Provider: Chi Silvestre DO Patient is a 70-year-old female with past medical history significant for type II DM, HLD, COLT on CPAP at bedtime, intermittent asthma, pulmonary nodules, HTN, vitamin D deficiency, osteoporosis, obesity and other problems listed below who presented to the ED via EMS with complaints of chest pain. History obtained from the patient, discussion with ED provider and associated chart review. Patient seen at bedside with Dr. Carvalho. Patient experienced a sudden onset of sharp chest pain earlier this afternoon while sitting down watching TV. Mentions the pain started under her left breast and then radiated into the midsternal region. No radiation of pain to the arms, neck or jaw regions. No associated diaphoresis or nausea with this either. She initially tried to walk around to get the pain to subside however the pain only worsened therefore she called EMS. Now s/p 324mg ASA and SL nitroglycerin x 4 en route to the ED with complete resolution in her chest pain at the time of our evaluation. No personal history of MO or CAD. Father of massive MO at age 69. Brother had MO, unknown age. Smoked briefly as a teenager. Rare alcohol use. No recreational drug use. Allergies Allergy/AdvReac Type Severity Reaction Status Date / Time Penicillins Allergy Unknown SWELL, RED Verified 04/25/25 17:20 diphenhydramine AdvReac Intermediate BENADRYL Verified 04/25/25 17:20 CREAM bacitracin AdvReac Unknown ? Verified 04/25/25 17:20 neomycin AdvReac Unknown ? Verified 04/25/25 17:20 polymyxin B AdvReac Unknown ? Verified 04/25/25 17:20 surgical glue AdvReac Rash Uncoded 04/25/25 17:20 Home Medications Medication Instructions Recorded Confirmed Type aspirin 81 mg tablet,delayed 81 mg PO HS 01/09/20 04/25/25 History release amlodipine 2.5 mg tablet 2.5 mg PO QAM 03/26/24 04/25/25 History atorvastatin 40 mg tablet 40 mg PO QAM 03/26/24 04/25/25 History fluticasone propionate 50 1 spray intranasal DAILY 03/26/24 04/25/25 History mcg/actuation nasal spray,suspension losartan 100 mg tablet 100 mg PO QAM 03/26/24 04/25/25 History metformin 500 mg tablet,extended 500 mg PO HS 03/26/24 04/25/25 History release 24 hr montelukast 10 mg tablet 10 mg PO HS 03/26/24 04/25/25 History acetaminophen 500 mg tablet 1,000 mg (2 x 500 mg) PO Q8H #30 04/28/24 04/25/25 Rx (Tylenol Extra Strength) tabs dapagliflozin propanediol 10 mg 10 mg PO QAM 04/25/25 04/25/25 History tablet (Farxiga) polyethylene glycol 3350 17 gram 17 g PO 2XWK 04/25/25 04/25/25 History oral powder packet (Miralax) Past Med/Surg History Problem List (Updated 04/25/25 @ 21:59 by Pedro Chang DO) Elevated troponin I level (Acute) Chest pain (Acute) Obesity (BMI 30.0-34.9) Osteoporosis [place] fracture of left ulna Posterior dislocation of left radial head Swelling of face (Acute) Open comminuted fracture of proximal ulna (Acute) Open fracture of left elbow (Acute) Fall from standing (Acute) Elevated procalcitonin (Acute) Fever (Acute) Medical History Hx of diabetes mellitus Elevated cholesterol Hypertension Surgical History Hx of tubal ligation Hx of right mastectomy Social History Smoking Status: Never smoker Hx Alcohol Use: No Hx Substance Use: No Preferred Language: [place] Citizen Communication Ability: Effective Instructional Consultant Required: No Beliefs That Will Affect Care: None Current Living Situation: Spouse Feels Safe at Home: Yes Assistive Devices: CPAP and Hearing Aid - Bilateral Assistive Devices Comment: Hearing aids Review of Systems Review of Systems: At least ten systems reviewed and negative, except as noted in the HPI. Physical Exam Physical Exam: Please refer to Dr. Carvalho's addendum for physical examination findings. Results & Data Results & Data Vital Signs (Past 12 Hours) Vital Signs Pulse Pulse Resp BP BP Pulse Ox O2 Del Method 04/25/25 18:38 62 20 124/83 94 Room Air 04/25/25 16:04 81 04/25/25 15:30 94 Room Air 04/25/25 15:18 96 H 20 142/91 H 94 Room Air Laboratory Results Short CBC 04/25/25 Range/Units 15:25 WBC 9.71 (4.8-10.8) K/ul Hgb 13.9 (12.0-16.0) g/dl Hct 43.5 (37.0-47.0) % Plt Count 204 (130-400) K/uL BMP 04/25/25 15:25 Sodium 139 Potassium 4.2 Chloride 106 Carbon Dioxide 24 BUN 15 Creatinine 0.78 Glucose 132 H Calcium 9.3 Liver Function 04/25/25 Range/Units 15:25 Total Bilirubin 0.4 (0.2-1.0) mg/dl AST 24 (13-39) U/L ALT 21 (7-52) U/L Alkaline Phosphatase 116 H (34-104) U/L Albumin 4.3 (3.4-5.0) gm/dl Diagnostic Findings Chest X-Ray 04/25/25 15:30 Clinical History: Chest pain Technique: A frontal view of the chest was obtained Comparison is made to the prior examination dated 04/27/2024 Findings: There are no confluent pulmonary infiltrates. The heart size is within normal limits. No pleural effusion or pneumothorax is seen. There is no definite pulmonary nodule. No fracture is noted. No foreign body is seen Impression: No active disease Electronically signed by Jose Pickens 04-25-2025 4:55 PM Code Status & VTE Plan Code Status FULL CODE - As per discussion with the patient at bedside in the ED. Supervising Physician Co-Signing Physician Notes Attending Addendum: Case reviewed with the advanced practitioner. I have personally performed a history and physical examination on the patient. I have reviewed the advanced practitioner's documentation on the date of service referenced in note, and I agree with, and take responsibility for the plan of care. please refer to her notes for full details patient seen and examined, records reviewed by myself as well on exam, patient seen resting in bed, comfortable chest pain free no shortness of breath, dizziness, palpitations no other symptoms VS noted and reviewed oriented x3, not in distress, speaks in sentences with no effort nor accessory muscle use normal rate, regular rhythm, no murmurs clear breath sounds bilaterally non distended, soft, nontender no bipedal edema, erythema, warmth no neuro deficits all labs, imaging noted and reviewed ASSESSMENT AND PLAN> NSTEMI mild troponin elevation but trending up repeat EKG: more pronounced T wave inversion lead III patient chest pain free start heparin drip already received ASA x 3 via EMS continue ASA daily, Lipitor HR in the 60s, hold off on beta kelly echo Cardiology consult NPO, may need urgent cardiac cath other diagnoses and plan of care as per advanced practitioner's notes I spent a total of 45 minutes coordinating, documenting, and providing care for this patient, excluding time spent in the performance of separately billed services or time spent by another provider/QHP. Cody Carvalho MD (1) Chest pain Chest pain type: unspecified Qualified Code(s): R07.9 - Chest pain, unspecified
[2025-04-25] MEDS: HEPARIN 25000 UNIT/500 ML D5W 25,000 UNITS/500 ML BAG IV SCH (21:11)
[2025-04-25] MEDS: Heparin IV Adult Wt-Based Standard *NO* INITIAL Bolus Protocol IV STA (21:12)
[2025-04-25 21:41] LABS: INR 0.9 (0.9-1.1); Partial Thromboplastin Time 27 Seconds (21-31); Prothrombin Time 9.8 Seconds (9.0-12.0)
[2025-04-25] MEDS ORDERED: GLUCOSE 10 TAB/TUBE PO PRN (22:28)
[2025-04-25] MEDS ORDERED: PHARMACY GLYCEMIC MGMT CONSULT PRN (22:28)
[2025-04-25] MEDS ORDERED: DEXTROSE 50% 50 ML SYRINGE IV PRN (22:28)
[2025-04-25] MEDS ORDERED: MAGNESIUM HYDROXIDE SUSP 30 ML UDC PO PRN (22:28)
[2025-04-25] MEDS ORDERED: ACETAMINOPHEN 325 MG TAB PO PRN (22:28)
[2025-04-25] MEDS ORDERED: POLYETHYLENE (MIRALAX) 17 GM PACK PO PRN (22:28)
[2025-04-25] MEDS ORDERED: GLUCAGON FOR INJ 1 MG VIAL SQ PRN (22:28)
[2025-04-25] MEDS ORDERED: GLUCOSE 40% GEL 15 GM TUBE PO PRN (22:28)
[2025-04-25] MEDS ORDERED: CARBOHYDRATES FOR HYPOGLYCEMIA PO PRN (22:28)
[2025-04-25] MEDS: MONTELUKAST SODIUM 10 MG TABLET PO SCH (23:48)
[2025-04-25] MEDS: INSULIN ASPART PER UNIT CHARGE SC SCH (23:53)
[2025-04-26] MEDS: MELATONIN 3 MG TAB PO PRN (00:49)
[2025-04-26 04:31] LABS: Hematocrit (blood only) 41.0 % (37.0-47.0); Hemoglobin 13.2 g/dl (12.0-16.0); Immature Granulocytes # (auto) 0.02 K/uL (0.01-0.20); Immature Granulocytes % (auto) 0.2 %; Mean Corpuscular Hemoglobin 29.5 pg (25.0-34.0); Mean Corpuscular Volume 91.7 fL (80.0-100.0); Platelet Count 189 K/uL (130-400); RDW Standard Deviation 45.0 fL (36.4-46.3); Red Blood Count 4.47 M/uL (4.20-5.40); White Blood Count 9.86 K/ul (4.8-10.8)
[2025-04-26 04:47] LABS: Alanine Aminotransferase 19.0 U/L (7-52); Albumin Globulin Ratio 1.3 (0.9-2); Alkaline Phosphatase 106.0 U/L (34-104); Anion Gap 8.0 (3-11); Bilirubin,Total 0.5 mg/dl (0.2-1.0); Blood Urea Nitrogen 12.0 mg/dl (6-23); Calcium 9.1 mg/dl (8.6-10.3); Carbon Dioxide 25.0 mmol/L (21-32); Chloride 107.0 mmol/L (98-107); Cholesterol 144.0 mg/dl (0-200); Creatinine Clr Calc Pharmacy 86.1 ml/min; Globulin 3.1 gm/dl (2.5-4.0); Glucose 118.0 mg/dl (70-99(Fasting)); HDL Cholesterol 58.0 mg/dl; Magnesium 2.2 mg/dl (1.7-2.4); Potassium 4.3 mmol/L (3.5-5.1); Sodium 140.0 mmol/L (136-145); Total Protein 7.2 gm/dl (6.0-8.3); Triglycerides 79.0 mg/dl (0-150)
[2025-04-26 04:59] LABS: ANTI-Xa, UFH(UnfractionatedHep 0.52 IU/ml (0.3-0.7)
[2025-04-26 08:07] LABS: Hemoglobin A1C 6.1 % (4.5-5.6)
--- NOTE | 2025-04-26 08:23 | Cardiology Consultation ---
Date of Consultation April 26, 2025 Supervising Physician Co-Signing Physician Notes Attending Staff: Patient seen and evaluated with AP Staff Concur with observations and plans I take responsibility for the cardiac care of this patient 70 yo woman presenting with Chest Pain * Sudden onset * Substernal/ Left side * Treated with SL NTG - relief * Troponin - elevated * ECHO - mild concentric LVH; LVEF 55-60% * D-Dimer - 550 * No recent trips/ DVT or PE * EKG - inferior TWI Hx: * DM * HTN * Hyperlipidemia * COLT on CPAP Plans: * NPO * Consideration for Coronary Angiography * Continue ASA 81 mg po per day * LDL 70 * Increase Lipitor to 80 mg po per day * Continue Heparin * Beta blockers - consider Lopressor 12.5 mg po BID * 60 min spent addressing challenges, educating, and advancing daily plan of vinny Travis History of Present Illness Reason for Consultation: Chest pain Requesting Physician: Radha GRANT Attending Physician: Jorge Luis Becerra MD History of Present Illness Pt reported sudden cp that began in left anterior region that radiated to midsternal region. States she stood up to do some housework and the pain came out of nowhere. Pt states she had been doing yard work the day before, but did not note any soreness or pain at that point. EMS administered Nitro and aspirin Enroute that relieved pain. Troponin 61.8 , D Dimer 550.Denies any current cp, sob, dizziness, lightheadedness, or other issues. Allergies Allergy/AdvReac Type Severity Reaction Status Date / Time Penicillins Allergy Unknown NANI FERRARI Verified 04/25/25 17:20 diphenhydramine AdvReac Intermediate BENADRYL Verified 04/25/25 17:20 CREAM bacitracin AdvReac Unknown ? Verified 04/25/25 17:20 neomycin AdvReac Unknown ? Verified 04/25/25 17:20 polymyxin B AdvReac Unknown ? Verified 04/25/25 17:20 surgical glue AdvReac Rash Uncoded 04/25/25 17:20 Home Medications Medication Instructions Recorded Confirmed Type aspirin 81 mg tablet,delayed 81 mg PO HS 01/09/20 04/25/25 History release amlodipine 2.5 mg tablet 2.5 mg PO QAM 03/26/24 04/25/25 History atorvastatin 40 mg tablet 40 mg PO QAM 03/26/24 04/25/25 History fluticasone propionate 50 1 spray intranasal DAILY 03/26/24 04/25/25 History mcg/actuation nasal spray,suspension losartan 100 mg tablet 100 mg PO QAM 03/26/24 04/25/25 History metformin 500 mg tablet,extended 500 mg PO HS 03/26/24 04/25/25 History release 24 hr montelukast 10 mg tablet 10 mg PO HS 03/26/24 04/25/25 History acetaminophen 500 mg tablet 1,000 mg (2 x 500 mg) PO Q8H #30 04/28/24 04/25/25 Rx (Tylenol Extra Strength) tabs dapagliflozin propanediol 10 mg 10 mg PO QAM 04/25/25 04/25/25 History tablet (Farxiga) polyethylene glycol 3350 17 gram 17 g PO 2XWK 04/25/25 04/25/25 History oral powder packet (Miralax) Patient History Medical History Hx of diabetes mellitus Elevated cholesterol Hypertension Surgical History Hx of tubal ligation Hx of right mastectomy Social History Smoking Status: Never smoker Hx Alcohol Use: No Hx Substance Use: No Preferred Language: Swedish Communication Ability: Effective Associate Pathologist Required: No Beliefs That Will Affect Care: None Current Living Situation: Spouse Feels Safe at Home: Yes Assistive Devices: CPAP and Hearing Aid - Bilateral Assistive Devices Comment: Hearing aids Review of Systems Review of Systems: All systems reviewed & are unremarkable except as noted in HPI & below Physical Exam Physical Exam: No elevation in JVP S1S2 2/6 systolic murmur CTA B + BS No C/C/E Warm and well-perfused Results & Data Vital Signs (Past 12 Hours) Vital Signs Temp Pulse Pulse Resp BP Pulse Ox O2 Del Method 04/26/25 08:00 36.5 C 70 16 132/74 97 BiPAP 04/26/25 04:01 36.4 C L 77 18 146/80 H 95 BiPAP 04/26/25 03:19 65 14 98 04/26/25 01:01 65 15 98 04/25/25 22:45 69 04/25/25 22:30 Room Air 04/25/25 22:30 36.8 C 91 H 18 168/109 H 93 Room Air 04/25/25 21:18 68 20 178/98 H 96 Nasal Cannula FiO2 04/26/25 08:00 04/26/25 04:01 04/26/25 03:19 21 04/26/25 01:01 21 04/25/25 22:45 04/25/25 22:30 04/25/25 22:30 04/25/25 21:18 Laboratory Results Cardiac Enzymes 04/25/25 04/25/25 04/25/25 Range/Units 15:25 17:41 21:24 AST 24 (13-39) U/L Troponin I High Sens 6.0 38.5 H D 61.8 H* D (0-14) pg/ml 04/26/25 04/26/25 Range/Units 03:51 05:46 AST 24 (13-39) U/L Troponin I High Sens 57.1 H* 44.9 H D (0-14) pg/ml Coagulation 04/25/25 Range/Units 20:24 PT 9.8 (9.0-12.0) Seconds APTT 27 (21-31) Seconds Lipids 04/26/25 Range/Units 03:51 Triglycerides 79 (0-150) mg/dl Cholesterol 144 (0-200) mg/dl HDL Cholesterol 58 mg/dl Cholesterol/HDL Ratio 2.5 (0-5) CBC 04/25/25 04/26/25 Range/Units 15:25 03:51 WBC 9.71 9.86 (4.8-10.8) K/ul RBC 4.72 4.47 (4.20-5.40) M/uL Hgb 13.9 13.2 (12.0-16.0) g/dl Hct 43.5 41.0 (37.0-47.0) % Plt Count 204 189 (130-400) K/uL Neut # (Auto) 5.33 6.79 H (1.40-6.50) K/uL Lymph # (Auto) 3.23 2.17 (1.20-3.40) K/uL Traverse # (Auto) 0.85 H 0.70 H (0.11-0.59) K/uL Eos # (Auto) 0.21 0.11 (0.00-0.50) K/uL Baso # (Auto) 0.06 0.07 (0.00-0.20) K/uL Comprehensive Metabolic Panel 04/25/25 04/26/25 Range/Units 15:25 03:51 Sodium 139 140 (136-145) mmol/L Potassium 4.2 4.3 (3.5-5.1) mmol/L Chloride 106 107 (98-107) mmol/L Carbon Dioxide 24 25 (21-32) mmol/L BUN 15 12 (6-23) mg/dl Creatinine 0.78 0.67 (0.6-1.2) mg/dl Glucose 132 H 118 H (70-99(Fasting)) mg/dl Calcium 9.3 9.1 (8.6-10.3) mg/dl AST 24 24 (13-39) U/L ALT 21 19 (7-52) U/L Alkaline Phosphatase 116 H 106 H (34-104) U/L Total Protein 7.4 7.2 (6.0-8.3) gm/dl Albumin 4.3 4.1 (3.4-5.0) gm/dl Intake and Output 04/25/25 04/26/25 04/26/25 22:59 06:59 14:59 Intake Total 207.133 / 207.133 Balance 207.133 / 207.133 Intake: IV 207.133 / 207.133 Heparin 37158 Unit/500 ml D5w 207.133 / 207.133 25,000 units In 500 ml @ 1,300 UNITS/HR 26 mls/hr IV .[id number] [facility] Rx#:[id number] Other: Other Intake Source npo Weight 90.718 kg 91 kg Weight Measurement Method [facility] Built in [facility] Diagnostic Findings Cardiac Enzymes 07/04/25/25 04/25/25 Range/Units 15:25 17:41 21:24 AST 24 (13-39) U/L Troponin I High Sens 6.0 38.5 H D 61.8 H* D (0-14) pg/ml 04/26/25 04/26/25 Range/Units 03:51 05:46 AST 24 (13-39) U/L Troponin I High Sens 57.1 H* 44.9 H D (0-14) pg/ml Coagulation 04/25/25 Range/Units 20:24 PT 9.8 (9.0-12.0) Seconds APTT 27 (21-31) Seconds Lipids 04/26/25 Range/Units 03:51 Triglycerides 79 (0-150) mg/dl Cholesterol 144 (0-200) mg/dl HDL Cholesterol 58 mg/dl Cholesterol/HDL Ratio 2.5 (0-5) CBC 04/25/25 04/26/25 Range/Units 15:25 03:51 WBC 9.71 9.86 (4.8-10.8) K/ul RBC 4.72 4.47 (4.20-5.40) M/uL Hgb 13.9 13.2 (12.0-16.0) g/dl Hct 43.5 41.0 (37.0-47.0) % Plt Count 204 189 (130-400) K/uL Neut # (Auto) 5.33 6.79 H (1.40-6.50) K/uL Lymph # (Auto) 3.23 2.17 (1.20-3.40) K/uL Traverse # (Auto) 0.85 H 0.70 H (0.11-0.59) K/uL Eos # (Auto) 0.21 0.11 (0.00-0.50) K/uL Baso # (Auto) 0.06 0.07 (0.00-0.20) K/uL Comprehensive Metabolic Panel 04/25/25 04/26/25 Range/Units 15:25 03:51 Sodium 139 140 (136-145) mmol/L Potassium 4.2 4.3 (3.5-5.1) mmol/L Chloride 106 107 (98-107) mmol/L Carbon Dioxide 24 25 (21-32) mmol/L BUN 15 12 (6-23) mg/dl Creatinine 0.78 0.67 (0.6-1.2) mg/dl Glucose 132 H 118 H (70-99(Fasting)) mg/dl Calcium 9.3 9.1 (8.6-10.3) mg/dl AST 24 24 (13-39) U/L ALT 21 19 (7-52) U/L Alkaline Phosphatase 116 H 106 H (34-104) U/L Total Protein 7.4 7.2 (6.0-8.3) gm/dl Albumin 4.3 4.1 (3.4-5.0) gm/dl Intake and Output 04/25/25 04/26/25 04/26/25 22:59 06:59 14:59 Intake Total 207.133 / 207.133 Balance 207.133 / 207.133 Intake: IV 207.133 / 207.133 Heparin 75416 Unit/500 ml D5w 207.133 / 207.133 25,000 units In 500 ml @ 1,300 UNITS/HR 26 mls/hr IV .[id number] [facility] Rx#:[id number] Other: Other Intake Source npo Weight 90.718 kg 91 kg Weight Measurement Method [facility] Built in [facility] Chest X-ray No active disease Echocardiogram Concentric Mild LVH EF 55/60% Grade 1 diastolic dysfunction Medications Administered Current Inpatient Medications Acetaminophen (Acetaminophen 325 Mg Tab) 650 mg PO Q4H PRN PRN Reason: Pain or Fever Stop: 05/25/25 22:27 Aspirin (Aspirin 81 Mg Ectab) 81 mg PO QAM [facility] Stop: 05/26/25 08:59 Last Admin: 04/26/25 09:05 Dose: 81 mg Atorvastatin Calcium (Atorvastatin 40 Mg Tab) 40 mg PO QAM [facility] Stop: 05/26/25 08:59 Last Admin: 04/26/25 09:06 Dose: 40 mg Dextrose (Dextrose 50% 50 Ml Syringe) 25 - 50 ml IV UD PRN; Protocol PRN Reason: Hypoglycemia Protocol Stop: 05/25/25 22:27 Fluticasone Propionate (Fluticasone Propionate Na Spr 16 Gm Btl) 1 sprays NA DAILY [facility] Stop: 05/26/25 08:59 Last Admin: 04/26/25 09:06 Dose: 1 sprays Glucagon (Glucagon For Inj 1 Mg Vial) 1 mg SQ UD PRN; Protocol PRN Reason: Hypoglycemia Protocol Stop: 05/25/25 22:27 Glucose (Glucose 40% Gel 15 Gm Tube) 15 - 30 gm PO UD PRN; Protocol PRN Reason: Hypoglycemia Protocol Stop: 05/25/25 22:27 Glucose (Glucose 10 Tab/Tube) 4 - 8 tab PO UD PRN; Protocol PRN Reason: Hypoglycemia Protocol Stop: 05/25/25 22:27 Heparin Sodium/Dextrose (Heparin 50066 Unit/500 Ml D5w) 25,000 units in 500 mls @ 26 mls/hr IV .[id number] RAYO; Protocol Stop: 05/25/25 20:14 Last Titration: 04/26/25 05:09 Dose: 1,300 units/hr, 26 mls/hr Insulin Aspart (Insulin Aspart Per Unit Charge) 0 units SC Q6 RAYO Stop: 05/26/25 00:00 Last Admin: 04/26/25 06:12 Dose: Not Given Magnesium Hydroxide (Magnesium Hydroxide Susp 30 Ml Udc) 30 ml PO Q12H PRN PRN Reason: Constipation Stop: 05/25/25 22:27 Melatonin (Melatonin 3 Mg Tab) 3 mg PO HS PRN PRN Reason: Sleep Stop: 05/26/25 00:00 Last Admin: 04/26/25 00:49 Dose: 3 mg Miscellaneous (Carbohydrates For Hypoglycemia ) 15 - 30 gm PO UD PRN PRN Reason: Hypoglycemia Protocol Stop: 05/25/25 22:27 Miscellaneous Information (Pharmacy Glycemic Mgmt Consult) 1 each N/A UD PRN PRN Reason: Consult Stop: 05/25/25 22:27 Montelukast Sodium (Montelukast Sodium 10 Mg Tablet) 10 mg PO HS [facility] Stop: 05/25/25 20:59 Last Admin: 04/25/25 23:48 Dose: 10 mg Ondansetron HCl (Ondansetron Inj 2 Mg/Ml 2 Ml Vial) 4 mg IV Q6H PRN PRN Reason: Nausea Stop: 05/25/25 22:27 Polyethylene Glycol (Polyethylene (Miralax) 17 Gm Pack) 17 gm PO DAILY PRN PRN Reason: Constipation Stop: 05/25/25 22:27 PG Care Time/CCT Total # of Minutes Spent Total Time Spent with Patient: Total time spent is greater than 50% in coordination of care (as documented) at patient's floor/unit and/or counseling patient: Coding Level of Care Code 52574 IN/OBS CONSULT LVL 5,80M
[2025-04-26] MEDS: ASPIRIN 81 MG ECTAB PO SCH (09:05)
[2025-04-26] MEDS: ATORVASTATIN 40 MG TAB PO SCH (09:06)
[2025-04-26] MEDS: FLUTICASONE PROPIONATE NA SPR 16 GM BTL SCH (09:06)
--- NOTE | 2025-04-26 12:54 | Pharmacy Report ---
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
[2025-04-26] MEDS: ONDANSETRON INJ 2 MG/ML 2 ML VIAL IV PRN (13:35)
--- NOTE | 2025-04-26 15:01 | Hospitalist Progress Note ---
Date of Service April 26, 2025 Assessment & Plan (1) Chest pain: Plan Patient is a 70-year-old female with past medical history significant for type II DM, HLD, COLT on CPAP at bedtime, intermittent asthma, pulmonary nodules, HTN, vitamin D deficiency, osteoporosis, obesity and other problems listed below who presented to the ED via EMS with complaints of chest pain. Sudden onset of sharp chest pain originating under the L breast and radiating into the midsternal region this afternoon. Chest pain relieved en route to ED s/p 324mg ASA load and SL nitroglycerin x 4. Remains chest pain-free at the time of our evaluation. Father of massive RI at age 69. Brother had RI, unknown age. #Chest pain Relieved s/p ASA load, SL nitroglycerin as per above Initial troponin negligible --> repeat troponin 38.5 w/ T wave inversions in lead III on repeat EKG IV heparin drip started given T wave inversions, repeat troponin elevation Will keep NPO for now (can have sips/chips); appreciate cardiology consult -Consider urgent cardiac catheterization if chest pain returns and/or troponin trend starkly uprising Continue ASA 81mg daily tomorrow AM Check AM lipid panel-triglycerides 79, cholesterol 144, LDL cholesterol 70, HDL 58 Echo of the heart showed mild concentric LVH, LV wall motion is normal, systolic function is normal, EF 55 to 60%, significant mitral regurgitation is absent and grade 1 diastolic dysfunction Serial cardiac enzymes and EKG did not show any significant abnormalities and the patient remains free from any symptoms on intravenous heparin and also aspirin Appreciate cardiology input and recommendation-recommended to have cardiac cath sometime today #DM II Hold home regimen (metformin, Farxiga) SSI protocol while inpt Monitor BSG checks ACHS Check Hgb A1c in AM-hemoglobin A1c 6.7 #HTN BP on softer side Hold amlodipine, losartan --> resume as able, routine BP monitoring Blood pressure remains on the upper side at 172/86 #HLD Continue statin Check lipid panel in AM as per above #Intermittent asthma No s/sx of acute exacerbation CXR unremarkable; continue Singulair DVT Prophylaxis: IV Heparin Disposition: Admit to PCU Admission and Anticipated Discharge Date Admission Date: April 25, 2025 Subjective 04/26/2025 The patient was seen and examined in telemetry unit in presence of the She was admitted with sudden onset of chest pain associated with shortness of breath and chest heaviness lasted for about half an hour No more pain since admission and denies any other significant symptoms Review of Systems Review of Systems: All systems reviewed are unremarkable except as noted below Physical Exam Physical Exam: Lying in bed without any acute distress but looks apprehensive Constitutional: well developed, well nourished, + ill appearing and + obese Eyes: PERRL, conjunctivae normal, anicteric sclerae ENMT: external ear and nose normal, oropharynx normal Neck: trachea midline, no thyromegaly Respiratory: no respiratory distress Auscultation: lungs clear to auscultation bilaterally Cardiovascular: Rate/Rhythm: regular rate and regular rhythm; not tachycardic Heart Sounds: normal S1 and normal S2; no murmur Extremities: + edema ( trace edema bilaterally) Musculoskeletal: No acute arthritis involving any of the joint Neurologic: normal touch/pain/proprioception and moves all extremities; no focal motor deficits Lymphatic: no cervical or axillary lymphadenopathy Results & Data Results & Data Vital Signs (Past 12 Hours) Vital Signs Temp Pulse Pulse Resp BP Pulse Ox O2 Del Method 04/26/25 11:48 36.9 C 74 18 133/84 93 Room Air 04/26/25 08:00 75 04/26/25 08:00 36.5 C 70 16 132/74 97 BiPAP 04/26/25 04:01 36.4 C L 77 18 146/80 H 95 BiPAP 04/26/25 03:19 65 14 98 FiO2 04/26/25 11:48 04/26/25 08:00 04/26/25 08:00 04/26/25 04:01 04/26/25 03:19 21 Laboratory Results Short CBC 04/25/25 04/26/25 Range/Units 15:25 03:51 WBC 9.71 9.86 (4.8-10.8) K/ul Hgb 13.9 13.2 (12.0-16.0) g/dl Hct 43.5 41.0 (37.0-47.0) % Plt Count 204 189 (130-400) K/uL BMP 04/25/25 04/26/25 15:25 03:51 Sodium 139 140 Potassium 4.2 4.3 Chloride 106 107 Carbon Dioxide 24 25 BUN 15 12 Creatinine 0.78 0.67 Glucose 132 H 118 H Calcium 9.3 9.1 Liver Function 04/25/25 04/26/25 Range/Units 15:25 03:51 Total Bilirubin 0.4 0.5 (0.2-1.0) mg/dl AST 24 24 (13-39) U/L ALT 21 19 (7-52) U/L Alkaline Phosphatase 116 H 106 H (34-104) U/L Albumin 4.3 4.1 (3.4-5.0) gm/dl Medications Administered Current Inpatient Medications Acetaminophen (Acetaminophen 325 Mg Tab) 650 mg PO Q4H PRN PRN Reason: Pain or Fever Stop: 05/25/25 22:27 Aspirin ([facility]in 81 Mg [facility]ctab) [facility] Stop: 05/26/25 08:59 Last Admin: 04/26/25 09:05 Dose: 81 mg Atorvastatin Calcium (Atorvastatin 40 Mg Tab) 40 mg PO [facility] Stop: 05/26/25 08:59 Last Admin: 04/26/25 09:06 Dose: 40 mg Dextrose (Dextrose 50% 50 Ml Syringe) 25 - 50 ml IV UD PRN; Protocol PRN Reason: Hypoglycemia Protocol Stop: 05/25/25 22:27 Fluticasone Propionate (Fluticasone Propionate Na Spr 16 Gm Btl) 1 sprays NA DAILY [facility] Stop: 05/26/25 08:59 Last Admin: 04/26/25 09:06 Dose: 1 sprays Glucagon (Glucagon For Inj 1 Mg Vial) 1 mg SQ UD PRN; Protocol PRN Reason: Hypoglycemia Protocol Stop: 05/25/25 22:27 Glucose (Glucose 40% Gel 15 Gm Tube) 15 - 30 gm PO UD PRN; Protocol PRN Reason: Hypoglycemia Protocol Stop: 05/25/25 22:27 Glucose (Glucose 10 Tab/Tube) 4 - 8 tab PO UD PRN; Protocol PRN Reason: Hypoglycemia Protocol Stop: 05/25/25 22:27 Heparin Sodium/Dextrose (Heparin 01020 Unit/500 Ml D5w) 25,000 units in 500 mls @ 26 mls/hr IV .[id number] RAYO; Protocol Stop: 05/25/25 20:14 Last Titration: 04/26/25 05:09 Dose: 1,300 units/hr, 26 mls/hr Insulin Aspart (Insulin Aspart Per Unit Charge) 0 units SC Q6 [facility] Stop: 05/26/25 00:00 Last Admin: 04/26/25 13:18 Dose: Not Given Insulin Glargine (Lantus Per Unit Charge) 0 units SC HS RAYO; Protocol Stop: 05/26/25 20:59 Magnesium Hydroxide (Magnesium Hydroxide Susp 30 Ml Udc) 30 ml PO Q12H PRN PRN Reason: Constipation Stop: 05/25/25 22:27 Melatonin (Melatonin 3 Mg Tab) 3 mg PO HS PRN PRN Reason: Sleep Stop: 05/26/25 00:00 Last Admin: 04/26/25 00:49 Dose: 3 mg Miscellaneous (Carbohydrates For Hypoglycemia ) 15 - 30 gm PO UD PRN PRN Reason: Hypoglycemia Protocol Stop: 05/25/25 22:27 Miscellaneous Information (Pharmacy Glycemic Mgmt Consult) 1 each N/A UD PRN PRN Reason: Consult Stop: 05/25/25 22:27 Montelukast Sodium (Montelukast Sodium 10 Mg Tablet) 10 mg PO HS RAYO Stop: 05/25/25 20:59 Last Admin: 04/25/25 23:48 Dose: 10 mg Ondansetron HCl (Ondansetron Inj 2 Mg/Ml 2 Ml Vial) 4 mg IV Q6H PRN PRN Reason: Nausea Stop: 05/25/25 22:27 Last Admin: 04/26/25 13:35 Dose: 4 mg Polyethylene Glycol (Polyethylene (Miralax) 17 Gm Pack) 17 gm PO DAILY PRN PRN Reason: Constipation Stop: 05/25/25 22:27 (1) Chest pain Chest pain type: unspecified Qualified Code(s): R07.9 - Chest pain, unspecified
--- NOTE | 2025-04-26 15:50 | Pre Anesthesia Assessment ---
Date of Service April 26, 2025 Pre Sedation Assessment Vital Signs Temp Pulse Pulse Resp BP Pulse Ox O2 Del Method 04/26/25 14:54 77 20 172/86 H 96 Room Air 04/26/25 11:48 98.4 F 74 18 133/84 93 Room Air 04/26/25 08:00 75 04/26/25 08:00 97.7 F 70 16 132/74 97 BiPAP 04/26/25 04:01 97.5 F L 77 18 146/80 H 95 BiPAP 04/26/25 03:19 65 14 98 04/26/25 01:01 65 15 98 04/25/25 22:45 69 04/25/25 22:30 Room Air 04/25/25 22:30 98.2 F 91 H 18 168/109 H 93 Room Air 04/25/25 21:18 68 20 178/98 H 96 Nasal Cannula 04/25/25 18:38 62 20 124/83 94 Room Air 04/25/25 16:04 81 FiO2 04/26/25 14:54 04/26/25 11:48 04/26/25 08:00 04/26/25 08:00 04/26/25 04:01 04/26/25 03:19 21 04/26/25 01:01 21 04/25/25 22:45 04/25/25 22:30 04/25/25 22:30 04/25/25 21:18 04/25/25 18:38 04/25/25 16:04 Cardiovascular + regular rate Respiratory + respiratory effort normal Pre-Sedation Airway Assessment Smoking Status: Never smoker Hx Sleep Apnea: Yes (cpap) Hx Difficult Intubation: No Short, Thick Neck: No Thyromental Distance: > or= 3.5 Finger Breadths Oral Cavity: + WNL Mallampati Class: III ASA: ASA3 NPO Status Date of Last Intake of Fluids: 04/26/25 Time of Last Intake of Fluids: 08:00 Date of Last Intake of Solid Food: 04/25/25 Time of Last Intake of Solid Foods: 23:30 Procedure Planning Contraindications for Sedation: none Current Medications Reviewed: Yes Notes The planned sedation has been discussed with the patient. Informed Consent was obtained. I have identified the patient, determined the appropriateness of sedation and have assessed the patient immediately prior to the procedure. All medicine(s) and interventions are by my order.
[2025-04-26] MEDS: niCARdipine 2,000 MCG/20 ML SYR ONE (16:37)
[2025-04-26] MEDS: NITROGLYCERIN/D5W 100MCG/ML 20ML SYR ONE (16:37)
[2025-04-26] MEDS: MIDAZOLAM HCL 1 MG/ML 2ML VIAL ONE (16:37)
[2025-04-26] MEDS: HEPARIN (PORCINE) 1000 UNIT/ML 10 ML (CATH LAB USE ONLY) ONE (16:43)
[2025-04-26] MEDS: OPTIRAY 350 ONE (16:43)
--- NOTE | 2025-04-26 17:02 | Post Anesthesia Assessment ---
Date of Service April 26, 2025 Post Sedation Assessment Vital Signs Temp Pulse Pulse Resp BP Pulse Ox O2 Del Method 04/26/25 16:00 76 04/26/25 14:54 77 20 172/86 H 96 Room Air 04/26/25 11:48 98.4 F 74 18 133/84 93 Room Air 04/26/25 08:00 75 04/26/25 08:00 97.7 F 70 16 132/74 97 BiPAP 04/26/25 04:01 97.5 F L 77 18 146/80 H 95 BiPAP 04/26/25 03:19 65 14 98 04/26/25 01:01 65 15 98 04/25/25 22:45 69 04/25/25 22:30 Room Air 04/25/25 22:30 98.2 F 91 H 18 168/109 H 93 Room Air 04/25/25 21:18 68 20 178/98 H 96 Nasal Cannula 04/25/25 18:38 62 20 124/83 94 Room Air FiO2 04/26/25 16:00 04/26/25 14:54 04/26/25 11:48 04/26/25 08:00 04/26/25 08:00 04/26/25 04:01 04/26/25 03:19 21 04/26/25 01:01 21 04/25/25 22:45 04/25/25 22:30 04/25/25 22:30 04/25/25 21:18 04/25/25 18:38 Recovery Score Activity: Moves 4 extremities Respiration: Deep Breath/Cough Circulation: +/-20% PreAnes Value Consciousness: Fully Awake Oxygen Saturation: O2 needed for >90% Discharge Sedation Level of Care: Fast Track Phase II Post Sedation Plan tiss
[2025-04-26] MEDS: LANTUS PER UNIT CHARGE SC SCH (20:18)
--- NOTE | 2025-04-26 21:37 | Cardiac Catheterization ---
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 Cardiac Status Clinical evaluation leading to the procedure CAD Presenation: Non STEMI Diagnostic Physicians Name: Franky Kaur MD Closure Device Recommendations: Medical Therapy and/or Counseling Cardiac Cath Procedure Full Procedure Date April 26, 2025 Pre-Procedure Diagnosis Pre-Procedure Diagnosis: Non STEMI AUC Score AUC Score: 7 Post-Procedure Diagnosis Post-Procedure Diagnosis: Mild CAD and Normal Intracardiac Pressures Procedure(s) Performed Procedure(s) Performed: Coronary Angiography and Left Heart Cath Supervisor Frame Sample And Pattern Franky Kaur MD Commuter Train Operator(s) Patricio Estimated Blood Loss Estimated Blood Loss: 5 Medication(s) Medication(s): Fentanyl, Heparin, Lidocaine 1%, Nicardipine, Nitroglycerin and Versed Summary of Findings Indication: NSTEMI Access: 6 Fr slender right radial artery Catheters: Bunker, pigtail Findings: LM -large caliber, no significant disease. LAD -large caliber, proximal luminal irregularities, remainder of vessel tortuous without significant disease and continues around apex. D1 30% ostial. Small D2 without significant disease. Circumflex -medium caliber, AV groove circumflex without significant disease. Medium OM 3, small PLB without significant disease. Large high OM1 with proximal luminal irregularities RCA -large caliber, 20-30% proximal to mid stenosis, Remainder of RCA without significant disease. Medium PDA and posterior AV branch without significant disease. LVEDP -13 Arterial Closure: TR band Summary: 1. Minimal nonobstructive coronary artery disease -20 to 30% proximal to mid RCA stenosis 30% ostial first diagonal 2. Normal intracardiac filling pressure Recommendations: No acute or high risk CAD to explain patient's presenting symptoms. Continued ASCVD risk factor modification per Dr. Travis. Hemodynamics Rest Ao:: 140/80/107 Final Ao: 159/79/114 LV: 161/13 Recommendations Recommendations: Medical Therapy and/or Counseling Specimens Specimens: None Radiation Exposure (mGy) 617 Contrast (mls) 60 Anesthesia Moderate [id number] Procedural Complication(s) None Disposition School Bus Dispatcher Holding/Recovery I attest to the content of the Intraoperative Record and any orders documented therein. Any exceptions are noted below. [facility] Card Cath Procedure Codes Cardiac Catheterization Procedure 1: Cardiovascular Cath Procedures: 46548 Coronaries and LHC (+/-LV) Moderate Sedation Procedure 1: Sedation/Anesthesia: 20689 Mod Sedation by the same physician;Init15 Min Child Age 5 & Up PG Care Time/CCT Total # of Minutes Spent Total Time Spent with Patient: Total time spent is greater than 50% in coordination of care (as documented) at patient's floor/unit and/or counseling patient:
[2025-04-27 07:17] LABS: Hematocrit (blood only) 41.7 % (37.0-47.0); Hemoglobin 13.5 g/dl (12.0-16.0); Immature Granulocytes # (auto) 0.04 K/uL (0.01-0.20); Immature Granulocytes % (auto) 0.4 %; Mean Corpuscular Hemoglobin 30.1 pg (25.0-34.0); Mean Corpuscular Volume 92.9 fL (80.0-100.0); Platelet Count 200 K/uL (130-400); RDW Standard Deviation 46.0 fL (36.4-46.3); Red Blood Count 4.49 M/uL (4.20-5.40); White Blood Count 10.44 K/ul (4.8-10.8)
[2025-04-27 07:35] LABS: Anion Gap 10.0 (3-11); Blood Urea Nitrogen 14.0 mg/dl (6-23); Calcium 9.1 mg/dl (8.6-10.3); Carbon Dioxide 23.0 mmol/L (21-32); Chloride 106.0 mmol/L (98-107); Creatinine Clr Calc Pharmacy 84.2 ml/min; Glucose 88.0 mg/dl (70-99(Fasting)); Magnesium 2.2 mg/dl (1.7-2.4); Potassium 4.1 mmol/L (3.5-5.1); Sodium 139.0 mmol/L (136-145)
[2025-04-27 07:58] VITALS: PULSE 71
--- NOTE | 2025-04-27 09:45 | Cardiology Progress Note ---
Date of Service April 27, 2025 Assessment & Plan (1) Chest pain: Plan 70 yo woman presenting with Chest Pain * Sudden onset * Substernal/ Left side * Treated with SL NTG - relief * Troponin - elevated * ECHO - mild concentric LVH; LVEF 55-60% * D-Dimer - 550 * No recent trips/ DVT or PE * EKG - inferior TWI Hx: * DM * HTN * Hyperlipidemia * COLT on CPAP Plans: * Coronary Angiography - no obstructive CAD * Continue ASA 81 mg po per day * LDL 70 * Continue Lipitor to 80 mg po per day * Heparin (OFF) * Increase Amlodipine to 5 mg po per day * Continue Losartan 100 mg po per day * STOP Lopressor * Start Toprol XL 12.5 mg po per day * If BP not controlled as an outpt with this regimen, consider substituting Chlorthalindone for Beta Shiela * K+ goal 4.5-5 * Mag goal >2 * Plans for patient to follow up with PCP for ongoing risk factor mitigation * Please call back with any additional questions * 50 min spent addressing challenges, educating, and advancing daily plan of care Shon Travis Admission and Anticipated Discharge Date Admission Date: April 25, 2025 Subjective Events Overnight: * Cardiac Catheterization - no severe obstructive CAD Telemetry: * No arrhythmias overnight Subjective: * no complaints Review of Systems Review of Systems: All systems reviewed & are unremarkable except as noted in HPI & below Physical Exam Physical Exam: No elevation in JVP S1S2 2/6 systolic murmur CTA B + BS No C/C/E Warm and well-perfused Results & Data Vital Signs (Past 12 Hours) Vital Signs Temp Pulse Pulse Resp BP Pulse Ox Pulse Ox 04/27/25 07:58 36.6 C 71 18 149/93 H 92 04/27/25 07:21 67 04/27/25 03:28 36.6 C 69 18 148/84 H 93 04/27/25 00:42 63 04/26/25 22:51 70 16 95 04/26/25 22:49 36.8 C 68 110/68 96 04/26/25 22:28 95 O2 Del Method O2 Del Method 04/27/25 07:58 Room Air 04/27/25 07:21 04/27/25 03:28 Room Air 04/27/25 00:42 04/26/25 22:51 04/26/25 22:49 Room Air 04/26/25 22:28 Room Air Laboratory Results Cardiac Enzymes 04/26/25 Range/Units 09:02 Troponin I High Sens 33.8 H D (0-14) pg/ml CBC 04/27/25 Range/Units 06:55 WBC 10.44 (4.8-10.8) K/ul RBC 4.49 (4.20-5.40) M/uL Hgb 13.5 (12.0-16.0) g/dl Hct 41.7 (37.0-47.0) % Plt Count 200 (130-400) K/uL Neut # (Auto) 7.10 H (1.40-6.50) K/uL Lymph # (Auto) 2.31 (1.20-3.40) K/uL Polk # (Auto) 0.85 H (0.11-0.59) K/uL Eos # (Auto) 0.09 (0.00-0.50) K/uL Baso # (Auto) 0.05 (0.00-0.20) K/uL Comprehensive Metabolic Panel 04/27/25 Range/Units 06:55 Sodium 139 (136-145) mmol/L Potassium 4.1 (3.5-5.1) mmol/L Chloride 106 (98-107) mmol/L Carbon Dioxide 23 (21-32) mmol/L BUN 14 (6-23) mg/dl Creatinine 0.68 (0.6-1.2) mg/dl Glucose 88 (70-99(Fasting)) mg/dl Calcium 9.1 (8.6-10.3) mg/dl Intake and Output 04/26/25 04/27/25 04/27/25 22:59 06:59 14:59 Intake Total 492.867 / 492.867 Balance 492.867 / 492.867 Intake: IV 292.867 / 292.867 Heparin 82649 Unit/500 ml D5w 292.867 / 292.867 25,000 units In 500 ml @ 1,300 UNITS/HR 26 mls/hr IV .[id number] [facility] Rx#:[id number] Oral 200 / 200 Other: # Unmeasured Voids 1 1 Weight 89.3 kg Weight Measurement Method Standing Scale Diagnostic Findings Cardiac Catheterization: 04-26-2025 Summary: 1. Minimal nonobstructive coronary artery disease -20 to 30% proximal to mid RCA stenosis 30% ostial first diagonal 2. Normal intracardiac filling pressure ECHOcardiogram: 04-26-2025 * LVEF 55-60% * + LVH * No significant valvular heart disease Medications Administered Current Inpatient Medications Acetaminophen (Acetaminophen 325 Mg Tab) 650 mg PO Q4H PRN PRN Reason: Pain or Fever Stop: 05/25/25 22:27 Amlodipine Besylate (Amlodipine Besylate 5 Mg Tab) [facility] Stop: 05/27/25 08:59 Aspirin (Aspirin 81 Mg Ectab) [facility] [place] Stop: 05/26/25 08:59 Last Admin: 04/27/25 08:23 Dose: 81 mg Atorvastatin Calcium (Atorvastatin 40 Mg Tab) 40 mg PO QAM [facility] Stop: 05/26/25 08:59 Last Admin: 04/27/25 08:23 Dose: 40 mg Dextrose (Dextrose 50% 50 Ml Syringe) 25 - 50 ml IV UD PRN; Protocol PRN Reason: Hypoglycemia Protocol Stop: 05/25/25 22:27 Fluticasone Propionate (Fluticasone Propionate Na Spr 16 Gm Btl) 1 sprays NA DAILY [facility] Stop: 05/26/25 08:59 Last Admin: 04/27/25 08:22 Dose: 1 sprays Glucagon (Glucagon For Inj 1 Mg Vial) 1 mg SQ UD PRN; Protocol PRN Reason: Hypoglycemia Protocol Stop: 05/25/25 22:27 Glucose (Glucose 40% Gel 15 Gm Tube) 15 - 30 gm PO UD PRN; Protocol PRN Reason: Hypoglycemia Protocol Stop: 05/25/25 22:27 Glucose (Glucose 10 Tab/Tube) 4 - 8 tab PO UD PRN; Protocol PRN Reason: Hypoglycemia Protocol Stop: 05/25/25 22:27 Insulin Aspart (Insulin Aspart Per Unit Charge) 0 units SC ACHS [facility] Stop: 05/27/25 11:29 Insulin Glargine (Lantus Per Unit Charge) 0 units SC HS RAYO; Protocol Stop: 05/26/25 20:59 Last Admin: 04/26/25 20:18 Dose: Not Given Losartan Potassium (Losartan Potassium 50 Mg Tab) 100 mg PO QAM R[facility]O Stop: 05/27/25 08:59 Magnesium Hydroxide (Magnesium Hydroxide Susp 30 Ml Udc) 30 ml PO Q12H PRN PRN Reason: Constipation Stop: 05/25/25 22:27 Melatonin (Melatonin 3 Mg Tab) 3 mg PO HS PRN PRN Reason: Sleep Stop: 05/26/25 00:00 Last Admin: 04/26/25 20:20 Dose: 3 mg Miscellaneous (Carbohydrates For Hypoglycemia ) 15 - 30 gm PO UD PRN PRN Reason: Hypoglycemia Protocol Stop: 05/25/25 22:27 Miscellaneous Information (Pharmacy Glycemic Mgmt Consult) 1 each N/A UD PRN PRN Reason: Consult Stop: 05/25/25 22:27 Montelukast Sodium (Montelukast Sodium 10 Mg Tablet) 10 mg PO HS RAYO Stop: 05/25/25 20:59 Last Admin: 04/26/25 20:20 Dose: 10 mg Ondansetron HCl (Ondansetron Inj 2 Mg/Ml 2 Ml Vial) 4 mg IV Q6H PRN PRN Reason: Nausea Stop: 05/25/25 22:27 Last Admin: 04/26/25 13:35 Dose: 4 mg Polyethylene Glycol (Polyethylene (Miralax) 17 Gm Pack) 17 gm PO DAILY PRN PRN Reason: Constipation Stop: 05/25/25 22:27 PG Care Time/CCT Total # of Minutes Spent Total Time Spent with Patient: Total time spent is greater than 50% in coordination of care (as documented) at patient's floor/unit and/or counseling patient: Coding Level of Care Code 25139 SUB INP/OBS CARE 3/50MIN Diagnoses Chest pain R07.9
[2025-04-27] MEDS: LOSARTAN POTASSIUM 50 MG TAB PO SCH (10:01)
[2025-04-27 11:36] VITALS: BP 118/81; RESP 20; TEMP 98.1; O2SAT 94
--- NOTE | 2025-04-27 11:52 | Hospitalist Progress Note ---
Date of Service April 27, 2025 Assessment & Plan (1) Chest pain: Plan Patient is a 70-year-old female with past medical history significant for type II DM, HLD, COLT on CPAP at bedtime, intermittent asthma, pulmonary nodules, HTN, vitamin D deficiency, osteoporosis, obesity and other problems listed below who presented to the ED via EMS with complaints of chest pain. Sudden onset of sharp chest pain originating under the L breast and radiating into the midsternal region this afternoon. Chest pain relieved en route to ED s/p 324mg ASA load and SL nitroglycerin x 4. Remains chest pain-free at the time of our evaluation. Father of massive [place] at age 69. Brother had [place], unknown age. #Chest pain Relieved s/p ASA load, SL nitroglycerin as per above Initial troponin negligible --> repeat troponin 38.5 w/ T wave inversions in lead III on repeat EKG IV heparin drip started given T wave inversions, repeat troponin elevation Will keep NPO for now (can have sips/chips); appreciate cardiology consult -Consider urgent cardiac catheterization if chest pain returns and/or troponin trend starkly uprising Continue ASA 81mg daily tomorrow AM Check AM lipid panel-triglycerides 79, cholesterol 144, LDL cholesterol 70, HDL 58 Echo of the heart showed mild concentric LVH, LV wall motion is normal, systolic function is normal, EF 55 to 60%, significant mitral regurgitation is absent and grade 1 diastolic dysfunction Serial cardiac enzymes and EKG did not show any significant abnormalities and the patient remains free from any symptoms on intravenous heparin and also aspirin Appreciate cardiology input and recommendation-recommended to have cardiac cath sometime today Status postcardiac cath showing nonobstructive CAD and medical management is contemplated Will be given aspirin 81 mg a day, Toprol-XL 12.5 mg a day and continue with Lipitor maybe 80 mg a day She will be discharged home this afternoon #DM II Hold home regimen (metformin, Farxiga) SSI protocol while inpt Monitor BSG checks ACHS Check Hgb A1c in AM-hemoglobin A1c 6.7 #HTN BP on softer side Hold amlodipine, losartan --> resume as able, routine BP monitoring Blood pressure remains on the upper side at 172/86 Blood pressure is controlled with current medication #HLD Continue statin Check lipid panel in AM as per above #Intermittent asthma No s/sx of acute exacerbation CXR unremarkable; continue Singulair DVT Prophylaxis: IV Heparin Disposition: Admit to PCU Will be discharged home this afternoon Admission and Anticipated Discharge Date Admission Date: April 25, 2025 Subjective 04/26/2025 The patient was seen and examined in telemetry unit in presence of the She was admitted with sudden onset of chest pain associated with shortness of breath and chest heaviness lasted for about half an hour No more pain since admission and denies any other significant symptoms 04/27/2025 The patient was seen and examined in telemetry unit She is a status post cardiac cath without any obstructive CAD and she has been feeling a lot better Denies any significant symptoms and wants to go home Review of Systems Review of Systems: All systems reviewed are unremarkable except as noted below Physical Exam Physical Exam: Lying in bed without any acute distress but looks apprehensive Constitutional: well developed, well nourished, + ill appearing and + obese Eyes: PERRL, conjunctivae normal, anicteric sclerae ENMT: external ear and nose normal, oropharynx normal Neck: trachea midline, no thyromegaly Respiratory: no respiratory distress Auscultation: lungs clear to auscultation bilaterally Cardiovascular: Rate/Rhythm: regular rate and regular rhythm; not tachycardic Heart Sounds: normal S1 and normal S2; no murmur Extremities: + edema ( trace edema bilaterally) Gastrointestinal (Abdomen): Inspection/Auscultation: normal bowel sounds; abdomen not distended Percussion/Palpation: abdomen soft; abdomen nontender Musculoskeletal: No acute arthritis involving any of the joint Neurologic: normal touch/pain/proprioception and moves all extremities; no focal motor deficits Lymphatic: no cervical or axillary lymphadenopathy Results & Data Results & Data Vital Signs (Past 12 Hours) Vital Signs Temp Pulse Pulse Resp BP Pulse Ox O2 Del Method 04/27/25 11:35 36.7 C 71 20 118/81 94 Room Air 04/27/25 07:58 36.6 C 71 18 149/93 H 92 Room Air 04/27/25 07:21 67 04/27/25 03:28 36.6 C 69 18 148/84 H 93 Room Air 04/27/25 00:42 63 Laboratory Results Short CBC 04/27/25 Range/Units 06:55 WBC 10.44 (4.8-10.8) K/ul Hgb 13.5 (12.0-16.0) g/dl Hct 41.7 (37.0-47.0) % Plt Count 200 (130-400) K/uL BMP 04/27/25 06:55 Sodium 139 Potassium 4.1 Chloride 106 Carbon Dioxide 23 BUN 14 Creatinine 0.68 Glucose 88 Calcium 9.1 Medications Administered Current Inpatient Medications Acetaminophen (Acetaminophen 325 Mg Tab) 650 mg PO Q4H PRN PRN Reason: Pain or Fever Stop: 05/25/25 22:27 Amlodipine Besylate (Amlodipine Besylate 5 Mg Tab) [facility] [place]: 05/27/25 08:59 Last Admin: 04/27/25 10:01 Dose: 2.5 mg Aspirin (Aspirin 81 Mg Ectab) 81 [facility] [place] Stop: 05/26/25 08:59 Last Admin: 04/27/25 08:23 Dose: 81 mg Atorvastatin Calcium (Atorvastatin 40 Mg Tab) 40 [facility] [place] Stop: 05/26/25 08:59 Last Admin: 04/27/25 08:23 Dose: 40 mg Dextrose (Dextrose 50% 50 Ml Syringe) 25 - 50 ml IV UD PRN; Protocol PRN Reason: Hypoglycemia Protocol Stop: 05/25/25 22:27 Fluticasone Propionate (Fluticasone Propionate Na Spr 16 Gm Btl) 1 sprays NA DAILY [facility] Stop: 05/26/25 08:59 Last Admin: 04/27/25 08:22 Dose: 1 sprays Glucagon (Glucagon For Inj 1 Mg Vial) 1 mg SQ UD PRN; Protocol PRN Reason: Hypoglycemia Protocol Stop: 05/25/25 22:27 Glucose (Glucose 40% Gel 15 Gm Tube) 15 - 30 gm PO UD PRN; Protocol PRN Reason: Hypoglycemia Protocol Stop: 05/25/25 22:27 Glucose (Glucose 10 Tab/Tube) 4 - 8 tab PO UD PRN; Protocol PRN Reason: Hypoglycemia Protocol Stop: 05/25/25 22:27 Insulin Aspart (Insulin Aspart Per Unit Charge) 0 units SC ACHS [facility] Stop: 05/27/25 11:29 Losartan Potassium (Losartan Potassium 50 Mg Tab) [facility] [place] Stop: 05/27/25 08:59 Last Admin: 04/27/25 10:01 Dose: 100 mg Magnesium Hydroxide (Magnesium Hydroxide Susp 30 Ml Udc) 30 ml PO Q12H PRN PRN Reason: Constipation Stop: 05/25/25 22:27 Melatonin (Melatonin 3 Mg Tab) 3 mg PO HS PRN PRN Reason: Sleep Stop: 05/26/25 00:00 Last Admin: 04/26/25 20:20 Dose: 3 mg Miscellaneous (Carbohydrates For Hypoglycemia ) 15 - 30 gm PO UD PRN PRN Reason: Hypoglycemia Protocol Stop: 05/25/25 22:27 Miscellaneous Information (Pharmacy Glycemic Mgmt Consult) 1 each N/A UD PRN PRN Reason: Consult Stop: 05/25/25 22:27 Montelukast Sodium (Montelukast Sodium 10 Mg Tablet) 10 mg PO HS RAYO Stop: 05/25/25 20:59 Last Admin: 04/26/25 20:20 Dose: 10 mg Ondansetron HCl (Ondansetron Inj 2 Mg/Ml 2 Ml Vial) 4 mg IV Q6H PRN PRN Reason: Nausea Stop: 05/25/25 22:27 Last Admin: 04/26/25 13:35 Dose: 4 mg Polyethylene Glycol (Polyethylene (Miralax) 17 Gm Pack) 17 gm PO DAILY PRN PRN Reason: Constipation Stop: 05/25/25 22:27 (1) Chest pain Chest pain type: unspecified Qualified Code(s): R07.9 - Chest pain, unspecified
[2025-04-27] MEDS: INSULIN ASPART PER UNIT CHARGE SC SCH (12:07)
--- NOTE | 2025-04-27 16:59 | Discharge Summary ---
Date of Service April 27, 2025 Admission HPI Per Admitting Provider Patient is a 70-year-old female with past medical history significant for type II DM, HLD, COLT on CPAP at bedtime, intermittent asthma, pulmonary nodules, HTN, vitamin D deficiency, osteoporosis, obesity and other problems listed below who presented to the ED via EMS with complaints of chest pain. History obtained from the patient, discussion with ED provider and associated chart review. Patient seen at bedside with Dr. Carvalho. Patient experienced a sudden onset of sharp chest pain earlier this afternoon while sitting down watching TV. Mentions the pain started under her left breast and then radiated into the midsternal region. No radiation of pain to the arms, neck or jaw regions. No associated diaphoresis or nausea with this either. She initially tried to walk around to get the pain to subside however the pain only worsened therefore she called EMS. Now s/p 324mg ASA and SL nitroglycerin x 4 en route to the ED with complete resolution in her chest pain at the time of our evaluation. No personal history of UT or CAD. Father of massive UT at age 69. Brother had UT, unknown age. Smoked briefly as a teenager. Rare alcohol use. No recreational drug use. Admission Exam Per Admitting Provider VS noted and reviewed oriented x3, not in distress, speaks in sentences with no effort nor accessory muscle use normal rate, regular rhythm, no murmurs clear breath sounds bilaterally non distended, soft, nontender no bipedal edema, erythema, warmth no neuro deficits Principal Diagnosis Chest pain, nonobstructive CAD on cardiac cath, hypertension, type 2 diabetes Discharge Exam Lying in bed without any acute distress but looks apprehensive Constitutional well developed, well nourished, + ill appearing and + obese Eyes PERRL, conjunctivae normal, anicteric sclerae ENMT external ear and nose normal, oropharynx normal Neck trachea midline, no thyromegaly Respiratory no respiratory distress Auscultation: lungs clear to auscultation bilaterally Cardiovascular Rate/Rhythm: regular rate and regular rhythm; not tachycardic Heart Sounds: normal S1 and normal S2; no murmur Extremities: + edema ( trace edema bilaterally) Gastrointestinal (Abdomen) Inspection/Auscultation: normal bowel sounds; abdomen not distended Percussion/Palpation: abdomen soft; abdomen nontender Neurologic normal touch/pain/proprioception and moves all extremities; no focal motor deficits Lymphatic no cervical or axillary lymphadenopathy Discharge Data Allergies Allergy/AdvReac Type Severity Reaction Status Date / Time Penicillins Allergy Unknown VONDA, RED Verified 04/25/25 17:20 diphenhydramine AdvReac Intermediate BENADRYL Verified 04/25/25 17:20 CREAM bacitracin AdvReac Unknown ? Verified 04/25/25 17:20 neomycin AdvReac Unknown ? Verified 04/25/25 17:20 polymyxin B AdvReac Unknown ? Verified 04/25/25 17:20 surgical glue AdvReac Rash Uncoded 04/25/25 17:20 Consultations 04/25/25 19:04 ED Decision to Admit Stat Procedures Performed Operation Date: 04/26/25 12:30 Actual Procedures p Cineradiography w/Routine Exam - Franky Kaur MD p Cath, Left with Cors and Vent - Franky Kaur MD Ordered Studies 04/26/25 15:54 CL Cath Imgs for PACS use only Routine Hospital Course (1) Chest pain: Plan Patient is a 70-year-old female with past medical history significant for type II DM, HLD, COLT on CPAP at bedtime, intermittent asthma, pulmonary nodules, HTN, vitamin D deficiency, osteoporosis, obesity and other problems listed below who presented to the ED via EMS with complaints of chest pain. Sudden onset of sharp chest pain originating under the L breast and radiating into the midsternal region this afternoon. Chest pain relieved en route to ED s/p 324mg ASA load and SL nitroglycerin x 4. Remains chest pain-free at the time of our evaluation. Father of massive UT at age 69. Brother had UT, unknown age. #Chest pain Relieved s/p ASA load, SL nitroglycerin as per above Initial troponin negligible --> repeat troponin 38.5 w/ T wave inversions in lead III on repeat EKG IV heparin drip started given T wave inversions, repeat troponin elevation Will keep NPO for now (can have sips/chips); appreciate cardiology consult -Consider urgent cardiac catheterization if chest pain returns and/or troponin trend starkly uprising Continue ASA 81mg daily tomorrow AM Check AM lipid panel-triglycerides 79, cholesterol 144, LDL cholesterol 70, HDL 58 Echo of the heart showed mild concentric LVH, LV wall motion is normal, systolic function is normal, EF 55 to 60%, significant mitral regurgitation is absent and grade 1 diastolic dysfunction Serial cardiac enzymes and EKG did not show any significant abnormalities and the patient remains free from any symptoms on intravenous heparin and also aspirin Appreciate cardiology input and recommendation-recommended to have cardiac cath sometime today Status postcardiac cath showing nonobstructive CAD and medical management is contemplated Will be given aspirin 81 mg a day, Toprol-XL 12.5 mg a day and continue with Lipitor maybe 80 mg a day She will be discharged home this afternoon #DM II Hold home regimen (metformin, Farxiga) SSI protocol while inpt Monitor BSG checks ACHS Check Hgb A1c in AM-hemoglobin A1c 6.7 #HTN BP on softer side Hold amlodipine, losartan --> resume as able, routine BP monitoring Blood pressure remains on the upper side at 172/86 Blood pressure is controlled with current medication #HLD Continue statin Check lipid panel in AM as per above #Intermittent asthma No s/sx of acute exacerbation CXR unremarkable; continue Singulair DVT Prophylaxis: IV Heparin Disposition: Admit to PCU Will be discharged home this afternoon Total Time Total Time Spent Total Time Spent (In Minutes): 35 minutes Discharge Plan Discharge Items Patient Disposition: Home - Self-Care Reason For Visit: CHEST PAIN Discharge Diagnosis: Chest pain, nonobstructive CAD on cardiac cath, hypertension, type 2 diabetes Condition on Discharge: Fair Activity: Resume your previous activity Non-emergency contact: Primary Care Provider Call non-emergency contact if: you have any medication questions and your symptoms worsen Follow-up/Referrals: Chi Silvestre, [Primary Care Provider] - (The office will contact you for a follow up appointment.) Diet: Carb Consistent or DM2 and Heart Healthy Addtl Attending Provider Instructions: Please take precautions to avoid falls Take your medications as advised Please keep appointments with your healthcare providers Pending Studies at Discharge: No Stand-Alone Forms: [employer], Smoking Cessation Medications and DC Order Prescriptions: New amlodipine 5 mg tablet 5 mg PO DAILY Qty: 30 0RF metoprolol succinate [Toprol XL] 25 mg tablet extended release 24 hr 12.5 mg PO DAILY Qty: 30 0RF atorvastatin 80 mg tablet 80 mg PO DAILY Qty: 30 0RF Continued aspirin 81 mg Tablet,Delayed Release (Dr/Ec) 81 mg PO HS montelukast 10 mg tablet 10 mg PO HS losartan 100 mg tablet 100 mg PO QAM fluticasone propionate 50 mcg/actuation spray,suspension 1 spray INTRANASAL DAILY metformin 500 mg tablet extended release 24 hr 500 mg PO HS acetaminophen [Tylenol Extra Strength] 500 mg Tablet 1,000 mg PO Q8H Qty: 30 0RF polyethylene glycol 3350 [Miralax] 17 gram Powder In Packet 17 g PO 2XWK dapagliflozin propanediol [Farxiga] 10 mg Tablet 10 mg PO QAM Discontinued atorvastatin 40 mg tablet 40 mg PO QAM amlodipine 2.5 mg tablet 2.5 mg PO QAM Discharge Orders: Discharge Order (Routine); Ordered 04/27/25 Ordered By: Jorge Luis Becerra Admission Data Admit Date/Time: 04/25/25 20:07 Attending Provider: Jorge Luis Becerra Admit Provider: Cody Carvalho Primary Care Provider: Chi Silvestre Other Providers: Cody Carvalho Other Interventions: Discharge Summary Assessment (RN) Last Done: 04/27/25 12:36
--- NOTE | 2025-04-28 14:17 | Coding Query ---
CODING QUERY To promote full compliance with coding requirements relating to patient care, provider participation is requested in all cases of flag signalman uncertainty. Please assist us with the question(s) below: Coding Question(s): The 04/26 Cardiac Catheterization report documents Pre- Procedure Diagnosis of Non STEMI, and Post-Procedure Diagnosis of Mild CAD and Normal Intracardiac Pressures, and the Summary documents Minimal nonobstructive coronary artery disease. It is not clear if Non STEMI was ruled-out. Please specify below, in your clinical opinion: (X) Non STEMI was Ruled-Out ( ) Non STEMI was still diagnosed Physician's Response(s): Thank you Gege Ohara Principal Diagnosis: "that condition established after study, to be chiefly responsible for occasioning the admission of the patient to the hospital for care." Co-Existing Principal Diagnosis: "when two or more diagnoses equally meet the criteria for principal diagnosis as determined by the circumstances of admission, diagnostic work up, and/or therapy provided, and the Alphabetic Index, Tabular List, or another coding guideline does not provide sequencing direction, any one of the diagnoses may be sequenced first." "When the physician has documented what appears to be a current diagnosis in the body of the record, but has not included the diagnosis in the final diagnostic statement, the physician should be asked whether the diagnosis should be added." (Source [facility]oding [facility] 2 QTR90. p3-4) NATALIA
--- NOTE | 2025-04-29 06:24 | Electrocardiogram Report ---
Test Reason : Blood Pressure : */* mmHG Vent. Rate : 94 BPM Atrial Rate : 94 BPM P-R Int : 142 ms QRS Dur : 94 ms QT Int : 366 ms P-R-T Axes : 38 -24 28 degrees QTcB Int : 457 ms Normal sinus rhythm Moderate voltage criteria for LVH, may be normal variant ( R in aVL , Irving product ) Borderline ECG When compared with ECG of 27-Apr-2024 11:40, No significant change was found Confirmed by López Zhou ([id number]) on 04/29/2025 6:23:30 AM Referred By: REFERRED SELF Confirmed By: López Zhou
--- NOTE | 2025-04-29 06:24 | Electrocardiogram Report ---
Test Reason : Blood Pressure : */* mmHG Vent. Rate : 68 BPM Atrial Rate : 68 BPM P-R Int : 138 ms QRS Dur : 96 ms QT Int : 416 ms P-R-T Axes : 43 -24 -1 degrees QTcB Int : 442 ms Normal sinus rhythm Moderate voltage criteria for LVH, may be normal variant ( R in aVL , Irving product ) When compared with ECG of 25-Apr-2025 15:15, T wave inversion now evident in Inferior leads Confirmed by López Zhou ([id number]) on 04/29/2025 6:24:11 AM Referred By: REFERRED SELF Confirmed By: López Zhou
== END 2025-04-27 13:26 | disposition home or self-care (01) | DRG 287 ==
LOC: ED 14:58 → SUATTDRO 20:07 → 2S 20:07